=== PATIENT | female | born 1945 | race African-American/Black ===

== ENCOUNTER → 2017-01-30 | Outpatient (CLI) | payer MEDICARE, OTHER ==
[~2017-01-30] MED LIST: ADVA250A INH; ALBU1.253 NEB; ALBU1AER INH; ALBU6.7H INH; BAYE2KIT XX; BUFF325T PO; ERGO50000 PO; GLUC10TA3 PO; HYDRO2.5%T TOP; IPRA17I INH; METF-324 PO; METO10TA PO; MONT10TA2 PO; NEBUKIT4 XX; POTA-243 PO; PREV30CA36 PO; SENN1TAB11 PO; VITA100T15 PO; lancets; test strips
[2017-01-30 13:30] LABS: HEMOGLOBIN A1a 1.4 %; HEMOGLOBIN A1b 2.1 %; HEMOGLOBIN Ao 82.7 %; HEMOGLOBIN LA1C 2.1 %; HEMOGLOBIN P3 3.9 %
[2017-01-30 13:50] LABS: ALKALINE PHOSPHATASE 97 U/L (45-117); ALT (GPT) 18 U/L (10-53); ANION GAP 8 MEQ/L (5-15); AST (GOT) 18 U/L (15-37); BICARBONATE 29.7 MEQ/L (21.0-32.0); BLOOD UREA NITROGEN 8 MG/DL (7-18); CHLORIDE 103 MEQ/L (98-107); GLOMERULAR FILTRATION RATE 79 ML/MIN (>89); GLUCOSE,FASTING 100 MG/DL (74-99); POTASSIUM 3.7 MEQ/L (3.5-5.1); SODIUM (NA) 141 MEQ/L (136-145); TOTAL BILIRUBIN ADULT 0.3 MG/DL (0.2-1.0)
== END ==
LOC: CLAB 13:00
PROVIDERS: ATTEND General Practice
DX: E11.9 Type 2 diabetes mellitus without complications (principal)
CPT/HCPCS: 36415; 80053; 83036

== ENCOUNTER → 2017-06-19 | Outpatient (CLI) | payer MEDICARE, OTHER ==
[2017-06-19 09:23] LABS: ANION GAP 9 MEQ/L (5-15); AST (GOT) 15 U/L (15-37); BICARBONATE 28.2 MEQ/L (21.0-32.0); BLOOD UREA NITROGEN 4 MG/DL (7-18); CHLORIDE 103 MEQ/L (98-107); GLUCOSE,FASTING 105 MG/DL (74-99); POTASSIUM 3.1 MEQ/L (3.5-5.1); SODIUM (NA) 140 MEQ/L (136-145)
[2017-06-19 09:27] LABS: ALKALINE PHOSPHATASE 110 U/L (45-117); ALT (GPT) 10 U/L (10-53); GLOMERULAR FILTRATION RATE 90 ML/MIN (>89); TOTAL BILIRUBIN ADULT 0.2 MG/DL (0.2-1.0)
[2017-06-19 16:14] LABS: HEMOGLOBIN A1a 1.3 %; HEMOGLOBIN A1b 2.2 %; HEMOGLOBIN Ao 81.9 %; HEMOGLOBIN LA1C 2.2 %; HEMOGLOBIN P3 4.1 %
== END ==
LOC: CLAB 08:28
PROVIDERS: ATTEND General Practice
DX: E11.9 Type 2 diabetes mellitus without complications (principal)
CPT/HCPCS: 36415; 80053; 83036

== ENCOUNTER 2017-12-06 18:12 | Inpatient (IN) | payer MEDICARE, OTHER ==
[~2017-12-06] VITALS: Ht 161.3 cm; Wt 63.6 kg
[2017-12-06 18:16] VITALS: BP 118/86; PULSE 91; RESP 16; TEMP 100.5; O2SAT 95
[2017-12-06 19:29] LABS: AUTOMATED NEUTROPHIL # 5.1 TH/MM3 (1.8-7.7); BASOPHIL % 0.3 % (0.0-2.0); HEMATOCRIT 38.8 % (35.0-46.0); HEMOGLOBIN 13.2 GM/DL (11.6-15.3); LYMPH % 14.1 % (9.0-44.0); LYMPHOCYTE # 0.9 TH/MM3 (1.0-4.8); MEAN CELL VOLUME 93.3 FL (80.0-100.0); MEAN CORPUSCULAR HEMOGLOBIN 31.7 PG (27.0-34.0); MEAN CORPUSCULAR HGB CONC 33.9 % (32.0-36.0); MEAN PLATELET VOLUME 9.6 FL (7.0-11.0); MONO % 8.5 % (0.0-8.0); MONOCYTE # 0.6 TH/MM3 (0-0.9); NEUT % 77.1 % (16.0-70.0); PLATELET COUNT 147 TH/MM3 (150-450); RED BLOOD COUNT 4.16 MIL/MM3 (4.00-5.30); WHITE BLOOD COUNT 6.6 TH/MM3 (4.0-11.0)
[2017-12-06 19:42] LABS: LACTIC ACID SEPSIS PROTOCOL 2.8 mmol/L (0.4-2.0)
[2017-12-06 19:45] VITALS: BP 151/63; PULSE 76; RESP 18; O2SAT 95
[2017-12-06 19:49] LABS: INTERNATIONAL NORMALIZED RATIO 1.1 RATIO; PROTHROMBIN TIME - PATIENT 10.7 SEC (9.8-11.6)
[2017-12-06 19:53] LABS: ALBUMIN 3.4 GM/DL (3.4-5.0); AST (GOT) 29 U/L (15-37); BICARBONATE 26.8 MEQ/L (21.0-32.0); BLOOD UREA NITROGEN 8 MG/DL (7-18); CALCIUM 8.8 MG/DL (8.5-10.1); CHLORIDE 96 MEQ/L (98-107); CREATININE 0.96 MG/DL (0.50-1.00); GLOMERULAR FILTRATION RATE 70 ML/MIN (>89); GLUCOSE,RANDOM 187 MG/DL (74-106); SODIUM (NA) 132 MEQ/L (136-145)
[2017-12-06 19:54] LABS: ALT (GPT) 17 U/L (10-53)
--- NOTE | 2017-12-06 19:55 | RADRPT ---
EXAM DATE/TIME: 12/06/2017 19:10 [facility] COMPARISON: No previous studies available for comparison. INDICATIONS : Fever. MEDICAL HISTORY : None. SURGICAL HISTORY : None. ENCOUNTER: Initial ACUITY: 3 days PAIN SCORE: 0/10 LOCATION: Bilateral chest FINDINGS: Mild subsegmental air space disease. No effusion. No pneumothorax. Mildly tortuous aorta. Heart size mildly enlarged. CONCLUSION: 1. Mild basilar airspace disease. No significant effusion. No pneumothorax. Gaudencio Hood MD on December 06, 2017 at 19:51 Board Certified Radiologist. This report was verified electronically.
[2017-12-06 19:58] LABS: ALKALINE PHOSPHATASE 93 U/L (45-117); TOTAL BILIRUBIN ADULT 0.3 MG/DL (0.2-1.0); TROPONIN I LESS THAN 0.02 NG/ML (0.02-0.05)
[2017-12-06] MEDS ORDERED: AZTREONAM INJ 2,000 MG in SODIUM CHLORIDE 0.9% INJ 100 ML IV STA (20:14)
[2017-12-06] MEDS ORDERED: LEVOFLOXACIN 750 MG PREMIX INJ 150 ML IV STA (20:14)
--- NOTE | 2017-12-06 20:24 | PD ---
HPI . Flulike symptoms Chief Complaint: Altered Mental Status Time Seen by Provider: 19:41 Travel History International Travel<30 days: No Contact w/Intl Traveler<30days: No Traveled to known affect area: No History of Present Illness HPI The patient presented with the chief complaint of altered mental status. However, she is able to give me a complete history. She reports the onset of flulike symptoms over a week ago. Symptoms have persisted and worsened. She states that she has been running a fever for the last week. She has a cough productive of sputum. She has associated myalgias and has developed incontinence of both urine and stool. She has also started having falls. No injuries associated with the falls. Pertinent underlying medical history is COPD. Other medical problems include coronary artery disease, previous TIA, diabetes, hypertension and hyperlipidemia. PFSH Past Medical History Diabetes: Yes Patient Takes Glucophage: Yes (METFORMIN) Hypertension: Yes Tetanus Vaccination: Unknown Influenza Vaccination: No ?: Not Past Surgical History Other Surgery: No Social History Alcohol Use: No Tobacco Use: Yes (HALF A PACK ) Substance Use: Yes (WEED) Allergies-Medications (Allergen,Severity, Reaction): Coded Allergies: cephalexin (Unverified Allergy, Severe, 12/06/17) Reported Meds & Prescriptions Reported Meds & Active Scripts Active Reported Prevacid (Lansoprazole) 15 Mg Capdr 15 Mg PO HS Singulair (Montelukast Sodium) 10 Mg Tab 10 Mg PO HS Proair Hfa 8.5 GM Inh (Albuterol Sulfate) 90 Mcg/Act Aer 2 Puff INH Q4-6H PRN 108 mcg/actuation Proventil Hfa 6.7 GM Inh (Albuterol Sulfate) 90 Mcg/Act Aer 2 Puff INH Q4-6H PRN Reglan (Metoclopramide HCl) 5 Mg Tab 5 Mg PO QID Glipizide 5 Mg Tab 5 Mg PO DAILY Take 30 minutes before a meal Metformin (Metformin HCl) 1,000 Mg Tab 1,000 Mg PO DAILY With a meal Lisinopril 10 Mg Tab 10 Mg PO DAILY Review of Systems Except as stated in HPI: all other systems reviewed are Neg General / Constitutional: Positive: Fever, Chills Respiratory: Positive: Cough, Wheezing Musculoskeletal: Positive: Myalgias Neurologic: Positive: Weakness, Incontinence Physical Exam Narrative GENERAL: Patient is lucid. She is oriented to self, place, situation and day of the week. SKIN: warm/dry. Normal color and turgor. Skin is dry. HEAD: Normocephalic. Atraumatic. EYES: Pupils equal and round. No scleral icterus. No injection or drainage. ENT: No nasal bleeding or discharge. Mucous membranes pink and moist. NECK: Trachea midline. Full range of motion without pain.. CARDIOVASCULAR: Regular rate and rhythm. Heart sounds are normal. RESPIRATORY: No accessory muscle use. Diffuse coarse expiratory wheezing. Breath sounds equal bilaterally. GASTROINTESTINAL: Abdomen soft. Nontender. Bowel sounds present. Nondistended. MUSCULOSKELETAL: No obvious deformities. NEUROLOGICAL: Awake and alert. No obvious cranial nerve deficits. Motor grossly within normal limits. Normal speech. PSYCHIATRIC: Appropriate mood and affect; insight and judgment normal. Data Data Last Documented VS Vital Signs Date Time Temp Pulse Resp B/P (MAP) Pulse Ox O2 Delivery O2 Flow Rate FiO2 12/06/17 19:45 76 18 151/63 (92) 95 Room Air 12/06/17 18:16 100.5 Orders Orders Electrocardiogram (12/06/17 18:25) Complete Blood Count With Diff (12/06/17 18:25) Comprehensive Metabolic Panel (12/06/17 18:25) Creatine Kinase (Cpk) (12/06/17 18:25) Prothrombin Time / Inr (Pt) (12/06/17 18:25) Act Partial Throm Time (Ptt) (12/06/17 18:25) Troponin I (12/06/17 18:25) Urinalysis - C+S If Indicated (12/06/17 18:25) Lactic Acid Sepsis Protocol (12/06/17 18:25) Chest, Pa & Lat (12/06/17 18:25) CKMB (12/06/17 18:46) CKMB% (12/06/17 18:46) Blood Culture (12/06/17 20:14) Aztreonam Inj (Azactam Inj) (12/06/17 20:14) Levofloxacin 750 Mg Premix Inj (Levaquin (12/06/17 20:14) Albuterol-Ipratropium Neb (Duoneb Neb) (12/06/17 22:00) Admit Order (Ed Use Only) (12/06/17 ) Vital Signs (Adult) Q4H (12/06/17 22:04) Diet Heart Healthy (12/07/17 Breakfast) Activity Oob With Assistance (12/06/17 22:04) Notify Dr: Other (12/06/17 22:04) Labs Laboratory Tests Test 12/06/17 18:46 12/06/17 19:49 White Blood Count 6.6 TH/MM3 Red Blood Count 4.16 MIL/MM3 Hemoglobin 13.2 GM/DL Hematocrit 38.8 % Mean Corpuscular Volume 93.3 FL Mean Corpuscular Hemoglobin 31.7 PG Mean Corpuscular Hemoglobin Concent 33.9 % Red Cell Distribution Width 16.0 % Platelet Count 147 TH/MM3 Mean Platelet Volume 9.6 FL Neutrophils (%) (Auto) 77.1 % Lymphocytes (%) (Auto) 14.1 % Monocytes (%) (Auto) 8.5 % Eosinophils (%) (Auto) 0.0 % Basophils (%) (Auto) 0.3 % Neutrophils # (Auto) 5.1 TH/MM3 Lymphocytes # (Auto) 0.9 TH/MM3 Monocytes # (Auto) 0.6 TH/MM3 Eosinophils # (Auto) 0.0 TH/MM3 Basophils # (Auto) 0.0 TH/MM3 CBC Comment DIFF FINAL Differential Comment Prothrombin Time 10.7 SEC Prothromb Time International Ratio 1.1 RATIO Activated Partial Thromboplast Time 31.0 SEC Blood Urea Nitrogen 8 MG/DL Creatinine 0.96 MG/DL Random Glucose 187 MG/DL Total Protein 8.0 GM/DL Albumin 3.4 GM/DL Calcium Level 8.8 MG/DL Alkaline Phosphatase 93 U/L Aspartate Amino Transf (AST/SGOT) 29 U/L Alanine Aminotransferase (ALT/SGPT) 17 U/L Total Bilirubin 0.3 MG/DL Sodium Level 132 MEQ/L Potassium Level 3.3 MEQ/L Chloride Level 96 MEQ/L Carbon Dioxide Level 26.8 MEQ/L Anion Gap 9 MEQ/L Estimat Glomerular Filtration Rate 70 ML/MIN Lactic Acid Level 2.8 mmol/L Total Creatine Kinase 390 U/L Creatine Kinase MB 1.2 NG/ML Creatine Kinase MB % 0.3 % Troponin I LESS THAN 0.02 NG/ML Urine Color YELLOW Urine Turbidity CLEAR Urine pH 5.5 Urine Specific [place] 1.005 Urine Protein TRACE mg/dL Urine Glucose (UA) NEG mg/dL Urine Ketones NEG mg/dL Urine Occult Blood NEG Urine Nitrite NEG Urine Bilirubin NEG Urine Urobilinogen LESS THAN 2.0 MG/DL Urine Leukocyte Esterase NEG Urine RBC LESS THAN 1 /hpf Urine WBC 1 /hpf Urine Squamous Epithelial Cells <1 /hpf Microscopic Urinalysis Comment CATH-CULT NOT IND MDM Medical Decision Making Medical Screen Exam Complete: Yes Emergency Medical Condition: Yes Interpretation(s) EKG shows a sinus rhythm. She has T-wave inversion in her anterior leads. Differential Diagnosis Differential diagnosis includes but is not limited to viral respiratory illness , bronchitis, pneumonia, allergies, CHF, asthma/COPD. Narrative Course Patient presents with a week long history of cough with sputum production and fever. Last Impressions Chest X-Ray 12/06/17 1825 Signed Impressions: Service Date/Time: Wednesday, December 06, 2017 19:10 - CONCLUSION: 1. Mild basilar airspace disease. No significant effusion. No pneumothorax. Gaudencio Hood MD The chest x-ray was independently viewed by me. Blood cultures along with aztreonam and Levaquin I have been ordered. CBC & BMP Diagram 12/06/17 18:46 Total Protein 8.0, Albumin 3.4, Calcium Level 8.8, Alkaline Phosphatase 93, Aspartate Amino Transf (AST/SGOT) 29, Alanine Aminotransferase (ALT/SGPT) 17, Total Bilirubin 0.3 LA 2.8. However, she does not meet SIRS criteria. trop < 0.02 Sepsis Criteria SIRS Criteria (2 or more): Heart rate over [address] Phys[address] Physician Communication Dr. Toro Diagnosis Primary Impression: Pneumonia Qualified Codes: J18.9 - Pneumonia, unspecified organism Admitting Information Admitting Physician Requests: Observation Condition: Stable Karlie Hairston MD Dec 06, 2017 20:24
[2017-12-06] MEDS ORDERED: REGL5TAB PO (20:27)
[2017-12-06] MEDS ORDERED: ALBU6.7H INH (20:27)
[2017-12-06] MEDS ORDERED: GLIP5TAB8 PO (20:27)
[2017-12-06] MEDS ORDERED: PREV15CA20 PO (20:27)
[2017-12-06] MEDS ORDERED: METF1000 PO (20:27)
[2017-12-06] MEDS ORDERED: MONT10TA2 PO (20:27)
[2017-12-06] MEDS ORDERED: LISI10TA3 PO (20:27)
[2017-12-06] MEDS ORDERED: ALBUAER3 INH (20:27)
[2017-12-06 20:48] LABS: BILIRUBIN, URINE NEG (NEG); BLOOD, URINE NEG (NEG); GLUCOSE,URINE NEG (NEG); KETONE, URINE NEG (NEG); NITRITE,URINE NEG (NEG); PH, URINE 5.5 (5.0-8.5); SQUAMOUS EPITHELIAL CELL URINE <1 /hpf (0-5); URINE COLOR YELLOW (YELLW/STRAW); URINE LEUKOCYTE ESTERASE NEG (NEG)
[2017-12-06] MEDS ORDERED: POTASSIUM CHLORIDE 20 MEQ CONTROLLED RELEASE TAB PO ONE (22:15)
[2017-12-06] MEDS ORDERED: SODIUM CHLORIDE 0.9% FLUSH 10 ML FLUSH IV FLUSH PRN (22:15)
[2017-12-06] MEDS ORDERED: ACETAMINOPHEN 325 MG TAB PO PRN (22:15)
[2017-12-06] MEDS ORDERED: RESP: ALBUTEROL 2.5 MG/IPRATROPIUM 0.5 MG NEB (PRN) INH (22:15)
[2017-12-06] MEDS ORDERED: guaiFENesin/DEXTROMETHORPHAN 200 MG/20 MG/10 ML CUP PO PRN (22:15)
[2017-12-06] MEDS ORDERED: ONDANSETRON HCL 4 MG/2 ML VIAL IV PUSH PRN (22:15)
[2017-12-06 22:25] VITALS: BP 129/61; PULSE 78; RESP 18; O2SAT 97
[2017-12-06 22:35] VITALS: O2SAT 97
[2017-12-06 22:50] VITALS: BP 141/89; PULSE 94; RESP 18; O2SAT 92
[2017-12-06] MEDS: RESP: ALBUTEROL 2.5 MG/IPRATROPIUM 0.5 MG NEB (SCH) INH ×2 (22:54→22:55)
[2017-12-06] MEDS: MONTELUKAST SODIUM 10 MG TAB PO SCH (23:41)
[2017-12-06] MEDS: PANTOPRAZOLE SOD 20 MG DELAYED RELEASE TAB PO SCH (23:41)
[2017-12-06] MEDS: ENOXAPARIN SODIUM 40 MG/0.4 ML SYRINGE SQ SCH (23:41)
[2017-12-07] VITALS (9 sets, daily range): BP systolic 81–161; BP diastolic 45–67; PULSE 57–94; RESP 16–18; TEMP 97.4–99; O2SAT 93–100
[2017-12-07] MEDS ORDERED: DEXTROSE 50% IN WATER 50 ML VIAL(D50) IV PUSH PRN (00:15)
[2017-12-07] MEDS ORDERED: GLUCAGON 1 MG/ML VIAL OTHER PRN (00:15)
--- NOTE | 2017-12-07 00:21 | HHI.HP ---
[facility] Service [facility] Primary Care Physician David Gee MD Admission Diagnosis pneumonia Diagnoses: Travel History International Travel<30 Days: No Contact w/Intl Traveler <30 Da: No Traveled to Known Affected Are: No History of Present Illness 79-year-old female with a past medical history significant for diabetes mellitus , hypertension, hyperlipidemia and COPD was brought to the emergency department by her granddaughter for evaluation of a 3 month history of increasing forgetfulness and declining physical health. Per her granddaughter the patient has become increasingly forgetful, not remembering why she would go to the kitchen for a soda and repeating various conversations. The patient also has had several episodes of incontinence. She has become increasingly unsteady on her feet and suffered a fall recently (the exact timing is not known). The patient complains of right shoulder and right leg pain. She lives alone. During evaluation in the emergency department patient was found to be febrile with elevated lactic acid and chest x-ray concerning for early pneumonia. The patient reports she has had a productive cough with fevers and chills for approximately one week. Review of Systems Subjective fever/chills Denies blurry vision, otorrhea, rhinorrhea Denies sore throat, positive productive cough No chest pain, palpitations Positive shortness of breath/wheezing No abdominal pain Denies constipation/diarrhea/nausea/vomiting Denies muscle pain Denies focal weakness No rashes Past Family Social History Past Medical History Diabetes mellitus Hypertension Hyperlipidemia COPD (not on home oxygen) Past Surgical History Hysterectomy Reported Medications Reported Meds & Active Scripts Active Reported Prevacid (Lansoprazole) 15 Mg Capdr 15 Mg PO HS Singulair (Montelukast Sodium) 10 Mg Tab 10 Mg PO HS Proair Hfa 8.5 GM Inh (Albuterol Sulfate) 90 Mcg/Act Aer 2 Puff INH Q4-6H PRN 108 mcg/actuation Proventil Hfa 6.7 GM Inh (Albuterol Sulfate) 90 Mcg/Act Aer 2 Puff INH Q4-6H PRN Reglan (Metoclopramide HCl) 5 Mg Tab 5 Mg PO QID Glipizide 5 Mg Tab 5 Mg PO DAILY Take 30 minutes before a meal Metformin (Metformin HCl) 1,000 Mg Tab 1,000 Mg PO DAILY With a meal Lisinopril 10 Mg Tab 10 Mg PO DAILY Allergies: Coded Allergies: cephalexin (Unverified Allergy, Severe, 12/06/17) Family History Negative for CAD/DM Social History Positive tobacco. Denies alcohol or illicit drugs. Physical Exam Vital Signs Vital Signs Date Time Temp Pulse Resp B/P (MAP) Pulse Ox O2 Delivery O2 Flow Rate FiO2 12/06/17 22:25 78 18 129/61 (83) 97 Room Air 12/06/17 19:45 76 18 151/63 (92) 95 Room Air 12/06/17 18:16 100.5 91 16 118/86 (97) 95 Physical Exam GENERAL: Thin, female lying in bed SKIN: No rashes, ecchymoses or lesions. Cool and dry. HEAD: Atraumatic. Normocephalic. No temporal or scalp tenderness. EYES: Pupils equal round and reactive. Extraocular motions intact. No scleral icterus. No injection or drainage. ENT: Nose without bleeding, purulent drainage or septal hematoma. Throat without erythema, tonsillar hypertrophy or exudate. Uvula midline. Airway patent. NECK: Trachea midline. No JVD or lymphadenopathy. Supple, nontender, no meningeal signs. CARDIOVASCULAR: Regular rate and rhythm without murmurs, gallops, or rubs. RESPIRATORY: Upper airway sounds present. Bilateral expiratory wheezes. GASTROINTESTINAL: Abdomen soft, non-tender, nondistended. No hepato-splenomegaly , or palpable masses. No guarding. MUSCULOSKELETAL: Extremities without clubbing, cyanosis, or edema. No joint tenderness, effusion, or edema noted. No calf tenderness. NEUROLOGICAL: Awake and alert. Cranial nerves II through XII intact. Motor and sensory grossly within normal limits. Normal speech. Laboratory Laboratory Tests Test 12/06/17 18:46 12/06/17 19:49 12/06/17 22:15 White Blood Count 6.6 Red Blood Count 4.16 Hemoglobin 13.2 Hematocrit 38.8 Mean Corpuscular Volume 93.3 Mean Corpuscular Hemoglobin 31.7 Mean Corpuscular Hemoglobin Concent 33.9 Red Cell Distribution Width 16.0 Platelet Count 147 Mean Platelet Volume 9.6 Neutrophils (%) (Auto) 77.1 Lymphocytes (%) (Auto) 14.1 Monocytes (%) (Auto) 8.5 Eosinophils (%) (Auto) 0.0 Basophils (%) (Auto) 0.3 Neutrophils # (Auto) 5.1 Lymphocytes # (Auto) 0.9 Monocytes # (Auto) 0.6 Eosinophils # (Auto) 0.0 Basophils # (Auto) 0.0 CBC Comment DIFF FINAL Differential Comment Prothrombin Time 10.7 Prothromb Time International Ratio 1.1 Activated Partial Thromboplast Time 31.0 Blood Urea Nitrogen 8 Creatinine 0.96 Random Glucose 187 Total Protein 8.0 Albumin 3.4 Calcium Level 8.8 Alkaline Phosphatase 93 Aspartate Amino Transf (AST/SGOT) 29 Alanine Aminotransferase (ALT/SGPT) 17 Total Bilirubin 0.3 Sodium Level 132 Potassium Level 3.3 Chloride Level 96 Carbon Dioxide Level 26.8 Anion Gap 9 Estimat Glomerular Filtration Rate 70 Lactic Acid Level 2.8 2.2 Total Creatine Kinase 390 Creatine Kinase MB 1.2 Creatine Kinase MB % 0.3 Troponin I LESS THAN 0.02 Urine Color YELLOW Urine Turbidity CLEAR Urine pH 5.5 Urine Specific [place] 1.005 Urine Protein TRACE Urine Glucose (UA) NEG Urine Ketones NEG Urine Occult Blood NEG Urine Nitrite NEG Urine Bilirubin NEG Urine Urobilinogen LESS THAN 2.0 Urine Leukocyte Esterase NEG Urine RBC LESS THAN 1 Urine WBC 1 Urine Squamous Epithelial Cells <1 Microscopic Urinalysis Comment CATH-CULT NOT IND Date/Time Source Procedure Growth Status 12/06/17 20:40 Blood Peripheral Aerobic Blood Culture Pending Received 12/06/17 20:40 Blood Peripheral Anaerobic Blood Culture Pending Received Result Diagram: 12/06/17 1846 12/06/17 1846 Caprini VTE Risk Assessment Caprini VTE Risk Assessment: Mod/High Risk (score >= 2) Caprini Risk Assessment Model Point Value = 1 Point Value = 2 Point Value = 3 Point Value = 5 Age 41-60 Minor surgery BMI > 25 kg/m2 Swollen legs Varicose veins or History of unexplained or recurrent spontaneous Oral contraceptives or hormone replacement Sepsis (< 1 month) Serious lung disease, including pneumonia (< 1 month) Abnormal pulmonary function Acute myocardial infarction Congestive heart failure (< 1 month) History of inflammatory bowel disease Medical patient at bed rest Age 61-74 Arthroscopic surgery Major open surgery (> 45 min) Laparoscopic surgery (> 45 min) Malignancy Confined to bed (> 72 hours) Immobilizing plaster cast Central venous access Age >= 75 History of VTE Family history of VTE Factor V Leiden Prothrombin [id number] Lupus anticoagulant Anticardiolipin antibodies Elevated serum homocysteine Heparin-induced thrombocytopenia Other congenital or acquired thrombophilia Stroke (< 1 month) Elective arthroplasty Hip, pelvis, or leg fracture Acute spinal cord injury (< 1 month) Prophylaxis Regimen Total Risk Factor Score Risk Level Prophylaxis Regimen 0-1 Low Early ambulation 2 Moderate Order ONE of the following: *Sequential Compression Device (SCD) *Heparin 5000 units SQ BID 3-4 Higher Order ONE of the following medications: *Heparin 5000 units SQ TID *Enoxaparin/Lovenox 40 mg SQ daily (WT < 150 kg, CrCl > 30 mL/min) *Enoxaparin/Lovenox 30 mg SQ daily (WT < 150 kg, CrCl > 10-29 mL/min) *Enoxaparin/Lovenox 30 mg SQ BID (WT < 150 kg, CrCl > 30 mL/min) AND/OR *Sequential Compression Device (SCD) 5 or more Highest Order ONE of the following medications: *Heparin 5000 units SQ TID (Preferred with Epidurals) *Enoxaparin/Lovenox 40 mg SQ daily (WT < 150 kg, CrCl > 30 mL/min) *Enoxaparin/Lovenox 30 mg SQ daily (WT < 150 kg, CrCl > 10-29 mL/min) *Enoxaparin/Lovenox 30 mg SQ BID (WT < 150 kg, CrCl > 30 mL/min) AND *Sequential Compression Device (SCD) Assessment and Plan Assessment and Plan Assessment/plan: 1. Pneumonia Patient with productive cough and fevers Lactic acid 2.8, repeat lactic acid pending Chest x-ray concerning for early pneumonia, images reviewed by me Melissa Feliciano 2. Altered mental status/physical decline/status post fall Right shoulder x-ray pending Likely component of dementia Cognitive evaluation pending Physical therapy evaluation pending Patient lives alone at this time, may require assistance at home 3. COPD PO Steroids DuoNebs Supplemental O2 prn 4. Diabetes mellitus Holding home metformin SSI Monitor BG 5. Hypertension/hyperlipidemia Not on any home medications FEN Heart healthy diet Electrolytes: Status post G-tube replacement of potassium, monitor BMP Lovenox NS at 75 cc/hr Suzanne Toro MD Dec 07, 2017 00:21
--- NOTE | 2017-12-07 00:29 | EKG ---
Date Performed: 12/06/2017 Time Performed: 18:53:04 PTAGE: 72 years EKG: Sinus rhythm WITH SHORT NM INTERVAL MODERATE T-WAVE ABNORMALITY, CONSIDER ANTEROLATERAL ISCHEMIA ABNORMAL ECG PREVIOUS TRACING : 10/15/2010 10.47 Compared to prior tracing, anterolateral changes are more pronounced DOCTOR: Farooq Ace Interpretating Date/Time 12/07/2017 00:28:47
[2017-12-07] MEDS: SODIUM CHLOR 0.9% 1000 ML INJ 1,000 ML IV SCH ×2 (01:38→17:47)
[2017-12-07] MEDS: RESP: ALBUTEROL 2.5 MG/IPRATROPIUM 0.5 MG NEB (SCH) INH ×4 (04:16→21:55)
[2017-12-07 05:37] LABS: AUTOMATED NEUTROPHIL # 5.5 TH/MM3 (1.8-7.7); BASOPHIL % 0.2 % (0.0-2.0); HEMATOCRIT 36.5 % (35.0-46.0); HEMOGLOBIN 12.7 GM/DL (11.6-15.3); LYMPH % 18.1 % (9.0-44.0); LYMPHOCYTE # 1.4 TH/MM3 (1.0-4.8); MEAN CELL VOLUME 93.2 FL (80.0-100.0); MEAN CORPUSCULAR HEMOGLOBIN 32.4 PG (27.0-34.0); MEAN CORPUSCULAR HGB CONC 34.7 % (32.0-36.0); MEAN PLATELET VOLUME 9.8 FL (7.0-11.0); MONO % 9.4 % (0.0-8.0); MONOCYTE # 0.7 TH/MM3 (0-0.9); NEUT % 72.3 % (16.0-70.0); PLATELET COUNT 131 TH/MM3 (150-450); RED BLOOD COUNT 3.91 MIL/MM3 (4.00-5.30); RED CELL DISTRIBUTION WIDTH 15.5 % (11.6-17.2); WHITE BLOOD COUNT 7.6 TH/MM3 (4.0-11.0)
[2017-12-07 05:46] LABS: BICARBONATE 30.4 MEQ/L (21.0-32.0); CALCIUM 8.3 MG/DL (8.5-10.1); CREATININE 0.89 MG/DL (0.50-1.00)
[2017-12-07] MEDS: INSULIN ASPART SUPPLEMENTAL SCALE SQ SCH ×4 (08:00→20:47)
[2017-12-07] MEDS ORDERED: INFLUENZA VIRUS VACCINE (QUADRIVALENT) 0.5 ML SYR IM ONE (09:00)
[2017-12-07] MEDS ORDERED: PNEUMOCOCCAL POLYVALENT INJ 25 MCG/0.5 ML SYR IM ONE (09:00)
[2017-12-07] MEDS ORDERED: BENZONATATE 100 MG CAP PO PRN (09:15)
[2017-12-07] MEDS: LISINOPRIL 10 MG TAB PO SCH (09:25)
[2017-12-07] MEDS: SODIUM CHLORIDE 0.9% FLUSH 10 ML FLUSH IV FLUSH SCH (09:25)
[2017-12-07] MEDS: predniSONE 20 MG TAB PO SCH (09:25)
[2017-12-07] MEDS: METOCLOPRAMIDE HCL 10 MG TAB PO SCH ×3 (09:25→17:46)
--- NOTE | 2017-12-07 09:25 | RADRPT ---
EXAM DATE/TIME: 12/07/2017 08:48 [facility] COMPARISON: No previous studies available for comparison. INDICATIONS : Chronic right shoulder pain. MEDICAL HISTORY : None. SURGICAL HISTORY : None. ENCOUNTER: Initial ACUITY: >1 year PAIN SCORE: 4/10 LOCATION: Right shoulder. FINDINGS: 4 views of the right shoulder. Mild hypertrophic change of the acromioclavicular joint. Moderate-size d subacromial bone spur. High riding humeral head indicating possible rotator cuff insufficiency. Imp ingement type change of the proximal humerus. No evidence of fracture. Glenohumeral joint within norm al limits. CONCLUSION: 1. Mild acromioclavicular joint arthrosis. Subacromial bone spur. 2. Impingement type change of the proximal humerus and high riding humeral head suggesting possible r otator cuff insufficiency. Dennys Arvizu MD on December 07, 2017 at 9:21 Board Certified Radiologist. This report was verified electronically.
[2017-12-07] MEDS: guaiFENesin E.R. 600 MG TAB PO SCH (10:00)
--- NOTE | 2017-12-07 11:11 | HHI.PR ---
Subjective Remarks Follow-up pneumonia. Reports of productive cough no shortness of breath. She is oriented 3 not to time. She has poor recent memory. Discussed with nursing staff Objective Vitals Vital Signs Date Time Temp Pulse Resp B/P (MAP) Pulse Ox O2 Delivery O2 Flow Rate FiO2 12/07/17 07:55 96 12/07/17 07:49 99.0 84 18 142/65 (90) 96 12/07/17 03:44 98.2 88 18 161/67 (98) 93 12/06/17 22:50 94 18 141/89 (106) 92 12/06/17 22:35 97 21 12/06/17 22:25 78 18 129/61 (83) 97 Room Air 12/06/17 19:45 76 18 151/63 (92) 95 Room Air 12/06/17 18:16 100.5 91 16 118/86 (97) 95 I/O 12/06/17 12/06/17 12/06/17 12/07/17 12/07/17 12/07/17 07:00 15:00 23:00 07:00 15:00 23:00 Intake Total 270 ml Balance 270 ml Intake Oral 120 ml IV Total 150 ml Result Diagram: 12/07/17 0455 12/07/17 0455 Imaging Last Impressions Shoulder X-Ray 12/07/17 0000 Signed Impressions: Service Date/Time: November 08:48 - CONCLUSION: 1. Mild acromioclavicular joint arthrosis. Subacromial bone spur. 2. Impingement type change of the proximal humerus and high riding humeral head suggesting possible rotator cuff insufficiency. Dennys Arvizu MD Chest X-Ray 12/06/17 1825 Signed Impressions: Service Date/Time: Wednesday, December 06, 2017 19:10 - CONCLUSION: 1. Mild basilar airspace disease. No significant effusion. No pneumothorax. Gaudencio Hood MD Objective Remarks GENERAL: Thin, female lying in bed Skin is warm and dry no lesions CARDIOVASCULAR: Regular rate and rhythm without murmurs, gallops, or rubs. RESPIRATORY: Upper airway sounds present. Bilateral expiratory wheezes and rhonchi. GASTROINTESTINAL: Abdomen soft, non-tender, nondistended. No guarding. MUSCULOSKELETAL: Extremities without clubbing, cyanosis, or edema. No joint tenderness, effusion, or edema noted. No calf tenderness. NEUROLOGICAL: Awake and alert. Cranial nerves II through XII intact. Motor and sensory grossly within normal limits. Normal speech. Procedures None A/P Problem List: (1) Pneumonia ICD Code: J18.9 - Pneumonia, unspecified organism Status: Acute Assessment and Plan 1. Pneumonia with severe sepsis Patient with productive cough and fevers Lactic acid 2.8, repeat lactic acid pending Chest x-ray concerning for early pneumonia, images reviewed by me Add aztreonam to Levaquin follow-up cultures IVFs 2. Altered mental status/physical decline/status post fall Right shoulder x-ray without acute findings Likely component of dementia ST for cognition Physical therapy Patient lives alone at this time, may require assistance at home Check head CT, B-12, RPR and TSH 3. COPD PO Steroids DuoNebs Supplemental O2 prn 4. Diabetes mellitus Holding home metformin SSI Monitor BG 5. Hypertension/hyperlipidemia Not on any home medications FEN Heart healthy diet Lovenox NS at 75 cc/hr Problem Qualifiers (1) Pneumonia: Qualified Codes: J18.9 - Pneumonia, unspecified organism Jerry Polo MD Dec 07, 2017 11:11
[2017-12-07 11:33] LABS: FOLATE 9.2 NG/ML (3.1-17.5)
--- NOTE | 2017-12-07 12:06 | RADRPT ---
EXAM DATE/TIME: 12/07/2017 11:33 [facility] COMPARISON: No previous studies available for comparison. INDICATIONS : Altered mental status RADIATION DOSE: 56.35 CTDIvol (mGy) MEDICAL HISTORY : Hypertension. Diabetes SURGICAL HISTORY : None. ENCOUNTER: Initial ACUITY: 1 day PAIN SCALE: 0/10 LOCATION: cranial TECHNIQUE: Multiple contiguous axial images were obtained of the head. Using automated exposure control and adj ustment of the mA and/or kV according to patient size, radiation dose was kept as low as reasonably a chievable to obtain optimal diagnostic quality images. DICOM format image data is available electro nically for review and comparison. FINDINGS: There is no evidence for intracranial hemorrhage, mass effect, mass lesions, or edema. The visualize d bony structures appear intact. Slight degree of brain atrophy is seen. Slight periventricular whit e matter changes are seen nonspecific mostly consistent with chronic small vessel ischemic changes. There are no signs of acute infarction for technique. Findings since the patient's skull an approxima te 7-8 mm erosive changes involving the inner cortex of the left temporal bone. IMPRESSION: 1. Slight chronic small vessel ischemic and atrophic changes. 2. Punctate lucencies of the skull with slight erosive changes of left temporal bone of uncertain brian ology possibly chronic and due to osteoporotic changes, however multiple myeloma is not excluded. Davon Anderson MD on December 07, 2017 at 12:01 Board Certified Radiologist. This report was verified electronically.
[2017-12-07] MEDS: AZTREONAM INJ 2,000 MG in SODIUM CHLORIDE 0.9% INJ 100 ML IV SCH ×2 (12:14→21:27)
[2017-12-07] MEDS ORDERED: LEVOFLOXACIN 750 MG PREMIX INJ 150 ML IV SCH (21:00)
[2017-12-07] MEDS ORDERED: LEVOFLOXACIN 500 MG PREMIX INJ 100 ML IV SCH (21:00)
[2017-12-07 22:50] LABS: ALB/GLOB RATIO (SPE) 1.11 (1.39-2.23)
[2017-12-08] VITALS: BP_SYST 127; BP_SYST 136; BP_DIAS 69; BP_DIAS 96; PULSE 76; PULSE 84; RESP 18; RESP 20; TEMP 98.4; TEMP 98.5; O2SAT 96; O2SAT 97
[2017-12-08] MEDS: SODIUM CHLORIDE 0.9% FLUSH 10 ML FLUSH IV FLUSH SCH ×2 (00:41→09:57)
[2017-12-08] MEDS: guaiFENesin E.R. 600 MG TAB PO SCH ×2 (00:42→09:56)
[2017-12-08] MEDS: PANTOPRAZOLE SOD 20 MG DELAYED RELEASE TAB PO SCH (00:42)
[2017-12-08] MEDS: ENOXAPARIN SODIUM 40 MG/0.4 ML SYRINGE SQ SCH (00:42)
[2017-12-08] MEDS: predniSONE 20 MG TAB PO SCH ×2 (00:42→09:56)
[2017-12-08] MEDS: METOCLOPRAMIDE HCL 10 MG TAB PO SCH ×3 (00:42→14:13)
[2017-12-08] MEDS: MONTELUKAST SODIUM 10 MG TAB PO SCH (00:43)
[2017-12-08] MEDS: SODIUM CHLOR 0.9% 1000 ML INJ 1,000 ML IV SCH ×2 (02:50→14:15)
[2017-12-08] MEDS: RESP: ALBUTEROL 2.5 MG/IPRATROPIUM 0.5 MG NEB (SCH) INH ×3 (03:27→16:30)
[2017-12-08] MEDS: AZTREONAM INJ 2,000 MG in SODIUM CHLORIDE 0.9% INJ 100 ML IV SCH ×3 (04:42→12:11)
[2017-12-08 08:00] VITALS: BP 168/87; PULSE 80; RESP 18; TEMP 98.5; O2SAT 95
[2017-12-08] MEDS: INSULIN ASPART SUPPLEMENTAL SCALE SQ SCH ×2 (08:00→12:14)
[2017-12-08 08:51] VITALS: O2SAT 96
[2017-12-08] MEDS: LISINOPRIL 10 MG TAB PO SCH (09:57)
--- NOTE | 2017-12-08 11:17 | HHI.PR ---
Subjective Remarks Follow up pneumonia. Denies shortness of breath. Refusing rehabilitation. Discussed with nursing staff. Objective Vitals Vital Signs Date Time Temp Pulse Resp B/P (MAP) Pulse Ox O2 Delivery O2 Flow Rate FiO2 12/08/17 08:51 96 21 12/08/17 08:00 98.5 80 18 168/87 (114) 95 12/08/17 00:00 98.4 76 20 127/69 (88) 97 12/08/17 00:00 98.5 84 18 136/96 (109) 96 12/07/17 21:34 98.1 78 16 115/53 (73) 100 12/07/17 20:00 97 12/07/17 17:42 98.4 57 16 115/58 (77) 99 12/07/17 16:29 97.4 68 16 81/45 (57) 94 12/07/17 16:04 97.4 91 16 148/64 (92) 97 12/07/17 11:27 99.0 94 16 148/67 (94) 99 I/O 12/07/17 12/07/17 12/07/17 12/08/17 12/08/17 12/08/17 07:00 15:00 23:00 07:00 15:00 23:00 Intake Total 100 ml 200 ml Output Total 200 ml Balance 100 ml 0 ml Intake Oral 200 ml IV Total 100 ml Output Urine Total 200 ml # Bowel Movements 0 Result Diagram: 12/07/17 0455 12/07/17 0455 Imaging Last Impressions Shoulder X-Ray 12/07/17 0000 Signed Impressions: Service Date/Time: November 08:48 - CONCLUSION: 1. Mild acromioclavicular joint arthrosis. Subacromial bone spur. 2. Impingement type change of the proximal humerus and high riding humeral head suggesting possible rotator cuff insufficiency. Dennys Arvizu MD Chest X-Ray 12/06/17 1908 Signed Impressions: Service Date/Time: Wednesday, December 06, 2017 19:10 - CONCLUSION: 1. Mild basilar airspace disease. No significant effusion. No pneumothorax. Gaudencio Hood MD Objective Remarks GENERAL: Thin, female lying in bed Skin is warm and dry no lesions CARDIOVASCULAR: Regular rate and rhythm without murmurs, gallops, or rubs. RESPIRATORY: Upper airway sounds present. Improved expiratory wheezes and rhonchi. GASTROINTESTINAL: Abdomen soft, non-tender, nondistended. No guarding. MUSCULOSKELETAL: Extremities without clubbing, cyanosis, or edema. No joint tenderness, effusion, or edema noted. No calf tenderness. NEUROLOGICAL: Awake and alert. Cranial nerves II through XII intact. Motor and sensory grossly within normal limits. Normal speech. Procedures None A/P Problem List: (1) Pneumonia ICD Code: J18.9 - Pneumonia, unspecified organism Status: Acute Assessment and Plan 1. Pneumonia with severe sepsis Patient with productive cough and fevers Lactic acid 2.8, repeat lactic acid within normal limits Chest x-ray concerning for early pneumonia, images reviewed by me Cultures negative to date Continue aztreonam and Levaquin 2. Encephalopathy/physical decline/status post fall Right shoulder x-ray without acute findings Likely component of dementia ST for cognition Physical therapy Patient lives alone at this time, may require assistance at home Positive RPR obtain FTA 3. COPD exacerbation. Stable PO Steroids DuoNebs Supplemental O2 prn, oxygen walk test 4. Diabetes mellitus Holding home metformin SSI Monitor BG 5. Hypertension/hyperlipidemia Not on any home medications FEN Heart healthy diet Lovenox NS at 75 cc/hr Discharge Planning Discharge patient to home with visiting nurse and PT. Refusing rehabilitation Condition on discharge: Improved Regular Diet as tolerated Ad Shruthi activity no driving Rx written: Levaquin, prednisone, guaifenesin and oxygen Follow-up with primary care physician repeat chest x-ray in 6 weeks Problem Qualifiers (1) Pneumonia: Qualified Codes: J18.9 - Pneumonia, unspecified organism Jerry Polo MD Dec 08, 2017 11:17
[2017-12-08 11:35] VITALS: BP 186/65; PULSE 89; RESP 18; TEMP 98.9; O2SAT 96
[2017-12-08] MEDS ORDERED: cloNIDine HCL 0.1 MG TAB PO PRN (12:15)
[2017-12-08] MEDS ORDERED: LEVO750T3 PO (15:01)
[2017-12-08] MEDS ORDERED: PRED20 PO (15:01)
[2017-12-08] MEDS ORDERED: guaiFENesin ER PO (15:01)
--- NOTE | 2017-12-08 15:03 | HHI.FF ---
Face to Face Verification Diagnosis: (1) COPD (chronic obstructive pulmonary disease) (2) Dementia (3) HTN (hypertension) (4) Diabetes mellitus (5) GERD (gastroesophageal reflux disease) (6) Pneumonia Physical Therapy Order: Evaluate and Treat, Improve ambulation, Strength and gait training Occupational Therapy Order: Evaluate and Treat, Improve ADL Home Health Nursing Order: Medical education Signs/symptoms of disease process Diabetic education Nursing assessment with vital signs I have seen patient Christa Goyal on 12/08/17. My clinical findings support the need for the requested home health care services because: Patient has SOB Deconditioned w/ increased weakness Med compliance is questionable Limited ability to care for self Impaired cognition/judgement Infection w/ risk of complications I certify that my clinical findings support that this patient is homebound because: Impaired cognitive ability/safety Hx COPD- exertion dyspnea/weakness Unsteady gait/balance Unsafe to leave home unassisted Unable to use public transportation Gisselle Mtz PA-C Dec 08, 2017 3:03 pm
[2017-12-08] MEDS ORDERED: OXYGENDME NAS.CANULA (15:54)
[2017-12-08 16:11] VITALS: BP 191/76; PULSE 88; RESP 18; TEMP 98.5; O2SAT 95
== END 2017-12-08 18:07 | disposition home health service (06) | DRG 871 ==
LOC: NEPC 18:12 → NEDA 22:05 → NEPFCDU 22:47 → OBSVTOIN 12-08 08:10
PROVIDERS: ADMIT Internal Medicine; ATTEND Internal Medicine
DX: A41.9 Sepsis, unspecified organism (principal); J18.9 Pneumonia, unspecified organism; G93.40 Encephalopathy, unspecified; J44.0 Chronic obstructive pulmonary disease with (acute) lower respiratory infection; J44.1 Chronic obstructive pulmonary disease with (acute) exacerbation; F03.90 Unspecified dementia, unspecified severity, without behavioral disturbance, psychotic disturbance, mood disturbance, and anxiety; E11.9 Type 2 diabetes mellitus without complications; R65.20 Severe sepsis without septic shock; R15.9 Full incontinence of feces; I10 Essential (primary) hypertension; E78.5 Hyperlipidemia, unspecified; M79.604 Pain in right leg; F17.210 Nicotine dependence, cigarettes, uncomplicated; M25.511 Pain in right shoulder; R32 Unspecified urinary incontinence; Z23 Encounter for immunization; Z79.84 Long term (current) use of oral hypoglycemic drugs; Z91.81 History of falling; Z90.710 Acquired absence of both cervix and uterus
CPT/HCPCS: 70450; 71046; 73030; 80048; 80053; 81001; 82550; 82552; 82607; 82746; 82948; 83605; 84165; 84425; 84443; 84484; 85025; 85610; 85730; 86592; 87040; 87070; 87205; 87449; 90686; 90732; 93005; 94618; 94640; 94664; 96361; 96365; 96367; 96372; 96376; G0378; G8987-GP; G8988-GP; G9168-GN; G9169-GN; J1650; J1815; J1956; J7030; J7512; Q2038

== ENCOUNTER → 2018-01-02 | Outpatient (CLI) | payer MEDICARE, OTHER ==
[~2018-01-02] MED LIST changes: -ADVA250A INH; -ALBU1.253 NEB; -ALBU1AER INH; -ALBU6.7H INH; +ALBUAER3 INH; -BAYE2KIT XX; -BUFF325T PO; -ERGO50000 PO; +GLIP5TAB8 PO; -GLUC10TA3 PO; -HYDRO2.5%T TOP; -IPRA17I INH; +LEVO750T3 PO; +LISI10TA3 PO; -METF-324 PO; +METF1000 PO; -METO10TA PO; -NEBUKIT4 XX; +OXYGENDME NAS.CANULA; -POTA-243 PO; +PRED20 PO; +PREV15CA20 PO; -PREV30CA36 PO; +REGL5TAB PO; -SENN1TAB11 PO; -VITA100T15 PO; +guaiFENesin ER PO; -lancets; -test strips
[2018-01-02 10:42] LABS: ALBUMIN 3.4 GM/DL (3.4-5.0); AST (GOT) 15 U/L (15-37); BLOOD UREA NITROGEN 6 MG/DL (7-18); CALCIUM 8.9 MG/DL (8.5-10.1); CHLORIDE 105 MEQ/L (98-107); CREATININE 0.78 MG/DL (0.50-1.00); GLOMERULAR FILTRATION RATE 88 ML/MIN (>89); GLUCOSE,FASTING 106 MG/DL (74-99); SODIUM (NA) 141 MEQ/L (136-145)
[2018-01-02 10:43] LABS: ALT (GPT) 10 U/L (10-53)
[2018-01-02 10:45] LABS: ALKALINE PHOSPHATASE 94 U/L (45-117); TOTAL BILIRUBIN ADULT 0.2 MG/DL (0.2-1.0); TOTAL PROTEIN 7.5 GM/DL (6.4-8.2)
[2018-01-02 17:18] LABS: HEMOGLOBIN A1C 7.2 % (4.3-6.0)
== END ==
LOC: CLAB 09:54
PROVIDERS: ATTEND General Practice
DX: E11.9 Type 2 diabetes mellitus without complications (principal)
CPT/HCPCS: 36415; 80053; 83036

== ENCOUNTER → 2018-04-23 | Outpatient (CLI) | payer MEDICARE, OTHER ==
[2018-04-23 14:46] LABS: ALKALINE PHOSPHATASE 101 U/L (45-117); TOTAL BILIRUBIN ADULT 0.3 MG/DL (0.2-1.0); TOTAL PROTEIN 7.8 GM/DL (6.4-8.2)
[2018-04-23 14:47] LABS: ALBUMIN 3.5 GM/DL (3.4-5.0); ALT (GPT) 13 U/L (10-53); AST (GOT) 12 U/L (15-37); BICARBONATE 30.3 MEQ/L (21.0-32.0); BLOOD UREA NITROGEN 8 MG/DL (7-18); CALCIUM 8.8 MG/DL (8.5-10.1); CHLORIDE 106 MEQ/L (98-107); GLOMERULAR FILTRATION RATE 86 ML/MIN (>89); GLUCOSE,FASTING 87 MG/DL (74-99); SODIUM (NA) 143 MEQ/L (136-145)
[2018-04-23 17:17] LABS: HEMOGLOBIN A1C 7.1 % (4.3-6.0)
== END ==
LOC: CLAB 14:03
PROVIDERS: ATTEND General Practice
DX: E11.9 Type 2 diabetes mellitus without complications (principal)
CPT/HCPCS: 36415; 80053; 83036

== ENCOUNTER 2018-07-24 15:24 | Inpatient (IN) ==
[2018-07-24] MEDS ORDERED: Sodium Chlor 0.9% Inj 500 ML IV.SIG ONE (16:23)
--- NOTE | 2018-07-24 16:48 | ED ---
HPI General Chief Complaint: Altered Mental Status Stated Complaint: pt confused/evac Time Seen by Provider: 07/24/18 16:06 Source: patient, family and RN notes reviewed Mode of arrival: wheelchair Limitations: altered mental status History of Present Illness HPI narrative: 73-year-old female presents to the emergency department for evaluation of altered mental status. Her granddaughter is at bedside who provides most of the history and physical. The patient knows her first name, but cannot answer any other questions. Her granddaughter states that she is usually alert oriented 3. However, starting yesterday, she has had altered mental status and not recognizing her own children. She states she has also been doing where gestures and talking to people who are no longer alive. She states that she was diagnosed with pneumonia on July 18, 2018. She states it was at the hospital, but I have no record of this. She states she was placed on azithromycin which she just finished. She does state that she has had a cough, but no fevers. Moderate severity. MD complaint: altered mental status, confusion and weakness Onset (ago): day(s) (2) Timing confirmed by: family member Severity: moderate Consistency of symptoms: getting worse Associated symptoms: cough Related Data Home Medications Medication Instructions Recorded Confirmed Unable to Obtain Home Meds 07/24/18 07/24/18 Allergies Allergy/AdvReac Type Severity Reaction Status Date / Time cephalexin Allergy Severe Unverified 12/06/17 19:32 Review of Systems ROS: all other systems reviewed are negative [facility] Medical History Medical History Medical history unknown (Acute) Surgical history unknown (Acute) Social History Social History Substance History: No History of Abuse Smoking Status: Unknown if ever smoked How Often Do You Have a Drink Containing Alcohol: Never Recent Travel in [facility] within the Last 8 Weeks: No Recent Out of Country Travel within the Last 8 Weeks: No Immunization History Tetanus Immunization: Unable to Assess Hx Influenza Vaccine This Season: Unable to Assess Exam Narrative Exam Narrative: GENERAL: Well-nourished, well-developed elderly female patient, afebrile. Patient is alert and oriented to self only SKIN: Focused skin assessment warm/dry. HEAD: Normocephalic. Atraumatic EYES: No scleral icterus. No injection or drainage. NECK: Supple, trachea midline. No JVD or lymphadenopathy. CARDIOVASCULAR: Regular rate and rhythm without murmurs, gallops, or rubs. RESPIRATORY: Breath sounds equal bilaterally. No accessory muscle use. Lung sounds are diminished GASTROINTESTINAL: Abdomen soft, non-tender, nondistended. MUSCULOSKELETAL: No cyanosis, or edema. Patient moves all extremities, but does not follow any commands. BACK: Nontender without obvious deformity. No CVA tenderness. Course Initial Documented Vital Signs Temperature 97.6 F 07/24/18 16:12 Pulse Rate 79 07/24/18 16:12 Respiratory Rate 18 07/24/18 16:12 Blood Pressure 205/79 H 07/24/18 16:12 Pulse Oximetry 97 07/24/18 16:12 Last Documented Vital Signs Temperature 97.6 F 07/24/18 16:12 Pulse Rate 75 07/24/18 18:15 Respiratory Rate 20 07/24/18 18:15 Blood Pressure 189/93 H 07/24/18 18:15 Pulse Oximetry 93 L 07/24/18 18:15 Medical Decision Making MDM Narrative Medical decision making narrative: 33-year-old female presents to the emergency department her granddaughter at bedside for evaluation altered mental status. According to her daughter, she was recently diagnosed with pneumonia. IV access obtained. EKG, CBC, CMP, lactic acid, ammonia level, CK, troponin, PTT, PT/INR, blood cultures 2, UA are ordered and pending. Chest x-ray and CT the brain are ordered and pending. Patient is given normal saline 500 mL bolus EKG shows sinus rhythm, heart rate 75, inverted T waves in V3, V4, V5, V6. These were on previous EKG, slightly more pronounced. CBC shows no acute abnormality. CMP shows no acute abnormality. Lactic acid is 0.8. Ammonia level is 18. CK is 150. Troponin is less than 0.02. PTT is 27.8. PT/INR is 10.7/1.1. UA is negative for acute infection. Chest x-ray is negative. CT of the brain shows no acute intracranial abnormality. Dr. Toro accepted admission. Family states patient does not usually act like she is now. They are concerned she is not ambulating, not recognizing family, altered. Patient will be admitted for further evaluation for AMS. Medical Screen Exam Complete: Yes Emergency Medical Condition: Yes Differential Diagnosis Differential Diagnosis: pneumonia versus UTI versus sepsis versus electrolyte abnormality versus dehydration versus intracranial abnormality Medical Records Medical records reviewed: Yes I reviewed the patient's medical records. Lab Data Result diagrams: 07/24/18 17:30 07/24/18 17:30 Lab Results 07/24/18 07/24/18 07/24/18 Range/Units 17:30 17:30 17:30 WBC 4.0 (4.0-11.0) th/mm3 RBC 4.30 (4.00-5.30) mil/mm3 Hgb 13.5 (11.6-15.3) gm/dL Hct 40.0 (35.0-46.0) % MCV 93.0 (80.0-100.0) fL MCH 31.4 (27.0-34.0) pg MCHC 33.8 (32.0-36.0) % RDW 16.2 (11.6-17.2) % Plt Count 152 (150-450) th/mm3 MPV 9.0 (7.0-11.0) fL Neut % (Auto) 43.2 (16.0-70.0) % Lymph % (Auto) 44.2 H (9.0-44.0) % [place] % (Auto) 10.3 H (0.0-8.0) % Eos % (Auto) 1.5 (0.0-4.0) % Baso % (Auto) 0.8 (0.0-2.0) % Neut # (Auto) 1.7 L (1.8-7.7) th/mm3 Lymph # (Auto) 1.8 (1.0-4.8) th/mm3 [place] # (Auto) 0.4 (0.0-0.9) th/mm3 Eos # (Auto) 0.1 (0.0-0.4) th/mm3 Baso # (Auto) 0.0 (0.0-0.2) th/mm3 WBC Differential . Differential Comment Auto diff final PT 10.7 (9.8-11.6) sec INR 1.1 Ratio APTT 27.8 (24.3-30.1) sec Sodium 143 (136-145) meq/L Potassium 3.4 L (3.5-5.1) meq/L Chloride 105 (98-107) meq/L Carbon Dioxide 27.4 (21.0-32.0) meq/L Anion Gap 11 (5-15) meq/L BUN 8 (7-18) mg/dL Creatinine 0.55 (0.50-1.00) mg/dL Estimated GFR Greater than 89 (>89) mL/min Random Glucose 81 (74-106) mg/dL Lactic Acid (0.4-2.0) mmol/L Calcium 8.5 (8.5-10.1) mg/dL Total Bilirubin 0.3 (0.2-1.0) mg/dL AST 14 L (15-37) U/L ALT 15 (10-53) U/L Alkaline Phosphatase 76 (45-117) U/L Ammonia (11-32) mcmol/L Total Creatine Kinase (26-192) U/L Troponin I Less than 0.02 L (0.02-0.05) ng/mL Total Protein 7.2 D (6.4-8.2) g/dL Albumin 3.2 L (3.4-5.0) g/dL Urine Color (Yellw/Straw) Urine Clarity (Clear) Urine pH (5.0-8.5) Ur Specific [place] (1.002-1.035) Urine Protein (Neg-Trace) mg/dL Urine Glucose (UA) (Negative) mg/dL Urine Ketones (Negative) mg/dL Urine Occult Blood (Negative) Urine Nitrate (Negative) Urine Bilirubin (Negative) Urine Urobilinogen (Less than 2) mg/dL Ur Leukocyte Esterase (Negative) Urine RBC (0-3) /hpf Urine WBC (0-5) /hpf Ur Squamous Epith Cells (0-5) /hpf Amorphous Sediment (None) /hpf Urine Bacteria (None) /hpf Urine Mucus (Occasional) /lpf Micro UA Comment Ur Microscopic Review Urine Culture Comments 07/24/18 07/24/18 07/24/18 Range/Units 17:30 17:30 17:30 WBC (4.0-11.0) th/mm3 RBC (4.00-5.30) mil/mm3 Hgb (11.6-15.3) gm/dL Hct (35.0-46.0) % MCV (80.0-100.0) fL MCH (27.0-34.0) pg MCHC (32.0-36.0) % RDW (11.6-17.2) % Plt Count (150-450) th/mm3 MPV (7.0-11.0) fL Neut % (Auto) (16.0-70.0) % Lymph % (Auto) (9.0-44.0) % [place] % (Auto) (0.0-8.0) % Eos % (Auto) (0.0-4.0) % Baso % (Auto) (0.0-2.0) % Neut # (Auto) (1.8-7.7) th/mm3 Lymph # (Auto) (1.0-4.8) th/mm3 [place] # (Auto) (0.0-0.9) th/mm3 Eos # (Auto) (0.0-0.4) th/mm3 Baso # (Auto) (0.0-0.2) th/mm3 WBC Differential Differential Comment PT (9.8-11.6) sec INR Ratio APTT (24.3-30.1) sec Sodium (136-145) meq/L Potassium (3.5-5.1) meq/L Chloride (98-107) meq/L Carbon Dioxide (21.0-32.0) meq/L Anion Gap (5-15) meq/L BUN (7-18) mg/dL Creatinine (0.50-1.00) mg/dL Estimated GFR (>89) mL/min Random Glucose (74-106) mg/dL Lactic Acid 0.8 (0.4-2.0) mmol/L Calcium (8.5-10.1) mg/dL Total Bilirubin (0.2-1.0) mg/dL AST (15-37) U/L ALT (10-53) U/L Alkaline Phosphatase (45-117) U/L Ammonia 18 (11-32) mcmol/L Total Creatine Kinase 115 (26-192) U/L Troponin I (0.02-0.05) ng/mL Total Protein (6.4-8.2) g/dL Albumin (3.4-5.0) g/dL Urine Color (Yellw/Straw) Urine Clarity (Clear) Urine pH (5.0-8.5) Ur Specific Alpine (1.002-1.035) Urine Protein (Neg-Trace) mg/dL Urine Glucose (UA) (Negative) mg/dL Urine Ketones (Negative) mg/dL Urine Occult Blood (Negative) Urine Nitrate (Negative) Urine Bilirubin (Negative) Urine Urobilinogen (Less than 2) mg/dL Ur Leukocyte Esterase (Negative) Urine RBC (0-3) /hpf Urine WBC (0-5) /hpf Ur Squamous Epith Cells (0-5) /hpf Amorphous Sediment (None) /hpf Urine Bacteria (None) /hpf Urine Mucus (Occasional) /lpf Micro UA Comment Ur Microscopic Review Urine Culture Comments 07/24/18 Range/Units 17:45 WBC (4.0-11.0) th/mm3 RBC (4.00-5.30) mil/mm3 Hgb (11.6-15.3) gm/dL Hct (35.0-46.0) % MCV (80.0-100.0) fL MCH (27.0-34.0) pg MCHC (32.0-36.0) % RDW (11.6-17.2) % Plt Count (150-450) th/mm3 MPV (7.0-11.0) fL Neut % (Auto) (16.0-70.0) % Lymph % (Auto) (9.0-44.0) % [place] % (Auto) (0.0-8.0) % Eos % (Auto) (0.0-4.0) % Baso % (Auto) (0.0-2.0) % Neut # (Auto) (1.8-7.7) th/mm3 Lymph # (Auto) (1.0-4.8) th/mm3 [place] # (Auto) (0.0-0.9) th/mm3 Eos # (Auto) (0.0-0.4) th/mm3 Baso # (Auto) (0.0-0.2) th/mm3 WBC Differential Differential Comment PT (9.8-11.6) sec INR Ratio APTT (24.3-30.1) sec Sodium (136-145) meq/L Potassium (3.5-5.1) meq/L Chloride (98-107) meq/L Carbon Dioxide (21.0-32.0) meq/L Anion Gap (5-15) meq/L BUN (7-18) mg/dL Creatinine (0.50-1.00) mg/dL Estimated GFR (>89) mL/min Random Glucose (74-106) mg/dL Lactic Acid (0.4-2.0) mmol/L Calcium (8.5-10.1) mg/dL Total Bilirubin (0.2-1.0) mg/dL AST (15-37) U/L ALT (10-53) U/L Alkaline Phosphatase (45-117) U/L Ammonia (11-32) mcmol/L Total Creatine Kinase (26-192) U/L Troponin I (0.02-0.05) ng/mL Total Protein (6.4-8.2) g/dL Albumin (3.4-5.0) g/dL Urine Color Yellow (Yellw/Straw) Urine Clarity Cloudy H (Clear) Urine pH 7.0 (5.0-8.5) Ur Specific [place] 1.016 (1.002-1.035) Urine Protein 30 H (Neg-Trace) mg/dL Urine Glucose (UA) Negative (Negative) mg/dL Urine Ketones 20 (Negative) mg/dL Urine Occult Blood Negative (Negative) Urine Nitrate Negative (Negative) Urine Bilirubin Negative (Negative) Urine Urobilinogen Less than 2 (Less than 2) mg/dL Ur Leukocyte Esterase Negative (Negative) Urine RBC 1 (0-3) /hpf Urine WBC 1 (0-5) /hpf Ur Squamous Epith Cells 2 (0-5) /hpf Amorphous Sediment Occasional H (None) /hpf Urine Bacteria Rare H (None) /hpf Urine Mucus Few H (Occasional) /lpf Micro UA Comment Culture not ind Ur Microscopic Review Not Reportable Urine Culture Comments Culture not ind Imaging Data Radiologist's impression: Chest X-Ray 07/24/18 16:23 CONCLUSION: Negative examination. Head CT 07/24/18 16:23 CONCLUSION: 1. No acute intracranial abnormality. 2. Chronic white matter changes . Discharge Plan Discharge Disposition Patient Disposition: 30 Still Patient Discharge Details Diagnosis: Altered mental status Physicians Team ED Provider: Pelon Schulte ED Midlevel Provider: Darya Amin Primary Care Provider: David Gee Rxs /Orders / Referrals /Forms Prescriptions: No Action Unable to Obtain Home Meds RF: 0 Status ED Status: Admitted Observation Patient
--- NOTE | 2018-07-24 17:06 | XR ---
EXAM DATE: 07/24/2018 5:04 PM EDT AGE/SEX: 73 years / Female INDICATIONS: Short of breath, recent pneumonia. CLINICAL DATA: This is the patient's initial encounter. Patient reports that signs and symptoms have been present for 1 day and indicates a pain score of Nonresponsive. MEDICAL/SURGICAL HISTORY: Non-responsive. Non-responsive. COMPARISON: No prior exams available for comparison. FINDINGS: A single AP view of the chest demonstrates the lungs to be symmetrically aerated without evidence of mass, infiltrate or effusion. The cardiomediastinal contours are unremarkable. Osseous structures a re intact. CONCLUSION: Negative examination. Electronically signed by: Roman Monroe MD 07/24/2018 5:05 PM EDT
[2018-07-24 18:10] LABS: Baso % (Auto) 0.8 % (0.0-2.0); Eos # (Auto) 0.1 th/mm3 (0.0-0.4); Eos % (Auto) 1.5 % (0.0-4.0); Hemoglobin 13.5 gm/dL (11.6-15.3); Lymph # (Auto) 1.8 th/mm3 (1.0-4.8); Lymph % (Auto) 44.2 % (9.0-44.0); Mean Corpuscular HGB Conc 33.8 % (32.0-36.0); Mean Corpuscular Hemoglobin 31.4 pg (27.0-34.0); Mono # (Auto) 0.4 th/mm3 (0.0-0.9); Mono % (Auto) 10.3 % (0.0-8.0); Neut # (Auto) 1.7 th/mm3 (1.8-7.7); Neut % (Auto) 43.2 % (16.0-70.0); Platelet Count 152 th/mm3 (150-450); Red Cell Distribution Width 16.2 % (11.6-17.2)
[2018-07-24 18:18] LABS: Activated Partial Thrombo Time 27.8 sec (24.3-30.1); INR 1.1 Ratio; Prothrombin Time 10.7 sec (9.8-11.6)
[2018-07-24 18:36] LABS: Amorphous Sediment,Urine Occasional /hpf; Bacteria,Urine Rare /hpf; Bilirubin,Urine Negative (Negative); Clarity,Urine Cloudy (Clear); Color,Urine Yellow (Yellw/Straw); Glucose,Urine (UA) Negative (Negative); Leukocyte Esterase,Urine Negative (Negative); Mucus,Urine Few /lpf (Occasional); Nitrite,Urine Negative (Negative); Specific Gravity,Urine 1.016 (1.002-1.035); Squamous Epithelial Cell,Urine 2 /hpf (0-5)
[2018-07-24 18:37] LABS: Alanine Aminotransferase 15 U/L (10-53); Albumin 3.2 g/dL (3.4-5.0); Anion Gap 11 meq/L (5-15); Aspartate Aminotransferase 14 U/L (15-37); Blood Urea Nitrogen 8 mg/dL (7-18); Calcium 8.5 mg/dL (8.5-10.1); Carbon Dioxide 27.4 meq/L (21.0-32.0); Chloride 105 meq/L (98-107); Glomerular Filtration Rate Greater Than 89 mL/min (>89); Glucose,Random 81 mg/dL (74-106); Potassium 3.4 meq/L (3.5-5.1); Sodium 143 meq/L (136-145)
[2018-07-24 18:41] LABS: Alkaline Phosphatase 76 U/L (45-117); Total Protein 7.2 g/dL (6.4-8.2)
--- NOTE | 2018-07-24 19:01 | CT ---
EXAM DATE: 07/24/2018 6:52 PM EDT AGE/SEX: 73 years / Female INDICATIONS: AMS 2 days with recent diagnosis of pneumonia . CLINICAL DATA: This is the patient's initial encounter. Patient reports that signs and symptoms have been present for 2 days and indicates a pain score of 0/10. MEDICAL/SURGICAL HISTORY: Dementia. None. RADIATION DOSE: 66.43 CTDI (mGy) [place] [facility] [place]07/[place]. . No external comparison. TECHNIQUE: CT of the head without contrast. Using automated exposure control and adjustment of the mA and/or kV according to patient size, radiation dose was kept as low as reasonably achievable to ob tain optimal diagnostic quality images. DICOM format image data is available electronically for revi ew and comparison. FINDINGS: Cerebrum: The ventricles are normal for age. No evidence of midline shift, mass lesion, hemorrhage or acute infarction. No extraaxial fluid collections are seen. Mild chronic low-attenuation again se en in the periventricular white matter Posterior Fossa: The cerebellum and brainstem are intact. The 4th ventricle is midline. The cerebe llopontine angle is unremarkable. Extracranial: The visualized portion of the orbits is intact. There is a stable and probably partly calcified subcutaneous mass above the right ear that appears benign. Skull: The calvaria is intact. No evidence of skull fracture. Tiny scattered punctate calvarial bill encies are again noted and felt to be benign. CONCLUSION: 1. No acute intracranial abnormality. 2. Chronic white matter changes . Electronically signed by: Toro Kearney MD 07/24/2018 6:59 PM EDT
[2018-07-24] MEDS ORDERED: Dextrose 50% in Water 50 ML Vial IV.PUSH PRN (21:14)
[2018-07-24] MEDS ORDERED: Bisacodyl 10 MG Supp RECTAL PRN (21:14)
[2018-07-24] MEDS ORDERED: Acetaminophen 325 MG Tablet PO PRN (21:14)
--- NOTE | 2018-07-24 21:30 | P.HP ---
History of Present Illness Service: [facility] Primary Care Physician: David Gee History of Present Illness: 73-year-old female with a past medical history significant for hypertension, diabetes mellitus and asthma was brought to the emergency department by her daughter for the evaluation of altered mental status. Per the patient's daughter the patient was in her usual state of health until this morning when she was confused and agitated. The patient's baseline is ANO x3 however at this time the patient is only able to tell me her first name. She states she is in pain but cannot specify a location. The patient's daughter reports that she has been gesturing wildly and talking to people who are no longer alive. She states that the patient was diagnosed with pneumonia on July 18 at [facility] and was placed on azithromycin which she just completed. Chest x-ray within normal limits. No fevers/chills. The patient had not complained of anything to her family prior to the onset of her altered mental status. Review of Systems unobtainable due to mental status PMFSH - History History Provided By: Patient - Medical History Medical History: Medical History (Last Updated 07/24/18 @ 21:23 by Suzanne Toro MD) Asthma Diabetes mellitus Hypertension - Surgical History Surgical History: Surgical History (Last Updated 07/24/18 @ 21:23 by Suzanne Toro MD) No history of previous surgery - Family History Family History: Family History (Last Updated 07/24/18 @ 21:23 by Suzanne Toro MD) Other Diabetes mellitus - Tobacco History Smoking Status: Unknown if ever smoked - Alcohol History How Often Do You Have a Drink Containing Alcohol: Never - Substance Use History Substance History: No History of Abuse - Travel History [facility] Within the Last 8 Weeks: No Recent Travel Out of the Country Within the Last 8 Weeks: No - Immunization History Tetanus Immunization: Unable to Assess Hx Influenza Vaccine This Season: Unable to Assess Medications and Allergies Active Medications: Active Medications Sodium Chloride (Ns Flush) 2 ml IV.FLUSH PRN PRN PRN Reason: FLUSH AFTER USING IV ACCESS Allergies Allergy/AdvReac Type Severity Reaction Status Date / Time cephalexin Allergy Severe Unverified 12/06/17 19:32 Home Medications Medication Instructions Recorded Confirmed Type Unable to Obtain Home Meds 07/24/18 07/24/18 History Exam Vital signs: Vital Signs 07/24/18 16:12 07/24/18 16:13 07/24/18 17:53 Temperature 97.6 F Pulse Rate 79 78 Respiratory Rate 18 18 19 Blood Pressure 205/79 H 124/62 Pulse Oximetry 97 98 07/24/18 18:15 Temperature Pulse Rate 75 Respiratory Rate 20 Blood Pressure 189/93 H Pulse Oximetry 93 L Intake & Output 07/24/18 07/24/18 07/25/18 06:59 18:59 06:59 Intake Total 500 / 500 Balance 500 / 500 Weight 58.967 kg Intake: IV 500 / 500 NS Inj 500 ML @ Wide Open IV. 500 / 500 SIG BOLUS ONE Rx#:[id number] Narrative: Gen.: No acute distress Head: Normocephalic. Atraumatic. EENT: Pupils equal round and reactive to light. Nose without drainage. Airway intact. Throat without injection. Cardiovascular: Regular rate and rhythm. No murmurs, rubs or gallops. Respiratory: Lungs clear to auscultation bilaterally. No wheezes or rhonchi. Abdomen: Soft, nontender, nondistended. No peritoneal signs. Musculoskeletal: No gross deformities. No edema. Skin: No obvious rashes or erythema. Neuro: Moves all 4 extremities spontaneously. Oriented only to self. Cranial nerves intact. Results - Labs CBC & Chem 7: 07/24/18 17:30 07/24/18 17:30 Labs: Laboratory Results - last 24 hr 07/24/18 07/24/18 07/24/18 17:30 17:30 17:30 WBC 4.0 RBC 4.30 Hgb 13.5 Hct 40.0 MCV 93.0 MCH 31.4 MCHC 33.8 RDW 16.2 Plt Count 152 MPV 9.0 Neut % (Auto) 43.2 Lymph % (Auto) 44.2 H [place] % (Auto) 10.3 H Eos % (Auto) 1.5 Baso % (Auto) 0.8 Neut # (Auto) 1.7 L Lymph # (Auto) 1.8 [place] # (Auto) 0.4 Eos # (Auto) 0.1 Baso # (Auto) 0.0 WBC Differential . Differential Comment Auto diff final PT 10.7 INR 1.1 APTT 27.8 Sodium 143 Potassium 3.4 L Chloride 105 Carbon Dioxide 27.4 Anion Gap 11 BUN 8 Creatinine 0.55 Estimated GFR Greater than 89 Random Glucose 81 Lactic Acid Calcium 8.5 Total Bilirubin 0.3 AST 14 L ALT 15 Alkaline Phosphatase 76 Ammonia Total Creatine Kinase Troponin I Less than 0.02 L Total Protein 7.2 D Albumin 3.2 L Urine Color Urine Clarity Urine pH Ur Specific [place] Urine Protein Urine Glucose (UA) Urine Ketones Urine Occult Blood Urine Nitrate Urine Bilirubin Urine Urobilinogen Ur Leukocyte Esterase Urine RBC Urine WBC Ur Squamous Epith Cells Amorphous Sediment Urine Bacteria Urine Mucus Micro UA Comment Ur Microscopic Review Urine Culture Comments 07/24/18 07/24/18 07/24/18 17:30 17:30 17:30 WBC RBC Hgb Hct MCV MCH MCHC RDW Plt Count MPV Neut % (Auto) Lymph % (Auto) [place] % (Auto) Eos % (Auto) Baso % (Auto) Neut # (Auto) Lymph # (Auto) [place] # (Auto) Eos # (Auto) Baso # (Auto) WBC Differential Differential Comment PT INR APTT Sodium Potassium Chloride Carbon Dioxide Anion Gap BUN Creatinine Estimated GFR Random Glucose Lactic Acid 0.8 Calcium Total Bilirubin AST ALT Alkaline Phosphatase Ammonia 18 Total Creatine Kinase 115 Troponin I Total Protein Albumin Urine Color Urine Clarity Urine pH Ur Specific [place] Urine Protein Urine Glucose (UA) Urine Ketones Urine Occult Blood Urine Nitrate Urine Bilirubin Urine Urobilinogen Ur Leukocyte Esterase Urine RBC Urine WBC Ur Squamous Epith Cells Amorphous Sediment Urine Bacteria Urine Mucus Micro UA Comment Ur Microscopic Review Urine Culture Comments 07/24/18 17:45 WBC RBC Hgb Hct MCV MCH MCHC RDW Plt Count MPV Neut % (Auto) Lymph % (Auto) [place] % (Auto) Eos % (Auto) Baso % (Auto) Neut # (Auto) Lymph # (Auto) [place] # (Auto) Eos # (Auto) Baso # (Auto) WBC Differential Differential Comment PT INR APTT Sodium Potassium Chloride Carbon Dioxide Anion Gap BUN Creatinine Estimated GFR Random Glucose Lactic Acid Calcium Total Bilirubin AST ALT Alkaline Phosphatase Ammonia Total Creatine Kinase Troponin I Total Protein Albumin Urine Color Yellow Urine Clarity Cloudy H Urine pH 7.0 Ur Specific [place] 1.016 Urine Protein 30 H Urine Glucose (UA) Negative Urine Ketones 20 Urine Occult Blood Negative Urine Nitrate Negative Urine Bilirubin Negative Urine Urobilinogen Less than 2 Ur Leukocyte Esterase Negative Urine RBC 1 Urine WBC 1 Ur Squamous Epith Cells 2 Amorphous Sediment Occasional H Urine Bacteria Rare H Urine Mucus Few H Micro UA Comment Culture not ind Ur Microscopic Review Not Reportable Urine Culture Comments Culture not ind - Imaging Impressions Chest X-Ray 07/24/18 16:23 CONCLUSION: Negative examination. Head CT 07/24/18 16:23 CONCLUSION: 1. No acute intracranial abnormality. 2. Chronic white matter changes . Caprini VTE Risk Assessment Caprini VTE Risk Assessment: Moderate/High Risk (score >= 2) Caprini Risk Assessment Model: Point Value = 1 Point Value = 2 Point Value = 3 Point Value = 5 Age 41-60 Minor surgery BMI > 25 kg/m2 Swollen legs Varicose veins or History of unexplained or recurrent spontaneous Oral contraceptives or hormone replacement Sepsis (< 1 month) Serious lung disease, including pneumonia (< 1 month) Abnormal pulmonary function Acute myocardial infarction Congestive heart failure (< 1 month) History of inflammatory bowel disease Medical patient at bed rest Age 61-74 Arthroscopic surgery Major open surgery (> 45 min) Laparoscopic surgery (> 45 min) Malignancy Confined to bed (> 72 hours) Immobilizing plaster cast Central venous access Age >= 75 History of VTE Family history of VTE Factor V Leiden Prothrombin [id number] Lupus anticoagulant Anticardiolipin antibodies Elevated serum homocysteine Heparin-induced thrombocytopenia Other congenital or acquired thrombophilia Stroke (< 1 month) Elective arthroplasty Hip, pelvis, or leg fracture Acute spinal cord injury (< 1 month) Prophylaxis Regimen: Total Risk Factor Score Risk Level Prophylaxis Regimen 0-1 Low Early ambulation 2 Moderate Order ONE of the following: *Sequential Compression Device (SCD) *Heparin 5000 units SQ BID 3-4 Higher Order ONE of the following medications: *Heparin 5000 units SQ TID *Enoxaparin/Lovenox 40 mg SQ daily (WT < 150 kg, CrCl > 30 mL/min) *Enoxaparin/Lovenox 30 mg SQ daily (WT < 150 kg, CrCl > 10-29 mL/min) *Enoxaparin/Lovenox 30 mg SQ BID (WT < 150 kg, CrCl > 30 mL/min) AND/OR *Sequential Compression Device (SCD) 5 or more Highest Order ONE of the following medications: *Heparin 5000 units SQ TID (Preferred with Epidurals) *Enoxaparin/Lovenox 40 mg SQ daily (WT < 150 kg, CrCl > 30 mL/min) *Enoxaparin/Lovenox 30 mg SQ daily (WT < 150 kg, CrCl > 10-29 mL/min) *Enoxaparin/Lovenox 30 mg SQ BID (WT < 150 kg, CrCl > 30 mL/min) AND *Sequential Compression Device (SCD) Assessment and Plan - Plan Assessment/plan: 1. Altered mental status Etiology unknown CMP, CBC, UA within normal limits Chest x-ray disease, personally reviewed Head CT negative for acute process MRI brain pending Blood cultures pending 2. Diabetes mellitus Patient's home medications unknown Sliding-scale insulin Monitor blood glucose 3. Hypertension Clonidine as needed until medication list can be obtained Case management consulted as patient may require placement FEN Heart healthy diet Electrolytes: Patient mildly hypokalemic, status post p.o. repletion, monitor BMP NS at 70 cc/hour Heparin
[2018-07-24] MEDS: Sod Chloride 0.9% Inj 1,000 ML IV.CONT SCH (22:30)
[2018-07-24] MEDS: Heparin - SQ 10,000 UNITS/ML Vial SQ SCH (22:31)
[2018-07-24] MEDS: Insulin NovoLOG Aspart Correctional Sugar Inj SQ SCH (22:31)
[2018-07-25] MEDS: Insulin NovoLOG Aspart Correctional Sugar Inj SQ SCH ×5 (04:14→21:48)
[2018-07-25] MEDS ORDERED: Labetalol HCl Inj 100 MG/20 ML Vial IV.PUSH ONE (04:24)
[2018-07-25 07:27] LABS: Baso % (Auto) 0.5 % (0.0-2.0); Eos % (Auto) 0.7 % (0.0-4.0); Hemoglobin 14.5 gm/dL (11.6-15.3); Lymph # (Auto) 1.2 th/mm3 (1.0-4.8); Lymph % (Auto) 21.1 % (9.0-44.0); Mean Corpuscular Hemoglobin 31.5 pg (27.0-34.0); Mean Corpuscular Volume 95.6 fL (80.0-100.0); Mono # (Auto) 0.3 th/mm3 (0.0-0.9); Mono % (Auto) 5.9 % (0.0-8.0); Neut # (Auto) 4.2 th/mm3 (1.8-7.7); Neut % (Auto) 71.8 % (16.0-70.0); Platelet Count 156 th/mm3 (150-450); Red Blood Count 4.61 mil/mm3 (4.00-5.30); Red Cell Distribution Width 16.5 % (11.6-17.2); White Blood Count 5.8 th/mm3 (4.0-11.0)
[2018-07-25 07:49] LABS: Anion Gap 10 meq/L (5-15); Blood Urea Nitrogen 7 mg/dL (7-18); Calcium 9.1 mg/dL (8.5-10.1); Carbon Dioxide 29.2 meq/L (21.0-32.0); Chloride 105 meq/L (98-107); Glomerular Filtration Rate Greater Than 89 mL/min (>89); Glucose,Random 91 mg/dL (74-106); Potassium 3.4 meq/L (3.5-5.1); Sodium 144 meq/L (136-145)
[2018-07-25] MEDS: Senna/Docusate Sodium 8.6/50 MG Tablet PO SCH ×2 (10:06→21:48)
[2018-07-25] MEDS: Heparin - SQ 10,000 UNITS/ML Vial SQ SCH ×2 (10:07→21:47)
--- NOTE | 2018-07-25 11:46 | ECG ---
Date Performed: 07/24/2018 Time Performed: 18:00:28 PTAGE: 73 years EKG: Sinus rhythm WITH OCCASIONAL ECTOPIC PREMATURE COMPLEXES MODERATE T-WAVE ABNORMALITY, CONSIDER ANTEROLATERAL ISCH EMIA ABNORMAL ECG PREVIOUS TRACING : 12/06/2017 18.53 DOCTOR: Khadar Leach Interpretating Date/Time 07/25/2018 11:44:40
[2018-07-25 13:07] LABS: Thyroid Stimulating Hormone 0.677 uIU/mL (0.358-3.740)
[2018-07-25] MEDS: Sod Chloride 0.9% Inj 1,000 ML IV.CONT SCH (14:36)
--- NOTE | 2018-07-25 16:20 | P.PN ---
Subjective Interval history: Patient is seen lying in bed. Numerous family members are at bedside. Patient is only minimally responsive. She does open her eyes and move all limbs when irritated. Otherwise only minimally follows commands and does not answer any questions. Family reports that she was at her baseline on Monday; by Monday she was only minimally responsive and very sleepy all day. Questionable history of a fall. Family members do say that she has become withdrawn and depressed since her this summer. She is eating and drinking very little. Mostly existing on just Pepsi. She has been refusing medications. Physical Exam Vital signs: Vital Signs 07/24/18 16:13 07/24/18 17:53 07/24/18 18:15 Temperature Pulse Rate 78 75 Respiratory Rate 18 19 20 Blood Pressure 124/62 189/93 H Pulse Oximetry 98 93 L 07/24/18 19:00 07/24/18 23:43 07/25/18 04:00 Temperature 97.4 F L 97.6 F Pulse Rate 80 81 64 Respiratory Rate 18 17 17 Blood Pressure 167/72 H 183/81 H 205/83 H Pulse Oximetry 95 92 L 96 07/25/18 05:00 07/25/18 05:07 07/25/18 05:15 Temperature Pulse Rate 77 85 85 Respiratory Rate Blood Pressure 176/74 H 176/74 H 173/76 H Pulse Oximetry 07/25/18 05:30 07/25/18 06:28 07/25/18 08:04 Temperature 97.6 F Pulse Rate 76 74 70 Respiratory Rate 22 Blood Pressure 129/87 167/74 H 180/77 H Pulse Oximetry 97 07/25/18 11:07 07/25/18 15:23 Temperature 97.9 F 97.5 F L Pulse Rate 80 81 Respiratory Rate 20 20 Blood Pressure 174/119 H 190/77 H Pulse Oximetry 97 96 Intake & Output 07/24/18 07/25/18 07/25/18 18:59 06:59 18:59 Intake Total 500 / 500 1000 / 1000 Balance 500 / 500 1000 / 1000 Weight 58.967 kg Intake: IV 500 / 500 1000 / 1000 NS Inj 1,000 ML @ 70 mls/hr IV. 1000 / 1000 CONT .[id number] Rx#:[id number] NS Inj 500 ML @ Wide Open IV. 500 / 500 SIG BOLUS ONE Rx#:[id number] Other: # Urine Diapers 1 Narrative: Gen.: Thin, well-developed adult female in no acute distress Head: Normocephalic. Atraumatic. Cardiovascular: Regular rate and rhythm. No murmurs, rubs or gallops. Respiratory: Lungs clear to auscultation bilaterally. No wheezes or rhonchi. Abdomen: Soft, nontender, nondistended. No peritoneal signs. Musculoskeletal: No gross deformities. No edema. Skin: No obvious rashes or erythema. Neuro: Moves all 4 extremities spontaneously. Oriented only to self. Cranial nerves intact (limited exam due to patient mental status). - Urinary Catheter Management Straight Cath placed during this visit: yes Reason for continuing: Not indwelling catheter Insertion date: 07/24/18 Insertion time: 15:30 Results - Labs CBC & Chem 7: 07/25/18 05:57 07/25/18 05:57 Laboratory Results - last 24 hr 07/24/18 07/24/18 07/24/18 17:30 17:30 17:30 WBC 4.0 RBC 4.30 Hgb 13.5 Hct 40.0 MCV 93.0 MCH 31.4 MCHC 33.8 RDW 16.2 Plt Count 152 MPV 9.0 Neut % (Auto) 43.2 Lymph % (Auto) 44.2 H [place] % (Auto) 10.3 H Eos % (Auto) 1.5 Baso % (Auto) 0.8 Neut # (Auto) 1.7 L Lymph # (Auto) 1.8 [place] # (Auto) 0.4 Eos # (Auto) 0.1 Baso # (Auto) 0.0 WBC Differential . Differential Comment Auto diff final PT 10.7 INR 1.1 APTT 27.8 Sodium 143 Potassium 3.4 L Chloride 105 Carbon Dioxide 27.4 Anion Gap 11 BUN 8 Creatinine 0.55 Estimated GFR Greater than 89 POC Glucose Random Glucose 81 Lactic Acid Calcium 8.5 Total Bilirubin 0.3 AST 14 L ALT 15 Alkaline Phosphatase 76 Ammonia Total Creatine Kinase Troponin I Less than 0.02 L Total Protein 7.2 D Albumin 3.2 L Vitamin B12 TSH Urine Color Urine Clarity Urine pH Ur Specific [place] Urine Protein Urine Glucose (UA) Urine Ketones Urine Occult Blood Urine Nitrate Urine Bilirubin Urine Urobilinogen Ur Leukocyte Esterase Urine RBC Urine WBC Ur Squamous Epith Cells Amorphous Sediment Urine Bacteria Urine Mucus Micro UA Comment Ur Microscopic Review Urine Culture Comments 07/24/18 07/24/18 07/24/18 17:30 17:30 17:30 WBC RBC Hgb Hct MCV MCH MCHC RDW Plt Count MPV Neut % (Auto) Lymph % (Auto) [place] % (Auto) Eos % (Auto) Baso % (Auto) Neut # (Auto) Lymph # (Auto) [place] # (Auto) Eos # (Auto) Baso # (Auto) WBC Differential Differential Comment PT INR APTT Sodium Potassium Chloride Carbon Dioxide Anion Gap BUN Creatinine Estimated GFR POC Glucose Random Glucose Lactic Acid 0.8 Calcium Total Bilirubin AST ALT Alkaline Phosphatase Ammonia 18 Total Creatine Kinase 115 Troponin I Total Protein Albumin Vitamin B12 TSH Urine Color Urine Clarity Urine pH Ur Specific [place] Urine Protein Urine Glucose (UA) Urine Ketones Urine Occult Blood Urine Nitrate Urine Bilirubin Urine Urobilinogen Ur Leukocyte Esterase Urine RBC Urine WBC Ur Squamous Epith Cells Amorphous Sediment Urine Bacteria Urine Mucus Micro UA Comment Ur Microscopic Review Urine Culture Comments 07/24/18 07/24/18 07/25/18 17:45 22:29 03:15 WBC RBC Hgb Hct MCV MCH MCHC RDW Plt Count MPV Neut % (Auto) Lymph % (Auto) [place] % (Auto) Eos % (Auto) Baso % (Auto) Neut # (Auto) Lymph # (Auto) [place] # (Auto) Eos # (Auto) Baso # (Auto) WBC Differential Differential Comment PT INR APTT Sodium Potassium Chloride Carbon Dioxide Anion Gap BUN Creatinine Estimated GFR POC Glucose 101 99 Random Glucose Lactic Acid Calcium Total Bilirubin AST ALT Alkaline Phosphatase Ammonia Total Creatine Kinase Troponin I Total Protein Albumin Vitamin B12 TSH Urine Color Yellow Urine Clarity Cloudy H Urine pH 7.0 Ur Specific [place] 1.016 Urine Protein 30 H Urine Glucose (UA) Negative Urine Ketones 20 Urine Occult Blood Negative Urine Nitrate Negative Urine Bilirubin Negative Urine Urobilinogen Less than 2 Ur Leukocyte Esterase Negative Urine RBC 1 Urine WBC 1 Ur Squamous Epith Cells 2 Amorphous Sediment Occasional H Urine Bacteria Rare H Urine Mucus Few H Micro UA Comment Culture not ind Ur Microscopic Review Not Reportable Urine Culture Comments Culture not ind 07/25/18 07/25/18 07/25/18 05:57 05:57 05:57 WBC 5.8 RBC 4.61 Hgb 14.5 Hct 44.0 MCV 95.6 MCH 31.5 MCHC 33.0 RDW 16.5 Plt Count 156 MPV 10.0 Neut % (Auto) 71.8 H Lymph % (Auto) 21.1 [place] % (Auto) 5.9 Eos % (Auto) 0.7 Baso % (Auto) 0.5 Neut # (Auto) 4.2 Lymph # (Auto) 1.2 [place] # (Auto) 0.3 Eos # (Auto) 0.0 Baso # (Auto) 0.0 WBC Differential . Differential Comment Auto diff final PT INR APTT Sodium 144 Potassium 3.4 L Chloride 105 Carbon Dioxide 29.2 Anion Gap 10 BUN 7 Creatinine 0.58 Estimated GFR Greater than 89 POC Glucose Random Glucose 91 Lactic Acid Calcium 9.1 Total Bilirubin AST ALT Alkaline Phosphatase Ammonia Total Creatine Kinase Troponin I Total Protein Albumin Vitamin B12 251 TSH 0.677 Urine Color Urine Clarity Urine pH Ur Specific [place] Urine Protein Urine Glucose (UA) Urine Ketones Urine Occult Blood Urine Nitrate Urine Bilirubin Urine Urobilinogen Ur Leukocyte Esterase Urine RBC Urine WBC Ur Squamous Epith Cells Amorphous Sediment Urine Bacteria Urine Mucus Micro UA Comment Ur Microscopic Review Urine Culture Comments 07/25/18 07/25/18 09:00 12:42 WBC RBC Hgb Hct MCV MCH MCHC RDW Plt Count MPV Neut % (Auto) Lymph % (Auto) [place] % (Auto) Eos % (Auto) Baso % (Auto) Neut # (Auto) Lymph # (Auto) [place] # (Auto) Eos # (Auto) Baso # (Auto) WBC Differential Differential Comment PT INR APTT Sodium Potassium Chloride Carbon Dioxide Anion Gap BUN Creatinine Estimated GFR POC Glucose 95 111 H Random Glucose Lactic Acid Calcium Total Bilirubin AST ALT Alkaline Phosphatase Ammonia Total Creatine Kinase Troponin I Total Protein Albumin Vitamin B12 TSH Urine Color Urine Clarity Urine pH Ur Specific [place] Urine Protein Urine Glucose (UA) Urine Ketones Urine Occult Blood Urine Nitrate Urine Bilirubin Urine Urobilinogen Ur Leukocyte Esterase Urine RBC Urine WBC Ur Squamous Epith Cells Amorphous Sediment Urine Bacteria Urine Mucus Micro UA Comment Ur Microscopic Review Urine Culture Comments Microbiology 07/24/18 17:30 Blood - Peripheral Aerobic Blood Culture - Preliminary No growth in 1 day 07/24/18 17:30 Blood - Peripheral Anaerobic Blood Culture - Preliminary No growth in 1 day 07/24/18 17:35 Blood - Peripheral Aerobic Blood Culture - Preliminary No growth in 1 day 07/24/18 17:35 Blood - Peripheral Anaerobic Blood Culture - Preliminary No growth in 1 day - Imaging Impressions Chest X-Ray 07/24/18 16:23 CONCLUSION: Negative examination. Head CT 07/24/18 16:23 CONCLUSION: 1. No acute intracranial abnormality. 2. Chronic white matter changes . Assessment and Plan - Plan 73-year-old -[place] female with a past medical history of hypertension , diabetes and asthma who was brought to the emergency room for evaluation of altered mental status. Recent history of depression after the of her ; refusing food and medication. 1. Altered mental status Etiology currently unknown CMP, CBC, UA within normal limits Chest x-ray normal Head CT negative for acute process MRI brain pending Blood cultures pending 2. Diabetes mellitus Patient's home medications unknown Sliding-scale insulin Monitor blood glucose 3. Hypertension Clonidine as needed until medication list can be obtained Case management consulted as patient may require placement FEN Heart healthy diet Electrolytes: Patient mildly hypokalemic, status post p.o. repletion, monitor BMP NS at 70 cc/hour Heparin
[2018-07-25] MEDS ORDERED: Gadobutrol PF 7.5 MMOL/7.5 ML Vial (for RAD) IV.SIG ONE (18:48)
--- NOTE | 2018-07-25 19:01 | MR ---
EXAM DATE: 07/25/2018 6:53 PM EDT AGE/SEX: 73 years / Female INDICATIONS: Altered mental status. History of dementia. CLINICAL DATA: This is the patient's subsequent encounter. Patient reports that signs and symptoms h ave been present for 2 days and indicates a pain score of 0/10. MEDICAL/SURGICAL HISTORY: Hypertension. DM . Lungs COMPARISON: No prior exams available for comparison. TECHNIQUE: Multiplanar, multisequence examination of the brain was performed without and with 5.5 ml Gadavist (gadobutrol) contrast as a single exam dose. FINDINGS: Study is degraded by diffuse motion artifact. Cerebrum: The ventricles are normal for age. No evidence of midline shift, mass lesion, hemorrhage or acute infarction. No extraaxial fluid collections are seen. The pituitary gland and suprasellar cistern are normal in configuration. White Matter: On the FLAIR weighted images there is increased signal white matter characteristic of chronic small vessel ischemic change. Posterior Fossa: The cerebellum and brainstem are intact. The 4th ventricle is midline. The cerebel lopontine angle is unremarkable. The cerebellar tonsils are normal in position. Diffusion Imaging: No focal areas of restricted diffusion are seen. No evidence of acute infarction . Extracranial: The visualized portions of the orbits and paranasal sinuses are unremarkable. Post Contrast: No abnormal areas of parenchymal or dural enhancement. No evidence of blood-brain ba rrier breakdown. CONCLUSION: 1. Suboptimal examination secondary to motion artifact. 2. No evidence of acute infarction, hemorrhage or mass. 3. Atrophy and chronic small vessel ischemic change. Electronically signed by: Jos Gann MD 07/25/2018 7:00 PM EDT
[2018-07-26] MEDS: Insulin NovoLOG Aspart Correctional Sugar Inj SQ SCH ×5 (04:21→21:03)
[2018-07-26] MEDS: Sod Chloride 0.9% Inj 1,000 ML IV.CONT SCH ×2 (05:05→16:09)
--- NOTE | 2018-07-26 09:37 | XR ---
EXAM DATE: 07/26/2018 9:34 AM EDT AGE/SEX: 73 years / Female INDICATIONS: Cough. CLINICAL DATA: This is the patient's initial encounter. Patient reports that signs and symptoms have been present for 2 days and indicates a pain score of 0/10. MEDICAL/SURGICAL HISTORY: Hypertension. Diabetes. Asthma . [place] [facility] [place]. . FINDINGS: A single AP view of the chest demonstrates the lungs to be symmetrically aerated without evidence of mass, infiltrate or effusion. The cardiomediastinal contours are unremarkable. Osseous structures a re intact. CONCLUSION: Negative examination. Electronically signed by: Toro Gonzalez MD 07/26/2018 9:36 AM EDT
[2018-07-26] MEDS: Senna/Docusate Sodium 8.6/50 MG Tablet PO SCH ×2 (10:05→21:04)
[2018-07-26] MEDS: Heparin - SQ 10,000 UNITS/ML Vial SQ SCH ×2 (11:21→21:04)
[2018-07-26] MEDS ORDERED: fentaNYL Citrate Inj 100 MCG/2 ML Ampul ONE (15:00)
--- NOTE | 2018-07-26 15:27 | P.PN ---
Subjective Interval history: Patient is seen lying in bed. She is more alert today. She does interact with me and answer questions however there is still some confusion. Spoke to her 3 daughters at bedside and discussed that prior labs indicated RPR positive - discussed options and they are agreeable to lumbar puncture. Physical Exam Vital signs: Vital Signs 07/25/18 20:00 07/26/18 00:00 07/26/18 04:00 Temperature 98.1 F 98.3 F Pulse Rate 83 75 79 Respiratory Rate 16 17 16 Blood Pressure 121/62 167/76 H 154/71 H Pulse Oximetry 97 92 L 94 L 07/26/18 08:06 07/26/18 11:14 Temperature 96.2 F L 96.3 F L Pulse Rate 78 85 Respiratory Rate 20 16 Blood Pressure 135/89 121/78 Pulse Oximetry 95 96 Intake & Output 07/25/18 07/26/18 07/26/18 18:59 06:59 18:59 Intake Total 1000 / 1000 1000 / 1000 Balance 1000 / 1000 1000 / 1000 Weight 58.967 kg Intake: IV 1000 / 1000 1000 / 1000 NS Inj 1,000 ML @ 70 mls/hr IV. 1000 / 1000 1000 / 1000 CONT .[id number] [facility] Rx#:[id number] Narrative: Gen.: Thin, well-developed adult female in no acute distress Head: Normocephalic. Atraumatic. Cardiovascular: Regular rate and rhythm. No murmurs, rubs or gallops. Respiratory: Lungs clear to auscultation bilaterally. No wheezes or rhonchi. Abdomen: Soft, nontender, nondistended. No peritoneal signs. Musculoskeletal: No gross deformities. No edema. Skin: No obvious rashes or erythema. Neuro: Moves all 4 extremities spontaneously. Oriented only to self. Cranial nerves intact (limited exam due to patient mental status). - Urinary Catheter Management Straight Cath placed during this visit: yes Reason for continuing: Not indwelling catheter Insertion date: 07/24/18 Insertion time: 15:30 Results - Labs CBC & Chem 7: 07/25/18 05:57 07/25/18 05:57 Laboratory Results - last 24 hr 07/25/18 07/25/18 07/26/18 16:51 21:24 09:34 POC Glucose 121 H 194 H 88 HIV 1&2 Ab/P24 Ag 4thGn 07/26/18 07/26/18 10:45 13:20 POC Glucose 116 H HIV 1&2 Ab/P24 Ag 4thGn Nonreactive Microbiology 07/24/18 17:30 Blood - Peripheral Aerobic Blood Culture - Preliminary No growth in 2 days 07/24/18 17:30 Blood - Peripheral Anaerobic Blood Culture - Preliminary No growth in 2 days 07/24/18 17:35 Blood - Peripheral Aerobic Blood Culture - Preliminary No growth in 2 days 07/24/18 17:35 Blood - Peripheral Anaerobic Blood Culture - Preliminary No growth in 2 days - Imaging Impressions Head MRI 07/25/18 00:00 CONCLUSION: 1. Suboptimal examination secondary to motion artifact. 2. No evidence of acute infarction, hemorrhage or mass. 3. Atrophy and chronic small vessel ischemic change. Chest X-Ray 07/26/18 00:00 CONCLUSION: Negative examination. Assessment and Plan - Plan 73-year-old -[place] female with a past medical history of hypertension , diabetes and asthma who was brought to the emergency room for evaluation of altered mental status. Recent history of depression after the of her ; refusing food and medication. 1. Altered mental status -Etiology currently unknown -CMP, CBC, UA within normal limits -Chest x-ray normal -Head CT negative for acute process -MRI brain 07/25 normal -Blood cultures pending -no growth in 2 days as of 07/26 -Historical labs show RPR 11/2017 with no known follow-up. Patient and family deny any known history of syphilis. Will do lumbar puncture and add FTA. -Patient and daughters give verbal consent for HIV; nonreactive. 2. Diabetes mellitus Patient's home medications unknown Sliding-scale insulin Monitor blood glucose 3. Hypertension Clonidine as needed until medication list can be obtained Case management consulted as patient may require placement FEN Heart healthy diet Electrolytes: Patient mildly hypokalemic, status post p.o. repletion, monitor BMP NS at 70 cc/hour Heparin
--- NOTE | 2018-07-26 15:42 | P.RAD ---
Post Procedure Progress Note - Pre Procedure Diagnosis (1) Altered mental status - Post Procedure Diagnosis (1) Altered mental status - Procedure Information Procedure Date: 07/26/18 Supervising Radiologist: Gerard Rooney Jr, MD Proceduralist/Assist: Noel Pitts Anesthesia: Other - Plan of Activity Patient to Unit: Nursing Unit Patient Condition: Good See PACS Report for procedural detail/treatment. Spinal Procedure Lumbar Puncture L3-L4 Fluid Removal (CCs): 10 Fluid Description: Clear Puncture Time: 15:32 Findings: Opening pressure: 10 cm H2o Clear CSF>
--- NOTE | 2018-07-26 16:24 | IR ---
EXAM DATE: 07/26/2018 4:10 PM EDT AGE/SEX: 73 years / Female INDICATIONS: Patient presents with Alter Mental Status in need of a Lumbar Puncture with opening pre ssures. CLINICAL DATA: This is the patient's initial encounter. Patient reports that signs and symptoms have been present for 1 day and indicates a pain score of Nonresponsive. MEDICAL/SURGICAL HISTORY: Asthma. Hypertension. Diabetes. None. COMPARISON: No prior exams available for comparison. FLUORO TIME (min): 2.09 IMAGE SERIES: 3 ACCESS SITE: L3-4 SEDATION TIME (min): LUMBAR PUNCTURE TIME: 1532 hours OPENING PRESSURE: 10 cm of water CLOSING PRESSURE: not requested FLUID: Total volume of 9.5 cc of clear fluid was removed. Fluid was sent to lab for ordered studies. MEDICATION(S): 75mcg fentanyl (Sublimaze) IV ; 2mg lorazepam (Ativan) IV . . PROCEDURE: 1. Fluoroscopic guided lumbar puncture. The risks, benefits and alternatives to the procedure were explained and verbal and written consent w as obtained. The site was prepped in sterile fashion. Full sterile technique was used, including ca p, mask, sterile gloves and gown and a large sterile sheet. Hand hygiene and 2% chlorhexidine and/or betadine/alcohol prep was utilized per protocol for cutaneous antisepsis. The skin and subcutaneous tissues were infiltrated with local anesthetic solution. With fluoroscopic guidance the lumbar thecal sac was punctured at the level above. The fluid describ ed above was removed without difficulty. The patient required sedation to remain still. CONCLUSION: 1. Uncomplicated fluoroscopically guided lumbar puncture. Electronically signed by: Gerard Rooney MD 07/26/2018 4:22 PM EDT
[2018-07-26 16:37] LABS: Total Protein,CSF 81.7 mg/dL (15.0-45.0)
[2018-07-26 17:08] LABS: Neutrophils,CSF 0 %; RBC on Tube 4 0 /mm3
[2018-07-27] MEDS: Insulin NovoLOG Aspart Correctional Sugar Inj SQ SCH ×5 (03:02→20:22)
[2018-07-27] MEDS: Sod Chloride 0.9% Inj 1,000 ML IV.CONT SCH ×3 (07:40→22:39)
[2018-07-27] MEDS: Heparin - SQ 10,000 UNITS/ML Vial SQ SCH (09:26)
[2018-07-27] MEDS: Senna/Docusate Sodium 8.6/50 MG Tablet PO SCH ×2 (09:27→20:23)
--- NOTE | 2018-07-27 14:55 | P.PN ---
Subjective Interval history: Patient is seen lying in bed. She wakes easily and tells me that she feels okay. No back pain or headache. No dizziness or faintness. No family members at bedside today. Physical Exam Vital signs: Vital Signs 07/26/18 15:45 07/26/18 16:01 07/26/18 19:40 Temperature 97.6 F 97.4 F L Pulse Rate 84 78 84 Respiratory Rate 16 16 16 Blood Pressure 177/74 H 171/68 H 170/63 H Pulse Oximetry 92 L 95 97 07/27/18 03:43 07/27/18 08:00 07/27/18 08:45 Temperature 98 F 97.3 F L Pulse Rate 80 81 Respiratory Rate 17 16 16 Blood Pressure 137/78 143/102 H Pulse Oximetry 93 L 89 L 07/27/18 13:05 Temperature 97.7 F Pulse Rate 81 Respiratory Rate 16 Blood Pressure 131/91 H Pulse Oximetry 98 Intake & Output 07/26/18 07/27/18 07/27/18 18:59 06:59 18:59 Intake Total 1000 / 1000 Balance 1000 / 1000 Weight 58.967 kg Intake: IV 1000 / 1000 NS Inj 1,000 ML @ 70 mls/hr IV. 1000 / 1000 CONT .[id number] REPLACED BY [facility] Rx#:[id number] Other: # Voids 2 Narrative: Gen.: Thin, well-developed adult female in no acute distress Head: Normocephalic. Atraumatic. Cardiovascular: Regular rate and rhythm. No murmurs, rubs or gallops. Respiratory: Lungs clear to auscultation bilaterally. No wheezes or rhonchi. Abdomen: Soft, nontender, nondistended. No peritoneal signs. Musculoskeletal: No gross deformities. No edema. Skin: No obvious rashes or erythema. Neuro: Moves all 4 extremities spontaneously. Oriented only to self. Cranial nerves intact (limited exam due to patient mental status). - Urinary Catheter Management Straight Cath placed during this visit: yes Reason for continuing: Not indwelling catheter Insertion date: 07/24/18 Insertion time: 15:30 Results - Labs CBC & Chem 7: 07/25/18 05:57 07/25/18 05:57 Laboratory Results - last 24 hr 07/26/18 07/26/18 07/26/18 15:32 15:32 15:32 POC Glucose CSF Volume (1) 2.1 CSF Supernat Color (1) Clear CSF Gross Blood (1) 0 CSF Volume (2) 2.0 CSF Supernat Color (2) Clear CSF Gross Blood (2) 0 CSF Volume (3) 2.1 CSF Supernat Color (3) Clear CSF Gross Blood (3) 0 CSF Volume (4) 2.8 CSF Supernat Color (4) Clear CSF Gross Blood (4) 0 CSF WBC (4) 0 CSF RBC (4) 0 CSF Neutrophils % 0 CSF Glucose 66 CSF LDH 26 CSF Lactic Acid 2.2 CSF Total Protein 81.7 H CSF N.mening B/E.coli K1 Cancelled CSF N.meningitidis A/Y Cancelled Bacterial Ag Source Cancelled H.influenzae Type B Ag Cancelled N. meningitidis C/W 135 Cancelled Group B Strep Antigen Cancelled S. pneumoniae Antigen Cancelled 07/26/18 07/26/18 07/27/18 18:25 21:03 07:40 POC Glucose 73 87 77 CSF Volume (1) CSF Supernat Color (1) CSF Gross Blood (1) CSF Volume (2) CSF Supernat Color (2) CSF Gross Blood (2) CSF Volume (3) CSF Supernat Color (3) CSF Gross Blood (3) CSF Volume (4) CSF Supernat Color (4) CSF Gross Blood (4) CSF WBC (4) CSF RBC (4) CSF Neutrophils % CSF Glucose CSF LDH CSF Lactic Acid CSF Total Protein CSF N.mening B/E.coli K1 CSF N.meningitidis A/Y Bacterial Ag Source H.influenzae Type B Ag N. meningitidis C/W 135 Group B Strep Antigen S. pneumoniae Antigen 07/27/18 12:39 POC Glucose 119 H CSF Volume (1) CSF Supernat Color (1) CSF Gross Blood (1) CSF Volume (2) CSF Supernat Color (2) CSF Gross Blood (2) CSF Volume (3) CSF Supernat Color (3) CSF Gross Blood (3) CSF Volume (4) CSF Supernat Color (4) CSF Gross Blood (4) CSF WBC (4) CSF RBC (4) CSF Neutrophils % CSF Glucose CSF LDH CSF Lactic Acid CSF Total Protein CSF N.mening B/E.coli K1 CSF N.meningitidis A/Y Bacterial Ag Source H.influenzae Type B Ag N. meningitidis C/W 135 Group B Strep Antigen S. pneumoniae Antigen Microbiology 07/24/18 17:30 Blood - Peripheral Aerobic Blood Culture - Preliminary No growth in 3 days 07/24/18 17:30 Blood - Peripheral Anaerobic Blood Culture - Preliminary No growth in 3 days 07/24/18 17:35 Blood - Peripheral Aerobic Blood Culture - Preliminary No growth in 3 days 07/24/18 17:35 Blood - Peripheral Anaerobic Blood Culture - Preliminary No growth in 3 days 07/26/18 15:32 Lumbar Puncture Gram Stain - Final 07/26/18 15:32 Lumbar Puncture CSF Culture - Preliminary No growth in 24 hours - Imaging Impressions Lumbar Puncture Fluoroscopy 07/26/18 00:00 CONCLUSION: 1. Uncomplicated fluoroscopically guided lumbar puncture. Assessment and Plan - Plan 73-year-old -[place] female with a past medical history of hypertension , diabetes and asthma who was brought to the emergency room for evaluation of altered mental status. Recent history of depression after the of her ; refusing food and medication. 1. Altered mental status -Etiology currently unknown -CMP, CBC, UA within normal limits -Chest x-ray normal -Head CT negative for acute process -MRI brain 07/25 normal -Blood cultures pending -no growth in 3 days as of 07/27 -Historical labs show RPR 11/2017 with no known follow-up. Patient and family deny any known history of syphilis. Lumbar puncture done 07/26/18 -CSF protein elevated; pending complete results. Consult to ID placed. -Patient and daughters give verbal consent for HIV; nonreactive. 2. Diabetes mellitus Patient's home medications unknown Sliding-scale insulin Monitor blood glucose 3. Hypertension Clonidine as needed until medication list can be obtained Case management consulted as patient may require placement FEN Heart healthy diet Electrolytes: Patient mildly hypokalemic, status post p.o. repletion, monitor BMP NS at 70 cc/hour Heparin
[2018-07-27] MEDS: ALPRAZolam 0.25 MG Tablet PO PRN (19:14)
[2018-07-27] MEDS: Montelukast 10 MG Tablet PO SCH (19:14)
[2018-07-28] MEDS: Heparin - SQ 10,000 UNITS/ML Vial SQ SCH ×3 (03:01→21:33)
[2018-07-28] MEDS: Insulin NovoLOG Aspart Correctional Sugar Inj SQ SCH ×5 (03:12→21:43)
[2018-07-28 06:38] LABS: Baso % (Auto) 0.2 % (0.0-2.0); Hematocrit 41.2 % (35.0-46.0); Hemoglobin 13.9 gm/dL (11.6-15.3); Lymph # (Auto) 0.8 th/mm3 (1.0-4.8); Lymph % (Auto) 7.7 % (9.0-44.0); Mean Corpuscular HGB Conc 33.6 % (32.0-36.0); Mean Corpuscular Hemoglobin 31.8 pg (27.0-34.0); Mean Corpuscular Volume 94.5 fL (80.0-100.0); Mean Platelet Volume 10.2 fL (7.0-11.0); Mono # (Auto) 0.5 th/mm3 (0.0-0.9); Mono % (Auto) 4.5 % (0.0-8.0); Neut # (Auto) 9.3 th/mm3 (1.8-7.7); Neut % (Auto) 87.6 % (16.0-70.0); Platelet Count 152 th/mm3 (150-450); Red Blood Count 4.36 mil/mm3 (4.00-5.30); White Blood Count 10.7 th/mm3 (4.0-11.0)
[2018-07-28 06:59] LABS: Anion Gap 12 meq/L (5-15); Blood Urea Nitrogen 10 mg/dL (7-18); Calcium 8.8 mg/dL (8.5-10.1); Carbon Dioxide 24.6 meq/L (21.0-32.0); Chloride 102 meq/L (98-107); Glomerular Filtration Rate Greater Than 89 mL/min (>89); Glucose,Random 121 mg/dL (74-106); Potassium 3.6 meq/L (3.5-5.1); Sodium 139 meq/L (136-145)
[2018-07-28] MEDS: Pantoprazole Sodium 20 MG DR Tablet PO SCH (08:34)
[2018-07-28] MEDS: Senna/Docusate Sodium 8.6/50 MG Tablet PO SCH ×2 (08:34→21:33)
--- NOTE | 2018-07-28 12:22 | P.PN ---
Subjective Interval history: Follow-up on patient with altered mental status/encephalopathy. Patient is oriented to self only. Unable to obtain any meaningful history from patient. She does tell me that she "feels awful". She does not give any specifics. She denies any complaints of headache. She does not answer any further review of system questions. Discussed with nursing staff, concern the patient is pocketing food and pills. Physical Exam Vital signs: Vital Signs 07/27/18 13:05 07/27/18 16:29 07/27/18 19:58 Temperature 97.7 F 97.4 F L 96.1 F L Pulse Rate 81 89 94 H Respiratory Rate 16 16 20 Blood Pressure 131/91 H 158/94 H 205/85 H Pulse Oximetry 98 92 L 92 L 07/27/18 20:35 07/27/18 21:24 07/28/18 00:00 Temperature 99.4 F 98.4 F Pulse Rate 89 76 Respiratory Rate 18 18 Blood Pressure 185/81 H 168/74 H 151/90 H Pulse Oximetry 96 96 07/28/18 04:00 07/28/18 07:58 07/28/18 08:00 Temperature 98.6 F 97.5 F L Pulse Rate 82 82 Respiratory Rate 18 14 14 Blood Pressure 127/60 153/62 H Pulse Oximetry 97 98 Intake & Output 07/27/18 07/28/18 07/28/18 18:59 06:59 18:59 Intake Total 1000 / 1000 1000 / 1000 Balance 1000 / 1000 1000 / 1000 Intake: IV 1000 / 1000 1000 / 1000 NS Inj 1,000 ML @ 70 mls/hr IV. 1000 / 1000 1000 / 1000 CONT .[id number] [facility] Rx#:[id number] Other: # Voids 1 Date of Last Bowel Movement 07/26/18 07/27/18 Narrative: GENERAL: Thin elderly WDWN AAF, in no acute distress. Awake. Lying in bed. SKIN: Warm and dry. No generalized rash. HEAD: Atraumatic. Normocephalic. EYES: Pupils equal and round. No scleral icterus. No injection or drainage. ENT: No nasal bleeding or discharge. Mucous membranes pink and moist. NECK: Trachea midline. CARDIOVASCULAR: Regular rate and rhythm. RESPIRATORY: No accessory muscle use. Poor effort. Clear to auscultation. Breath sounds equal bilaterally. GASTROINTESTINAL: Abdomen soft, non-tender, nondistended. MUSCULOSKELETAL: Extremities without clubbing, cyanosis, or edema. No obvious deformities. NEUROLOGICAL: Awake. Oriented to self only. No obvious cranial nerve deficits. Able to move all extremities spontaneously. Minimal speech. PSYCHIATRIC: Unable to assess. - Urinary Catheter Management Straight Cath placed during this visit: yes Reason for continuing: Not indwelling catheter Insertion date: 07/24/18 Insertion time: 15:30 Results - Labs CBC & Chem 7: 07/28/18 05:36 07/28/18 05:36 Laboratory Results - last 24 hr 07/26/18 07/26/18 07/27/18 10:48 15:32 12:39 WBC RBC Hgb Hct MCV MCH MCHC RDW Plt Count MPV Neut % (Auto) Lymph % (Auto) [place] % (Auto) Eos % (Auto) Baso % (Auto) Neut # (Auto) Lymph # (Auto) [place] # (Auto) Eos # (Auto) Baso # (Auto) WBC Differential Differential Comment Sodium Potassium Chloride Carbon Dioxide Anion Gap BUN Creatinine Estimated GFR POC Glucose 119 H Random Glucose Calcium CSF Herpes I DNA (PCR) Negative CSF Herpes II DNA (PCR) Negative T.pallidum Ab (FTA-ABS) Reactive A 07/27/18 07/28/18 07/28/18 16:20 03:10 05:36 WBC 10.7 RBC 4.36 Hgb 13.9 Hct 41.2 MCV 94.5 MCH 31.8 MCHC 33.6 RDW 16.0 Plt Count 152 MPV 10.2 Neut % (Auto) 87.6 H Lymph % (Auto) 7.7 L [place] % (Auto) 4.5 Eos % (Auto) 0.0 Baso % (Auto) 0.2 Neut # (Auto) 9.3 H Lymph # (Auto) 0.8 L [place] # (Auto) 0.5 Eos # (Auto) 0.0 Baso # (Auto) 0.0 WBC Differential . Differential Comment Auto diff final Sodium Potassium Chloride Carbon Dioxide Anion Gap BUN Creatinine Estimated GFR POC Glucose 92 115 H Random Glucose Calcium CSF Herpes I DNA (PCR) CSF Herpes II DNA (PCR) T.pallidum Ab (FTA-ABS) 07/28/18 07/28/18 05:36 07:41 WBC RBC Hgb Hct MCV MCH MCHC RDW Plt Count MPV Neut % (Auto) Lymph % (Auto) [place] % (Auto) Eos % (Auto) Baso % (Auto) Neut # (Auto) Lymph # (Auto) [place] # (Auto) Eos # (Auto) Baso # (Auto) WBC Differential Differential Comment Sodium 139 Potassium 3.6 Chloride 102 Carbon Dioxide 24.6 Anion Gap 12 BUN 10 Creatinine 0.61 Estimated GFR Greater than 89 POC Glucose 161 H Random Glucose 121 H Calcium 8.8 CSF Herpes I DNA (PCR) CSF Herpes II DNA (PCR) T.pallidum Ab (FTA-ABS) Microbiology 07/24/18 17:30 Blood - Peripheral Aerobic Blood Culture - Preliminary No growth in 4 days 07/24/18 17:30 Blood - Peripheral Anaerobic Blood Culture - Preliminary No growth in 4 days 07/24/18 17:35 Blood - Peripheral Aerobic Blood Culture - Preliminary No growth in 4 days 07/24/18 17:35 Blood - Peripheral Anaerobic Blood Culture - Preliminary No growth in 4 days 07/26/18 15:32 Lumbar Puncture Gram Stain - Final 07/26/18 15:32 Lumbar Puncture CSF Culture - Preliminary No growth in 48 hours Assessment and Plan - Plan 73-year-old -[place] female with a past medical history of hypertension , diabetes and asthma who was brought to the emergency room for evaluation of altered mental status. Recent history of depression after the of her ; refusing food and medication. Altered mental status suspect secondary to probable neurosyphilis ?dementia Head CT negative for acute process MRI brain with no acute process Blood cultures pending -no growth in 4 days HIV nonreactive Historical labs show RPR 11/2017 with no known follow-up. Patient and family deny any known history of syphilis. Lumbar puncture done 07/26/18 -CSF protein elevated; pending complete results. Await CSF VDRL results. FTA-ABS reactive ID following, appreciate assistance. Cephalexin allergy. ?desensitaization. Plan for family meeting on Monday. Consult Palliative care to assist with goals of care. Continue with PT Dysphagia evaluated by thao HENDRICKS diet with thin liquids Consult dietitian for calorie count, poor po intake Diabetes mellitus Hold home metformin Sliding-scale insulin Monitor blood glucose Hypertension Continue on home dose of Vasotec 10mg daily Clonidine as needed Continue to monitor BP and adjust treatment accordingly DVT prophylaxis Heparin Discussed Condition With: patient, nursing staff, Dr. Greene, Dr. Pulido Discharge Planning: Not ready for discharge
--- NOTE | 2018-07-28 13:24 | P.CONID ---
History of Present Illness Service: Infectious Disease Consult date: 07/28/18 Requesting Physician: Camelia Jhaveri Reason for Consult: Evaluation and Mment of Neurosyphylis Primary Care Provider: David Gee Family Provider: David Gee History of Present Illness: Ms. Goyal is a 73-year-old -Iranian female with past medical history significant for hypertension, diabetes mellitus and asthma who was brought into the emergency department by her daughter for evaluation of altered mental status. Most of the history was obtained by review of medical records. I briefly spoke to 1 of the daughters over the phone the connection was very poor so all I could gather was patient has history of diabetes and hypertension.Per my discussion with Camelia Jhaveri the COMPRESSOR TECHNICIAN for [employer] patient was more alert in ED and when surrounded by daughters she told all of them about the Syphylis test being positive and concern for Neurosyphilis. Reportedly patient lost her 1 year back and since then there has been some general decline noted. Due to worsening mentation patient was brought into the ED for further evaluation. She reportedly became more confused and agitated and hallucinating. She was seeing people that are not alive. She was reportedly diagnosed with pneumonia in jul 2018 at [facility] and placed on Azithromycin. RPR was positive with FTA so an LP was done with elevated total protein. MRI brain with no hydrocephalus or space occupying lesions. Chest x-ray within normal limits. No reported fevers/chills prior to admission. CSF VDRL is pending at present time. ID consulted for evaluation and Mment of Neurosyphylis. 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) Asthma Diabetes mellitus Hypertension - Surgical History Surgical History: Surgical History (Last Reviewed 07/27/18 @ 09:23 by Azalia Martinez) No history of previous surgery - Family History Family History: Family History (Last Reviewed 07/27/18 @ 09:23 by Azalia Martinez) Other Diabetes mellitus - Tobacco History Smoking Status: Unknown if ever smoked - Alcohol History How Often Do You Have a Drink Containing Alcohol: Unable to Obtain - Substance Use History Substance History: Unable to Obtain - Travel History Recent Travel in the [place] Within the Last 8 Weeks: No Recent Travel Out of the Country Within the Last 8 Weeks: No - Immunization History Tetanus Immunization: Unable to Assess Hx Influenza Vaccine This Season: Unable to Assess Medications and Allergies Active Medications: Active Medications Acetaminophen (Tylenol) 650 mg PO Q4H PRN PRN Reason: Temp > 100.4 Last Admin: 07/25/18 16:47 Dose: 650 mg Hydrocodone Bitart/Acetaminophen ([place] 5/325) 1 tab PO BID PRN PRN Reason: Acute Pain Last Admin: 07/28/18 00:43 Dose: 1 tab Al Hydroxide/Mg Hydroxide (Milk Of Magnesia Liq) 30 ml PO Q12H PRN PRN Reason: Mild Constipation Alprazolam (Xanax) 0.25 mg PO BID PRN PRN Reason: AGITATION Last Admin: 07/27/18 19:14 Dose: 0.25 mg Bisacodyl (Dulcolax Supp) 10 mg RECTAL DAILY PRN PRN Reason: SEVERE CONSITIPATION Clonidine HCl (Catapres) 0.1 mg PO Q6H PRN PRN Reason: SBP>160 DBP>90 Last Admin: 07/27/18 20:47 Dose: 0.1 mg Dextrose (D50w Vial) 50 ml IV.PUSH UNSCH PRN PRN Reason: PER HYPOGLYCEMIA PROTOCOL Enalapril Maleate (Vasotec) 10 mg PO DAILY [facility] Last Admin: 07/28/18 08:34 Dose: 10 mg Glucagon (Glucagon Inj) 1 mg OTHER PRN PRN PRN Reason: for Hypoglycemia Protocol Heparin Sodium (Porcine) (Heparin Inj) 5,000 units SQ Q12H [facility] Last Admin: 07/28/18 10:47 Dose: 5,000 units Sodium Chloride (Ns Inj) 1,000 mls @ 70 mls/hr IV.CONT .[id number] [facility] Last Admin: 07/27/18 22:39 Dose: 70 mls/hr Insulin Aspart (Novolog Insulin Correctional Sugar Inj) 0 unit SQ ACHS AND 3AM J[facility]NNY; Protocol Last Admin: 07/28/18 12:56 Dose: Not Given Lactulose (Lactulose Liq) 30 ml PO DAILY PRN PRN Reason: SEVERE CONSITIPATION Montelukast Sodium (Singulair) 10 mg PO QPM [facility] Last Admin: 07/27/18 19:14 Dose: 10 mg Ondansetron HCl (Zofran Inj) 4 mg IV.PUSH Q6H PRN PRN Reason: NAUSEA OR VOMITING Pantoprazole Sodium (Protonix) 20 mg PO DAILY [facility] Last Admin: 07/28/18 08:34 Dose: 20 mg Senna/Docusate Sodium (Pinky-Colace) 1 tab PO BID [facility] Last Admin: 07/28/18 08:34 Dose: 1 tab Sennosides (Senokot) 17.2 mg PO Q12H PRN PRN Reason: Moderate Constipation Sodium Chloride (Ns Flush) 2 ml IV.FLUSH PRN PRN PRN Reason: FLUSH AFTER USING IV ACCESS Allergies Allergy/AdvReac Type Severity Reaction Status Date / Time cephalexin Allergy Severe Unverified 12/06/17 19:32 Home Medications Medication Instructions Recorded Confirmed Type alprazolam [Xanax] 0.25 mg PO BID PRN 07/27/18 07/27/18 History enalapril maleate 10 mg PO DAILY 07/27/18 07/27/18 History hydrocodone-acetaminophen 1 tab PO BID PRN 07/27/18 07/27/18 History metformin 500 mg PO BID 07/27/18 07/27/18 History montelukast [Singulair] 10 mg PO QPM 07/27/18 07/27/18 History omeprazole magnesium [Prilosec] 20 mg PO DAILY 07/27/18 07/27/18 History Exam Vital signs: Vital Signs 07/27/18 16:29 07/27/18 19:58 07/27/18 20:35 Temperature 97.4 F L 96.1 F L Pulse Rate 89 94 H Respiratory Rate 16 20 Blood Pressure 158/94 H 205/85 H 185/81 H Pulse Oximetry 92 L 92 L 07/27/18 21:24 07/28/18 00:00 07/28/18 04:00 Temperature 99.4 F 98.4 F 98.6 F Pulse Rate 89 76 82 Respiratory Rate 18 18 18 Blood Pressure 168/74 H 151/90 H 127/60 Pulse Oximetry 96 96 97 07/28/18 07:58 07/28/18 08:00 07/28/18 12:00 Temperature 97.5 F L 98.3 F Pulse Rate 82 80 Respiratory Rate 14 14 14 Blood Pressure 153/62 H 157/70 H Pulse Oximetry 98 96 Intake & Output 07/27/18 07/28/18 07/28/18 18:59 06:59 18:59 Intake Total 1000 / 1000 1000 / 1000 Balance 1000 / 1000 1000 / 1000 Intake: IV 1000 / 1000 1000 / 1000 NS Inj 1,000 ML @ 70 mls/hr IV. 1000 / 1000 1000 / 1000 CONT .[id number] [facility] Rx#:[id number] Other: # Voids 1 Date of Last Bowel Movement 07/26/18 07/27/18 Narrative: GENERAL: Poorly nourished patient, not in acute distress, curled up in bed. SKIN: Cool and dry, no generalized rash HEAD: Atraumatic. Normocephalic. No temporal or scalp tenderness. EYES: Pupils equal round and reactive. Scleral icterus. No injection or drainage. No petechia ENT: Nothing abnormal detected NECK: Trachea midline. Supple, nontender, no meningeal signs. CARDIOVASCULAR: HS audible. RESPIRATORY: Clear to auscultation bilaterally. GASTROINTESTINAL: Abdomen soft nontender. MUSCULOSKELETAL: Extremities without clubbing, cyanosis. NEUROLOGICAL: Alert oriented 2. Nonfocal. Psych cooperative IV line sites ok. Results - Labs CBC & Chem 7: 07/28/18 05:36 07/28/18 05:36 Labs: Laboratory Results - last 24 hr 07/26/18 07/26/18 07/27/18 10:48 15:32 16:20 WBC RBC Hgb Hct MCV MCH MCHC RDW Plt Count MPV Neut % (Auto) Lymph % (Auto) Elk % (Auto) Eos % (Auto) Baso % (Auto) Neut # (Auto) Lymph # (Auto) Elk # (Auto) Eos # (Auto) Baso # (Auto) WBC Differential Differential Comment Sodium Potassium Chloride Carbon Dioxide Anion Gap BUN Creatinine Estimated GFR POC Glucose 92 Random Glucose Calcium CSF Herpes I DNA (PCR) Negative CSF Herpes II DNA (PCR) Negative T.pallidum Ab (FTA-ABS) Reactive A 07/28/18 07/28/18 07/28/18 03:10 05:36 05:36 WBC 10.7 RBC 4.36 Hgb 13.9 Hct 41.2 MCV 94.5 MCH 31.8 MCHC 33.6 RDW 16.0 Plt Count 152 MPV 10.2 Neut % (Auto) 87.6 H Lymph % (Auto) 7.7 L Elk % (Auto) 4.5 Eos % (Auto) 0.0 Baso % (Auto) 0.2 Neut # (Auto) 9.3 H Lymph # (Auto) 0.8 L Elk # (Auto) 0.5 Eos # (Auto) 0.0 Baso # (Auto) 0.0 WBC Differential . Differential Comment Auto diff final Sodium 139 Potassium 3.6 Chloride 102 Carbon Dioxide 24.6 Anion Gap 12 BUN 10 Creatinine 0.61 Estimated GFR Greater than 89 POC Glucose 115 H Random Glucose 121 H Calcium 8.8 CSF Herpes I DNA (PCR) CSF Herpes II DNA (PCR) T.pallidum Ab (FTA-ABS) 07/28/18 07/28/18 07:41 12:28 WBC RBC Hgb Hct MCV MCH MCHC RDW Plt Count MPV Neut % (Auto) Lymph % (Auto) Elk % (Auto) Eos % (Auto) Baso % (Auto) Neut # (Auto) Lymph # (Auto) Elk # (Auto) Eos # (Auto) Baso # (Auto) WBC Differential Differential Comment Sodium Potassium Chloride Carbon Dioxide Anion Gap BUN Creatinine Estimated GFR POC Glucose 161 H 106 Random Glucose Calcium CSF Herpes I DNA (PCR) CSF Herpes II DNA (PCR) T.pallidum Ab (FTA-ABS) - Imaging Chest X-Ray 07/24/18 16:23 CONCLUSION: Negative examination. Head CT 07/24/18 16:23 CONCLUSION: 1. No acute intracranial abnormality. 2. Chronic white matter changes . Head MRI 07/25/18 00:00 CONCLUSION: 1. Suboptimal examination secondary to motion artifact. 2. No evidence of acute infarction, hemorrhage or mass. 3. Atrophy and chronic small vessel ischemic change. Chest X-Ray 07/26/18 00:00 CONCLUSION: Negative examination. Lumbar Puncture Fluoroscopy 07/26/18 00:00 CONCLUSION: 1. Uncomplicated fluoroscopically guided lumbar puncture. Assessment and Plan - Plan Probable Neurosyphilis. Acute metabolic encephalopathy: ? Syphilis related ? other infection related like UTI etc. ? Dementia Underlying depression Cephalexin allergy reported as severe but no description. Recs: No obvious signs of acute bacterial infections. Follow cultures. Follow CSF VDRL for confirmed diagnosis of neurosyphilis. Check RPR with titer to follow titers. HIV negative screen. Consult palliative care to address goals of therapy. Doubt if treating neurosyphilis will change prognosis but we can try. Need to follow cultures to make sure no other acute infection as cause for encephalopathy. On Monday would like palliative care to help us address goals of therapy. Allergy type needs to be sorted to decide if patient needs desensitization. If desensitization needed family would need to be notified of risk benefits. alfredo fuentes patients daughter some aspects of history. Attempted to talk to her twice but due to poor office receptionist will have to attempt again. Will follow prn over the weekend.
[2018-07-28] MEDS: Sod Chloride 0.9% Inj 1,000 ML IV.CONT SCH ×2 (15:06→21:35)
[2018-07-28] MEDS: Montelukast 10 MG Tablet PO SCH (17:55)
[2018-07-29] MEDS: Insulin NovoLOG Aspart Correctional Sugar Inj SQ SCH ×5 (03:25→20:40)
[2018-07-29] MEDS: Sod Chloride 0.9% Inj 1,000 ML IV.CONT SCH ×2 (06:34→17:43)
--- NOTE | 2018-07-29 07:37 | P.PN ---
Subjective Interval history: Patient is stable. No significant change. She denies any specific medical complaints and just states "I feel awful". She does not give any specifics. Discussed with nursing staff, patient has been refusing oral medications. She is not eating much. Her blood pressure is elevated. She is afebrile. Physical Exam Vital signs: Vital Signs 07/28/18 07:58 07/28/18 08:00 07/28/18 12:00 Temperature 97.5 F L 98.3 F Pulse Rate 82 80 Respiratory Rate 14 14 14 Blood Pressure 153/62 H 157/70 H Pulse Oximetry 98 96 07/28/18 16:00 07/28/18 20:00 07/29/18 00:00 Temperature 98.5 F 97.6 F 97.8 F Pulse Rate 89 85 77 Respiratory Rate 16 18 18 Blood Pressure 188/84 H 133/75 160/70 H Pulse Oximetry 96 95 96 07/29/18 04:00 Temperature 97.6 F Pulse Rate 78 Respiratory Rate 18 Blood Pressure 199/81 H Pulse Oximetry 97 Intake & Output 07/28/18 07/29/18 07/29/18 18:59 06:59 18:59 Intake Total 1000 / 1000 1000 / 1000 Balance 1000 / 1000 1000 / 1000 Weight 54 kg Intake: IV 1000 / 1000 1000 / 1000 NS Inj 1,000 ML @ 70 mls/hr IV. 1000 / 1000 1000 / 1000 CONT .[id number] [facility] Rx#:[id number] Other: # Incontinent Voids 1 Date of Last Bowel Movement 07/27/18 07/27/18 Narrative: GENERAL: Thin elderly WDWN AAF, in no acute distress. Awake, moaning. Confused. Lying in bed. SKIN: Warm and dry. No generalized rash. HEAD: Atraumatic. Normocephalic. EYES: Pupils equal and round. No scleral icterus. No injection or drainage. ENT: No nasal bleeding or discharge. Mucous membranes pink and moist. NECK: Trachea midline. CARDIOVASCULAR: Regular rate and rhythm. RESPIRATORY: No accessory muscle use. Poor effort. Clear to auscultation. Breath sounds equal bilaterally. GASTROINTESTINAL: Abdomen soft, non-tender, nondistended. MUSCULOSKELETAL: Extremities without clubbing, cyanosis, or edema. No obvious deformities. NEUROLOGICAL: Awake. Oriented to self only. No obvious cranial nerve deficits. Able to move all extremities spontaneously. Minimal speech. PSYCHIATRIC: Unable to assess. - Urinary Catheter Management Straight Cath placed during this visit: yes Reason for continuing: Not indwelling catheter Insertion date: 07/24/18 Insertion time: 15:30 Results - Labs CBC & Chem 7: 07/28/18 05:36 07/28/18 05:36 Laboratory Results - last 24 hr 07/26/18 07/28/18 07/28/18 15:32 05:36 07:41 POC Glucose 161 H C-Reactive Protein 1.76 H CSF Treponema Ab (FTA) Non-reactive CSF Herpes I DNA (PCR) Negative CSF Herpes II DNA (PCR) Negative 07/28/18 07/28/18 07/29/18 12:28 21:41 03:21 POC Glucose 106 111 H 114 H C-Reactive Protein CSF Treponema Ab (FTA) CSF Herpes I DNA (PCR) CSF Herpes II DNA (PCR) 07/29/18 07:36 POC Glucose 83 C-Reactive Protein CSF Treponema Ab (FTA) CSF Herpes I DNA (PCR) CSF Herpes II DNA (PCR) Microbiology 07/24/18 17:30 Blood - Peripheral Aerobic Blood Culture - Preliminary No growth in 4 days 07/24/18 17:30 Blood - Peripheral Anaerobic Blood Culture - Preliminary No growth in 4 days 07/24/18 17:35 Blood - Peripheral Aerobic Blood Culture - Preliminary No growth in 4 days 07/24/18 17:35 Blood - Peripheral Anaerobic Blood Culture - Preliminary No growth in 4 days 07/26/18 15:32 Lumbar Puncture Gram Stain - Final 07/26/18 15:32 Lumbar Puncture CSF Culture - Preliminary No growth in 48 hours Assessment and Plan - Plan 73-year-old -Burkinan female with a past medical history of hypertension , diabetes and asthma who was brought to the emergency room for evaluation of altered mental status. Recent history of depression after the of her ; refusing food and medication. Altered mental status suspect secondary to probable neurosyphilis ?dementia Head CT negative for acute process MRI brain with no acute process Blood cultures pending -no growth in 4 days HIV nonreactive Historical labs show RPR 11/2017 with no known follow-up. Patient and family deny any known history of syphilis. Lumbar puncture done 07/26/18 -CSF protein elevated; pending complete results. Await CSF VDRL results. FTA-ABS reactive ID following, appreciate assistance. Cephalexin allergy. ?desensitaization. Plan for family meeting on Monday. Consult Palliative care to assist with goals of care. Continue with PT Dysphagia evaluated by thao HENDRICKS diet with thin liquids Consult dietitian for calorie count, poor po intake Diabetes mellitus Hold home metformin Sliding-scale insulin Monitor blood glucose Hypertension, poorly controlled secondary to patient medication noncompliance. Also patient with questionable dysphagia. Discontinue Vasotec po. Start Clonidine 0.1mg patch q 7days. Clonidine as needed Continue to monitor BP and adjust treatment accordingly DVT prophylaxis Heparin Discussed Condition With: patient, nursing staff, Dr. Greene Discharge Planning: Not ready for discharge
--- NOTE | 2018-07-29 08:01 | P.DIET ---
Nutritional Evaluation Type of nutrition evaluation: initial Nutrition screening: [facility] Screening comments: Poor PO Intake, Calorie count Objective - Diagnosis AMS - Objective [place] body weight: 53 kg % IBW: 102 Body Weight Used for Calculations: Actual (54kg ) Energy Needs - Lower Range (kCal/kg): 30 Energy Needs - Upper Range (kCal/kg): 35 Lower Limit kCal/kg (kCals): 1,620 Upper Limit kCal/kg (kCals): 1,840 Lower Limit Protein Factor (Grams per Kg): 1.1 Upper Limit Protein Factor (Grams per Kg): 1.4 Lower Protein Needs (Protein): 59 Upper Protein Needs (Protein): 76 Fluid Factor (ml/kg): 33 Estimated Fluid Needs (ml): 1,840 Dietitian Reviewed in Medical Record: Current diet, Curent medications, Intake & Output, Labs, Medical history Diet Order: 1800 ADA pureed Speech Therapy Recommendations: Yes Objective Comments: PMH: HTN, Diabetes, Asthma Last BM 07/27 Feeding - Current PO Supplement Current Supplement: Glucerna Shake Current Supplement Flavor: Vanilla Current Frequency of Supplement: Three times a day Current kCals Provided by Supplement: 220 Current Protein Provided by Supplement: 10 Assessment Assessment: Pt at nutritional risk r/t current clinical status. Pt with AMS, dsyphagia, poor po intake. Nutritional needs as assessed above. Calorie count per MD, started 07/29 breakfast and run through 07/31 dinner to be calculated on 08/01am. Pt is currently on an 1800 ADA pureed diet. Nursing reports poor po intake, if inadequate, recommend TF Glucerna with goal rate of 50 ml/hr if consistent with goals of clinical course, noted family meeting on Monday. TF will provide 1800kcals, 99gms protein and 911mls free water. Recommendations: 1800 ADA pureed diet Calorie count 07/29-07/31 TF recs as above if consistent with clinical course. Dietitian to Monitor: Lab values, Supplement acceptance, Intake & Output, Weight change, PO Intake, Medical course
[2018-07-29] MEDS: Pantoprazole Sodium 20 MG DR Tablet PO SCH (08:26)
[2018-07-29] MEDS: Senna/Docusate Sodium 8.6/50 MG Tablet PO SCH ×2 (08:26→20:41)
[2018-07-29] MEDS: Heparin - SQ 10,000 UNITS/ML Vial SQ SCH ×2 (11:05→22:10)
[2018-07-29] MEDS: Montelukast 10 MG Tablet PO SCH (18:24)
[2018-07-29] MEDS: ALPRAZolam 0.25 MG Tablet PO PRN (20:41)
[2018-07-30] MEDS: Insulin NovoLOG Aspart Correctional Sugar Inj SQ SCH ×5 (03:06→21:06)
[2018-07-30] MEDS: Sod Chloride 0.9% Inj 1,000 ML IV.CONT SCH (06:37)
[2018-07-30] MEDS: Senna/Docusate Sodium 8.6/50 MG Tablet PO SCH ×2 (09:17→21:10)
[2018-07-30] MEDS: Pantoprazole Sodium 20 MG DR Tablet PO SCH (09:17)
[2018-07-30] MEDS: Heparin - SQ 10,000 UNITS/ML Vial SQ SCH ×2 (09:17→21:10)
--- NOTE | 2018-07-30 11:08 | P.PN ---
Subjective Interval history: Follow up on patient with AMS/encephalopathy. Patient seen and examined. Patient appears more alert today. She knows she is in [place] and is in [facility]. She does not know why she is in the hospital. She cannot correctly tell the month or year. No family is at the bedside. She denies any specific medical complaints. DW nursing staff, no acute events overnight. Her BP is poorly controlled. Physical Exam Vital signs: Vital Signs 07/29/18 12:00 07/29/18 14:40 07/29/18 16:00 Temperature 97.3 F L 97.7 F Pulse Rate 80 83 Respiratory Rate 18 18 Blood Pressure 187/117 H 152/66 H 191/84 H Pulse Oximetry 97 95 07/29/18 20:00 07/30/18 00:09 07/30/18 01:33 Temperature 98.4 F 98.8 F Pulse Rate 72 70 61 Respiratory Rate 18 18 Blood Pressure 195/83 H 189/79 H 155/81 H Pulse Oximetry 96 95 07/30/18 04:00 07/30/18 08:00 Temperature 98.5 F 97.1 F L Pulse Rate 63 65 Respiratory Rate 18 17 Blood Pressure 174/74 H 173/77 H Pulse Oximetry 99 93 L Intake & Output 07/29/18 07/30/18 07/30/18 18:59 06:59 18:59 Intake Total 1000 / 1000 1000 / 1000 Balance 1000 / 1000 1000 / 1000 Weight 55.1 kg Intake: IV 1000 / 1000 1000 / 1000 NS Inj 1,000 ML @ 70 mls/hr IV. 1000 / 1000 1000 / 1000 CONT .[id number] [facility]#:[id number] Other: # Incontinent Voids 1 Date of Last Bowel Movement 07/28/18 07/29/18 # Incontinent Bowel Movements 1 Narrative: GENERAL: Thin elderly WDWN AAF, in no acute distress. Awake, more alert. Lying in bed. Partially oriented. SKIN: Warm and dry. No generalized rash. HEAD: Atraumatic. Normocephalic. EYES: Pupils equal and round. No scleral icterus. No injection or drainage. ENT: No nasal bleeding or discharge. Dry mucus membranes. NECK: Trachea midline. CARDIOVASCULAR: Regular rate and rhythm. RESPIRATORY: No accessory muscle use. Poor effort. Clear to auscultation. Breath sounds equal bilaterally. GASTROINTESTINAL: Abdomen soft, non-tender, nondistended. MUSCULOSKELETAL: Extremities without clubbing, cyanosis, or edema. No obvious deformities. NEUROLOGICAL: Awake. Oriented to self only. No obvious cranial nerve deficits. Weak transmitter chief strength bilaterally. Able to move all extremities spontaneously. Minimal speech. PSYCHIATRIC: Confused. Calm and cooperative. - Urinary Catheter Management Straight Cath placed during this visit: yes Reason for continuing: Not indwelling catheter Insertion date: 07/24/18 Insertion time: 15:30 Results - Labs CBC & Chem 7: 07/28/18 05:36 07/28/18 05:36 Laboratory Results - last 24 hr 07/29/18 07/29/18 07/29/18 05:55 11:44 18:10 POC Glucose 102 169 H RPR Titer 1:2 H RPR Reactive H 07/29/18 07/30/18 07/30/18 20:40 03:03 07:38 POC Glucose 93 92 83 RPR Titer RPR Microbiology 07/24/18 17:30 Blood - Peripheral Aerobic Blood Culture - Final No growth in 5 days 07/24/18 17:30 Blood - Peripheral Anaerobic Blood Culture - Final No growth in 5 days 07/24/18 17:35 Blood - Peripheral Aerobic Blood Culture - Final No growth in 5 days 07/24/18 17:35 Blood - Peripheral Anaerobic Blood Culture - Final No growth in 5 days 07/26/18 15:32 Lumbar Puncture Gram Stain - Final 07/26/18 15:32 Lumbar Puncture CSF Culture - Final No growth in 72 hours Assessment and Plan - Plan 73-year-old -Senegalese female with a past medical history of hypertension , diabetes and asthma who was brought to the emergency room for evaluation of altered mental status. Recent history of depression after the of her ; refusing food and medication. Altered mental status suspect secondary to probable neurosyphilis ?dementia Head CT negative for acute process MRI brain with no acute process Blood cultures pending -no growth in 4 days HIV nonreactive Historical labs show RPR 11/2017 with no known follow-up. Patient and family deny any known history of syphilis. Lumbar puncture done 07/26/18 -CSF protein elevated. Awaiting CSF VDRL results. FTA-ABS reactive ID following, appreciate assistance. Cephalexin allergy. ?desensitization. Plan for family meeting. Consult Palliative care to assist with goals of care. Consult Neuropsychologist, appreciate assistance Continue with PT fall precautions Dysphagia evaluated by thao HENDRICKS diet with thin liquids Paver Installer following for calorie count. Continue with Glucerna supplements TID with meals. Diabetes mellitus Hold home metformin Sliding-scale insulin Monitor blood glucose Hypertension Patient cleared to take po meds crushed with jaspreete. Continue on home dose of Vasotec 10mg daily. Add Norvasc 5mg daily. Hold Clonidine patch. Clonidine as needed Continue to monitor BP and adjust treatment accordingly DVT prophylaxis Heparin Discussed Condition With: patient, nursing staff, Dr. Caro Discharge Planning: Not ready for discharge
--- NOTE | 2018-07-30 12:16 | P.CONPAL ---
Consult Service: Palliative Care Requesting Physician: Jessica Lay Reason for Consult: a. To assist with evaluation and management of symptoms including:altered mental status, pain, dysphagia, weakness b. To assist medical decision maker(s) with: better understanding of current medical conditions; weighing benefits/burdens of medical treatment options; making medical treatment decisions. Primary Care Provider: David Gee History of Present Illness History of Present Illness: Mrs. Goyal is a 73-year-old female with past medical history significant for diabetes mellitus, hypertension, hyperlipidemia and COPD. Patient presented to the ER in the company of her daughter on 07/24/18 for evaluation of worsening altered mental status and hallucinating-she is staring at people who are . Per family`s report in the emergency room, patient is usually alert and oriented 3 but upon arrival in the emergency room patient was only oriented to her first name only. Per family patient was diagnosed with pneumonia on July 18, 2018 and was treated with azithromycin. ER course: * Vital signs: Temperature 97.6, pulse 79, respiration rate 18, BP 205/79, O2 saturation 97% * Laboratory workup today revealing WBC 4.0, hemoglobin 1 3.5, hematocrit 40.0, platelet count 152, PT 10.7, INR 1.7, sodium 143, potassium 3.4, BUN/creatinine 8/0.55, random rwhomva99, AST 14, ALT 15, ammonia 18, troponin less than 0.02, total protein 7.2, albumin 3.2. * Urinalysis negative for leukocyte esterase. * Head CT negative * Chest x-ray negative * Blood cultures showing no growth in 4 days. * EKG sinus rhythm with occasional ectopic premature complexes moderate T-wave abnormality, consider anterior lateral lateral ischemia abnormal ECG * [facility] therapy consulted 07/25 for evaluation of weakness, recommended PT at rehabilitation. Speech therapy consulted 07/25 for evaluation of cognition, recommending supervision after discharge secondary to cognitive deficits and puree diet with thin liquids. Patient underwent lumbar puncture by interventional radiology on 07/26, and CSF had elevated total protein and culture is showing no growth in 48hrs. HIV test 07/26/18 was nonreactive. T. pallidum Ab (FTA-ABS) test collected on 07/26/18 reactive. CSF Treponema Ab (FTA ) collected on 07/26/18 non-reactive, CSF VDRL pending. MRI brain with no hydrocephalus or space-occupying lesions. Infectious disease Dr. Swapna Pulido consulted on 07/28/18 for evaluation and management of syphilis. Dietitian consulted on 07/29/18 to assist with nutrition evaluation, recommended tube feeding Glucerna with goal rate of 50 mL's per hour if patient continues to have decreased oral intake. Clinical course complicated with altered mentation, dysphagia, decreased oral intake, weakness and hypertension. Palliative care consulted to assist with management of symptoms and establishment of goals of medical treatment. Patient seen and examined in her room in the presence of a 2 daughters Stuart Boone and Hali Espinoza as well as patient`s sister Kip Goyal. Patient is restless in bed, using profanity but easily redirected.Patient`s daughter attempting to feed patient who has only consumed about 10% of her meal. Explained high risk of aspiration when patient`s HOB is lower than 30 degrees and force feeding. Patient is oriented to name only and confused to place and situation. Patient appears to lack insight regarding her medical condition. Also present is Dr. Andrea Pulido and CRISTAL Harrison. Obtained psychosocial, past medical history and events leading to this hospitalization. According to patient's daughters and sister, patient does not have advanced directives. Patient his 3 adult daughters. Patient's sister and daughters stated that they had been notified in the emergency room of the positive syphilis test result. Family also notified of patient's current status inclusive of dysphagia and decreased oral intake. Expressed concern regarding dysphagia and patient not meeting her nutritional needs. Discussed possible need for PEG tube in the near future if there is no improvement in oral intake. Dr. Pulido explained lab and diagnostic test results that are available thus far. She also explained pending results. Treatment options were presented to the family and potential side effects. Family were clearly told that treatment provided may not change patient`s current mental status. Family stated that they were not aware of patient been allergic to cephalexin. At end of discussion with other medical staff, patient`s 3 daughters agreeable to challenging patient with treatment and they verbalized understanding allergies to penicillin. Addressed CODE STATUS, discussed CPR limitations, complications and benefits. All 3 of patient's daughters elected full code. Family states that at this time they want everything done for patient and he can always reevaluate her code status depending on how she responds to treatment. After a long discussion with family, daughters Olga Lal and Hali Ramirez (over telephone) opted out of decision making. Palliative care contact information provided. Function/Cognitive Trajectory: Patient was recently treated for pneumonia in July, with azithromycin at [facility]. According to EMR patient was also hospitalized in November 2017 for pneumonia. At that time patient's granddaughter reported 3 month history of increasing forgetfulness in declining physical health. Patient was very forgetful, repeating various conversations and also had several episodes of incontinence and she was unsteady on her feet with falls at home. Patient became more withdrawn and depressed since the of her a year ago. One of her sisters 2 months ago as well. Family also reports decreased oral intake. Family also reported that patient fell at home. According to patient`s daughters, since 6 months ago family had been taking turns to live with patient in her home and 2 weeks ago her oldest daughter Mely moved her into her home to assist taking care of her. Review of Systems Constitutional: Reports lack of energy, Reports weakness, Reports weight loss, Denies fever(s), Denies increased appetite Eyes: Denies blurry vision Ears, Nose, Mouth, and Throat: Denies abnormal hearing, Denies difficulty swallowing, Denies nosebleed, Denies nasal congestion Cardiovascular: Denies chest pain, Denies foot swelling, Denies generalized swelling, Denies leg swelling, Denies shortness of breath, Denies shortness of breath with activity Respiratory: Reports cough, Reports shortness of breath, Denies pain on inspiration Gastrointestinal: Denies abdominal pain, Denies constipation, Denies nausea, Denies pain with swallowing, Denies vomiting Genitourinary: Reports urinary incontinence, Denies blood in urine, Denies difficulty urinating, Denies painful urination Musculoskeletal: Denies muscle weakness, Denies numbness, Denies tingling Skin/Breast: Denies non-healing lesions, Denies sores, Denies unusual bruising Neurologic: Reports confusion, Denies abnormal hearing, Denies abnormal speech, Denies abnormal walking, Denies headache(s), Denies tingling/numbness/burning sensations Psychiatric: Reports anxiety, Reports confusion, Reports depression, Reports seeing things others do not see Endocrine: Denies increased hunger, Denies increased thirst, Denies increased urination Hematologic/Lymphatic: Denies easy bleeding, Denies easy bruising PMFSH - History History Provided By: Family Member, Medical Record - Medical History Medical History: Medical History (Last Updated 07/30/18 @ 12:40 by Mary Welch) Anxiety Asthma Asthma Chronic pain Degenerative disc disease Diabetes mellitus GERD (gastroesophageal reflux disease) Hypertension Hypothyroidism - Surgical History Surgical History: Surgical History (Last Updated 07/30/18 @ 12:40 by Mary Welch) H/O removal of cyst H/O: hysterectomy History of bronchoscopy - Family History Family History: Family History (Last Reviewed 07/27/18 @ 09:23 by Azalia Martinez) Other Diabetes mellitus - Social History I have reviewed the patient's Social History: Yes - Tobacco History Second Hand Smoke Exposure: Yes Smoking Status: Unknown if ever smoked - Alcohol History How Often Do You Have a Drink Containing Alcohol: Unable to Obtain - Substance Use History Substance History: Unable to Obtain - Travel History Recent Travel in the [place] Within the Last 8 Weeks: No Recent Travel Out of the Country Within the Last 8 Weeks: No - Immunization History Tetanus Immunization: Unable to Assess Hx Influenza Vaccine This Season: Unable to Assess Medications and Allergies Active Medications: Active Medications Acetaminophen (Tylenol) 650 mg PO Q4H PRN PRN Reason: Temp > 100.4 Last Admin: 07/25/18 16:47 Dose: 650 mg Hydrocodone Bitart/Acetaminophen (Ruston 5/325) 1 tab PO BID PRN PRN Reason: Acute Pain Last Admin: 07/28/18 00:43 Dose: 1 tab Al Hydroxide/Mg Hydroxide (Milk Of Kim Huerta) 30 ml PO Q12H PRN PRN Reason: Mild Constipation Alprazolam (Xanax) 0.25 mg PO BID PRN PRN Reason: AGITATION Last Admin: 07/29/18 20:41 Dose: 0.25 mg Amlodipine Besylate (Norvasc) 5 mg PO DAILY JOHNNY Bisacodyl (Dulcolax Supp) 10 mg RECTAL DAILY PRN PRN Reason: SEVERE CONSITIPATION Clonidine HCl (Catapres) 0.1 mg PO Q6H PRN PRN Reason: SBP>160 DBP>90 Last Admin: 07/30/18 00:11 Dose: 0.1 mg Clonidine HCl (Catapress-Tts 0.2 Mg Patch.7d) 1 patch T-DERMAL Q7D [facility] Last Admin: 07/30/18 09:17 Dose: 1 patch Dextrose (D50w Vial) 50 ml IV.PUSH UNSCH PRN PRN Reason: PER HYPOGLYCEMIA PROTOCOL Enalapril Maleate (Vasotec) 10 mg PO DAILY [facility] Last Admin: 07/30/18 09:17 Dose: 10 mg Enalaprilat (Vasotec Inj) 1.25 mg IV.PUSH Q6H PRN PRN Reason: SBP>180, DBP>95 Last Admin: 07/29/18 22:39 Dose: 1.25 mg Glucagon (Glucagon Inj) 1 mg OTHER PRN PRN PRN Reason: for Hypoglycemia Protocol Heparin Sodium (Porcine) (Heparin Inj) 5,000 units SQ Q12H [facility] Last Admin: 07/30/18 09:17 Dose: 5,000 units Sodium Chloride (Ns Inj) 1,000 mls @ 42 mls/hr IV.CONT .[id number] [facility] Last Admin: 07/30/18 06:37 Dose: 70 mls/hr Insulin Aspart (Novolog Insulin Correctional Sugar Inj) 0 unit SQ ACHS AND 3AM [facility]; Protocol Last Admin: 07/30/18 07:55 Dose: Not Given Lactulose (Lactulose Liq) 30 ml PO DAILY PRN PRN Reason: SEVERE CONSITIPATION Montelukast Sodium (Singulair) 10 mg PO QPM [facility] Last Admin: 07/29/18 18:24 Dose: 10 mg Ondansetron HCl (Zofran Inj) 4 mg IV.PUSH Q6H PRN PRN Reason: NAUSEA OR VOMITING Pantoprazole Sodium (Protonix) 20 mg PO DAILY [facility] Last Admin: 07/30/18 09:17 Dose: 20 mg Patch Removal (Remove Old Patch) 1 each T-DERMAL Q7D [facility] Senna/Docusate Sodium (Pinky-Colace) 1 tab PO BID [facility] Last Admin: 07/30/18 09:17 Dose: 1 tab Sennosides (Senokot) 17.2 mg PO Q12H PRN PRN Reason: Moderate Constipation Sodium Chloride (Ns Flush) 2 ml IV.FLUSH PRN PRN PRN Reason: FLUSH AFTER USING IV ACCESS Allergies Allergy/AdvReac Type Severity Reaction Status Date / Time cephalexin Allergy Severe Unverified 12/06/17 19:32 Home Medications Medication Instructions Recorded Confirmed Type alprazolam [Xanax] 0.25 mg PO BID PRN 07/27/18 07/27/18 History enalapril maleate 10 mg PO DAILY 07/27/18 07/27/18 History hydrocodone-acetaminophen 1 tab PO BID PRN 07/27/18 07/27/18 History metformin 500 mg PO BID 07/27/18 07/27/18 History montelukast [Singulair] 10 mg PO QPM 07/27/18 07/27/18 History omeprazole magnesium [Prilosec] 20 mg PO DAILY 07/27/18 07/27/18 History Advance Directives Living Will: No Healthcare Surrogate: No (HCP: [facility] [phone]) Power of Tin Stacker: No Today's verbally stated goals: Family would like aggressive treatment. They would like patient to be challenged with penicillin treatment. Ethical and Legal Issues: None identified at this time. Physical Exam Vital Signs: Vital Signs - 24 hr 07/29/18 12:00 07/29/18 14:40 07/29/18 16:00 Temperature 97.3 F L 97.7 F Pulse Rate 80 83 Respiratory Rate 18 18 Blood Pressure 187/117 H 152/66 H 191/84 H Pulse Oximetry 97 95 07/29/18 20:00 07/30/18 00:09 07/30/18 01:33 Temperature 98.4 F 98.8 F Pulse Rate 72 70 61 Respiratory Rate 18 18 Blood Pressure 195/83 H 189/79 H 155/81 H Pulse Oximetry 96 95 07/30/18 04:00 07/30/18 08:00 Temperature 98.5 F 97.1 F L Pulse Rate 63 65 Respiratory Rate 18 17 Blood Pressure 174/74 H 173/77 H Pulse Oximetry 99 93 L I&O: Intake & Output 07/28/18 07/29/18 07/30/18 07/31/18 06:59 06:59 06:59 06:59 Intake Total 1999 Balance 1999 Weight 54 kg 55.1 kg Physical Exam: CONSTITUTIONAL/GENERAL: This is an elderly thin patient, in no apparent distress. TUBES/LINES/DRAINS:PIV SKIN: No jaundice, rashes, or lesions. Ecchymoses on upper extremities. No wounds seen anteriorly. Skin temperature appropriate. Not diaphoretic. HEAD: Atraumatic. Normocephalic. EYES: Pupils equal and round and reactive. Extraocular motions intact. No scleral icterus. No injection or drainage. Fundi not examined. ENT: Hearing grossly normal. Nose without bleeding or purulent drainage. Missing teeth. Moist oral mucosa NECK: Trachea midline. Supple, nontender. CARDIOVASCULAR: Regular rate and rhythm without murmurs, gallops, or rubs. No JVD. Peripheral pulses symmetric. RESPIRATORY/CHEST: Symmetric, unlabored respirations. Clear to auscultation. Breath sounds equal bilaterally. No wheezes, rales, or rhonchi. GASTROINTESTINAL: Abdomen soft, non-tender, nondistended. No guarding. Bowel sounds present. GENITOURINARY: Without palpable bladder distension. MUSCULOSKELETAL: Extremities without clubbing, cyanosis, or edema. No joint tenderness or effusion noted. No calf tenderness. No mottling or clubbing. NEUROLOGICAL: Awake and alert. Motor and sensory grossly within normal limits. Follows simple commands. Moves all extremities. PSYCHIATRIC: No obvious anxiety/depression. no apparent hallucinations or other psychotic thought process. Diagnostic Tests Laboratory: Laboratory Results - last 72 hr 07/26/18 07/26/18 07/27/18 10:48 15:32 12:39 WBC RBC Hgb Hct MCV MCH MCHC RDW Plt Count MPV Neut % (Auto) Lymph % (Auto) [place] % (Auto) Eos % (Auto) Baso % (Auto) Neut # (Auto) Lymph # (Auto) [place] # (Auto) Eos # (Auto) Baso # (Auto) WBC Differential Differential Comment Sodium Potassium Chloride Carbon Dioxide Anion Gap BUN Creatinine Estimated GFR POC Glucose 119 H Random Glucose Calcium C-Reactive Protein CSF Treponema Ab (FTA) Non-reactive CSF Herpes I DNA (PCR) Negative CSF Herpes II DNA (PCR) Negative RPR Titer RPR T.pallidum Ab (FTA-ABS) Reactive A 07/27/18 07/28/18 07/28/18 16:20 03:10 05:36 WBC 10.7 RBC 4.36 Hgb 13.9 Hct 41.2 MCV 94.5 MCH 31.8 MCHC 33.6 RDW 16.0 Plt Count 152 MPV 10.2 Neut % (Auto) 87.6 H Lymph % (Auto) 7.7 L [place] % (Auto) 4.5 Eos % (Auto) 0.0 Baso % (Auto) 0.2 Neut # (Auto) 9.3 H Lymph # (Auto) 0.8 L [place] # (Auto) 0.5 Eos # (Auto) 0.0 Baso # (Auto) 0.0 WBC Differential . Differential Comment Auto diff final Sodium Potassium Chloride Carbon Dioxide Anion Gap BUN Creatinine Estimated GFR POC Glucose 92 115 H Random Glucose Calcium C-Reactive Protein CSF Treponema Ab (FTA) CSF Herpes I DNA (PCR) CSF Herpes II DNA (PCR) RPR Titer RPR T.pallidum Ab (FTA-ABS) 07/28/18 07/28/18 07/28/18 05:36 05:36 07:41 WBC RBC Hgb Hct MCV MCH MCHC RDW Plt Count MPV Neut % (Auto) Lymph % (Auto) [place] % (Auto) Eos % (Auto) Baso % (Auto) Neut # (Auto) Lymph # (Auto) [place] # (Auto) Eos # (Auto) Baso # (Auto) WBC Differential Differential Comment Sodium 139 Potassium 3.6 Chloride 102 Carbon Dioxide 24.6 Anion Gap 12 BUN 10 Creatinine 0.61 Estimated GFR Greater than 89 POC Glucose 161 H Random Glucose 121 H Calcium 8.8 C-Reactive Protein 1.76 H CSF Treponema Ab (FTA) CSF Herpes I DNA (PCR) CSF Herpes II DNA (PCR) RPR Titer RPR T.pallidum Ab (FTA-ABS) 07/28/18 07/28/18 07/29/18 12:28 21:41 03:21 WBC RBC Hgb Hct MCV MCH MCHC RDW Plt Count MPV Neut % (Auto) Lymph % (Auto) [place] % (Auto) Eos % (Auto) Baso % (Auto) Neut # (Auto) Lymph # (Auto) [place] # (Auto) Eos # (Auto) Baso # (Auto) WBC Differential Differential Comment Sodium Potassium Chloride Carbon Dioxide Anion Gap BUN Creatinine Estimated GFR POC Glucose 106 111 H 114 H Random Glucose Calcium C-Reactive Protein CSF Treponema Ab (FTA) CSF Herpes I DNA (PCR) CSF Herpes II DNA (PCR) RPR Titer RPR T.pallidum Ab (FTA-ABS) 07/29/18 07/29/18 07/29/18 05:55 07:36 11:44 WBC RBC Hgb Hct MCV MCH MCHC RDW Plt Count MPV Neut % (Auto) Lymph % (Auto) [place] % (Auto) Eos % (Auto) Baso % (Auto) Neut # (Auto) Lymph # (Auto) [place] # (Auto) Eos # (Auto) Baso # (Auto) WBC Differential Differential Comment Sodium Potassium Chloride Carbon Dioxide Anion Gap BUN Creatinine Estimated GFR POC Glucose 83 102 Random Glucose Calcium C-Reactive Protein CSF Treponema Ab (FTA) CSF Herpes I DNA (PCR) CSF Herpes II DNA (PCR) RPR Titer 1:2 H RPR Reactive H T.pallidum Ab (FTA-ABS) 07/29/18 07/29/18 07/30/18 18:10 20:40 03:03 WBC RBC Hgb Hct MCV MCH MCHC RDW Plt Count MPV Neut % (Auto) Lymph % (Auto) [place] % (Auto) Eos % (Auto) Baso % (Auto) Neut # (Auto) Lymph # (Auto) [place] # (Auto) Eos # (Auto) Baso # (Auto) WBC Differential Differential Comment Sodium Potassium Chloride Carbon Dioxide Anion Gap BUN Creatinine Estimated GFR POC Glucose 169 H 93 92 Random Glucose Calcium C-Reactive Protein CSF Treponema Ab (FTA) CSF Herpes I DNA (PCR) CSF Herpes II DNA (PCR) RPR Titer RPR T.pallidum Ab (FTA-ABS) 07/30/18 07:38 WBC RBC Hgb Hct MCV MCH MCHC RDW Plt Count MPV Neut % (Auto) Lymph % (Auto) [place] % (Auto) Eos % (Auto) Baso % (Auto) Neut # (Auto) Lymph # (Auto) [place] # (Auto) Eos # (Auto) Baso # (Auto) WBC Differential Differential Comment Sodium Potassium Chloride Carbon Dioxide Anion Gap BUN Creatinine Estimated GFR POC Glucose 83 Random Glucose Calcium C-Reactive Protein CSF Treponema Ab (FTA) CSF Herpes I DNA (PCR) CSF Herpes II DNA (PCR) RPR Titer RPR T.pallidum Ab (FTA-ABS) Result Diagrams: 07/28/18 05:36 07/28/18 05:36 Microbiology: Microbiology 07/24/18 17:30 Aerobic Blood Culture - Final Blood - Peripheral No growth in 5 days Anaerobic Blood Culture - Final No growth in 5 days 07/24/18 17:35 Aerobic Blood Culture - Final Blood - Peripheral No growth in 5 days Anaerobic Blood Culture - Final No growth in 5 days 07/26/18 15:32 Gram Stain - Final Lumbar Puncture CSF Culture - Final No growth in 72 hours Imaging: Head CT 07/24/18 16:23 CONCLUSION: 1. No acute intracranial abnormality. 2. Chronic white matter changes . Head MRI 07/25/18 00:00 CONCLUSION: 1. Suboptimal examination secondary to motion artifact. 2. No evidence of acute infarction, hemorrhage or mass. 3. Atrophy and chronic small vessel ischemic change. Chest X-Ray 07/26/18 00:00 CONCLUSION: Negative examination. Lumbar Puncture Fluoroscopy 07/26/18 00:00 CONCLUSION: 1. Uncomplicated fluoroscopically guided lumbar puncture. Procedures: 07/26/2018-fluoroscopic guided lumbar puncture Patient/Family Conference Family Conference Location: Bedside, Telephone Issues Discussed: * Palliative care role, purpose, approach * Additional medical, psychosocial, and spiritual history * Patients general health, functional status, and cognitive changes in the months leading up to the current hospitalization * Patient/family understanding of the current medical problems * Patient/family understanding of prognosis * Patients goals of care as best understood from advance directives and/or conversations and/or values * Current medical treatment options and benefits/burdens of those options * Likely scenarios comparing ongoing aggressive care with a transition to comfort measures only * Questions answered to the best of my ability * Palliative care contact information provided Assessment and Plan - Disease Oriented Problem List (1) Syphilis (2) Hypertension (3) Asthma (4) Diabetes mellitus - Symptom Scale (1) Altered mental status 0-10 Scale: Unable to quantify (2) Pain 0-10 Scale: Unable to quantify (3) Dysphagia 0-10 Scale: Unable to quantify (4) Weakness 0-10 Scale: Unable to quantify Pertinent Non-Medical Issues: Psychosocial: Patient was born and raised in [facility]. She is . He a year ago. Patient has 3 adult daughters. Spiritual: Patient is Islam Legal: Never completed advanced directives Ethical issues impacting care: None identified at this time Important Contacts: Daughter- Mely Davidson [phone]-willing to serve as healthcare proxy Daughter-Ashley Lal [phone] opted out of decision making Daughter- Olga Lal [phone] opted out of decision making Granddaughter- Italia Dong [phone] Prognosis: Mrs. Goyal is a 73-year-old female with past medical history significant for diabetes mellitus, hypertension, hyperlipidemia and COPD. Patient presented to the ER in the company of her daughter on 07/24/18 for evaluation of worsening altered mental status and hallucinating. 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 Clinical course complicated with dysphagia, decreased oral intake, altered mentation, and weakness. Given ongoing multiple comorbidities, patient remains at high risk for further complications, deterioration and decline. Code Status: Full Code Plan: PLAN: Legal decision maker: Patient currently is only oriented to self with confusion to time place and situation. At this time it is not known whether the patient will regain ability to participate in medical decision making. According to [place] statute, in the event of patient being incapacitated her 3 adult daughters would serve is a healthcare proxys. 2 of patient's daughters have opted out of decision making and Stuart Boone will serve as patient`s Health Care Proxy. Goals: Goals are aggressive. Family have agreed to challenge patient with penicillin treatment and they have verbalized understanding of allergies associated with penicillin inclusive of possibility of airway compromise which may lead to intubation and placement on mechanical ventilation. Family stated that they would like to give patient a chance and if at any time patient shows worsening of symptoms in deterioration they may reconsider code status. Family also made aware of possibility of need for a PEG tube in the near future if patient's oral intake and dysphagia status does not improve. CODE STATUS: Full Code SYMPTOMS: * Altered mental status: Patient came in with altered mental status. Brain MRI showed atrophy and chronic small vessel ischemic changes. Patient also tested positive for syphilis with possible neurosyphilis. CSF results pending. Speech therapy consulted for cognition assessment. Neuropsychology and neurologist consulted. Continue with neuro assessments. * Dysphagia: This may be secondary to altered mentation. Speech therapy consulted failed and patient swallow evaluation. Currently on pured diet and thin liquids. Patient has decreased oral intake. Dietitian consulted and calorie count in progress. * Pain: Patient has history of degenerative disc disease and chronic pain. Currently denies pain. Continue assessing for pain symptoms * Weakness: Patient came in with weakness. Physical therapy consulted, recommended therapy and rehab. Palliative care will continue to follow the patient during hospital course as condition evolves, to assist patient/decision-maker with understanding of their medical conditions, weighing benefits/burdens of treatment options, for clarification of goals of treatment. Additionally will assist with any symptoms of palliative concern Appreciation Thank you for the opportunity to participate in the care of Christa Goyal. Attestation Attestation: To help prompt me to consider important information that might be impacting today's encounter and assessment, information from prior notes written by myself or my colleagues may have been "brought forward" into today's note. My signature on this note, however, is an attestation that I personally performed the exam, history, and/or decision-making noted today, and, unless otherwise indicated, the interactions with patient, family, and staff as well as the review of records all occurred today. I also attest that the listed assessment and stated plan reflect my best clinical judgment today based on the combination of historical information, prior notes, and today's exam/ interactions. When time spent is documented, it refers only to time spent today by the signer, or if indicated, combined time spent today by collaborating physician/nurse practitioner.
[2018-07-30] MEDS: amLODIPine 5 MG Tablet PO SCH (12:39)
--- NOTE | 2018-07-30 14:06 | P.PNID ---
Subjective Remarks: Ms. Goyal is a 73-year-old -Fijian female with past medical history significant for hypertension, diabetes mellitus and asthma who was brought into the emergency department by her daughter for evaluation of altered mental status. Most of the history was obtained by review of medical records. 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 Reportedly patient lost her 1 year back and since then there has been some general decline noted. Due to worsening mentation patient was brought into the ED for further evaluation. She reportedly became more confused and agitated and hallucinating. She was seeing people that are not alive. She was reportedly diagnosed with pneumonia in jul 2018 at [facility] and placed on Azithromycin. RPR was positive with FTA so an LP was done with elevated total protein. MRI brain with no hydrocephalus or space occupying lesions. Chest x-ray within normal limits. No reported fevers/chills prior to admission. CSF VDRL is pending at present time. ID consulted for evaluation and Mment of Neurosyphylis. Overnight events reviewed with RN. No fevers No rash No diarrhea Gets agitated occasionally and starts cursing away. Antibiotics: None Lines: Lines ok Past Medical History: reviewed Allergies/Adverse Reactions: Allergies cephalexin Allergy (Severe, Unverified 12/06/17 19:32) Objective Vital Signs 07/29/18 14:40 07/29/18 16:00 07/29/18 20:00 Temperature 97.7 F 98.4 F Pulse Rate 83 72 Respiratory Rate 18 18 Blood Pressure 152/66 H 191/84 H 195/83 H Pulse Oximetry 95 96 07/30/18 00:09 07/30/18 01:33 07/30/18 04:00 Temperature 98.8 F 98.5 F Pulse Rate 70 61 63 Respiratory Rate 18 18 Blood Pressure 189/79 H 155/81 H 174/74 H Pulse Oximetry 95 99 07/30/18 08:00 07/30/18 12:00 Temperature 97.1 F L 97.2 F L Pulse Rate 65 72 Respiratory Rate 17 18 Blood Pressure 173/77 H 193/83 H Pulse Oximetry 93 L 94 L Intake & Output 07/29/18 07/30/18 07/30/18 18:59 06:59 18:59 Intake Total 1000 / 1000 1000 / 1000 Balance 1000 / 1000 1000 / 1000 Weight 55.1 kg Intake: IV 1000 / 1000 1000 / 1000 NS Inj 1,000 ML @ 70 mls/hr IV. 1000 / 1000 1000 / 1000 CONT .[id number] [facility] Rx#:[id number] Other: # Incontinent Voids 1 Date of Last Bowel Movement 07/28/18 07/29/18 07/29/18 # Incontinent Bowel Movements 1 07/24/18 17:30 Blood - Peripheral Aerobic Blood Culture - Final No growth in 5 days 07/24/18 17:30 Blood - Peripheral Anaerobic Blood Culture - Final No growth in 5 days 07/24/18 17:35 Blood - Peripheral Aerobic Blood Culture - Final No growth in 5 days 07/24/18 17:35 Blood - Peripheral Anaerobic Blood Culture - Final No growth in 5 days 07/26/18 15:32 Lumbar Puncture Gram Stain - Final 07/26/18 15:32 Lumbar Puncture CSF Culture - Final No growth in 72 hours Lab - Chemistry Results 07/28/18 07/28/18 07/29/18 05:36 21:41 03:21 POC Glucose 111 H 114 H C-Reactive Protein 1.76 H 07/29/18 07/29/18 07/29/18 07:36 11:44 18:10 POC Glucose 83 102 169 H C-Reactive Protein 07/29/18 07/30/18 07/30/18 20:40 03:03 07:38 POC Glucose 93 92 83 C-Reactive Protein 07/30/18 11:58 POC Glucose 107 C-Reactive Protein Imaging: ITS Impressions Head CT 07/24/18 16:23 CONCLUSION: 1. No acute intracranial abnormality. 2. Chronic white matter changes . Head MRI 07/25/18 00:00 CONCLUSION: 1. Suboptimal examination secondary to motion artifact. 2. No evidence of acute infarction, hemorrhage or mass. 3. Atrophy and chronic small vessel ischemic change. Chest X-Ray 07/26/18 00:00 CONCLUSION: Negative examination. Lumbar Puncture Fluoroscopy 07/26/18 00:00 CONCLUSION: 1. Uncomplicated fluoroscopically guided lumbar puncture. Physical Exam: GENERAL: Poorly nourished patient, not in acute distress, curled up in bed. SKIN: Cool and dry, no generalized rash HEAD: Atraumatic. Normocephalic. No temporal or scalp tenderness. EYES: Pupils equal round and reactive. Scleral icterus. No injection or drainage. No petechia ENT: Nothing abnormal detected NECK: Trachea midline. Supple, nontender, no meningeal signs. CARDIOVASCULAR: HS audible. RESPIRATORY: Clear to auscultation bilaterally. GASTROINTESTINAL: Abdomen soft nontender. MUSCULOSKELETAL: Extremities without clubbing, cyanosis. NEUROLOGICAL: Alert oriented 2. Nonfocal. Psych cooperative IV line sites ok. Assessment and Plan - Plan Probable Neurosyphilis. Acute metabolic encephalopathy: ? Syphilis related ? multi infarct dementia ? Dementia Underlying depression Cephalexin allergy reported as severe but no description. Recs: No obvious signs of acute bacterial infections. Follow cultures. Follow CSF VDRL for confirmed diagnosis of neurosyphilis. Will use the results of CSF VDRL and CSF FTA-Abs to formulate a plan as total protein elevated as well in addition to RPR. Will also follow RPR with titer. HIV negative screen. Appreciate palliative care input. alfredo fuentes patients daughters and pts sister cephalexin is not known to be an allergy to them,they are not sure how it got into chart. They would like to consider challenge to antibiotic Rx for Neurosyphylis. They understand the risks and benefits of this challenge to antibiotics.
[2018-07-30] MEDS: ALPRAZolam 0.25 MG Tablet PO PRN (16:28)
[2018-07-30] MEDS: Montelukast 10 MG Tablet PO SCH (18:31)
[2018-07-30 19:47] LABS: ABG PCO2 40 mmHg (38-42); ABG PO2 53 mmHg (61-120)
[2018-07-30] MEDS ORDERED: MethylPREDNISolone Sod Suc Inj 1,000 MG in Dextrose 5% in Water Inj 100 ML IV.SIG ONE ×2 (20:00)
[2018-07-30 21:29] LABS: Folate 6.2 ng/mL (3.1-17.5)
--- NOTE | 2018-07-30 21:38 | MB ---
cc: Renaldo Starr MD DATE: 07/30/2018 HISTORY OF PRESENT ILLNESS: The patient is a 73-year-old woman with a history of hypertension, diabetes, asthma, brought into the ER for change in mental status. She has actually had some slow likely dementia onset over the last year when her and the family was keeping an eye on her, but she was independent in walking and then about 3 weeks ago, over about a 5-day period, she seemed to go downhill and diagnosed with pneumonia on 07/18/2018 at [facility] and put on azithromycin. Chest x-ray was negative. No fever or chills. Her RPR was noted to be positive, as was a FTA-ABS, and then an LP was done, which showed a negative CSF FTA-ABS. I am asked to see her for possible neurosyphilis. MEDICATIONS AT HOME: She was on: 1. Hydrocodone. 2. Prilosec. 3. Xanax 0.25 b.i.d. p.r.n. 4. Singulair. 5. Metformin. 6. Enalapril. CURRENT MEDICATIONS: She is on: 1. Xanax p.r.n. 2. Clonidine. 3. Enalapril. 4. Glucagon. 5. Subcutaneous heparin. 6. Protonix. PHYSICAL EXAMINATION: VITAL SIGNS: She has generally been afebrile since admission, 78, 192/87. On first admission, she was 205/79 and has been intermittently high ever since. NECK: There are no carotid bruits. HEART: Regular rhythm with 1 systolic ejection murmur. NEUROLOGIC: Her pupils are equal. She will not follow commands for me. She reacts to threat a little bit, maybe better on the left than the right. It was hard to say. Face is symmetric. She moves all 4 extremities well. She had some fisting in the left hand, but I was able to open up the hand and it seemed to work okay. The toes were downgoing bilaterally. No ankle clonus. Withdraws bilateral lower extremities. She called her son by his nickname, but I could not get her to really do any other commands for me. Her neck was supple. LABORATORY DATA: CSF was normal except protein was 81. VDRL is pending. FTA was negative. Herpes was negative in the PCR. There were no white cells or red cells. UA was essentially unremarkable. Basic metabolic profile was normal. B12 was low at 251. TSH was normal. Troponin was negative. LFTs were normal. Ammonia level normal. Coags were normal. CBC normal. FTA was reactive. RPR was 1:2. MRI of the brain showed some white matter changes bilaterally and some little changes around the ventricles bilaterally, not really transependymal flow, but some signal change on the FLAIRs only. IMPRESSION: Some history of dementia and I suspect probably some possible Alzheimer's. A negative FTA-ABS in the cerebrospinal fluid would make neurosyphilis highly unlikely. Also, there are no cells. The protein is increased; however, she is diabetic, which is a common cause of elevated cerebrospinal fluid protein, although her sugars here have not been extremely high. Another possibility could be a slight viral encephalitis. PLAN: We will treat her with a gram of Solu-Medrol and check an electroencephalogram. I will be following her with you in the hospital. I am also going to give her B12 shot. Check an ABG on her. We will give her a gram of Solu-Medrol. We will have to watch her sugars on that, however. MD TONE Lindsay/ranjit , 06:55 PM , 07:05 PM
[2018-07-31] MEDS: Insulin NovoLOG Aspart Correctional Sugar Inj SQ SCH ×5 (02:59→22:05)
[2018-07-31] MEDS: Sod Chloride 0.9% Inj 1,000 ML IV.CONT SCH ×2 (06:55→20:00)
--- NOTE | 2018-07-31 07:31 | P.PNNEU ---
Subjective Active Medications: Active Medications Acetaminophen (Tylenol) 650 mg PO Q4H PRN PRN Reason: Temp > 100.4 Last Admin: 07/25/18 16:47 Dose: 650 mg Hydrocodone Bitart/Acetaminophen (Moseley 5/325) 1 tab PO BID PRN PRN Reason: Acute Pain Last Admin: 07/30/18 18:34 Dose: 1 tab Al Hydroxide/Mg Hydroxide (Milk Of Magncallie Liq) 30 ml PO Q12H PRN PRN Reason: Mild Constipation Alprazolam (Xanax) 0.25 mg PO BID PRN PRN Reason: AGITATION Last Admin: 07/30/18 16:28 Dose: 0.25 mg Amlodipine Besylate (Norvasc) 5 mg PO DAILY JOHNNY Last Admin: 07/30/18 12:39 Dose: 5 mg Bisacodyl (Dulcolax Supp) 10 mg RECTAL DAILY PRN PRN Reason: SEVERE CONSITIPATION Clonidine HCl (Catapres) 0.1 mg PO Q6H PRN PRN Reason: SBP>160 DBP>90 Last Admin: 07/30/18 00:11 Dose: 0.1 mg Clonidine HCl (Catapress-Tts 0.2 Mg Patch.7d) 1 patch T-DERMAL Q7D [facility] Last Admin: 07/30/18 09:17 Dose: 1 patch Dextrose (D50w Vial) 50 ml IV.PUSH UNSCH PRN PRN Reason: PER HYPOGLYCEMIA PROTOCOL Enalapril Maleate (Vasotec) 10 mg PO DAILY [facility] Last Admin: 07/30/18 09:17 Dose: 10 mg Enalaprilat (Vasotec Inj) 1.25 mg IV.PUSH Q6H PRN PRN Reason: SBP>180, DBP>95 Last Admin: 07/31/18 02:59 Dose: 1.25 mg Glucagon (Glucagon Inj) 1 mg OTHER PRN PRN PRN Reason: for Hypoglycemia Protocol Heparin Sodium (Porcine) (Heparin Inj) 5,000 units SQ Q12H [facility] Last Admin: 07/30/18 21:10 Dose: 5,000 units Sodium Chloride (Ns Inj) 1,000 mls @ 42 mls/hr IV.CONT .[id number] [facility] Last Infusion: 07/31/18 06:55 Dose: Infused Insulin Aspart (Novolog Insulin Correctional Sugar Inj) 0 unit SQ ACHS AND 3AM JOHNNY; Protocol Last Admin: 07/31/18 02:59 Dose: 1 unit Lactulose (Lactulose Liq) 30 ml PO DAILY PRN PRN Reason: SEVERE CONSITIPATION Montelukast Sodium (Singulair) 10 mg PO QPM [facility] Last Admin: 07/30/18 18:31 Dose: 10 mg Ondansetron HCl (Zofran Inj) 4 mg IV.PUSH Q6H PRN PRN Reason: NAUSEA OR VOMITING Pantoprazole Sodium (Protonix) 20 mg PO DAILY [facility] Last Admin: 07/30/18 09:17 Dose: 20 mg Patch Removal (Remove Old Patch) 1 each T-DERMAL Q7D [facility] Senna/Docusate Sodium (Pinky-Colace) 1 tab PO BID [facility] Last Admin: 07/30/18 21:10 Dose: 1 tab Sennosides (Senokot) 17.2 mg PO Q12H PRN PRN Reason: Moderate Constipation Sodium Chloride (Ns Flush) 2 ml IV.FLUSH PRN PRN PRN Reason: FLUSH AFTER USING IV ACCESS Allergies/Adverse Reactions: Allergies Allergy/AdvReac Type Severity Reaction Status Date / Time cephalexin Allergy Severe Unverified 12/06/17 19:32 Physical Exam Vital signs: Vital Signs 07/30/18 08:00 07/30/18 12:00 07/30/18 16:00 Temperature 97.1 F L 97.2 F L 97.4 F L Pulse Rate 65 72 78 Respiratory Rate 17 18 14 Blood Pressure 173/77 H 193/83 H 192/87 H Pulse Oximetry 93 L 94 L 95 07/30/18 20:00 07/30/18 20:10 07/31/18 00:00 Temperature 98.3 F 97.5 F L Pulse Rate 89 72 Respiratory Rate 17 16 Blood Pressure 197/85 H 187/78 H Pulse Oximetry 95 97 95 07/31/18 04:24 Temperature 97.3 F L Pulse Rate 58 L Respiratory Rate 16 Blood Pressure 156/74 H Pulse Oximetry 100 Intake & Output 07/30/18 07/31/18 07/31/18 18:59 06:59 18:59 Intake Total 1116 / 1116 Balance 1116 / 1116 Intake: IV 1116 / 1116 NS Inj 1,000 ML @ 42 mls/hr IV. 1000 / 1000 CONT .[id number] [facility] Rx#:[id number] SoluMEDROL Inj 1,000 MG In D5W 116 / 116 Inj 100 ML @ 216 mls/hr IV.SIG ONCE ONE Rx#:[id number] Other: Date of Last Bowel Movement 07/29/18 07/29/18 Narrative: awake alert talking better not town - Urinary Catheter Management Straight Cath placed during this visit: yes Reason for continuing: Not indwelling catheter Insertion date: 07/24/18 Insertion time: 15:30 Objective Laboratory Results - last 24 hr 07/29/18 07/30/18 07/30/18 05:55 07:38 11:58 ESR Puncture Site Patient Temperature O2 Saturation ABG pH ABG pCO2 ABG pO2 ABG HCO3 ABG O2 Content ABG Base Excess ABG Methemoglobin Dylna Test Hemoglobin Carboxyhemoglobin O2 Delivery Device Inspired O2 Critical Value POC Glucose 83 107 Total Protein (PEP) Folate RPR Titer 1:2 H RPR Reactive H 07/30/18 07/30/18 07/30/18 17:37 19:25 20:14 ESR Puncture Site Left radial Patient Temperature 98.6 O2 Saturation 85 L* ABG pH 7.45 H ABG pCO2 40 ABG pO2 53 L* ABG HCO3 28 H ABG O2 Content 15.7 ABG Base Excess 4.0 H ABG Methemoglobin 1.2 Dylan Test Present Hemoglobin 13.2 Carboxyhemoglobin 1.2 O2 Delivery Device Room air Inspired O2 21 Critical Value Yes POC Glucose 113 H 300 H Total Protein (PEP) Folate RPR Titer RPR 07/30/18 07/30/18 07/31/18 20:30 20:30 02:49 ESR 37 H Puncture Site Patient Temperature O2 Saturation ABG pH ABG pCO2 ABG pO2 ABG HCO3 ABG O2 Content ABG Base Excess ABG Methemoglobin Dylan Test Hemoglobin Carboxyhemoglobin O2 Delivery Device Inspired O2 Critical Value POC Glucose 181 H Total Protein (PEP) 7.2 Folate 6.2 RPR Titer RPR Review/Management - Review/Management Plan: imp hypoxia on abg med team address plz fu eeg better after steroids will observe fu labs too
[2018-07-31] MEDS ORDERED: Haloperidol Inj 5 MG/ML Ampul IV.PUSH PRN (08:29)
[2018-07-31] MEDS: Senna/Docusate Sodium 8.6/50 MG Tablet PO SCH ×2 (08:48→20:53)
[2018-07-31] MEDS: amLODIPine 5 MG Tablet PO SCH (08:48)
[2018-07-31] MEDS: Pantoprazole Sodium 20 MG DR Tablet PO SCH (08:48)
[2018-07-31 08:52] LABS: ABG Base Excess 3.3 mmol/L (-2-2); ABG PCO2 42 mmHg (38-42); ABG PO2 52 mmHg (61-120)
[2018-07-31] MEDS: Heparin - SQ 10,000 UNITS/ML Vial SQ SCH ×2 (09:48→22:06)
[2018-07-31] MEDS: QUEtiapine 25 MG Tablet PO SCH ×3 (10:02→20:53)
--- NOTE | 2018-07-31 10:45 | P.DIET ---
Nutritional Evaluation Type of nutrition evaluation: follow-up Nutrition screening: [facility] [place] Screening comments: Calorie counts completed Subjective Subjective Comments: Confused and upset. Objective - Diagnosis AMS - Objective Body Mass Index: 23.0 [place] body weight: 53 kg % IBW: 102 Body Weight Used for Calculations: Actual (54kg ) Energy Needs - Lower Range (kCal/kg): 30 Energy Needs - Upper Range (kCal/kg): 35 Lower Limit kCal/kg (kCals): 1,620 Upper Limit kCal/kg (kCals): 1,840 Lower Limit Protein Factor (Grams per Kg): 1.1 Upper Limit Protein Factor (Grams per Kg): 1.4 Lower Protein Needs (Protein): 59 Upper Protein Needs (Protein): 76 Fluid Factor (ml/kg): 33 Estimated Fluid Needs (ml): 1,840 Dietitian Reviewed in Medical Record: Current diet, Curent medications, Intake & Output, Labs, Medical history Diet Order: 1800 ADA pureed Speech Therapy Recommendations: Yes (pureed, this liquids (07/31)) Objective Comments: PMH: HTN, Diabetes, Asthma Feeding - Current PO Supplement Current Supplement: Glucerna Shake Current Supplement Flavor: Vanilla Current Frequency of Supplement: Three times a day Current kCals Provided by Supplement: 220 Current Protein Provided by Supplement: 10 Assessment Assessment: Pt at nutritional risk r/t current clinical status. Pt with AMS, dysphagia, and poor po intake. Pt is currently on an 1800 ADA pureed diet with very poor intake. Calorie counts indicate that the pt's average po intake is only ~360 kcals and 12 gms protein per day. Recommend PEG for nutrition support. Recommend TF of Glucerna with goal rate of 50 ml/hr to provide 1800kcals, 99gms protein and 911mls free water. Recommendations: 1800 ADA, texture per ST Continue Glucerna Shakes PO Intake is inadequate: recommend Glucerna 1.5 @ 50 mls/hr goal Dietitian to Monitor: Lab values, Supplement acceptance, Intake & Output, Weight change, PO Intake, Diet advancement, Swallow recommendations, Medical course (Initiation of TFing)
--- NOTE | 2018-07-31 11:01 | P.PN ---
Subjective Interval history: Follow up on patient with AMS/encephalopathy. Patient seen and examined. Given dose of steroid by Neuro. Patient had ABG revealing acute hypoxia. Started on supplemental oxygen. Patient encountered today lying in her bed without oxygen on. Renaldo RN at the bedside attempting to place nasal cannula back on but patient refusing. Patient responds to all questions with "I want to go home". Mentation appears unchanged. No family at the bedside. Physical Exam Vital signs: Vital Signs 07/30/18 12:00 07/30/18 16:00 07/30/18 20:00 Temperature 97.2 F L 97.4 F L 98.3 F Pulse Rate 72 78 89 Respiratory Rate 18 14 17 Blood Pressure 193/83 H 192/87 H 197/85 H Pulse Oximetry 94 L 95 95 07/30/18 20:10 07/31/18 00:00 07/31/18 04:24 Temperature 97.5 F L 97.3 F L Pulse Rate 72 58 L Respiratory Rate 16 16 Blood Pressure 187/78 H 156/74 H Pulse Oximetry 97 95 100 07/31/18 08:00 Temperature 98.2 F Pulse Rate 78 Respiratory Rate 18 Blood Pressure 149/73 H Pulse Oximetry 95 Intake & Output 07/30/18 07/31/18 07/31/18 18:59 06:59 18:59 Intake Total 1116 / 1116 Balance 1116 / 1116 Intake: IV 1116 / 1116 NS Inj 1,000 ML @ 42 mls/hr IV. 1000 / 1000 CONT .[id number] [facility] Rx#:[id number] SoluMEDROL Inj 1,000 MG In D5W 116 / 116 Inj 100 ML @ 216 mls/hr IV.SIG ONCE ONE Rx#:[id number] Other: Date of Last Bowel Movement 07/29/18 07/29/18 Narrative: GENERAL: Thin elderly WDWN AAF, in no acute distress. Awake, more alert. Partially oriented, stating repetitively "I want to go home" SKIN: Warm and dry. No generalized rash. HEENT: Atraumatic. Normocephalic. Pupils equal and round. No scleral icterus. No injection or drainage. No nasal bleeding or discharge. Dry mucus membranes. NECK: Trachea midline. CARDIOVASCULAR: Regular rate and rhythm. RESPIRATORY: No accessory muscle use. Poor effort. Clear to auscultation. Breath sounds equal bilaterally. GASTROINTESTINAL: Abdomen soft, non-tender, nondistended. MUSCULOSKELETAL: Extremities without clubbing, cyanosis, or edema. No obvious deformities. NEUROLOGICAL: Awake. Oriented to self only. No obvious cranial nerve deficits. Weak help aid strength bilaterally. Able to move all extremities spontaneously. PSYCHIATRIC: Agitated, restless. Judgement and insight poor. - Urinary Catheter Management Straight Cath placed during this visit: yes Reason for continuing: Not indwelling catheter Insertion date: 07/24/18 Insertion time: 15:30 Results - Labs CBC & Chem 7: 07/28/18 05:36 07/28/18 05:36 Laboratory Results - last 24 hr 07/30/18 07/30/18 07/30/18 11:58 17:37 19:25 ESR Puncture Site Left radial Patient Temperature 98.6 O2 Saturation 85 L* ABG pH 7.45 H ABG pCO2 40 ABG pO2 53 L* ABG HCO3 28 H ABG O2 Content 15.7 ABG Base Excess 4.0 H ABG Methemoglobin 1.2 Dylan Test Present Hemoglobin 13.2 Carboxyhemoglobin 1.2 O2 Delivery Device Room air Liter Flow Inspired O2 21 Critical Value Yes POC Glucose 107 113 H Total Protein (PEP) Folate 07/30/18 07/30/18 07/30/18 20:14 20:30 20:30 ESR 37 H Puncture Site Patient Temperature O2 Saturation ABG pH ABG pCO2 ABG pO2 ABG HCO3 ABG O2 Content ABG Base Excess ABG Methemoglobin Dylan Test Hemoglobin Carboxyhemoglobin O2 Delivery Device Liter Flow Inspired O2 Critical Value POC Glucose 300 H Total Protein (PEP) 7.2 Folate 6.2 07/31/18 07/31/18 02:49 08:36 ESR Puncture Site Left radial Patient Temperature 98.6 O2 Saturation 85 L* ABG pH 7.43 H ABG pCO2 42 ABG pO2 52 L* ABG HCO3 27 H ABG O2 Content 16.8 ABG Base Excess 3.3 H ABG Methemoglobin 1.0 Dylan Test Present Hemoglobin 14.2 Carboxyhemoglobin 1.0 O2 Delivery Device Nasal cannula Liter Flow 3.00 Inspired O2 Critical Value Yes POC Glucose 181 H Total Protein (PEP) Folate Assessment and Plan - Plan 73-year-old -Welsh female with a past medical history of hypertension , diabetes and asthma who was brought to the emergency room for evaluation of altered mental status. Recent history of depression after the of her ; refusing food and medication. Altered mental status/metabolic encephalopathy possibly secondary to neurosyphilis ?underlying dementia Head CT negative for acute process MRI brain with no acute process Blood cultures pending -no growth in 4 days HIV nonreactive Historical labs show RPR 11/2017 with no known follow-up. Patient and family deny any known history of syphilis. Lumbar puncture done 07/26/18 -CSF protein elevated. FTA-ABS reactive ID following, appreciate assistance. Cephalexin allergy documented in EMR however family states no hx of allergy. ?desensitization while inpatient. Awaiting CSF VDRL results. Palliative care following. Consult Neuropsychologist, appreciate assistance Neurology following, appreciate assistance. Feels neurosyphilis unlikely. ? Viral encephalitis. Gave one time dose of IV steroid. EEG ordered, will follow up on results. Psychiatry consulted, appreciate assistance Continue with PT fall precautions Hypoxic respiratory failure likely contributing to encephalopathy ABG pO2 53 continue on supplemental oxygen repeat ABG in 1-2 hours monitor respiratory status Dysphagia evaluated by thao HENDRICKS diet with thin liquids Engraving Supervisor following for calorie count. Continue with Glucerna supplements TID with meals. Caloric intake inadequate, recommending PEG for nutritional support. Diabetes mellitus Hold home metformin BS elevated secondary to IV steroid dose. Cover with ISS only. Sliding-scale insulin Monitor blood glucose Hypertension, improved Patient cleared to take po meds crushed with puree. Continue on home dose of Vasotec 10mg daily and Norvasc 5mg daily. Will continue with Clonidine patch as well at this time due to patient refusing meds intermittently. Clonidine as needed Continue to monitor BP and adjust treatment accordingly DVT prophylaxis Heparin Code Status: FULL Discussed Condition With: patient, nursing staff, Dr. Caro Discharge Planning: Not ready for discharge
--- NOTE | 2018-07-31 11:41 | P.NPEVAL ---
Patient History - Record/History Review Reason for Referral: The patient is a 73 year old unknown handed woman who was admitted to [facility] on 07/24/2018 for altered mental status. She has a past medical history of HTN, and DM, and baseline it is reported that this patient is A&Ox3 but became confused and agitated. Historical labs shows RPR on 11/30 with no follow- up. Head CT showed chronic white matter changes and MRI showed atrophy. Blood gas shows hypoxia with O2sat at 85. She is referred for baseline neurobehavioral status examination to assess cognitive, behavioral and emotional aspects of the injury and to provide treatment recommendations. [facility] - History History Provided By: Family Member, Medical Record - Medical History Medical History: Medical History (Last Reviewed 07/31/18 @ 08:26 by Olga Lidia Munguia) Anxiety Asthma Asthma Chronic pain Degenerative disc disease Diabetes mellitus GERD (gastroesophageal reflux disease) Hypertension Hypothyroidism - Surgical History Surgical History: Surgical History (Last Reviewed 07/31/18 @ 08:26 by Olga Lidia Munguia) H/O removal of cyst H/O: hysterectomy History of bronchoscopy - Family History Family History: Family History (Last Reviewed 07/27/18 @ 09:23 by Azalia Martinez) Other Diabetes mellitus - Tobacco History Second Hand Smoke Exposure: Yes Smoking Status: Unknown if ever smoked - Alcohol History How Often Do You Have a Drink Containing Alcohol: Unable to Obtain - Substance Use History Substance History: Unable to Obtain - Travel History Recent Travel in the [place] Within the Last 8 Weeks: No Recent Travel Out of the Country Within the Last 8 Weeks: No - Immunization History Tetanus Immunization: Unable to Assess Hx Influenza Vaccine This Season: Unable to Assess Medications Active Medications Acetaminophen (Tylenol) 650 mg PO Q4H PRN PRN Reason: Temp > 100.4 Last Admin: 07/25/18 16:47 Dose: 650 mg Hydrocodone Bitart/Acetaminophen ([place] 5/325) 1 tab PO BID PRN PRN Reason: Acute Pain Last Admin: 07/30/18 18:34 Dose: 1 tab Al Hydroxide/Mg Hydroxide (Milk Of Magnesia Liq) 30 ml PO Q12H PRN PRN Reason: Mild Constipation Alprazolam (Xanax) 0.25 mg PO BID PRN PRN Reason: AGITATION Last Admin: 07/30/18 16:28 Dose: 0.25 mg Amlodipine Besylate (Norvasc) 5 mg PO DAILY [facility] Last Admin: 07/31/18 08:48 Dose: 5 mg Bisacodyl (Dulcolax Supp) 10 mg RECTAL DAILY PRN PRN Reason: SEVERE CONSITIPATION Clonidine HCl (Catapres) 0.1 mg PO Q6H PRN PRN Reason: SBP>160 DBP>90 Last Admin: 07/30/18 00:11 Dose: 0.1 mg Clonidine HCl (Catapress-Tts 0.2 Mg Patch.7d) 1 patch T-DERMAL Q7D [facility] Last Admin: 07/30/18 09:17 Dose: 1 patch Dextrose (D50w Vial) 50 ml IV.PUSH UNSCH PRN PRN Reason: PER HYPOGLYCEMIA PROTOCOL Enalapril Maleate (Vasotec) 10 mg PO DAILY [facility] Last Admin: 07/31/18 08:48 Dose: 10 mg Enalaprilat (Vasotec Inj) 1.25 mg IV.PUSH Q6H PRN PRN Reason: SBP>180, DBP>95 Last Admin: 07/31/18 02:59 Dose: 1.25 mg Glucagon (Glucagon Inj) 1 mg OTHER PRN PRN PRN Reason: for Hypoglycemia Protocol Haloperidol Lactate (Haldol Inj) 0.5 mg IV.PUSH Q6H PRN PRN Reason: ANXIETY AND/OR AGITATION Last Admin: 07/31/18 09:44 Dose: 0.5 mg Heparin Sodium (Porcine) (Heparin Inj) 5,000 units SQ Q12H [facility] Last Admin: 07/31/18 09:48 Dose: 5,000 units Sodium Chloride (Ns Inj) 1,000 mls @ 42 mls/hr IV.CONT .[id number] [facility] Last Infusion: 07/31/18 06:55 Dose: Infused Insulin Aspart (Novolog Insulin Correctional Sugar Inj) 0 unit SQ ACHS AND 3AM JOHNNY; Protocol Last Admin: 07/31/18 11:29 Dose: 7 unit Lactulose (Lactulose Liq) 30 ml PO DAILY PRN PRN Reason: SEVERE CONSITIPATION Montelukast Sodium (Singulair) 10 mg PO QPM [facility] Last Admin: 07/30/18 18:31 Dose: 10 mg Nicotine (Habitrol 14 Mg Patch.24 Hr) 1 patch T-DERMAL DAILY [facility] Last Admin: 07/31/18 11:29 Dose: 1 patch Ondansetron HCl (Zofran Inj) 4 mg IV.PUSH Q6H PRN PRN Reason: NAUSEA OR VOMITING Pantoprazole Sodium (Protonix) 20 mg PO DAILY [facility] Last Admin: 07/31/18 08:48 Dose: 20 mg Patch Removal (Remove Old Patch) 1 each T-DERMAL Q7D JOHNNY Patch Removal (Remove Old Patch) 1 each T-DERMAL HS JOHNNY Quetiapine Fumarate (Seroquel) 12.5 mg PO BID@0900,1200 [facility] Last Admin: 07/31/18 10:02 Dose: 12.5 mg Senna/Docusate Sodium (Pinky-Colace) 1 tab PO BID [facility] Last Admin: 07/31/18 08:48 Dose: 1 tab Sennosides (Senokot) 17.2 mg PO Q12H PRN PRN Reason: Moderate Constipation Sodium Chloride (Ns Flush) 2 ml IV.FLUSH PRN PRN PRN Reason: FLUSH AFTER USING IV ACCESS Mental Status Assessment - Mental Status Orientation: oriented to: Self, disoriented to: Place, Time, Situation Adjustment/Coping Assessment - Observation In terms of emotional functioning, the patient demonstrated challenges. This patient demonstrated fluctuating signs of agitation, impulsivity or disinhibition, nor was there remarkable evidence of a formal thought disorder or psychosis. There was no clear evidence of depression or anxiety. Thought content was free from suicidal, homicidal or paranoid ideation, and thought processes were disorganized. The patients mood was apathetic, and her affect was blunted. The patient appears to possess minimal insight and awareness into their situation and within the limits of this brief evaluation, minimal judgment. Behavior - Behavior Treatment Engagement: No effort - Observation Behaviorally, the patient demonstrated no signs of agitation, impulsivity or disinhibition during this brief exam, but her history is noted for agitation/ restlessness. There was no remarkable evidence of a formal thought disorder or psychosis. - Goals LTG Status: Deferred STG Status: Deferred - Team Members Team Members: Neuropsychologist Diagnosis/Discharge Plan - Diagnosis (1) Major neurocognitive disorder due to multiple etiologies Status: Acute Impression: 73 year old woman with new onset mental status changes, but possible underlying major neurocognitive disorder. Maximizing Acute Care Outcome: It is recommended that the patient be monitored for emergent behavioral impulsivity as the medical condition evolves. This patients neuropathological challenges may limit rehabilitation potential going forward, and these challenges will require specialized therapeutic skills to maximize outcome. Additionally, the patients family is experiencing ongoing issues of adjustment given the traumatic nature of the injury, and they may benefit from ongoing psychological assistance. At this point in the recovery process, the patient does not have cognitive capacity as the patient is unable to understand a situation and its likely consequences, nor is the patient able to manipulate information rationally. Cognitive capacity will be assessed throughout the recovery process. - Discharge Planning Anticipated Problems: Ongoing areas of concern will include behavioral impulsivity, lack of insight and judgment, which is expected to improve with time and treatment. Treatment Plan: This clinician will continue to follow with you throughout the course of this patients acute care treatment, and I will be available to meet with the patient s family/support system to facilitate their understanding and the ongoing care of their family member. The goals of neuropsychological intervention shall be both educational and supportive to the family/support system as is deemed clinically appropriate. I will follow along within a comprehensive agitation management format. I will order to ABS to monitor treatment efficacy going forward. Thank you for the opportunity to assist in this patients care. Gonsalo Rosa, Ph.D., ABPP Board Certified in Clinical Neuropsychology [place] [employer] Professional Psychology [place] Licensed Psychologist #[id number]
[2018-07-31 14:41] LABS: ABG Base Excess 4.1 mmol/L (-2-2); ABG PCO2 42 mmHg (38-42); ABG PO2 93 mmHg (61-120)
--- NOTE | 2018-07-31 15:01 | P.PNPAL ---
Reason for Visit Reason for visit: a. To assist with evaluation and management of symptoms including:altered mental status, pain, dysphagia, weakness b. To assist medical decision maker(s) with: better understanding of current medical conditions; weighing benefits/burdens of medical treatment options; making medical treatment decisions. Subjective Subjective/Interval History: Follow-up medically necessary for symptom management. Patient seen and examined in the room. No family at bedside patient is currently in bed sleeping , difficult to arouse. Patient received Haldol 0.5 mg IV push 8 0944 hrs. today. No signs of discomfort or distress noted. Patient was started on Seroquel. Patient is currently receiving methylprednisolone sodium succinate parenterally. Neurologist Dr. Starr consulted on 07/30/18 for evaluation of patient with altered mental status and possible neurosyphilis, suspecting possible Alzheimer' s or slight viral encephalitis-recommended treatment with a gram of Solu-Medrol , electroencephalogram, check ABGs and a B12 shot. Neuropsychology consulted on 07/31/18 for evaluation of patient with altered mental status, recommended monitoring patient for emergent behavioral impulsivity as medical condition evolves. Patient remains afebrile with vital signs stable. ABG results today revealing pH 7.43, PCO2 42, PO2 52, HCO3 27, O2 saturation 85L, base excess 3.3 on 3 L nasal cannula. CSF VDRL collected 01/28 still pending. Patient remains on pured diet, today she was only fed breakfast and was very sleepy for lunch. Seroquel dose has been decreased from 25mg to 12.5mg following lethargy from initial dose. Case discussed with bedside RN. 1825hrs-Call from patient`s daughter Mely (HCP), stating that she does not want patient to receive Penicillin treatment for possible neurosyphilis prior receiving confirmatory lab results that patient has neurosyphilis. Patient`s daughter is concerned that in case her mother truly has an allergy reaction to cephalexin that they may not be aware of, she would not want to put her through the treatment with Penicillin as agreed on 07/30/18 without knowing for sure that she has neurosyphilis. Case discussed with bedside RN and updated him on daughter`s (HCP) decision. . Family/Friend Interactions: No family at bedside. Received call from patient`s daughter Carina. See interval note . Advance Directives Living Will: Never completed Health Care Surrogate: Never completed Durable Power of Supervisor Cd Area: Never completed Health Care Surrogate Name and Number: HCP: Stuart Boone [phone] Objective Vital Signs: Vital Signs 07/30/18 16:00 07/30/18 20:00 07/30/18 20:10 Temperature 97.4 F L 98.3 F Pulse Rate 78 89 Respiratory Rate 14 17 Blood Pressure 192/87 H 197/85 H Pulse Oximetry 95 95 97 07/31/18 00:00 07/31/18 04:24 07/31/18 08:00 Temperature 97.5 F L 97.3 F L 98.2 F Pulse Rate 72 58 L 78 Respiratory Rate 16 16 18 Blood Pressure 187/78 H 156/74 H 149/73 H Pulse Oximetry 95 100 95 07/31/18 12:00 Temperature 98.9 F Pulse Rate Respiratory Rate 20 Blood Pressure 137/82 Pulse Oximetry 100 Intake & Output 07/30/18 07/31/18 07/31/18 18:59 06:59 18:59 Intake Total 1116 / 1116 Balance 1116 / 1116 Intake: IV 1116 / 1116 NS Inj 1,000 ML @ 42 mls/hr IV. 1000 / 1000 CONT .[id number] JOHNNY Rx#:[id number] SoluMEDROL Inj 1,000 MG In D5W 116 / 116 Inj 100 ML @ 216 mls/hr IV.SIG ONCE ONE Rx#:[id number] Other: Date of Last Bowel Movement 07/29/18 07/29/18 07/30/18 Physical Exam: CONSTITUTIONAL/GENERAL: This is an elderly thin patient,sleeping in no apparent distress. TUBES/LINES/DRAINS:PIV; NC SKIN: No jaundice, rashes, or lesions. Ecchymoses on upper extremities. No wounds seen anteriorly. Skin temperature appropriate. Not diaphoretic. HEAD: Atraumatic. Normocephalic. EYES: Eyes closed. Fundi not examined. ENT: Hearing grossly normal. Nose without bleeding or purulent drainage. Missing teeth. Moist oral mucosa NECK: Trachea midline. Supple, nontender. CARDIOVASCULAR: Regular rate and rhythm without murmurs, gallops, or rubs. No JVD. Peripheral pulses symmetric. RESPIRATORY/CHEST: Symmetric, unlabored respirations. Clear to auscultation. Breath sounds equal bilaterally. No wheezes, rales, or rhonchi. GASTROINTESTINAL: Abdomen soft, non-tender, nondistended. No guarding. Bowel sounds present. GENITOURINARY: Without palpable bladder distension. MUSCULOSKELETAL: Extremities without clubbing, cyanosis, or edema. No joint tenderness or effusion noted. No calf tenderness. No mottling or clubbing. NEUROLOGICAL: Sleeping, difficult to arouse. PSYCHIATRIC: No obvious anxiety/depression. no apparent hallucinations or other psychotic thought process. Diagnostic Tests Laboratory: Laboratory Results - last 72 hr 07/26/18 07/28/18 07/28/18 15:32 05:36 21:41 ESR Puncture Site Patient Temperature O2 Saturation ABG pH ABG pCO2 ABG pO2 ABG HCO3 ABG O2 Content ABG Base Excess ABG Methemoglobin Dylan Test Hemoglobin Carboxyhemoglobin O2 Delivery Device Liter Flow Inspired O2 Critical Value POC Glucose 111 H C-Reactive Protein 1.76 H Total Protein (PEP) Folate CSF Treponema Ab (FTA) Non-reactive RPR Titer RPR 07/29/18 07/29/18 07/29/18 03:21 05:55 07:36 ESR Puncture Site Patient Temperature O2 Saturation ABG pH ABG pCO2 ABG pO2 ABG HCO3 ABG O2 Content ABG Base Excess ABG Methemoglobin Dylan Test Hemoglobin Carboxyhemoglobin O2 Delivery Device Liter Flow Inspired O2 Critical Value POC Glucose 114 H 83 C-Reactive Protein Total Protein (PEP) Folate CSF Treponema Ab (FTA) RPR Titer 1:2 H RPR Reactive H 07/29/18 07/29/18 07/29/18 11:44 18:10 20:40 ESR Puncture Site Patient Temperature O2 Saturation ABG pH ABG pCO2 ABG pO2 ABG HCO3 ABG O2 Content ABG Base Excess ABG Methemoglobin Dylan Test Hemoglobin Carboxyhemoglobin O2 Delivery Device Liter Flow Inspired O2 Critical Value POC Glucose 102 169 H 93 C-Reactive Protein Total Protein (PEP) Folate CSF Treponema Ab (FTA) RPR Titer RPR 07/30/18 07/30/18 07/30/18 03:03 07:38 11:58 ESR Puncture Site Patient Temperature O2 Saturation ABG pH ABG pCO2 ABG pO2 ABG HCO3 ABG O2 Content ABG Base Excess ABG Methemoglobin Dylan Test Hemoglobin Carboxyhemoglobin O2 Delivery Device Liter Flow Inspired O2 Critical Value POC Glucose 92 83 107 C-Reactive Protein Total Protein (PEP) Folate CSF Treponema Ab (FTA) RPR Titer RPR 07/30/18 07/30/18 07/30/18 17:37 19:25 20:14 ESR Puncture Site Left radial Patient Temperature 98.6 O2 Saturation 85 L* ABG pH 7.45 H ABG pCO2 40 ABG pO2 53 L* ABG HCO3 28 H ABG O2 Content 15.7 ABG Base Excess 4.0 H ABG Methemoglobin 1.2 Dylan Test Present Hemoglobin 13.2 Carboxyhemoglobin 1.2 O2 Delivery Device Room air Liter Flow Inspired O2 21 Critical Value Yes POC Glucose 113 H 300 H C-Reactive Protein Total Protein (PEP) Folate CSF Treponema Ab (FTA) RPR Titer RPR 07/30/18 07/30/18 07/31/18 20:30 20:30 02:49 ESR 37 H Puncture Site Patient Temperature O2 Saturation ABG pH ABG pCO2 ABG pO2 ABG HCO3 ABG O2 Content ABG Base Excess ABG Methemoglobin Dylan Test Hemoglobin Carboxyhemoglobin O2 Delivery Device Liter Flow Inspired O2 Critical Value POC Glucose 181 H C-Reactive Protein Total Protein (PEP) 7.2 Folate 6.2 CSF Treponema Ab (FTA) RPR Titer RPR 07/31/18 07/31/18 07/31/18 08:36 11:14 12:41 ESR Puncture Site Left radial Patient Temperature 98.6 O2 Saturation 85 L* ABG pH 7.43 H ABG pCO2 42 ABG pO2 52 L* ABG HCO3 27 H ABG O2 Content 16.8 ABG Base Excess 3.3 H ABG Methemoglobin 1.0 Dylan Test Present Hemoglobin 14.2 Carboxyhemoglobin 1.0 O2 Delivery Device Nasal cannula Liter Flow 3.00 Inspired O2 Critical Value Yes POC Glucose 311 H 276 H C-Reactive Protein Total Protein (PEP) Folate CSF Treponema Ab (FTA) RPR Titer RPR Result Diagrams: 07/28/18 05:36 07/28/18 05:36 Microbiology: Microbiology 07/24/18 17:30 Aerobic Blood Culture - Final Blood - Peripheral No growth in 5 days Anaerobic Blood Culture - Final No growth in 5 days 07/24/18 17:35 Aerobic Blood Culture - Final Blood - Peripheral No growth in 5 days Anaerobic Blood Culture - Final No growth in 5 days 07/26/18 15:32 Gram Stain - Final Lumbar Puncture CSF Culture - Final No growth in 72 hours Imaging: Head CT 07/24/18 16:23 CONCLUSION: 1. No acute intracranial abnormality. 2. Chronic white matter changes . Head MRI 07/25/18 00:00 CONCLUSION: 1. Suboptimal examination secondary to motion artifact. 2. No evidence of acute infarction, hemorrhage or mass. 3. Atrophy and chronic small vessel ischemic change. Chest X-Ray 07/26/18 00:00 CONCLUSION: Negative examination. Lumbar Puncture Fluoroscopy 07/26/18 00:00 CONCLUSION: 1. Uncomplicated fluoroscopically guided lumbar puncture. Procedures: 07/26/2018-fluoroscopic guided lumbar puncture Assessment and Plan - Disease Oriented Problem List (1) Syphilis (2) Hypertension (3) Asthma (4) Diabetes mellitus - Symptom Scale (1) Altered mental status 0-10 Scale: Unable to quantify (2) Pain 0-10 Scale: Unable to quantify (3) Dysphagia 0-10 Scale: Unable to quantify (4) Weakness 0-10 Scale: Unable to quantify Pertinent Non-Medical Issues: Psychosocial: Patient was born and raised in [facility]. She is . He a year ago. Patient has 3 adult daughters. Spiritual: Patient is Worship Legal: Never completed advanced directives Ethical issues impacting care: None identified at this time Important Contacts: Daughter- Mely Davidson [phone]-willing to serve as healthcare proxy Daughter-Ashley Lal [phone] opted out of decision making Daughter- Olga Lal [phone] opted out of decision making Granddaughter- Italia Dong [phone] Prognosis: Mrs. Goyal is a 73-year-old female with past medical history significant for diabetes mellitus, hypertension, hyperlipidemia and COPD. Patient presented to the ER in the company of her daughter on 07/24/18 for evaluation of worsening altered mental status and hallucinating. 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 Clinical course complicated with dysphagia, decreased oral intake, altered mentation, and weakness. Given ongoing multiple comorbidities, patient remains at high risk for further complications, deterioration and decline. Code Status: Full Code Plan: PLAN: Legal decision maker: Patient is currently oriented to self with confusion to time place and situation. At this time it is not known whether patient will regain ability to participate in medical decision making. According to [place] statute, in the event of patient being incapacitated her 3 adult daughters would serve as her healthcare proxys. 2 of patient's daughters have opted out of decision making and Stuart oBone will serve as patient`s Health Care Proxy. Goals: Goals are aggressive. Per last discussion with family they would like to give patient a chance and in the event that he is worsening of symptoms and deterioration any medical condition he may reconsider CODE STATUS. 1825hrs-Call from patient`s daughter Mely (HCP), stating that she does not want patient to receive Penicillin treatment for possible neurosyphilis prior receiving confirmatory lab results that patient has neurosyphilis. Patient`s daughter is concerned that in case her mother truly has an allergy reaction to cephalexin that they may not be aware of, she would not want to put her through the treatment with Penicillin as agreed on 07/30/18 without knowing for sure that she has neurosyphilis. CODE STATUS: Full Code SYMPTOMS: * Altered mental status: Patient came in with altered mental status. Brain MRI showed atrophy and chronic small vessel ischemic changes. Patient also tested positive for syphilis with possible neurosyphilis. CSF results pending. Speech therapy consulted for cognition assessment. Neuropsychology and neurologist consulted. Continue with neuro assessments. * Dysphagia: This may be secondary to altered mentation. Speech therapy consulted failed and patient swallow evaluation. Currently on pured diet and thin liquids. Patient has decreased oral intake. Dietitian consulted and calorie count in progress. * Pain: Patient has history of degenerative disc disease and chronic pain. Not showing signs of pain. Continue assessing for pain symptoms * Weakness: Patient came in with weakness. Physical therapy consulted, recommended therapy and rehab. Palliative care will continue to follow the patient during hospital course as condition evolves, to assist patient/decision-maker with understanding of their medical conditions, weighing benefits/burdens of treatment options, for clarification of goals of treatment. Additionally will assist with any symptoms of palliative concern Attestation Attestation: To help prompt me to consider important information that might be impacting today's encounter and assessment, information from prior notes written by myself or my colleagues may have been "brought forward" into today's note. My signature on this note, however, is an attestation that I personally performed the exam, history, and/or decision-making noted today, and, unless otherwise indicated, the interactions with patient, family, and staff as well as the review of records all occurred today. I also attest that the listed assessment and stated plan reflect my best clinical judgment today based on the combination of historical information, prior notes, and today's exam/ interactions. When time spent is documented, it refers only to time spent today by the signer, or if indicated, combined time spent today by collaborating physician/nurse practitioner.
[2018-07-31] MEDS: Montelukast 10 MG Tablet PO SCH (18:18)
--- NOTE | 2018-07-31 19:13 | P.CONPSY ---
Provisional Diagnosis Admission Date: July 24, 2018 20:11 Shickley I.: Delirium, History of Present Illness Service: Psychiatry Consult date: 07/31/18 Reason for Consult: Possible dementia, agitated Primary Care Provider: David Gee Family Provider: David Gee History of Present Illness: Patient is a 73 y/o woman, uncllear of marital status, with possible neurocognitive disorder, past psychiatric history of depression who was brought into the ED for altered mental status, refusing food and therefore admitted to the medical service for metabolic encephalopathy and neurosyphilis which has been noted to be agitated and psychiatry was consulted for evaluation. Discussion [facility] nursing staff reported that patient this morning was refusing medications, combative and required soft restraits which she received ETO of Haldol 0.5mg x 1 and quetiapine 12.5mg PO BID. Patient was found lying on hospital bed, noted to be asleep and continued to be sedated due to recent medicaitons received as stated above. Patient at this time is unable to participate in interview due to sedation despite multiple attempts to have patient engage in interivew. Review of Systems unobtainable due to mental condition PMFSH - History History Provided By: Patient, Medical Record - Medical History Medical History: Medical History (Last Reviewed 07/31/18 @ 08:26 by Olga Lidia Munguia) Anxiety Asthma Asthma Chronic pain Degenerative disc disease Diabetes mellitus GERD (gastroesophageal reflux disease) Hypertension Hypothyroidism - Surgical History Surgical History: Surgical History (Last Reviewed 07/31/18 @ 08:26 by Olag Lidia Munguia) H/O removal of cyst H/O: hysterectomy History of bronchoscopy - Family History Family History: Family History (Last Reviewed 07/27/18 @ 09:23 by Azalia Martinez) Other Diabetes mellitus - Tobacco History Second Hand Smoke Exposure: Yes Smoking Status: Unknown if ever smoked - Alcohol History How Often Do You Have a Drink Containing Alcohol: Unable to Obtain - Substance Use History Substance History: Unable to Obtain - Travel History Recent Travel in the [place] Within the Last 8 Weeks: No Recent Travel Out of the Country Within the Last 8 Weeks: No - Immunization History Tetanus Immunization: Unable to Assess Hx Influenza Vaccine This Season: Unable to Assess Medications and Allergies Active Medications: Active Medications Acetaminophen (Tylenol) 650 mg PO Q4H PRN PRN Reason: Temp > 100.4 Last Admin: 07/25/18 16:47 Dose: 650 mg Hydrocodone Bitart/Acetaminophen ([place] 5/325) 1 tab PO BID PRN PRN Reason: Acute Pain Last Admin: 07/30/18 18:34 Dose: 1 tab Al Hydroxide/Mg Hydroxide (Milk Of Magnesia Liq) 30 ml PO Q12H PRN PRN Reason: Mild Constipation Albuterol (Duoneb Neb (Buddy)) 1 ampul NEB Q6HR WHILE AWAKE NEB [facility] Amlodipine Besylate (Norvasc) 5 mg PO DAILY [facility] Last Admin: 07/31/18 08:48 Dose: 5 mg Bisacodyl (Dulcolax Supp) 10 mg RECTAL DAILY PRN PRN Reason: SEVERE CONSITIPATION Clonidine HCl (Catapres) 0.1 mg PO Q6H PRN PRN Reason: SBP>160 DBP>90 Last Admin: 07/30/18 00:11 Dose: 0.1 mg Clonidine HCl (Catapress-Tts 0.2 Mg Patch.7d) 1 patch T-DERMAL Q7D [facility] Last Admin: 07/30/18 09:17 Dose: 1 patch Dextrose (D50w Vial) 50 ml IV.PUSH UNSCH PRN PRN Reason: PER HYPOGLYCEMIA PROTOCOL Enalapril Maleate (Vasotec) 10 mg PO DAILY [facility] Last Admin: 07/31/18 08:48 Dose: 10 mg Enalaprilat (Vasotec Inj) 1.25 mg IV.PUSH Q6H PRN PRN Reason: SBP>180, DBP>95 Last Admin: 07/31/18 02:59 Dose: 1.25 mg Glucagon (Glucagon Inj) 1 mg OTHER PRN PRN PRN Reason: for Hypoglycemia Protocol Heparin Sodium (Porcine) (Heparin Inj) 5,000 units SQ Q12H [facility] Last Admin: 07/31/18 09:48 Dose: 5,000 units Sodium Chloride (Ns Inj) 1,000 mls @ 42 mls/hr IV.CONT .[id number] [facility] Last Infusion: 07/31/18 06:55 Dose: Infused Insulin Aspart (Novolog Insulin Correctional Sugar Inj) 0 unit SQ ACHS AND 3AM BUDDY; Protocol Last Admin: 07/31/18 18:18 Dose: 1 unit Lactulose (Lactulose Liq) 30 ml PO DAILY PRN PRN Reason: SEVERE CONSITIPATION Miscellaneous (Pill Splitter) 1 each OTHER UNSCH PRN PRN Reason: SEE LABEL COMMENTS Montelukast Sodium (Singulair) 10 mg PO QPM [facility] Last Admin: 07/31/18 18:18 Dose: 10 mg Nicotine (Habitrol 14 Mg Patch.24 Hr) 1 patch T-DERMAL DAILY [facility] Last Admin: 07/31/18 11:29 Dose: 1 patch Ondansetron HCl (Zofran Inj) 4 mg IV.PUSH Q6H PRN PRN Reason: NAUSEA OR VOMITING Pantoprazole Sodium (Protonix) 20 mg PO DAILY [facility] Last Admin: 07/31/18 08:48 Dose: 20 mg Patch Removal (Remove Old Patch) 1 each T-DERMAL Q7D [facility] Patch Removal (Remove Old Patch) 1 each T-DERMAL HS BUDDY Quetiapine Fumarate (Seroquel) 12.5 mg PO HS [facility] Senna/Docusate Sodium (Pinky-Colace) 1 tab PO BID [facility] Last Admin: 07/31/18 08:48 Dose: 1 tab Sennosides (Senokot) 17.2 mg PO Q12H PRN PRN Reason: Moderate Constipation Sodium Chloride (Ns Flush) 2 ml IV.FLUSH PRN PRN PRN Reason: FLUSH AFTER USING IV ACCESS Allergies Allergy/AdvReac Type Severity Reaction Status Date / Time cephalexin Allergy Severe Unverified 12/06/17 19:32 Home Medications Medication Instructions Recorded Confirmed Type alprazolam [Xanax] 0.25 mg PO BID PRN 07/27/18 07/27/18 History enalapril maleate 10 mg PO DAILY 07/27/18 07/27/18 History hydrocodone-acetaminophen 1 tab PO BID PRN 07/27/18 07/27/18 History metformin 500 mg PO BID 07/27/18 07/27/18 History montelukast [Singulair] 10 mg PO QPM 07/27/18 07/27/18 History omeprazole magnesium [Prilosec] 20 mg PO DAILY 07/27/18 07/27/18 History Exam Vital signs: Vital Signs 07/30/18 20:00 07/30/18 20:10 07/31/18 00:00 Temperature 98.3 F 97.5 F L Pulse Rate 89 72 Respiratory Rate 17 16 Blood Pressure 197/85 H 187/78 H Pulse Oximetry 95 97 95 07/31/18 04:24 07/31/18 08:00 07/31/18 12:00 Temperature 97.3 F L 98.2 F 98.9 F Pulse Rate 58 L 78 Respiratory Rate 16 18 20 Blood Pressure 156/74 H 149/73 H 137/82 Pulse Oximetry 100 95 100 07/31/18 16:00 07/31/18 17:23 Temperature 98.1 F Pulse Rate 71 Respiratory Rate 20 Blood Pressure 116/80 Pulse Oximetry 99 99 Intake & Output 07/31/18 07/31/18 08/01/18 06:59 18:59 06:59 Intake Total 1116 / 1116 0 / 0 Balance 1116 / 1116 0 / 0 Intake: IV 1116 / 1116 NS Inj 1,000 ML @ 42 mls/hr IV. 1000 / 1000 CONT .[id number] BUDDY Rx#:[id number] SoluMEDROL Inj 1,000 MG In D5W 116 / 116 Inj 100 ML @ 216 mls/hr IV.SIG ONCE ONE Rx#:[id number] Oral 0 / 0 Other: # Urine Diapers 6 Date of Last Bowel Movement 07/29/18 07/31/18 # Bowel Movements 1 - Constitutional somnolent Mental Status Examination Appearance: Other (in hospital gown, asleep) Consciousness: Somnolent Motor Activity: Other (unable to assess as patient asleep) Speech: Other (unable to assess as patient asleep) Language: Other (unable to assess as patient asleep) Fund of Knowledge: Poor Attention and Concentration: Other (unable to assess as patient asleep) Mood: Other (unable to assess as patient asleep) Affect: Other (unable to assess as patient asleep) Thought Process & Associations: Other (unable to assess as patient asleep) Thought Content: Other (unable to assess as patient asleep) Hallucination Type: Other (unable to assess as patient asleep) Insight: Poor Judgment: Poor Assessment and Plan - Assessment (1) Delirium due to another medical condition Code(s): F05 - Delirium due to known physiological condition Status: Acute (2) Encephalopathy Code(s): G93.40 - Encephalopathy, unspecified Status: Acute - Plan Plan: Estimated LOS: [] days Patient is a 73 y/o woman with no formal past psychiatric history, currently admitted for possible metabolic encephalopathy secondary to suspected neurosyphilis, currently combative requiring two point restraints at times which psychiatry was consulted for evaluation. Patient at this time is currently sedated due to recent medicaitons given. Patient likley with neurocogntive deficits with superimposed delirium secondary to ongoing encephalopathy and hypoxia. Recommend to continue queitapine 12.5mg PO q12hrs for management of mood and agitation with Haldol 1-2mg IM every 12hrs as needed for breakthrough agitation. Continue to monitor Qtc interval as Haldol may contribute to Qtc prolongation along with orthostatic hypotension. Monitor for falls precautions. Consult appreciated, psychiatry will continue to follow. Justification for Continued Inpatient Stay: At risk for further decompensation at lower level of care.
[2018-08-01] MEDS: Insulin NovoLOG Aspart Correctional Sugar Inj SQ SCH ×5 (03:18→20:09)
--- NOTE | 2018-08-01 07:24 | P.PNNEU ---
Subjective Subjective Comments: o2 sats 100% overnoc on 3 Liters Active Medications: Active Medications Acetaminophen (Tylenol) 650 mg PO Q4H PRN PRN Reason: Temp > 100.4 Last Admin: 07/25/18 16:47 Dose: 650 mg Hydrocodone Bitart/Acetaminophen ([place] 5/325) 1 tab PO BID PRN PRN Reason: Acute Pain Last Admin: 07/30/18 18:34 Dose: 1 tab Al Hydroxide/Mg Hydroxide (Milk Of [place]) 30 ml PO Q12H PRN PRN Reason: Mild Constipation Albuterol (Duoneb Neb ([facility])) 1 ampul NEB Q6HR WHILE AWAKE NEB [facility] Amlodipine Besylate (Norvasc) 5 mg PO DAILY [facility] Last Admin: 07/31/18 08:48 Dose: 5 mg Bisacodyl (Dulcolax Supp) 10 mg RECTAL DAILY PRN PRN Reason: SEVERE CONSITIPATION Clonidine HCl (Catapres) 0.1 mg PO Q6H PRN PRN Reason: SBP>160 DBP>90 Last Admin: 07/31/18 20:53 Dose: 0.1 mg Clonidine HCl (Catapress-Tts 0.2 Mg Patch.7d) 1 patch T-DERMAL Q7D [facility] Last Admin: 07/30/18 09:17 Dose: 1 patch Dextrose (D50w Vial) 50 ml IV.PUSH UNSCH PRN PRN Reason: PER HYPOGLYCEMIA PROTOCOL Enalapril Maleate (Vasotec) 10 mg PO DAILY [facility] Last Admin: 07/31/18 08:48 Dose: 10 mg Enalaprilat (Vasotec Inj) 1.25 mg IV.PUSH Q6H PRN PRN Reason: SBP>180, DBP>95 Last Admin: 07/31/18 02:59 Dose: 1.25 mg Glucagon (Glucagon Inj) 1 mg OTHER PRN PRN PRN Reason: for Hypoglycemia Protocol Heparin Sodium (Porcine) (Heparin Inj) 5,000 units SQ Q12H [facility] Last Admin: 07/31/18 22:06 Dose: 5,000 units Sodium Chloride (Ns Inj) 1,000 mls @ 42 mls/hr IV.CONT .[id number] [facility] Last Admin: 07/31/18 20:00 Dose: 72 mls/hr Insulin Aspart (Novolog Insulin Correctional Sugar Inj) 0 unit SQ ACHS AND 3AM JOHNNY; Protocol Last Admin: 08/01/18 03:18 Dose: 1 unit Lactulose (Lactulose Liq) 30 ml PO DAILY PRN PRN Reason: SEVERE CONSITIPATION Miscellaneous (Pill Splitter) 1 each OTHER UNSCH PRN PRN Reason: SEE LABEL COMMENTS Montelukast Sodium (Singulair) 10 mg PO QPM [facility] Last Admin: 07/31/18 18:18 Dose: 10 mg Nicotine (Habitrol 14 Mg Patch.24 Hr) 1 patch T-DERMAL DAILY [facility] Last Admin: 07/31/18 11:29 Dose: 1 patch Ondansetron HCl (Zofran Inj) 4 mg IV.PUSH Q6H PRN PRN Reason: NAUSEA OR VOMITING Pantoprazole Sodium (Protonix) 20 mg PO DAILY [facility] Last Admin: 07/31/18 08:48 Dose: 20 mg Patch Removal (Remove Old Patch) 1 each T-DERMAL Q7D JHONNY Patch Removal (Remove Old Patch) 1 each T-DERMAL HS [facility] Last Admin: 07/31/18 20:54 Dose: 1 each Quetiapine Fumarate (Seroquel) 12.5 mg PO HS [facility] Last Admin: 07/31/18 20:53 Dose: 12.5 mg Senna/Docusate Sodium (Pinky-Colace) 1 tab PO BID [facility] Last Admin: 07/31/18 20:53 Dose: 1 tab Sennosides (Senokot) 17.2 mg PO Q12H PRN PRN Reason: Moderate Constipation Sodium Chloride (Ns Flush) 2 ml IV.FLUSH PRN PRN PRN Reason: FLUSH AFTER USING IV ACCESS Allergies/Adverse Reactions: Allergies Allergy/AdvReac Type Severity Reaction Status Date / Time cephalexin Allergy Severe Unverified 12/06/17 19:32 Physical Exam Vital signs: Vital Signs 07/31/18 08:00 07/31/18 12:00 07/31/18 16:00 Temperature 98.2 F 98.9 F 98.1 F Pulse Rate 78 71 Respiratory Rate 18 20 20 Blood Pressure 149/73 H 137/82 116/80 Pulse Oximetry 95 100 99 07/31/18 17:23 07/31/18 20:34 07/31/18 22:00 Temperature 98.4 F Pulse Rate 88 Respiratory Rate 17 Blood Pressure 144/91 H Pulse Oximetry 99 97 99 09/18/18 23:43 08/01/18 03:13 Temperature 97.6 F 97.2 F L Pulse Rate 77 55 L Respiratory Rate 18 16 Blood Pressure 150/65 H 127/58 L Pulse Oximetry 100 100 Intake & Output 07/31/18 08/01/18 08/01/18 18:59 06:59 18:59 Intake Total 0 / 0 Balance 0 / 0 Weight 55.6 kg Intake: Oral 0 / 0 Other: # Voids 0 # Incontinent Voids 3 # Urine Diapers 6 Date of Last Bowel Movement 07/31/18 07/30/18 # Bowel Movements 1 Narrative: awke interacts confused dementia moves all well talking - Urinary Catheter Management Straight Cath placed during this visit: yes Reason for continuing: Not indwelling catheter Insertion date: 07/24/18 Insertion time: 15:30 Objective Laboratory Results - last 24 hr 07/26/18 07/30/18 07/31/18 15:32 20:30 08:36 Puncture Site Left radial Patient Temperature 98.6 O2 Saturation 85 L* ABG pH 7.43 H ABG pCO2 42 ABG pO2 52 L* ABG HCO3 27 H ABG O2 Content 16.8 ABG Base Excess 3.3 H ABG Methemoglobin 1.0 Dylan Test Present Hemoglobin 14.2 Carboxyhemoglobin 1.0 O2 Delivery Device Nasal cannula Liter Flow 3.00 Critical Value Yes POC Glucose Albumin (PEP) 3.61 Albumin/Globulin Ratio 1.01 L Upsiw-9-Dekmmwfll 0.36 H Oteoe-9-Uetblutfz 1.03 H Beta Globulins 1.03 Gamma Globulins 1.17 CSF VDRL Non-reactive 07/31/18 07/31/18 07/31/18 11:14 12:41 14:36 Puncture Site Left radial Patient Temperature 98.6 O2 Saturation 95 ABG pH 7.44 H ABG pCO2 42 ABG pO2 93 ABG HCO3 28 H ABG O2 Content 20.2 H ABG Base Excess 4.1 H ABG Methemoglobin 1.2 Dylan Test Present Hemoglobin 15.1 Carboxyhemoglobin 0.9 O2 Delivery Device Nasal cannula Liter Flow 3.00 Critical Value No POC Glucose 311 H 276 H Albumin (PEP) Albumin/Globulin Ratio Ccbhi-7-Uqfgghvnz Tkruz-6-Qbdenamcd Beta Globulins Gamma Globulins CSF VDRL 07/31/18 07/31/18 08/01/18 16:43 21:58 03:09 Puncture Site Patient Temperature O2 Saturation ABG pH ABG pCO2 ABG pO2 ABG HCO3 ABG O2 Content ABG Base Excess ABG Methemoglobin Dylan Test Hemoglobin Carboxyhemoglobin O2 Delivery Device Liter Flow Critical Value POC Glucose 192 H 203 H 187 H Albumin (PEP) Albumin/Globulin Ratio Ngbxt-8-Louijdaul Spzkp-4-Envuccrlk Beta Globulins Gamma Globulins CSF VDRL Review/Management - Review/Management Plan: imp hypoxia on abg med team address pl fu eeg better after steroids will observe fu labs too 08/01/18 oob to chair watch o2 sats some underlying likley ad please dont sedate her bp better probably got a littel agitated after steroid dose no haldol please
[2018-08-01] MEDS ORDERED: Haloperidol Inj 5 MG/ML Ampul IM PRN (07:42)
[2018-08-01] MEDS: amLODIPine 5 MG Tablet PO SCH (09:20)
[2018-08-01] MEDS: Senna/Docusate Sodium 8.6/50 MG Tablet PO SCH ×2 (09:20→19:59)
[2018-08-01] MEDS: Pantoprazole Sodium 20 MG DR Tablet PO SCH (09:21)
[2018-08-01] MEDS: Heparin - SQ 10,000 UNITS/ML Vial SQ SCH ×2 (09:21→22:04)
[2018-08-01 10:49] LABS: Hematocrit 38.5 % (35.0-46.0); Hemoglobin 12.7 gm/dL (11.6-15.3); Lymph # (Auto) 0.8 th/mm3 (1.0-4.8); Lymph % (Auto) 4.4 % (9.0-44.0); Mean Corpuscular HGB Conc 32.9 % (32.0-36.0); Mean Corpuscular Hemoglobin 31.3 pg (27.0-34.0); Mean Platelet Volume 10.8 fL (7.0-11.0); Mono # (Auto) 0.7 th/mm3 (0.0-0.9); Mono % (Auto) 3.9 % (0.0-8.0); Neut # (Auto) 16.7 th/mm3 (1.8-7.7); Neut % (Auto) 91.7 % (16.0-70.0); Platelet Count 165 th/mm3 (150-450); Red Blood Count 4.05 mil/mm3 (4.00-5.30); Red Cell Distribution Width 15.9 % (11.6-17.2); White Blood Count 18.2 th/mm3 (4.0-11.0)
[2018-08-01 11:09] LABS: Magnesium 2.2 mg/dL (1.5-2.5); Phosphorus 3.3 mg/dL (2.5-4.9)
[2018-08-01 11:10] LABS: Anion Gap 7 meq/L (5-15); Blood Urea Nitrogen 13 mg/dL (7-18); Calcium 8.6 mg/dL (8.5-10.1); Carbon Dioxide 31.3 meq/L (21.0-32.0); Chloride 103 meq/L (98-107); Glomerular Filtration Rate Greater Than 89 mL/min (>89); Glucose,Random 210 mg/dL (74-106); Potassium 3.9 meq/L (3.5-5.1); Sodium 141 meq/L (136-145)
--- NOTE | 2018-08-01 11:11 | P.PN ---
Subjective Interval history: Follow up on patient with AMS/encephalopathy. Patient seen and examined. Patient much improved this morning. Much more alert. Moving well in the bed. Less agitated, tolerating NC. She is complaining of intermittent chest pain. Unable to get more specifics. Patient begins to cry saying "I want my momma". Niece is at the bedside helping her eat breakfast. Says she is not at her baseline mentally. Physical Exam Vital signs: Vital Signs 07/31/18 12:00 07/31/18 16:00 07/31/18 17:23 Temperature 98.9 F 98.1 F Pulse Rate 71 Respiratory Rate 20 20 Blood Pressure 137/82 116/80 Pulse Oximetry 100 99 99 07/31/18 20:34 07/31/18 22:00 07/31/18 23:43 Temperature 98.4 F 97.6 F Pulse Rate 88 77 Respiratory Rate 17 18 Blood Pressure 144/91 H 150/65 H Pulse Oximetry 97 99 100 08/01/18 03:13 08/01/18 08:00 08/01/18 09:38 Temperature 97.2 F L 96.8 F L Pulse Rate 55 L 78 75 Respiratory Rate 16 16 16 Blood Pressure 127/58 L 149/88 H Pulse Oximetry 100 93 L 97 Intake & Output 07/31/18 08/01/18 08/01/18 18:59 06:59 18:59 Intake Total 0 / 0 Balance 0 / 0 Weight 55.6 kg Intake: Oral 0 / 0 Other: # Voids 0 # Incontinent Voids 3 # Urine Diapers 6 Date of Last Bowel Movement 07/31/18 07/30/18 # Bowel Movements 1 Narrative: GENERAL: Thin elderly WDWN AAF, in no acute distress. Awake and alert. Confused. Eating breakfast with assistance of niece at the bedside. SKIN: Warm and dry. No generalized rash. HEENT: Atraumatic. Normocephalic. Pupils equal and round. No scleral icterus. No injection or drainage. No nasal bleeding or discharge. NECK: Trachea midline. CARDIOVASCULAR: Regular rate and rhythm. RESPIRATORY: No accessory muscle use. Poor effort. Clear to auscultation. Breath sounds equal bilaterally. GASTROINTESTINAL: Abdomen soft, non-tender, nondistended. MUSCULOSKELETAL: Extremities without clubbing, cyanosis, or edema. No obvious deformities. NEUROLOGICAL: Awake and alert. Oriented to self. No obvious cranial nerve deficits. Weak head mixer strength bilaterally. Able to move all extremities spontaneously. PSYCHIATRIC: Judgement and insight poor. - Urinary Catheter Management Straight Cath placed during this visit: yes Reason for continuing: Not indwelling catheter Insertion date: 07/24/18 Insertion time: 15:30 Results - Labs CBC & Chem 7: 08/01/18 10:10 08/01/18 10:10 Laboratory Results - last 24 hr 07/26/18 07/30/18 07/31/18 15:32 20:30 11:14 WBC RBC Hgb Hct MCV MCH MCHC RDW Plt Count MPV Neut % (Auto) Lymph % (Auto) [place] % (Auto) Eos % (Auto) Baso % (Auto) Neut # (Auto) Lymph # (Auto) [place] # (Auto) Eos # (Auto) Baso # (Auto) WBC Differential Differential Comment Puncture Site Patient Temperature O2 Saturation ABG pH ABG pCO2 ABG pO2 ABG HCO3 ABG O2 Content ABG Base Excess ABG Methemoglobin Dylan Test Hemoglobin Carboxyhemoglobin O2 Delivery Device Liter Flow Critical Value POC Glucose 311 H Albumin (PEP) 3.61 Albumin/Globulin Ratio 1.01 L Usgjj-7-Fdywgmjuq 0.36 H Mjmtf-4-Ecunztzcu 1.03 H Beta Globulins 1.03 Gamma Globulins 1.17 CSF VDRL Non-reactive 07/31/18 07/31/18 07/31/18 12:41 14:36 16:43 WBC RBC Hgb Hct MCV MCH MCHC RDW Plt Count MPV Neut % (Auto) Lymph % (Auto) [place] % (Auto) Eos % (Auto) Baso % (Auto) Neut # (Auto) Lymph # (Auto) [place] # (Auto) Eos # (Auto) Baso # (Auto) WBC Differential Differential Comment Puncture Site Left radial Patient Temperature 98.6 O2 Saturation 95 ABG pH 7.44 H ABG pCO2 42 ABG pO2 93 ABG HCO3 28 H ABG O2 Content 20.2 H ABG Base Excess 4.1 H ABG Methemoglobin 1.2 Dylan Test Present Hemoglobin 15.1 Carboxyhemoglobin 0.9 O2 Delivery Device Nasal cannula Liter Flow 3.00 Critical Value No POC Glucose 276 H 192 H Albumin (PEP) Albumin/Globulin Ratio Rwuys-1-Mwkoliiwz Wuctt-2-Xdiaguqjm Beta Globulins Gamma Globulins CSF VDRL 09/18/18 09/19/18 09/19/18 21:58 03:09 08:26 WBC RBC Hgb Hct MCV MCH MCHC RDW Plt Count MPV Neut % (Auto) Lymph % (Auto) [place] % (Auto) Eos % (Auto) Baso % (Auto) Neut # (Auto) Lymph # (Auto) [place] # (Auto) Eos # (Auto) Baso # (Auto) WBC Differential Differential Comment Puncture Site Patient Temperature O2 Saturation ABG pH ABG pCO2 ABG pO2 ABG HCO3 ABG O2 Content ABG Base Excess ABG Methemoglobin Dylan Test Hemoglobin Carboxyhemoglobin O2 Delivery Device Liter Flow Critical Value POC Glucose 203 H 187 H 145 H Albumin (PEP) Albumin/Globulin Ratio Dkdgi-7-Rgyzkreor Blfbo-3-Mqabpxjzn Beta Globulins Gamma Globulins CSF VDRL 08/01/18 10:10 WBC 18.2 H RBC 4.05 Hgb 12.7 Hct 38.5 MCV 95.0 MCH 31.3 MCHC 32.9 RDW 15.9 Plt Count 165 MPV 10.8 Neut % (Auto) 91.7 H Lymph % (Auto) 4.4 L [place] % (Auto) 3.9 Eos % (Auto) 0.0 Baso % (Auto) 0.0 Neut # (Auto) 16.7 H Lymph # (Auto) 0.8 L [place] # (Auto) 0.7 Eos # (Auto) 0.0 Baso # (Auto) 0.0 WBC Differential . Differential Comment Auto diff final Puncture Site Patient Temperature O2 Saturation ABG pH ABG pCO2 ABG pO2 ABG HCO3 ABG O2 Content ABG Base Excess ABG Methemoglobin Dylan Test Hemoglobin Carboxyhemoglobin O2 Delivery Device Liter Flow Critical Value POC Glucose Albumin (PEP) Albumin/Globulin Ratio Sdtot-4-Lhhpxogch Sxery-6-Eepgseckm Beta Globulins Gamma Globulins CSF VDRL Assessment and Plan - Plan 73-year-old -Finnish female with a past medical history of hypertension , diabetes and asthma who was brought to the emergency room for evaluation of altered mental status. Recent history of depression after the of her ; refusing food and medication. Chest pain, intermittent specifics unknown, patient is poor historian Continuous cardiac monitoring Trop level ordered Obtain EKG Altered mental status/metabolic encephalopathy, improving Suspect underlying dementia with superimposed delirium secondary to hypoxia Head CT negative for acute process MRI brain with no acute process Blood cx neg HIV nonreactive Historical labs show RPR 11/2017 with no known follow-up. Patient and family deny any known history of syphilis. Lumbar puncture done 07/26/18 -CSF protein elevated. FTA-ABS reactive. ID following, appreciate assistance. CSF VDRL neg. Neurology following, appreciate assistance. Gave one time dose of IV steroid. EEG ordered, will follow up on results. No Haldol. Palliative care, Psychiatry and Neuropsychologist following, appreciate assistance Continue with PT/OT fall precautions on low dose Seroquel at night Hypoxic respiratory failure ?COPD exacerbation Ongoing tobaccoism likely contributing to encephalopathy ABG pO2 53, repeat pO2 93 on 3LNC continue on supplemental oxygen monitor respiratory status Nicotine patch Leukocytosis Steroid rxn monitor white count as indicated Dysphagia evaluated by thao HENDRICKS diet with thin liquids Microstrategy Architect following for calorie count. Continue with Glucerna supplements TID with meals. Caloric intake inadequate, recommending PEG for nutritional support. 08/01 eating better today with meal assistance Diabetes mellitus Hold home metformin BS elevated secondary to IV steroid dose. Cover with ISS only. Sliding-scale insulin Monitor blood glucose Hypertension, improved Patient cleared to take po meds crushed with puree. Continue on home dose of Vasotec 10mg daily and Norvasc 5mg daily. Will continue with Clonidine patch as well at this time due to patient refusing meds/pocketing pills intermittently. Clonidine as needed Continue to monitor BP and adjust treatment accordingly DVT prophylaxis Heparin Code Status: FULL Discussed Condition With: patient, niece at the bedside, daughter on the phone, nursing staff, Dr. Caro Discharge Planning: Not ready for discharge. Discharge pending clinical improvement.
--- NOTE | 2018-08-01 13:05 | P.DCO ---
- Diagnosis (2) Altered mental status - Physical Therapy Order: Evaluate and treat, Improve ambulation, Strength and gait training - Occupational Therapy Order: Evaluate and treat, Improve ADL, Gross motor coordination, Fine motor coordination - Speech Therapy Order: To improve: Speech and communication skills, Cognitive skills, Swallowing - Home Health Nursing Order: Medical education, Signs/symptoms of disease process, Oxygen administration education, Medication education-adverse effect, Nursing assessment with vital signs - Case Management Consult Yes - Certification I have seen patient Christa Goyal on 08/01/18. My clinical findings support the need for the requested home health care services because: Limited mobility due to disease progression, Deconditioned with increased weakness, Medication compliance is questionable, Limited ability to care for self, Impaired cognition/judgement, High risk of falls I certify that my clinical findings support that this patient is homebound because: Impaired cognitive ability/safety, Hx COPD - exertion dyspnea/weakness, Unsteady gait/balance, Unsafe to leave home unassisted, Unable to use public transportation (2) Altered mental status Qualifiers: Altered mental status type: unspecified Qualified Code(s): R41.82 - Altered mental status, unspecified
--- NOTE | 2018-08-01 13:30 | MG ---
cc: Chase Avalos MD EEG RECORD NUMBER: [id number]. This is a re-dictation. 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 FINDINGS: FIRDA pattern noted at times. Background showing beta 4-6 Hz activity, 20-50 microvolts with occasional delta. Occasional small frontal sharp transients. Limited driving with photic stimulation. Single-lead EKG showing sinus rhythm. INTERPRETATION: Mild to moderate encephalopathy, mild nonspecific changes. Clinical correlation. Chase Avalos MD MG/sv/ll , 10:13 AM , 10:18 AM
--- NOTE | 2018-08-01 14:24 | P.PNID ---
Infectious Disease Brief Note alfredo BEE results of CSF studies not neurosyphilis. Patients family does not want to challenge to PCN or Cephalosporins unless needed. Will sign off please call back if any change in clinical condition or questions. Vital Signs - 24 hr 07/31/18 16:00 07/31/18 17:23 07/31/18 20:34 Temperature 98.1 F 98.4 F Pulse Rate 71 88 Respiratory Rate 20 17 Blood Pressure 116/80 144/91 H Pulse Oximetry 99 99 97 07/31/18 22:00 07/31/18 23:43 08/01/18 03:13 Temperature 97.6 F 97.2 F L Pulse Rate 77 55 L Respiratory Rate 18 16 Blood Pressure 150/65 H 127/58 L Pulse Oximetry 99 100 100 08/01/18 08:00 08/01/18 09:38 08/01/18 12:00 Temperature 96.8 F L 96.8 F L Pulse Rate 78 75 66 Respiratory Rate 16 16 18 Blood Pressure 149/88 H 129/58 L Pulse Oximetry 93 L 97 100 Laboratory Results - last 24 hr 07/26/18 07/30/18 07/31/18 15:32 20:30 14:36 WBC RBC Hgb Hct MCV MCH MCHC RDW Plt Count MPV Neut % (Auto) Lymph % (Auto) Towns % (Auto) Eos % (Auto) Baso % (Auto) Neut # (Auto) Lymph # (Auto) Towns # (Auto) Eos # (Auto) Baso # (Auto) WBC Differential Differential Comment Puncture Site Left radial Patient Temperature 98.6 O2 Saturation 95 ABG pH 7.44 H ABG pCO2 42 ABG pO2 93 ABG HCO3 28 H ABG O2 Content 20.2 H ABG Base Excess 4.1 H ABG Methemoglobin 1.2 Dylan Test Present Hemoglobin 15.1 Carboxyhemoglobin 0.9 O2 Delivery Device Nasal cannula Liter Flow 3.00 Critical Value No Sodium Potassium Chloride Carbon Dioxide Anion Gap BUN Creatinine Estimated GFR POC Glucose Random Glucose Calcium Phosphorus Magnesium Troponin I Albumin (PEP) 3.61 Albumin/Globulin Ratio 1.01 L Zoonb-8-Gljdgedpe 0.36 H Smaat-0-Zgpixezup 1.03 H Beta Globulins 1.03 Gamma Globulins 1.17 CSF VDRL Non-reactive 07/31/18 07/31/18 08/01/18 16:43 21:58 03:09 WBC RBC Hgb Hct MCV MCH MCHC RDW Plt Count MPV Neut % (Auto) Lymph % (Auto) Towns % (Auto) Eos % (Auto) Baso % (Auto) Neut # (Auto) Lymph # (Auto) Towns # (Auto) Eos # (Auto) Baso # (Auto) WBC Differential Differential Comment Puncture Site Patient Temperature O2 Saturation ABG pH ABG pCO2 ABG pO2 ABG HCO3 ABG O2 Content ABG Base Excess ABG Methemoglobin Dylan Test Hemoglobin Carboxyhemoglobin O2 Delivery Device Liter Flow Critical Value Sodium Potassium Chloride Carbon Dioxide Anion Gap BUN Creatinine Estimated GFR POC Glucose 192 H 203 H 187 H Random Glucose Calcium Phosphorus Magnesium Troponin I Albumin (PEP) Albumin/Globulin Ratio Malla-3-Egbbvuxaw Ulrkd-3-Lijncchyj Beta Globulins Gamma Globulins CSF VDRL 08/01/18 08/01/18 08/01/18 08:26 10:10 10:10 WBC 18.2 H RBC 4.05 Hgb 12.7 Hct 38.5 MCV 95.0 MCH 31.3 MCHC 32.9 RDW 15.9 Plt Count 165 MPV 10.8 Neut % (Auto) 91.7 H Lymph % (Auto) 4.4 L Towns % (Auto) 3.9 Eos % (Auto) 0.0 Baso % (Auto) 0.0 Neut # (Auto) 16.7 H Lymph # (Auto) 0.8 L Towns # (Auto) 0.7 Eos # (Auto) 0.0 Baso # (Auto) 0.0 WBC Differential . Differential Comment Auto diff final Puncture Site Patient Temperature O2 Saturation ABG pH ABG pCO2 ABG pO2 ABG HCO3 ABG O2 Content ABG Base Excess ABG Methemoglobin Dylan Test Hemoglobin Carboxyhemoglobin O2 Delivery Device Liter Flow Critical Value Sodium 141 Potassium 3.9 Chloride 103 Carbon Dioxide 31.3 Anion Gap 7 BUN 13 Creatinine 0.74 Estimated GFR Greater than 89 POC Glucose 145 H Random Glucose 210 H Calcium 8.6 Phosphorus Magnesium Troponin I Albumin (PEP) Albumin/Globulin Ratio Scnes-4-Geavimoom Muvdr-3-Crnngioje Beta Globulins Gamma Globulins CSF VDRL 08/01/18 08/01/18 08/01/18 10:10 10:10 11:09 WBC RBC Hgb Hct MCV MCH MCHC RDW Plt Count MPV Neut % (Auto) Lymph % (Auto) Towns % (Auto) Eos % (Auto) Baso % (Auto) Neut # (Auto) Lymph # (Auto) Towns # (Auto) Eos # (Auto) Baso # (Auto) WBC Differential Differential Comment Puncture Site Patient Temperature O2 Saturation ABG pH ABG pCO2 ABG pO2 ABG HCO3 ABG O2 Content ABG Base Excess ABG Methemoglobin Dylan Test Hemoglobin Carboxyhemoglobin O2 Delivery Device Liter Flow Critical Value Sodium Potassium Chloride Carbon Dioxide Anion Gap BUN Creatinine Estimated GFR POC Glucose 233 H Random Glucose Calcium Phosphorus 3.3 Magnesium 2.2 Troponin I Less than 0.02 L Albumin (PEP) Albumin/Globulin Ratio Sisxt-2-Jelxrcjwa Zvawh-4-Llfqmaxkp Beta Globulins Gamma Globulins CSF VDRL
--- NOTE | 2018-08-01 16:04 | P.PNPAL ---
Reason for Visit Reason for visit: a. To assist with evaluation and management of symptoms including:altered mental status, pain, dysphagia, weakness b. To assist medical decision maker(s) with: better understanding of current medical conditions; weighing benefits/burdens of medical treatment options; making medical treatment decisions. Subjective Subjective/Interval History: Follow-up medically necessary for clarification of goals of medical treatment. Patient seen and examined in the room in the presence of her daughter Carina, his sister and bedside RN. Patient is sitting up in a recliner, being fed lunch by her bedside RN. Patient remains on pured diet, no coughing during feeding. She is on O2 3 L nasal cannula. Patient is alert, partially oriented with some confusion and slightly restless. Patient denies pain and shows no signs of discomfort or distress at this time. CSF VDRL collected on 07/26/18 resulted-nonreactive. Family made aware and they do not want patient to be challenged to penicillin treatment. Discussion with patient's daughter Carina (HCP) and patient's sister. Patient' s daughter had initially decided to have patient discharged home with home health care. Patient's sister expressed concern that patient will need someone to be home with her all the times. Discussed an option of having patient go to a rehabilitation facility for rehab before being discharged home. After persuasion from her aunt, patient's daughter decided to have patient evaluated for discharge to a rehabilitation facility. Patient's daughter concerned about patient's well-being after discharge from the hospital. Patient's daughter worried that her mother might have dementia or Alzheimer's. Explained to patient's daughter importance of following up with patient's primary care physician after discharge. Explained to her that if at any time her mother is diagnosed with Alzheimer's or dementia and continues to medically deteriorate and family feels that they no longer wanted aggressive treatment but only comfort care , there is always an option for hospice. Introduced hospice philosophy and benefits. At this time family wants to continue with aggressive treatment. Patient`s daughter Carina with the support of other family members, would like patient to be evaluated for discharge to a rehabilitation if possible. Case discussed with egg caser and Vega Lay(PA). . Family/Friend Interactions: See interval note. Advance Directives Living Will: Never completed Health Care Surrogate: Never completed Durable Power of E Learning Specialist: Never completed Health Care Surrogate Name and Number: HCP: Stuart Boone [phone] Objective Vital Signs: Vital Signs 07/31/18 16:00 07/31/18 17:23 07/31/18 20:34 Temperature 98.1 F 98.4 F Pulse Rate 71 88 Respiratory Rate 20 17 Blood Pressure 116/80 144/91 H Pulse Oximetry 99 99 97 Pulse Oximetry [Resting on Room Air] Pulse Oximetry [Resting with Oxygen] 07/31/18 22:00 07/31/18 23:43 08/01/18 03:13 Temperature 97.6 F 97.2 F L Pulse Rate 77 55 L Respiratory Rate 18 16 Blood Pressure 150/65 H 127/58 L Pulse Oximetry 99 100 100 Pulse Oximetry [Resting on Room Air] Pulse Oximetry [Resting with Oxygen] 08/01/18 08:00 08/01/18 09:38 08/01/18 12:00 Temperature 96.8 F L 96.8 F L Pulse Rate 78 75 66 Respiratory Rate 16 16 18 Blood Pressure 149/88 H 129/58 L Pulse Oximetry 93 L 97 100 Pulse Oximetry [Resting on Room Air] Pulse Oximetry [Resting with Oxygen] 08/01/18 14:24 08/01/18 14:26 Temperature Pulse Rate 95 H Respiratory Rate 16 Blood Pressure Pulse Oximetry Pulse Oximetry [Resting on Room Air] 87 L Pulse Oximetry [Resting with Oxygen] 95 Intake & Output 07/31/18 08/01/18 08/01/18 18:59 06:59 18:59 Intake Total 0 / 0 Balance 0 / 0 Weight 55.6 kg Intake: Oral 0 / 0 Other: # Voids 0 # Incontinent Voids 3 # Urine Diapers 6 Date of Last Bowel Movement 07/31/18 07/30/18 07/30/18 # Bowel Movements 1 Physical Exam: CONSTITUTIONAL/GENERAL: This is an elderly thin patient, sitting up in a recliner with no acute signs of distress. TUBES/LINES/DRAINS:PIV; NC SKIN: No jaundice, rashes, or lesions. Ecchymoses on upper extremities. No wounds seen anteriorly. Skin temperature appropriate. Not diaphoretic. HEAD: Atraumatic. Normocephalic. EYES: Eyes closed. Fundi not examined. ENT: Hearing grossly normal. No nasal drainage. missing teeth. Moist oral mucosa NECK: Trachea midline. Supple, nontender. CARDIOVASCULAR: S1, S2 normal, no murmurs, gallops, or rubs. No JVD. Peripheral pulses symmetric. RESPIRATORY/CHEST: Symmetric, unlabored respirations. Clear to auscultation. Breath sounds equal bilaterally. No wheezes, rales, or rhonchi. GASTROINTESTINAL: Abdomen soft, non-tender, nondistended. No guarding. Bowel sounds present. GENITOURINARY: Without palpable bladder distension. MUSCULOSKELETAL: Extremities without clubbing, cyanosis, or edema. No joint tenderness or effusion noted. No calf tenderness. No mottling or clubbing. NEUROLOGICAL: Alert, oriented to self with some confusion. Slight restlessness. PSYCHIATRIC: No obvious anxiety/depression. no apparent hallucinations or other psychotic thought process. Diagnostic Tests Laboratory: Laboratory Results - last 72 hr 07/26/18 07/29/18 07/29/18 15:32 05:55 18:10 WBC RBC Hgb Hct MCV MCH MCHC RDW Plt Count MPV Neut % (Auto) Lymph % (Auto) [place] % (Auto) Eos % (Auto) Baso % (Auto) Neut # (Auto) Lymph # (Auto) [place] # (Auto) Eos # (Auto) Baso # (Auto) WBC Differential Differential Comment ESR Puncture Site Patient Temperature O2 Saturation ABG pH ABG pCO2 ABG pO2 ABG HCO3 ABG O2 Content ABG Base Excess ABG Methemoglobin Dylan Test Hemoglobin Carboxyhemoglobin O2 Delivery Device Liter Flow Inspired O2 Critical Value Sodium Potassium Chloride Carbon Dioxide Anion Gap BUN Creatinine Estimated GFR POC Glucose 169 H Random Glucose Calcium Phosphorus Magnesium Troponin I Total Protein (PEP) Albumin (PEP) Albumin/Globulin Ratio Hanpd-4-Oeswwogvm Gsdwd-6-Lrektdfko Beta Globulins Gamma Globulins Folate CSF VDRL Non-reactive CECILIA Screen RPR Titer 1:2 H RPR Reactive H 07/29/18 07/30/18 07/30/18 20:40 03:03 07:38 WBC RBC Hgb Hct MCV MCH MCHC RDW Plt Count MPV Neut % (Auto) Lymph % (Auto) [place] % (Auto) Eos % (Auto) Baso % (Auto) Neut # (Auto) Lymph # (Auto) [place] # (Auto) Eos # (Auto) Baso # (Auto) WBC Differential Differential Comment ESR Puncture Site Patient Temperature O2 Saturation ABG pH ABG pCO2 ABG pO2 ABG HCO3 ABG O2 Content ABG Base Excess ABG Methemoglobin Dylan Test Hemoglobin Carboxyhemoglobin O2 Delivery Device Liter Flow Inspired O2 Critical Value Sodium Potassium Chloride Carbon Dioxide Anion Gap BUN Creatinine Estimated GFR POC Glucose 93 92 83 Random Glucose Calcium Phosphorus Magnesium Troponin I Total Protein (PEP) Albumin (PEP) Albumin/Globulin Ratio Drsqo-8-Asmtqpzdx Nrdek-2-Jpzsbfzcc Beta Globulins Gamma Globulins Folate CSF VDRL CECILIA Screen RPR Titer RPR 07/30/18 07/30/18 07/30/18 11:58 17:37 19:25 WBC RBC Hgb Hct MCV MCH MCHC RDW Plt Count MPV Neut % (Auto) Lymph % (Auto) [place] % (Auto) Eos % (Auto) Baso % (Auto) Neut # (Auto) Lymph # (Auto) [place] # (Auto) Eos # (Auto) Baso # (Auto) WBC Differential Differential Comment ESR Puncture Site Left radial Patient Temperature 98.6 O2 Saturation 85 L* ABG pH 7.45 H ABG pCO2 40 ABG pO2 53 L* ABG HCO3 28 H ABG O2 Content 15.7 ABG Base Excess 4.0 H ABG Methemoglobin 1.2 Dylan Test Present Hemoglobin 13.2 Carboxyhemoglobin 1.2 O2 Delivery Device Room air Liter Flow Inspired O2 21 Critical Value Yes Sodium Potassium Chloride Carbon Dioxide Anion Gap BUN Creatinine Estimated GFR POC Glucose 107 113 H Random Glucose Calcium Phosphorus Magnesium Troponin I Total Protein (PEP) Albumin (PEP) Albumin/Globulin Ratio Nldmc-8-Tzivccmkh Qakgb-6-Bbvkniigs Beta Globulins Gamma Globulins Folate CSF VDRL CECILIA Screen RPR Titer RPR 07/30/18 07/30/18 07/30/18 20:14 20:30 20:30 WBC RBC Hgb Hct MCV MCH MCHC RDW Plt Count MPV Neut % (Auto) Lymph % (Auto) [place] % (Auto) Eos % (Auto) Baso % (Auto) Neut # (Auto) Lymph # (Auto) [place] # (Auto) Eos # (Auto) Baso # (Auto) WBC Differential Differential Comment ESR Puncture Site Patient Temperature O2 Saturation ABG pH ABG pCO2 ABG pO2 ABG HCO3 ABG O2 Content ABG Base Excess ABG Methemoglobin Dylan Test Hemoglobin Carboxyhemoglobin O2 Delivery Device Liter Flow Inspired O2 Critical Value Sodium Potassium Chloride Carbon Dioxide Anion Gap BUN Creatinine Estimated GFR POC Glucose 300 H Random Glucose Calcium Phosphorus Magnesium Troponin I Total Protein (PEP) 7.2 Albumin (PEP) 3.61 Albumin/Globulin Ratio 1.01 L Rtowc-5-Tytfnuapl 0.36 H Epflr-1-Zaioigsuo 1.03 H Beta Globulins 1.03 Gamma Globulins 1.17 Folate 6.2 CSF VDRL CECILIA Screen Neg RPR Titer RPR 07/30/18 07/31/18 07/31/18 20:30 02:49 08:36 WBC RBC Hgb Hct MCV MCH MCHC RDW Plt Count MPV Neut % (Auto) Lymph % (Auto) [place] % (Auto) Eos % (Auto) Baso % (Auto) Neut # (Auto) Lymph # (Auto) [place] # (Auto) Eos # (Auto) Baso # (Auto) WBC Differential Differential Comment ESR 37 H Puncture Site Left radial Patient Temperature 98.6 O2 Saturation 85 L* ABG pH 7.43 H ABG pCO2 42 ABG pO2 52 L* ABG HCO3 27 H ABG O2 Content 16.8 ABG Base Excess 3.3 H ABG Methemoglobin 1.0 Dylan Test Present Hemoglobin 14.2 Carboxyhemoglobin 1.0 O2 Delivery Device Nasal cannula Liter Flow 3.00 Inspired O2 Critical Value Yes Sodium Potassium Chloride Carbon Dioxide Anion Gap BUN Creatinine Estimated GFR POC Glucose 181 H Random Glucose Calcium Phosphorus Magnesium Troponin I Total Protein (PEP) Albumin (PEP) Albumin/Globulin Ratio Omzyo-7-Amdhdrdeh Bqhjz-3-Bovjddfqa Beta Globulins Gamma Globulins Folate CSF VDRL CECILIA Screen RPR Titer RPR 07/31/18 07/31/18 07/31/18 11:14 12:41 14:36 WBC RBC Hgb Hct MCV MCH MCHC RDW Plt Count MPV Neut % (Auto) Lymph % (Auto) [place] % (Auto) Eos % (Auto) Baso % (Auto) Neut # (Auto) Lymph # (Auto) [place] # (Auto) Eos # (Auto) Baso # (Auto) WBC Differential Differential Comment ESR Puncture Site Left radial Patient Temperature 98.6 O2 Saturation 95 ABG pH 7.44 H ABG pCO2 42 ABG pO2 93 ABG HCO3 28 H ABG O2 Content 20.2 H ABG Base Excess 4.1 H ABG Methemoglobin 1.2 Dylan Test Present Hemoglobin 15.1 Carboxyhemoglobin 0.9 O2 Delivery Device Nasal cannula Liter Flow 3.00 Inspired O2 Critical Value No Sodium Potassium Chloride Carbon Dioxide Anion Gap BUN Creatinine Estimated GFR POC Glucose 311 H 276 H Random Glucose Calcium Phosphorus Magnesium Troponin I Total Protein (PEP) Albumin (PEP) Albumin/Globulin Ratio Cujgp-4-Pbeyumnqu Deqyx-6-Nlcorbvju Beta Globulins Gamma Globulins Folate CSF VDRL CECILIA Screen RPR Titer RPR 07/31/18 07/31/18 08/01/18 16:43 21:58 03:09 WBC RBC Hgb Hct MCV MCH MCHC RDW Plt Count MPV Neut % (Auto) Lymph % (Auto) [place] % (Auto) Eos % (Auto) Baso % (Auto) Neut # (Auto) Lymph # (Auto) [place] # (Auto) Eos # (Auto) Baso # (Auto) WBC Differential Differential Comment ESR Puncture Site Patient Temperature O2 Saturation ABG pH ABG pCO2 ABG pO2 ABG HCO3 ABG O2 Content ABG Base Excess ABG Methemoglobin Dylan Test Hemoglobin Carboxyhemoglobin O2 Delivery Device Liter Flow Inspired O2 Critical Value Sodium Potassium Chloride Carbon Dioxide Anion Gap BUN Creatinine Estimated GFR POC Glucose 192 H 203 H 187 H Random Glucose Calcium Phosphorus Magnesium Troponin I Total Protein (PEP) Albumin (PEP) Albumin/Globulin Ratio Llbyy-9-Hxdmlswvd Twkjd-1-Ykuatiwtf Beta Globulins Gamma Globulins Folate CSF VDRL CECILIA Screen RPR Titer RPR 08/01/18 08/01/18 08/01/18 08:26 10:10 10:10 WBC 18.2 H RBC 4.05 Hgb 12.7 Hct 38.5 MCV 95.0 MCH 31.3 MCHC 32.9 RDW 15.9 Plt Count 165 MPV 10.8 Neut % (Auto) 91.7 H Lymph % (Auto) 4.4 L [place] % (Auto) 3.9 Eos % (Auto) 0.0 Baso % (Auto) 0.0 Neut # (Auto) 16.7 H Lymph # (Auto) 0.8 L [place] # (Auto) 0.7 Eos # (Auto) 0.0 Baso # (Auto) 0.0 WBC Differential . Differential Comment Auto diff final ESR Puncture Site Patient Temperature O2 Saturation ABG pH ABG pCO2 ABG pO2 ABG HCO3 ABG O2 Content ABG Base Excess ABG Methemoglobin Dylan Test Hemoglobin Carboxyhemoglobin O2 Delivery Device Liter Flow Inspired O2 Critical Value Sodium 141 Potassium 3.9 Chloride 103 Carbon Dioxide 31.3 Anion Gap 7 BUN 13 Creatinine 0.74 Estimated GFR Greater than 89 POC Glucose 145 H Random Glucose 210 H Calcium 8.6 Phosphorus Magnesium Troponin I Total Protein (PEP) Albumin (PEP) Albumin/Globulin Ratio Kjber-3-Oetcuuuyu Uufsn-1-Sieaufcfr Beta Globulins Gamma Globulins Folate CSF VDRL CECILIA Screen RPR Titer RPR 08/01/18 08/01/18 08/01/18 10:10 10:10 11:09 WBC RBC Hgb Hct MCV MCH MCHC RDW Plt Count MPV Neut % (Auto) Lymph % (Auto) [place] % (Auto) Eos % (Auto) Baso % (Auto) Neut # (Auto) Lymph # (Auto) [place] # (Auto) Eos # (Auto) Baso # (Auto) WBC Differential Differential Comment ESR Puncture Site Patient Temperature O2 Saturation ABG pH ABG pCO2 ABG pO2 ABG HCO3 ABG O2 Content ABG Base Excess ABG Methemoglobin Dylan Test Hemoglobin Carboxyhemoglobin O2 Delivery Device Liter Flow Inspired O2 Critical Value Sodium Potassium Chloride Carbon Dioxide Anion Gap BUN Creatinine Estimated GFR POC Glucose 233 H Random Glucose Calcium Phosphorus 3.3 Magnesium 2.2 Troponin I Less than 0.02 L Total Protein (PEP) Albumin (PEP) Albumin/Globulin Ratio Joehk-0-Wxpjhkibx Crlxg-9-Ecyylbyto Beta Globulins Gamma Globulins Folate CSF VDRL CECILIA Screen RPR Titer RPR Result Diagrams: 08/01/18 10:10 08/01/18 10:10 Imaging: Head CT 07/24/18 16:23 CONCLUSION: 1. No acute intracranial abnormality. 2. Chronic white matter changes . Head MRI 07/25/18 00:00 CONCLUSION: 1. Suboptimal examination secondary to motion artifact. 2. No evidence of acute infarction, hemorrhage or mass. 3. Atrophy and chronic small vessel ischemic change. Chest X-Ray 07/26/18 00:00 CONCLUSION: Negative examination. Lumbar Puncture Fluoroscopy 07/26/18 00:00 CONCLUSION: 1. Uncomplicated fluoroscopically guided lumbar puncture. Procedures: 07/26/2018-fluoroscopic guided lumbar puncture Assessment and Plan - Disease Oriented Problem List (1) Syphilis (2) Hypertension (3) Asthma (4) Diabetes mellitus - Symptom Scale (1) Altered mental status 0-10 Scale: Unable to quantify (2) Pain 0-10 Scale: 1 Comment: Currently denies pain (3) Dysphagia 0-10 Scale: Unable to quantify (4) Weakness 0-10 Scale: Unable to quantify Pertinent Non-Medical Issues: Psychosocial: Patient was born and raised in [facility]. She is . He a year ago. Patient has 3 adult daughters. Spiritual: Patient is Religious Legal: Never completed advanced directives Ethical issues impacting care: None identified at this time Important Contacts: Daughter- Mely Davidson [phone]-willing to serve as healthcare proxy Daughter-Ashley Lal [phone] opted out of decision making Daughter- Olga Lal [phone] opted out of decision making Granddaughter- Italia Dong [phone] Prognosis: Mrs. Goyal is a 73-year-old female with past medical history significant for diabetes mellitus, hypertension, hyperlipidemia and COPD. Patient presented to the ER in the company of her daughter on 07/24/18 for evaluation of worsening altered mental status and hallucinating. 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 Clinical course complicated with dysphagia, decreased oral intake, altered mentation, and weakness. Given ongoing multiple comorbidities, patient remains at high risk for further complications, deterioration and decline. Code Status: Full Code Plan: PLAN: Legal decision maker: Patient is currently oriented to self with confusion to time place and situation. At this time it is not known whether patient will regain ability to participate in medical decision making. According to [place] statute, in the event of patient being incapacitated her 3 adult daughters would serve as her healthcare proxys. 2 of patient's daughters have opted out of decision making and Stuart Boone will serve as patient`s Health Care Proxy. Goals: Goals are aggressive. Patient's daughter had initially decided to have patient discharged home with home health care. Patient's sister expressed concern that patient will need someone to be home with her all the times. Discussed an option of having patient go to a rehabilitation facility for rehab before being discharged home. Patient`s daughter Carina with the support of other family members, would like patient to be evaluated for discharge to a rehabilitation if possible. After daughter expressed concern that patient might have Alzheimers disease or dementia. Discussed hospice philosophy and benefits. CODE STATUS: Full Code SYMPTOMS: * Altered mental status: Patient came in with altered mental status. Brain MRI showed atrophy and chronic small vessel ischemic changes. Patient also tested positive for syphilis with possible neurosyphilis. CSF results pending. Speech therapy consulted for cognition assessment. Neuropsychology and neurologist consulted. Continue with neuro assessments. * Dysphagia: This may be secondary to altered mentation. Speech therapy consulted failed and patient swallow evaluation. Currently on pured diet and thin liquids. Patient has decreased oral intake. Dietitian consulted and calorie count in progress. * Pain: Patient has history of degenerative disc disease and chronic pain. Not showing signs of pain. Continue assessing for pain symptoms * Weakness: Patient came in with weakness. Physical therapy consulted, recommended therapy and rehab. Palliative care will continue to follow the patient during hospital course as condition evolves, to assist patient/decision-maker with understanding of their medical conditions, weighing benefits/burdens of treatment options, for clarification of goals of treatment. Additionally will assist with any symptoms of palliative concern Attestation Attestation: To help prompt me to consider important information that might be impacting today's encounter and assessment, information from prior notes written by myself or my colleagues may have been "brought forward" into today's note. My signature on this note, however, is an attestation that I personally performed the exam, history, and/or decision-making noted today, and, unless otherwise indicated, the interactions with patient, family, and staff as well as the review of records all occurred today. I also attest that the listed assessment and stated plan reflect my best clinical judgment today based on the combination of historical information, prior notes, and today's exam/ interactions. When time spent is documented, it refers only to time spent today by the signer, or if indicated, combined time spent today by collaborating physician/nurse practitioner.
--- NOTE | 2018-08-01 17:47 | P.DS ---
Date of admission: 08/01/18 10:41 Primary care physician: David Gee Attending physician on discharge: Paul Caro Brief History from admission: 73-year-old female with a past medical history significant for hypertension, diabetes mellitus and asthma was brought to the emergency department by her daughter for the evaluation of altered mental status. Per the patient's daughter the patient was in her usual state of health until this morning when she was confused and agitated. The patient's baseline is ANO x3 however at this time the patient is only able to tell me her first name. She states she is in pain but cannot specify a location. The patient's daughter reports that she has been gesturing wildly and talking to people who are no longer alive. She states that the patient was diagnosed with pneumonia on July 18 at [place] and was placed on azithromycin which she just completed. Chest x-ray within normal limits. No fevers/chills. The patient had not complained of anything to her family prior to the onset of her altered mental status. Patient update on day of discharge: Follow up on patient with AMS/encephalopathy. Patient seen and examined. Patient much improved this morning. Much more alert. Moving well in the bed. Less agitated, tolerating NC. She is complaining of intermittent chest pain. Unable to get more specifics. Patient begins to cry saying "I want my momma". Niece is at the bedside helping her eat breakfast. Says she is not at her baseline mentally. DS: Diagnosis - Discharge Diagnosis (1) Hypoxic encephalopathy Status: Acute (2) Dementia Status: Acute (3) Altered mental status Status: Acute (4) Dysphagia Status: Acute (5) Major neurocognitive disorder due to multiple etiologies Status: Acute (6) Delirium due to another medical condition Status: Acute (7) Encephalopathy Status: Acute (8) Impaired activities of daily living Status: Acute DS: Summary Hospital Course: Patient admitted with acute encephalopathy. CT head negative. MRI brain unremarkable. Blood cx negative. Historical labs showed + RPR 11/2017 with no known follow-up. FTA-ABS reactive. Patient underwent LP that was significant for elevated total protein only. Patient seen in consultation by ID, Neurology , Psychiatry and Neuropsychology. Patient also followed by palliative care. Evaluated by ST and started on puree diet. Patients CSF studies were negative for syphilis. EEG showed mild to moderate encephalopathy. ABG revealed hypoxemia. Suspected underlying dementia with superimposed delirium secondary to hypoxia. Possible COPD exacerbation. Patient improved with dose of IV steroid and supplemental oxygen. Also started on low dose Seroquel. Patient followed by PT and OT, both services recommending rehab. Family initially refused rehab but then recanted. Patient was evaluated and accepted at [facility]. - Time Spent with Patient Total time spent providing and/or coordinating discharge services: Greater than 30 minutes - Quality: VTE Deep Vein Thrombosis/Pulmonary Embolism Present on Admission: No Exam Vital signs: Vital Signs 07/31/18 20:34 07/31/18 22:00 07/31/18 23:43 Temperature 98.4 F 97.6 F Pulse Rate 88 77 Respiratory Rate 17 18 Blood Pressure 144/91 H 150/65 H Pulse Oximetry 97 99 100 Pulse Oximetry [Resting on Room Air] Pulse Oximetry [Resting with Oxygen] 08/01/18 03:13 08/01/18 08:00 08/01/18 09:38 Temperature 97.2 F L 96.8 F L Pulse Rate 55 L 78 75 Respiratory Rate 16 16 16 Blood Pressure 127/58 L 149/88 H Pulse Oximetry 100 93 L 97 Pulse Oximetry [Resting on Room Air] Pulse Oximetry [Resting with Oxygen] 08/01/18 12:00 08/01/18 14:24 08/01/18 14:26 Temperature 96.8 F L Pulse Rate 66 95 H Respiratory Rate 18 16 Blood Pressure 129/58 L Pulse Oximetry 100 Pulse Oximetry [Resting on Room Air] 87 L Pulse Oximetry [Resting with Oxygen] 95 08/01/18 16:00 Temperature 98.3 F Pulse Rate 91 H Respiratory Rate 18 Blood Pressure 167/75 H Pulse Oximetry 98 Pulse Oximetry [Resting on Room Air] Pulse Oximetry [Resting with Oxygen] Intake & Output 07/31/18 08/01/18 08/01/18 18:59 06:59 18:59 Intake Total 0 / 0 Balance 0 / 0 Weight 55.6 kg Intake: Oral 0 / 0 Other: # Voids 0 # Incontinent Voids 3 # Urine Diapers 6 Date of Last Bowel Movement 07/31/18 07/30/18 07/30/18 # Bowel Movements 1 Narrative: GENERAL: Thin elderly WDWN AAF, in no acute distress. Awake and alert. Confused. Eating breakfast with assistance of niece at the bedside. SKIN: Warm and dry. No generalized rash. HEENT: Atraumatic. Normocephalic. Pupils equal and round. No scleral icterus. No injection or drainage. No nasal bleeding or discharge. NECK: Trachea midline. CARDIOVASCULAR: Regular rate and rhythm. RESPIRATORY: No accessory muscle use. Poor effort. Clear to auscultation. Breath sounds equal bilaterally. GASTROINTESTINAL: Abdomen soft, non-tender, nondistended. MUSCULOSKELETAL: Extremities without clubbing, cyanosis, or edema. No obvious deformities. NEUROLOGICAL: Awake and alert. Oriented to self. No obvious cranial nerve deficits. Weak mis manager strength bilaterally. Able to move all extremities spontaneously. PSYCHIATRIC: Judgement and insight poor. Results Procedures completed during hospitalization: None Labs on day of discharge: Labs from last 24 hours 08/01/18 08/01/18 08/01/18 11:09 10:10 10:10 WBC RBC Hgb Hct MCV MCH MCHC RDW Plt Count MPV Neut % (Auto) Lymph % (Auto) Rock % (Auto) Eos % (Auto) Baso % (Auto) Neut # (Auto) Lymph # (Auto) Rock # (Auto) Eos # (Auto) Baso # (Auto) WBC Differential Differential Comment Sodium Potassium Chloride Carbon Dioxide Anion Gap BUN Creatinine Estimated GFR POC Glucose 233 H Random Glucose Calcium Phosphorus 3.3 Magnesium 2.2 Troponin I Less than 0.02 L Albumin (PEP) Albumin/Globulin Ratio Pjujh-9-Dnesuhsxv Mczsl-5-Atstzvvos Beta Globulins Gamma Globulins CSF VDRL CECILIA Screen 08/01/18 08/01/18 08/01/18 10:10 10:10 08:26 WBC 18.2 H RBC 4.05 Hgb 12.7 Hct 38.5 MCV 95.0 MCH 31.3 MCHC 32.9 RDW 15.9 Plt Count 165 MPV 10.8 Neut % (Auto) 91.7 H Lymph % (Auto) 4.4 L Rock % (Auto) 3.9 Eos % (Auto) 0.0 Baso % (Auto) 0.0 Neut # (Auto) 16.7 H Lymph # (Auto) 0.8 L Rock # (Auto) 0.7 Eos # (Auto) 0.0 Baso # (Auto) 0.0 WBC Differential . Differential Comment Auto diff final Sodium 141 Potassium 3.9 Chloride 103 Carbon Dioxide 31.3 Anion Gap 7 BUN 13 Creatinine 0.74 Estimated GFR Greater than 89 POC Glucose 145 H Random Glucose 210 H Calcium 8.6 Phosphorus Magnesium Troponin I Albumin (PEP) Albumin/Globulin Ratio Guiro-6-Lkpjaekns Jlhto-4-Siqfqnczk Beta Globulins Gamma Globulins CSF VDRL CECILIA Screen 08/01/18 07/31/18 07/30/18 03:09 21:58 20:30 WBC RBC Hgb Hct MCV MCH MCHC RDW Plt Count MPV Neut % (Auto) Lymph % (Auto) Rock % (Auto) Eos % (Auto) Baso % (Auto) Neut # (Auto) Lymph # (Auto) Rock # (Auto) Eos # (Auto) Baso # (Auto) WBC Differential Differential Comment Sodium Potassium Chloride Carbon Dioxide Anion Gap BUN Creatinine Estimated GFR POC Glucose 187 H 203 H Random Glucose Calcium Phosphorus Magnesium Troponin I Albumin (PEP) Albumin/Globulin Ratio Nrica-5-Icfthjkga Whmhq-9-Npeizbaep Beta Globulins Gamma Globulins CSF VDRL CECILIA Screen Neg 07/30/18 07/26/18 20:30 15:32 WBC RBC Hgb Hct MCV MCH MCHC RDW Plt Count MPV Neut % (Auto) Lymph % (Auto) Rock % (Auto) Eos % (Auto) Baso % (Auto) Neut # (Auto) Lymph # (Auto) Rock # (Auto) Eos # (Auto) Baso # (Auto) WBC Differential Differential Comment Sodium Potassium Chloride Carbon Dioxide Anion Gap BUN Creatinine Estimated GFR POC Glucose Random Glucose Calcium Phosphorus Magnesium Troponin I Albumin (PEP) 3.61 Albumin/Globulin Ratio 1.01 L Texmf-0-Mfjnxtbvh 0.36 H Qfqia-5-Xszcyivwb 1.03 H Beta Globulins 1.03 Gamma Globulins 1.17 CSF VDRL Non-reactive CECILIA Screen - Impressions ITS Impressions Head CT 07/24/18 16:23 CONCLUSION: 1. No acute intracranial abnormality. 2. Chronic white matter changes . Head MRI 07/25/18 00:00 CONCLUSION: 1. Suboptimal examination secondary to motion artifact. 2. No evidence of acute infarction, hemorrhage or mass. 3. Atrophy and chronic small vessel ischemic change. Chest X-Ray 07/26/18 00:00 CONCLUSION: Negative examination. Lumbar Puncture Fluoroscopy 07/26/18 00:00 CONCLUSION: 1. Uncomplicated fluoroscopically guided lumbar puncture. Discharge Plan - Discharge Disposition Patient Disposition: 62 Rehab Inpatient - Discharge Condition Condition: Stable - Discharge Order Discharge Orders: Discharge Order (Routine); Ordered 08/01/18 Ordered By: Jessica Lay - Physicians Team Primary Care Provider: David Gee Attending Provider: Paul Caro Other Providers: Salma Pulido MD ; Chucky Cesar MD ; Gonsalo Rosa, PhD ; Renaldo Case MD ; Uziel Medina MD
[2018-08-01] MEDS: Montelukast 10 MG Tablet PO SCH (18:06)
[2018-08-01] MEDS: QUEtiapine 25 MG Tablet PO SCH (19:59)
[2018-08-01] MEDS: Sod Chloride 0.9% Inj 1,000 ML IV.CONT SCH (20:01)
[2018-08-02] MEDS: Insulin NovoLOG Aspart Correctional Sugar Inj SQ SCH ×2 (03:12→08:53)
--- NOTE | 2018-08-02 07:55 | P.PNNEU ---
Subjective Active Medications: Active Medications Acetaminophen (Tylenol) 650 mg PO Q4H PRN PRN Reason: Temp > 100.4 Last Admin: 07/25/18 16:47 Dose: 650 mg Hydrocodone Bitart/Acetaminophen ([place] 5/325) 1 tab PO BID PRN PRN Reason: Acute Pain Last Admin: 08/01/18 12:54 Dose: 1 tab Al Hydroxide/Mg Hydroxide (Milk Of Magncallie Liq) 30 ml PO Q12H PRN PRN Reason: Mild Constipation Albuterol (Duoneb Neb ([facility])) 1 ampul NEB Q6HR WHILE AWAKE NEB [facility] Last Admin: 08/01/18 19:53 Dose: 1 ampul Amlodipine Besylate (Norvasc) 5 mg PO DAILY [facility] Last Admin: 08/01/18 09:20 Dose: 5 mg Aspirin (Ecotrin) 81 mg PO DAILY [facility] Last Admin: 08/01/18 12:54 Dose: 81 mg Bisacodyl (Dulcolax Supp) 10 mg RECTAL DAILY PRN PRN Reason: SEVERE CONSITIPATION Clonidine HCl (Catapres) 0.1 mg PO Q6H PRN PRN Reason: SBP>160 DBP>90 Last Admin: 07/31/18 20:53 Dose: 0.1 mg Clonidine HCl (Catapress-Tts 0.2 Mg Patch.7d) 1 patch T-DERMAL Q7D [facility] Last Admin: 07/30/18 09:17 Dose: 1 patch Cyanocobalamin (Vitamin B12 Inj) 1,000 mcg SQ Q30D [facility] Dextrose (D50w Vial) 50 ml IV.PUSH UNSCH PRN PRN Reason: PER HYPOGLYCEMIA PROTOCOL Enalapril Maleate (Vasotec) 10 mg PO DAILY [facility] Last Admin: 08/01/18 09:21 Dose: 10 mg Enalaprilat (Vasotec Inj) 1.25 mg IV.PUSH Q6H PRN PRN Reason: SBP>180, DBP>95 Last Admin: 07/31/18 02:59 Dose: 1.25 mg Glucagon (Glucagon Inj) 1 mg OTHER PRN PRN PRN Reason: for Hypoglycemia Protocol Heparin Sodium (Porcine) (Heparin Inj) 5,000 units SQ Q12H [facility] Last Admin: 08/01/18 22:04 Dose: 5,000 units Sodium Chloride (Ns Inj) 1,000 mls @ 42 mls/hr IV.CONT .[id number] [facility] Last Admin: 08/01/18 20:01 Dose: 42 mls/hr Insulin Aspart (Novolog Insulin Correctional Sugar Inj) 0 unit SQ ACHS AND 3AM JOHNNY; Protocol Last Admin: 08/02/18 03:12 Dose: Not Given Lactulose (Lactulose Liq) 30 ml PO DAILY PRN PRN Reason: SEVERE CONSITIPATION Memantine (Namenda) 5 mg PO ONCE ONE Stop: 08/02/18 07:48 Miscellaneous (Pill Splitter) 1 each OTHER UNSCH PRN PRN Reason: SEE LABEL COMMENTS Montelukast Sodium (Singulair) 10 mg PO QPM [facility] Last Admin: 08/01/18 18:06 Dose: 10 mg Multivitamins (Theragran) 1 tab PO DAILY [facility] Nicotine (Habitrol 14 Mg Patch.24 Hr) 1 patch T-DERMAL DAILY [facility] Last Admin: 08/01/18 09:20 Dose: 1 patch Ondansetron HCl (Zofran Inj) 4 mg IV.PUSH Q6H PRN PRN Reason: NAUSEA OR VOMITING Pantoprazole Sodium (Protonix) 20 mg PO DAILY [facility] Last Admin: 08/01/18 09:21 Dose: 20 mg Patch Removal (Remove Old Patch) 1 each T-DERMAL Q7D JOHNNY Patch Removal (Remove Old Patch) 1 each T-DERMAL HS [facility] Last Admin: 08/01/18 20:00 Dose: 1 each Quetiapine Fumarate (Seroquel) 12.5 mg PO HS [facility] Last Admin: 08/01/18 19:59 Dose: 12.5 mg Senna/Docusate Sodium (Pinky-Colace) 1 tab PO BID [facility] Last Admin: 08/01/18 19:59 Dose: 1 tab Sennosides (Senokot) 17.2 mg PO Q12H PRN PRN Reason: Moderate Constipation Sodium Chloride (Ns Flush) 2 ml IV.FLUSH PRN PRN PRN Reason: FLUSH AFTER USING IV ACCESS Allergies/Adverse Reactions: Allergies Allergy/AdvReac Type Severity Reaction Status Date / Time cephalexin Allergy Severe Unverified 12/06/17 19:32 Physical Exam Vital signs: Vital Signs 08/01/18 08:00 08/01/18 09:38 08/01/18 12:00 Temperature 96.8 F L 96.8 F L Pulse Rate 78 75 66 Respiratory Rate 16 16 18 Blood Pressure 149/88 H 129/58 L Pulse Oximetry 93 L 97 100 Pulse Oximetry [Resting on Room Air] Pulse Oximetry [Resting with Oxygen] 08/01/18 14:24 08/01/18 14:26 08/01/18 16:00 Temperature 98.3 F Pulse Rate 95 H 91 H Respiratory Rate 16 18 Blood Pressure 167/75 H Pulse Oximetry 98 Pulse Oximetry [Resting on Room Air] 87 L Pulse Oximetry [Resting with Oxygen] 95 08/01/18 19:52 08/01/18 20:00 08/01/18 22:00 Temperature 100.3 F H Pulse Rate 96 H 90 78 Respiratory Rate 18 18 Blood Pressure 156/70 H Pulse Oximetry 95 Pulse Oximetry [Resting on Room Air] Pulse Oximetry [Resting with Oxygen] 08/02/18 00:00 08/02/18 04:00 08/02/18 07:00 Temperature 100.0 F H 100.0 F H Pulse Rate 77 73 Respiratory Rate 18 18 12 Blood Pressure 136/65 145/70 H Pulse Oximetry 95 96 Pulse Oximetry [Resting on Room Air] Pulse Oximetry [Resting with Oxygen] Intake & Output 08/01/18 08/02/18 08/02/18 18:59 06:59 18:59 Intake Total 0 / 0 1000 / 1000 Balance 0 / 0 1000 / 1000 Weight 58.8 kg Intake: IV 0 / 0 1000 / 1000 NS Inj 1,000 ML @ 42 mls/hr IV. 0 / 0 1000 / 1000 CONT .[id number] [facility] Rx#:[id number] Other: # Incontinent Voids 1 Date of Last Bowel Movement 07/30/18 07/30/18 07/30/18 Narrative: awake alert pleasant follows commands - Urinary Catheter Management Straight Cath placed during this visit: yes Reason for continuing: Not indwelling catheter Insertion date: 07/24/18 Insertion time: 15:30 Objective Laboratory Results - last 24 hr 07/30/18 08/01/18 08/01/18 20:30 08:26 10:10 WBC 18.2 H RBC 4.05 Hgb 12.7 Hct 38.5 MCV 95.0 MCH 31.3 MCHC 32.9 RDW 15.9 Plt Count 165 MPV 10.8 Neut % (Auto) 91.7 H Lymph % (Auto) 4.4 L Steele % (Auto) 3.9 Eos % (Auto) 0.0 Baso % (Auto) 0.0 Neut # (Auto) 16.7 H Lymph # (Auto) 0.8 L Steele # (Auto) 0.7 Eos # (Auto) 0.0 Baso # (Auto) 0.0 WBC Differential . Differential Comment Auto diff final Sodium Potassium Chloride Carbon Dioxide Anion Gap BUN Creatinine Estimated GFR POC Glucose 145 H Random Glucose Calcium Phosphorus Magnesium Troponin I CECILIA Screen Neg 08/01/18 08/01/18 08/01/18 10:10 10:10 10:10 WBC RBC Hgb Hct MCV MCH MCHC RDW Plt Count MPV Neut % (Auto) Lymph % (Auto) Steele % (Auto) Eos % (Auto) Baso % (Auto) Neut # (Auto) Lymph # (Auto) Steele # (Auto) Eos # (Auto) Baso # (Auto) WBC Differential Differential Comment Sodium 141 Potassium 3.9 Chloride 103 Carbon Dioxide 31.3 Anion Gap 7 BUN 13 Creatinine 0.74 Estimated GFR Greater than 89 POC Glucose Random Glucose 210 H Calcium 8.6 Phosphorus 3.3 Magnesium 2.2 Troponin I Less than 0.02 L CECILIA Screen 08/01/18 08/01/18 08/01/18 11:09 17:44 20:02 WBC RBC Hgb Hct MCV MCH MCHC RDW Plt Count MPV Neut % (Auto) Lymph % (Auto) Steele % (Auto) Eos % (Auto) Baso % (Auto) Neut # (Auto) Lymph # (Auto) Steele # (Auto) Eos # (Auto) Baso # (Auto) WBC Differential Differential Comment Sodium Potassium Chloride Carbon Dioxide Anion Gap BUN Creatinine Estimated GFR POC Glucose 233 H 184 H 169 H Random Glucose Calcium Phosphorus Magnesium Troponin I CECILIA Screen 08/02/18 08/02/18 03:00 07:22 WBC RBC Hgb Hct MCV MCH MCHC RDW Plt Count MPV Neut % (Auto) Lymph % (Auto) Steele % (Auto) Eos % (Auto) Baso % (Auto) Neut # (Auto) Lymph # (Auto) Steele # (Auto) Eos # (Auto) Baso # (Auto) WBC Differential Differential Comment Sodium Potassium Chloride Carbon Dioxide Anion Gap BUN Creatinine Estimated GFR POC Glucose 111 H 284 H Random Glucose Calcium Phosphorus Magnesium Troponin I CECILIA Screen Review/Management - Review/Management Plan: imp hypoxia on abg med team address pl fu eeg better after steroids will observe fu labs too 08/01/18 oob to chair watch o2 sats some underlying likley ad please dont sedate her bp better probably got a littel agitated after steroid dose no haldol please 08/02/18 much better and sats ok evidently off o2 start memantine for dementia and b12 shots mvi ok to dc fu office 8 weeks
--- NOTE | 2018-08-02 08:06 | P.PNNPSY ---
- Progress Notes/Response to Treatment Time with Patient: 30 minutes Premorbid Psychological Status: Premorbid Cognitive, Emotional and Behavioral Status: Stable. 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 The patient has no prior psychiatric difficulties, as described above. Substance abuse history is unremarkable. Behavioral Reactions of Patient and Family/Support System: Stable. The patients family is experiencing ongoing issues of adjustment given the nature of the injury, and this aspect of recovery will require ongoing monitoring. Emotional/Behavioral Status of Patient and Family/Support System: Stable. Pertinent issues, if appropriate to this patients clinical care, are described in detail above. Maximizing Acute Care Outcome: It is recommended that the patient be monitored for emergent behavioral impulsivity as the medical condition evolves. This patients neuropathological challenges may limit rehabilitation potential going forward, and these challenges will require specialized therapeutic skills to maximize outcome. Additionally, the patients family is experiencing ongoing issues of adjustment given the traumatic nature of the injury, and they may benefit from ongoing psychological assistance. At this point in the recovery process, the patient does not have cognitive capacity as the patient is unable to understand a situation and its likely consequences, nor is the patient able to manipulate information rationally. Cognitive capacity will be assessed throughout the recovery process. Anticipated Problems: Ongoing areas of concern will include behavioral impulsivity, lack of insight and judgment, which is expected to improve with time and treatment. Treatment Plan: This clinician will continue to follow with you throughout the course of this patients acute care treatment, and I will be available to meet with the patient s family/support system to facilitate their understanding and the ongoing care of their family member. The goals of neuropsychological intervention shall be both educational and supportive to the family/support system as is deemed clinically appropriate. Additionally, I would recommend a referral to Dr. Ann for ongoing patient and family adjustment issues if they are coming to [place]. Disinhibition Score: 19.25 Aggression Score: 17.50 Lability Score: 14.00 Agitated Behavior Total Score: 17 Impression: 73 year old woman with new onset mental status changes, but possible underlying major neurocognitive disorder. Progress Note Narrative: Day 9. The patient's agitation is better, with ABS of 17 (19.3,17.5,14). Neurology says no neurosyphilis. Patient started on Namenda. Recent EEG showed moderate encephalopathy which was consistent with clinical findings from neurobehavioral exam. Hypoxia resolved given recent ABG results. She does remain on low dose of Seroquel 12.5 HS. Neurology does not want her on any additional sedating medications such as Haldol. This patient has been accepted at [place], and I will follow her there. - Diagnosis (1) Major neurocognitive disorder due to multiple etiologies Status: Acute
[2018-08-02] MEDS: amLODIPine 5 MG Tablet PO SCH (08:52)
[2018-08-02] MEDS: Pantoprazole Sodium 20 MG DR Tablet PO SCH (08:52)
[2018-08-02] MEDS: Senna/Docusate Sodium 8.6/50 MG Tablet PO SCH (08:53)
[2018-08-02] MEDS: Heparin - SQ 10,000 UNITS/ML Vial SQ SCH (09:02)
[2018-08-02 09:20] VITALS: BP 155/70; RESP 20; TEMP 98; O2SAT 91
[2018-08-02 09:23] VITALS: PULSE 79
[2018-08-02 09:34] LABS: Hematocrit 37.2 % (35.0-46.0); Hemoglobin 12.1 gm/dL (11.6-15.3); Lymph # (Auto) 1.5 th/mm3 (1.0-4.8); Lymph % (Auto) 12.9 % (9.0-44.0); Mean Corpuscular HGB Conc 32.7 % (32.0-36.0); Mean Corpuscular Hemoglobin 31.1 pg (27.0-34.0); Mean Corpuscular Volume 95.1 fL (80.0-100.0); Mean Platelet Volume 10.7 fL (7.0-11.0); Mono # (Auto) 0.6 th/mm3 (0.0-0.9); Mono % (Auto) 5.3 % (0.0-8.0); Neut # (Auto) 9.5 th/mm3 (1.8-7.7); Neut % (Auto) 81.8 % (16.0-70.0); Platelet Count 162 th/mm3 (150-450); Red Blood Count 3.91 mil/mm3 (4.00-5.30); Red Cell Distribution Width 15.7 % (11.6-17.2); White Blood Count 11.6 th/mm3 (4.0-11.0)
[2018-08-02 14:43] LABS: Anion Gap 8 meq/L (5-15); Blood Urea Nitrogen 8 mg/dL (7-18); Carbon Dioxide 29.8 meq/L (21.0-32.0); Chloride 103 meq/L (98-107); Glomerular Filtration Rate Greater Than 89 mL/min (>89); Glucose,Random 116 mg/dL (74-106); Potassium 3.2 meq/L (3.5-5.1); Sodium 141 meq/L (136-145)
--- NOTE | 2018-08-02 20:55 | ECG ---
Date Performed: 08/01/2018 Time Performed: 12:16:45 PTAGE: 73 years EKG: Sinus rhythm NONSPECIFIC ST-T WAVE CHANGES Since the previous tracing, no significant change noted ABNORMAL ECG PREVIOUS TRACING : 07/24/2018 18.00 DOCTOR: Kenneth Hoyt Interpretating Date/Time 08/02/2018 20:54:27
== END 2018-08-02 10:23 ==
LOC: NEPC 15:24 → NEDA 15:24 → NEPFCDU 22:40 → N05 07-27 21:01
PROVIDERS: ADMIT Family Medicine; ATTEND Family Medicine

== ENCOUNTER 2018-09-06 17:50 | Inpatient (IN) ==
[2018-09-06] MEDS ORDERED: Acetaminophen 650 MG Supp RECTAL ONE (18:04)
[2018-09-06] MEDS ORDERED: Sod Chloride 0.9% Inj 1,000 ML IV.SIG SCH (18:15)
[2018-09-06 18:32] LABS: Baso % (Auto) 0.2 % (0.0-2.0); Hematocrit 44.1 % (35.0-46.0); Hemoglobin 14.7 gm/dL (11.6-15.3); Lymph # (Auto) 1.6 th/mm3 (1.0-4.8); Lymph % (Auto) 16.6 % (9.0-44.0); Mean Corpuscular HGB Conc 33.4 % (32.0-36.0); Mean Corpuscular Hemoglobin 31.3 pg (27.0-34.0); Mean Corpuscular Volume 93.8 fL (80.0-100.0); Mean Platelet Volume 10.1 fL (7.0-11.0); Mono # (Auto) 0.8 th/mm3 (0.0-0.9); Mono % (Auto) 8.3 % (0.0-8.0); Neut # (Auto) 7.1 th/mm3 (1.8-7.7); Neut % (Auto) 74.9 % (16.0-70.0); Platelet Count 185 th/mm3 (150-450); Red Cell Distribution Width 16.1 % (11.6-17.2); White Blood Count 9.5 th/mm3 (4.0-11.0)
[2018-09-06 18:41] LABS: Bacteria,Urine Occasional /hpf; Bilirubin,Urine Negative (Negative); Color,Urine Amber (Yellw/Straw); Glucose,Urine (UA) Negative (Negative); Hyaline Casts,Urine 9 /lpf (0-3); Leukocyte Esterase,Urine Negative (Negative); Mucus,Urine Many /lpf (Occasional); Nitrite,Urine Negative (Negative); Specific Gravity,Urine 1.024 (1.002-1.035); Squamous Epithelial Cell,Urine 5 /hpf (0-5); Urobilinogen,Urine 4 or Greater mg/dL (Less than 2)
--- NOTE | 2018-09-06 18:41 | CT ---
EXAM DATE: 09/06/2018 6:22 PM EDT AGE/SEX: 73 years / Female INDICATIONS: Altered mental status. CLINICAL DATA: This is the patient's initial encounter. Patient reports that signs and symptoms have been present for 1 day and indicates a pain score of Nonresponsive. MEDICAL/SURGICAL HISTORY: Diabetes. Gastroesophageal reflux disease. Hypertension. Hysterectomy. RADIATION DOSE: 29.14 CTDI (mGy) COMPARISON: [facility], CT HEAD W/O CONTRAST, 08/03/2018. . TECHNIQUE: CT of the head without contrast. Using automated exposure control and adjustment of the mA and/or kV according to patient size, radiation dose was kept as low as reasonably achievable to ob tain optimal diagnostic quality images. DICOM format image data is available electronically for revi ew and comparison. FINDINGS: Cerebrum: The ventricles are normal for age. No evidence of midline shift, mass lesion, hemorrhage or acute infarction. No extraaxial fluid collections are seen. Stable remote lacunar infarct right b lis ganglia. Posterior Fossa: The cerebellum and brainstem are intact. The 4th ventricle is midline. The cerebe llopontine angle is unremarkable. Extracranial: The visualized portion of the orbits is intact. Skull: The calvaria is intact. No evidence of skull fracture. CONCLUSION: 1. No acute intracranial abnormalities. Stable remote lacunar infarct right basal ganglia. . Electronically signed by: Gaudencio Hood MD 09/06/2018 6:39 PM EDT
[2018-09-06 18:42] LABS: Clarity,Urine Hazy (Clear)
[2018-09-06 18:48] LABS: Activated Partial Thrombo Time 25.8 sec (24.3-30.1); INR 1.1 Ratio; Prothrombin Time 11.1 sec (9.8-11.6)
[2018-09-06 18:50] LABS: Alanine Aminotransferase 33 U/L (10-53); Anion Gap 12 meq/L (5-15); Aspartate Aminotransferase 103 U/L (15-37); Blood Urea Nitrogen 13 mg/dL (7-18); Calcium 9.3 mg/dL (8.5-10.1); Carbon Dioxide 27.5 meq/L (21.0-32.0); Chloride 102 meq/L (98-107); Glomerular Filtration Rate 61 mL/min (>89); Glucose,Random 181 mg/dL (74-106); Magnesium 1.9 mg/dL (1.5-2.5); Potassium 4.6 meq/L (3.5-5.1); Sodium 141 meq/L (136-145)
--- NOTE | 2018-09-06 18:51 | XR ---
EXAM DATE: 09/06/2018 6:37 PM EDT AGE/SEX: 73 years / Female INDICATIONS: Cough CLINICAL DATA: This is the patient's initial encounter. Patient reports that signs and symptoms have been present for 1 day and indicates a pain score of Nonresponsive. MEDICAL/SURGICAL HISTORY: Asthma. Hypertension. None. COMPARISON: [facility], CHEST 1V SINGLE AP, 08/09/2018. . FINDINGS: Aorta is mildly tortuous. Minimal right basilar airspace disease. No effusion. No pneumothorax. Heart size mildly enlarged. CONCLUSION: Minimal right basilar airspace disease. No effusion. Electronically signed by: Gaudencio Hood MD 09/06/2018 6:50 PM EDT
[2018-09-06] MEDS ORDERED: Sodium Chlor 0.9% Inj 500 ML IV.SIG SCH (19:00)
[2018-09-06 19:04] LABS: Alkaline Phosphatase 94 U/L (45-117); Creatine Kinase 3451 U/L (26-192); Total Protein 7.6 g/dL (6.4-8.2)
[2018-09-06 19:17] LABS: CKMB Percent 0.5 % (0.0-4.0); Creatine Kinase MB 18.6 ng/mL (0.5-3.6)
[2018-09-06] MEDS ORDERED: Dextrose 50% in Water 50 ML Vial IV.PUSH PRN (19:21)
[2018-09-06] MEDS ORDERED: Acetaminophen 325 MG Tablet PO PRN (19:22)
[2018-09-06] MEDS ORDERED: Bisacodyl 10 MG Supp RECTAL PRN (19:22)
--- NOTE | 2018-09-06 19:34 | ED ---
HPI General Chief complaint: Altered Mental Status Stated complaint: pt confused/evac Time Seen by Provider: 09/06/18 17:57 Source: EMS Mode of arrival: EMS Limitations: altered mental status History of Present Illness HPI narrative: Patient is a 73 year old female brought in by EMS due to altered mental status. Per EMS, family last saw her normal last night. EMS states patient is usually verbal and interactive. Patient is currently not speaking and provides no history. Related Data Previous Rx's Medication Instructions Recorded acetaminophen 650 mg PO Q4H PRN #100 tab 08/15/18 amlodipine [Norvasc] 10 mg PO DAILY #30 tab 08/15/18 aspirin 81 mg PO DAILY #30 tab 08/15/18 budesonide-formoterol [Symbicort] 2 puff INH BID #1 inh 08/15/18 clonidine [Tmueadgi-VMG-1] 1 patch TRANSDERMAL Q7D #4 ea 08/15/18 enalapril maleate 10 mg PO DAILY #30 tab 08/15/18 guaifenesin [Mucinex] 600 mg PO BID #120 tab 08/15/18 ipratropium-albuterol 1 amp NEB Q6HR WHILE AWAKE NEB 08/15/18 #120 amp memantine [Namenda] 5 mg PO DAILY #30 tab 08/15/18 metformin [Glucophage] 1,000 mg PO BID #60 tab 08/15/18 montelukast [Singulair] 10 mg PO QPM #30 tab 08/15/18 pantoprazole [Protonix] 20 mg PO DAILY #30 tab 08/15/18 quetiapine 25 mg PO HS #30 tab 08/15/18 sennosides-docusate sodium [Senna 1 tab PO BID #60 tab 08/15/18 Plus] valproic acid (as sodium salt) 250 mg PO BID 30 Days #300 ml 08/15/18 alprazolam [Xanax] 0.25 mg PO Q6H PRN #30 tab 08/16/18 nicotine 1 patch TRANSDERMAL DAILY #30 ea 08/16/18 tramadol [Ultram] 50 mg PO Q8H PRN #21 tab 08/16/18 Allergies Allergy/AdvReac Type Severity Reaction Status Date / Time cephalexin Allergy Severe throat Verified 09/06/18 17:56 closes Review of Systems ROS Unobtainable ROS Unobtainable: unobtainable due to mental status PMFSH Medical History Medical History Anxiety (Acute) Asthma (Acute) Asthma (Acute) Chronic pain (Acute) Degenerative disc disease (Acute) Diabetes mellitus (Acute) GERD (gastroesophageal reflux disease) (Acute) Hypertension (Acute) Hypothyroidism (Acute) Surgical History Surgical History H/O removal of cyst (Acute) H/O: hysterectomy (Acute) History of bronchoscopy (Acute) Family History Family History Other Diabetes mellitus Social History Social History Substance History: Unable to Obtain Second Hand Smoke Exposure: No Smoking Status: Cognitive impairment Tobacco Type: Cigarettes How Often Do You Have a Drink Containing Alcohol: Unable to Obtain Hx Recent Travel: No Recent Travel in [facility] within the Last 8 Weeks: No Recent Out of Country Travel within the Last 8 Weeks: No Immunization History Tetanus Immunization: Unable to Assess Exam Narrative Exam Narrative: GENERAL: Awake, but does not answer questions. Not following directions. SKIN: Focused skin assessment warm/dry. No wounds or signs of infection. HEAD: Atraumatic. Normocephalic. EYES: Pupils equal and round and reactive. No scleral icterus. EOMI. ENT: Mucous membranes pink and moist. NECK: Trachea midline. No JVD. CARDIOVASCULAR: Regular rate and rhythm. No murmur appreciated. RESPIRATORY: No accessory muscle use. Clear to auscultation. Breath sounds equal bilaterally. GASTROINTESTINAL: Abdomen soft, non-tender, nondistended. MUSCULOSKELETAL: No obvious deformities. No clubbing. No cyanosis. No edema. NEUROLOGICAL: Awake, but does not follow directions or speak. No obvious cranial nerve deficits. Patient will squeeze your hands on exam, does not follow other directions. PSYCHIATRIC: Appropriate mood and affect; insight and judgment normal. Course Initial Documented Vital Signs Pulse Rate 87 09/06/18 17:56 Respiratory Rate 20 09/06/18 17:56 Blood Pressure 145/71 H 09/06/18 17:56 Pulse Oximetry 98 09/06/18 17:56 Last Documented Vital Signs Pulse Rate 91 H 09/06/18 18:03 Respiratory Rate 20 09/06/18 17:56 Blood Pressure 145/71 H 09/06/18 17:56 Pulse Oximetry 98 09/06/18 18:03 Medical Decision Making MDM Narrative Medical decision making narrative: Patient is a 73-year-old female brought in by EMS due to altered mental status. On exam, she does not speak, does not follow directions. IV established, labs sent. Labs concerning for a creatinine kinase of 3400. Lactic acid is 3. Urinalysis is positive for white blood cells. X-ray shows possible airspace disease. Patient given IV fluids, Levaquin, Tylenol. She will be admitted for further management. Medical Screen Exam Complete: Yes Emergency Medical Condition: Yes Differential Diagnosis Differential Diagnosis: sepsis vs pneumonia vs UTI vs dehydration vs CVA Medical Records Medical records reviewed: Yes I reviewed the patient's medical records. Lab Data Lab results reviewed: Yes I reviewed the patient's lab results. Result diagrams: 09/06/18 18:16 09/06/18 18:16 Lab Results 09/06/18 09/06/18 09/06/18 Range/Units 18:16 18:16 18:16 WBC 9.5 (4.0-11.0) th/mm3 RBC 4.70 (4.00-5.30) mil/mm3 Hgb 14.7 (11.6-15.3) gm/dL Hct 44.1 (35.0-46.0) % MCV 93.8 (80.0-100.0) fL MCH 31.3 (27.0-34.0) pg MCHC 33.4 (32.0-36.0) % RDW 16.1 (11.6-17.2) % Plt Count 185 (150-450) th/mm3 MPV 10.1 (7.0-11.0) fL Neut % (Auto) 74.9 H (16.0-70.0) % Lymph % (Auto) 16.6 (9.0-44.0) % [place] % (Auto) 8.3 H (0.0-8.0) % Eos % (Auto) 0.0 (0.0-4.0) % Baso % (Auto) 0.2 (0.0-2.0) % Neut # (Auto) 7.1 (1.8-7.7) th/mm3 Lymph # (Auto) 1.6 (1.0-4.8) th/mm3 [place] # (Auto) 0.8 (0.0-0.9) th/mm3 Eos # (Auto) 0.0 (0.0-0.4) th/mm3 Baso # (Auto) 0.0 (0.0-0.2) th/mm3 WBC Differential . Differential Comment Auto diff final PT 11.1 (9.8-11.6) sec INR 1.1 Ratio APTT 25.8 (24.3-30.1) sec Sodium 141 (136-145) meq/L Potassium 4.6 (3.5-5.1) meq/L Chloride 102 (98-107) meq/L Carbon Dioxide 27.5 (21.0-32.0) meq/L Anion Gap 12 (5-15) meq/L BUN 13 (7-18) mg/dL Creatinine 1.08 H (0.50-1.00) mg/dL Estimated GFR 61 L (>89) mL/min Random Glucose 181 H (74-106) mg/dL Lactic Acid (0.4-2.0) mmol/L Calcium 9.3 (8.5-10.1) mg/dL Magnesium 1.9 (1.5-2.5) mg/dL Total Bilirubin 0.4 (0.2-1.0) mg/dL AST 103 H (15-37) U/L ALT 33 (10-53) U/L Alkaline Phosphatase 94 (45-117) U/L Total Creatine Kinase 3451 H (26-192) U/L CK-MB (CK-2) 18.6 H (0.5-3.6) ng/mL CK-MB (CK-2) % 0.5 (0.0-4.0) % Troponin I Less than 0.02 L (0.02-0.05) ng/mL Total Protein 7.6 (6.4-8.2) g/dL Albumin 3.0 L (3.4-5.0) g/dL TSH 2.130 (0.358-3.740) uIU/mL Urine Color (Yellw/Straw) Urine Clarity (Clear) Urine pH (5.0-8.5) Ur Specific [place] (1.002-1.035) Urine Protein (Neg-Trace) mg/dL Urine Glucose (UA) (Negative) mg/dL Urine Ketones (Negative) mg/dL Urine Occult Blood (Negative) Urine Nitrate (Negative) Urine Bilirubin (Negative) Urine Urobilinogen (Less than 2) mg/dL Ur Leukocyte Esterase (Negative) Urine RBC (0-3) /hpf Urine WBC (0-5) /hpf Ur Squamous Epith Cells (0-5) /hpf Urine Bacteria (None) /hpf Hyaline Casts (0-3) /lpf Urine Mucus (Occasional) /lpf Urine Yeast (None) /hpf Micro UA Comment Ur Microscopic Review Urine Culture Comments 09/06/18 09/06/18 Range/Units 18:16 18:16 WBC (4.0-11.0) th/mm3 RBC (4.00-5.30) mil/mm3 Hgb (11.6-15.3) gm/dL Hct (35.0-46.0) % MCV (80.0-100.0) fL MCH (27.0-34.0) pg MCHC (32.0-36.0) % RDW (11.6-17.2) % Plt Count (150-450) th/mm3 MPV (7.0-11.0) fL Neut % (Auto) (16.0-70.0) % Lymph % (Auto) (9.0-44.0) % [place] % (Auto) (0.0-8.0) % Eos % (Auto) (0.0-4.0) % Baso % (Auto) (0.0-2.0) % Neut # (Auto) (1.8-7.7) th/mm3 Lymph # (Auto) (1.0-4.8) th/mm3 [place] # (Auto) (0.0-0.9) th/mm3 Eos # (Auto) (0.0-0.4) th/mm3 Baso # (Auto) (0.0-0.2) th/mm3 WBC Differential Differential Comment PT (9.8-11.6) sec INR Ratio APTT (24.3-30.1) sec Sodium (136-145) meq/L Potassium (3.5-5.1) meq/L Chloride (98-107) meq/L Carbon Dioxide (21.0-32.0) meq/L Anion Gap (5-15) meq/L BUN (7-18) mg/dL Creatinine (0.50-1.00) mg/dL Estimated GFR (>89) mL/min Random Glucose (74-106) mg/dL Lactic Acid 3.1 H (0.4-2.0) mmol/L Calcium (8.5-10.1) mg/dL Magnesium (1.5-2.5) mg/dL Total Bilirubin (0.2-1.0) mg/dL AST (15-37) U/L ALT (10-53) U/L Alkaline Phosphatase (45-117) U/L Total Creatine Kinase (26-192) U/L CK-MB (CK-2) (0.5-3.6) ng/mL CK-MB (CK-2) % (0.0-4.0) % Troponin I (0.02-0.05) ng/mL Total Protein (6.4-8.2) g/dL Albumin (3.4-5.0) g/dL TSH (0.358-3.740) uIU/mL Urine Color Sylvie (Yellw/Straw) Urine Clarity Hazy H (Clear) Urine pH 5.0 (5.0-8.5) Ur Specific [place] 1.024 (1.002-1.035) Urine Protein 100 H (Neg-Trace) mg/dL Urine Glucose (UA) Negative (Negative) mg/dL Urine Ketones Trace H (Negative) mg/dL Urine Occult Blood Small H (Negative) Urine Nitrate Negative (Negative) Urine Bilirubin Negative (Negative) Urine Urobilinogen 4 or greater (Less than 2) mg/dL Ur Leukocyte Esterase Negative (Negative) Urine RBC 4 H (0-3) /hpf Urine WBC 6 H (0-5) /hpf Ur Squamous Epith Cells 5 (0-5) /hpf Urine Bacteria Occasional H (None) /hpf Hyaline Casts 9 (0-3) /lpf Urine Mucus Many H (Occasional) /lpf Urine Yeast Few H (None) /hpf Micro UA Comment Cath-culture ind Ur Microscopic Review Not Reportable Urine Culture Comments Cath-cult indicated Imaging Data Radiologist's impression: Chest X-Ray 09/06/18 17:59 CONCLUSION: Minimal right basilar airspace disease. No effusion. Head CT 09/06/18 17:59 CONCLUSION: 1. No acute intracranial abnormalities. Stable remote lacunar infarct right basal ganglia. . ECG Data EKG Prior to Arrival: No Attestation: I personally reviewed and interpreted this ECG as follows: Interpretation: ECG shows normal sinus rhythm at a rate of 86, T wave inversions in leads V3 through V5, no ST elevation or depression Discharge Plan Discharge Disposition Patient Disposition: 30 Still Patient Discharge Condition Condition: Stable Discharge Details Diagnosis: Rhabdomyolysis, Sepsis Physicians Team ED Provider: Jess Olivo Primary Care Provider: David Gee Rxs /Orders / Referrals /Forms Prescriptions: No Action quetiapine 25 mg Tablet 25 mg PO HS Qty: 30 RF: 0 acetaminophen 325 mg Tablet 650 mg PO Q4H PRN (Reason: Pain Scale 1 To 4) Qty: 100 RF: 0 sennosides-docusate sodium [Senna Plus] 8.6-50 mg Tablet 1 tab PO BID Qty: 60 RF: 0 pantoprazole [Protonix] 20 mg Tablet,Delayed Release (Dr/Ec) 20 mg PO DAILY Qty: 30 RF: 0 memantine [Namenda] 5 mg Tablet 5 mg PO DAILY Qty: 30 RF: 0 budesonide-formoterol [Symbicort] 160-4.5 mcg/actuation Hfa Aerosol Inhaler 2 puff INH BID Qty: 1 RF: 0 valproic acid (as sodium salt) 250 mg/5 mL (5 mL) Solution 250 mg PO BID 30 Days Qty: 300 RF: 0 guaifenesin [Mucinex] 600 mg Tablet Extended Release 12hr 600 mg PO BID Qty: 120 RF: 0 amlodipine [Norvasc] 10 mg Tablet 10 mg PO DAILY Qty: 30 RF: 0 metformin [Glucophage] 1,000 mg Tablet 1,000 mg PO BID Qty: 60 RF: 0 ipratropium-albuterol 0.5 mg-3 mg(2.5 mg base)/3 mL Solution For Nebulization 1 amp NEB Q6HR WHILE AWAKE NEB Qty: 120 RF: 0 enalapril maleate 10 mg Tablet 10 mg PO DAILY Qty: 30 RF: 0 clonidine [Ewqmoueq-SWL-3] 0.2 mg/24 hr Patch Weekly 1 patch Transdermal Q7D Qty: 4 RF: 0 aspirin 81 mg Tablet,Delayed Release (Dr/Ec) 81 mg PO DAILY Qty: 30 RF: 0 montelukast [Singulair] 10 mg Tablet 10 mg PO QPM Qty: 30 RF: 0 alprazolam [Xanax] 0.25 mg Tablet 0.25 mg PO Q6H PRN (Reason: Anxiety/agitation) Qty: 30 RF: 0 tramadol [Ultram] 50 mg Tablet 50 mg PO Q8H PRN (Reason: Pain Scale 5-10.) Qty: 21 RF: 0 nicotine 14 mg/24 hr Patch 24 Hour 1 patch Transdermal DAILY Qty: 30 RF: 0 Discharge Interventions Interventions: Vital Signs Last Done: 09/06/18 17:56 Status ED Status: With Doctor
--- NOTE | 2018-09-06 21:01 | P.HPIM ---
History of Present Illness Primary Care Physician: David Gee History of Present Illness: This is a 73 year old female w/ a PMH of Anxiety, Dementia, DM, HTN and Hypothyroidism who was brought to the ER by EMS due to AMS. Per report, last seen normal last night by family members. Today, pt minimally conversive/ interactive, family reports this is not baseline. Pt unable to provide any history due to non-verbal state. On arrival, BP 150/56, HR 94, O2 sat 97% on 2L NC, Temp 101.1. CBC unremarkable. INR normal. Lactic Acid 3.1. CPK 3451. Trop negative. U/a positive for UTI. CXR w/ no acute findings. CT Head w/ no acute findings, remote lacunar infarct right basal ganglia. S/p Blood Cultures and Levaquin IV in ER. - Diagnosis (1) Encephalopathy (2) UTI (urinary tract infection) (3) DM (diabetes mellitus) (4) Rhabdomyolysis (5) Lactic acidosis Inpatient Certification: I certify that the inpatient services were ordered in accordance with Medicare regulations governing the order. This includes certification that hospital inpatient services are reasonable and necessary and in the case of services not specified as inpatient-only under 42 CFR 419.22(n), that they are appropriately provided as inpatient services in accordance to with the 2-midnight benchmark under 43 CFR 412.3(e) Estimated Total Length of Stay (Days): 2 Plans for Post Hospital Care: Not yet determined Review of Systems PAST FAMILY HISTORY: Unknown. unobtainable due to mental status PMFSH - History History Provided By: Hooker Inspector / EMT - Medical History Medical History: Medical History (Last Reviewed 09/06/18 @ 19:29 by Jess Olivo MD) Anxiety Asthma Asthma Chronic pain Degenerative disc disease Diabetes mellitus GERD (gastroesophageal reflux disease) Hypertension Hypothyroidism - Surgical History Surgical History: Surgical History (Last Reviewed 09/06/18 @ 19:29 by Jess Olivo MD) H/O removal of cyst H/O: hysterectomy History of bronchoscopy - Family History Family History: Family History (Last Reviewed 09/06/18 @ 19:29 by Jess Olivo MD) Other Diabetes mellitus - Tobacco History Second Hand Smoke Exposure: No Smoking Status: Cognitive impairment Tobacco Type: Cigarettes - Alcohol History How Often Do You Have a Drink Containing Alcohol: Unable to Obtain - Substance Use History Substance History: Unable to Obtain - Travel History History of Recent Travel: No Recent Travel in the [place] Within the Last 8 Weeks: No Recent Travel Out of the Country Within the Last 8 Weeks: No - Immunization History Tetanus Immunization: Unable to Assess Medications and Allergies Active Medications: Active Medications Acetaminophen (Tylenol) 650 mg PO Q4H PRN PRN Reason: Temp > 100.4 Al Hydroxide/Mg Hydroxide (Milk Of Magnesia Liq) 30 ml PO Q12H PRN PRN Reason: Mild Constipation Bisacodyl (Dulcolax Supp) 10 mg RECTAL DAILY PRN PRN Reason: SEVERE CONSITIPATION Dextrose (D50w Vial) 50 ml IV.PUSH UNSCH PRN PRN Reason: PER HYPOGLYCEMIA PROTOCOL Glucagon (Glucagon Inj) 1 mg OTHER UNSCH PRN PRN Reason: for Hypoglycemia Protocol Levofloxacin/Dextrose (Levaquin 750 Mg Premix Inj) 150 mls @ 100 mls/hr IV.SIG Q24H JOHNNY Sodium Chloride (Ns Inj) 1,000 mls @ 100 mls/hr IV.CONT .Q10H JOHNNY Insulin Aspart (Novolog Insulin Correctional Sugar Inj) 0 unit SQ ACHS JOHNNY; Protocol Lactulose (Lactulose Liq) 30 ml PO DAILY PRN PRN Reason: SEVERE CONSITIPATION Memantine (Namenda) 5 mg PO DAILY JOHNNY Ondansetron HCl (Zofran Inj) 4 mg IV.PUSH Q6H PRN PRN Reason: NAUSEA OR VOMITING Senna/Docusate Sodium (Pinky-Colace) 1 tab PO BID JOHNNY Sennosides (Senokot) 17.2 mg PO Q12H PRN PRN Reason: Moderate Constipation Sodium Chloride (Ns Flush) 2 ml IV.FLUSH PRN PRN PRN Reason: FLUSH AFTER USING IV ACCESS Allergies Allergy/AdvReac Type Severity Reaction Status Date / Time cephalexin Allergy Severe throat Verified 09/06/18 17:56 closes Exam Vital signs: Vital Signs 09/06/18 17:56 09/06/18 18:03 09/06/18 19:00 Temperature 101.1 F H Pulse Rate 87 91 H 83 Respiratory Rate 20 17 Blood Pressure 145/71 H 150/56 H Pulse Oximetry 98 98 97 09/06/18 19:22 Temperature Pulse Rate 83 Respiratory Rate Blood Pressure Pulse Oximetry Intake & Output 09/06/18 09/06/18 09/07/18 06:59 18:59 06:59 Intake Total 1500 / 1500 Output Total Balance 1475 / 1475 Weight 65.771 kg Intake: IV 1500 / 1500 NS Inj 1,000 ML @ Wide Open IV. 1000 / 1000 SIG BOLUS JOHNNY Rx#:[id number] NS Inj 500 ML @ Wide Open IV. 500 / 500 SIG BOLUS JOHNNY Rx#:[id number] Output: Urine Narrative: PE: GENERAL: Elderly black female in no acute distress, opens eyes to name, smiles at me but non-verbal. SKIN: Focused skin assessment warm and dry. HEENT: PERRLA, EOMI. No scleral icterus or conjunctival pallor. No lid lag or facial droop. CARDIOVASCULAR: Regular rate and rhythm. No obvious murmurs to auscultation. No chest tenderness to palpation. RESPIRATORY: No obvious rhonchi or wheezing. Clear to auscultation. Breath sounds equal bilaterally. GASTROINTESTINAL: Abdomen soft, non-tender, nondistended. BS normal. MUSCULOSKELETAL: Extremities without clubbing, cyanosis, or edema. No obvious deformities. NEUROLOGICAL: Awake, alert, non-verbal. Contracted upper extremities. No focal neurologic deficits. Moving both upper and lower extremities spontaneously. PSYCHIATRIC: Unable to assess as pt non-verbal. Results - Labs CBC & Chem 7: 09/06/18 18:16 09/06/18 18:16 Labs: Short CBC 09/06/18 Range/Units 18:16 WBC 9.5 (4.0-11.0) th/mm3 Hgb 14.7 (11.6-15.3) gm/dL Hct 44.1 (35.0-46.0) % Plt Count 185 (150-450) th/mm3 BMP 09/06/18 18:16 Sodium 141 Potassium 4.6 Chloride 102 Carbon Dioxide 27.5 BUN 13 Creatinine 1.08 H Calcium 9.3 Cardiac Enzymes 09/06/18 Range/Units 18:16 Total Creatine Kinase 3451 H (26-192) U/L CK-MB (CK-2) 18.6 H (0.5-3.6) ng/mL Troponin I Less than 0.02 L (0.02-0.05) ng/mL Liver Function 09/06/18 Range/Units 18:16 Total Bilirubin 0.4 (0.2-1.0) mg/dL AST 103 H (15-37) U/L ALT 33 (10-53) U/L Alkaline Phosphatase 94 (45-117) U/L Albumin 3.0 L (3.4-5.0) g/dL Urine 09/06/18 Range/Units 18:16 Urine Color Sylvie (Yellw/Straw) Urine Clarity Hazy H (Clear) Urine pH 5.0 (5.0-8.5) Ur Specific [place] 1.024 (1.002-1.035) Urine Protein 100 H (Neg-Trace) mg/dL Urine Glucose (UA) Negative (Negative) mg/dL - Imaging Impressions Chest X-Ray 09/06/18 17:59 CONCLUSION: Minimal right basilar airspace disease. No effusion. Head CT 09/06/18 17:59 CONCLUSION: 1. No acute intracranial abnormalities. Stable remote lacunar infarct right basal ganglia. . Caprini VTE Risk Assessment Caprini VTE Risk Assessment: No/Low Risk (score <= 1) Caprini Risk Assessment Model: Point Value = 1 Point Value = 2 Point Value = 3 Point Value = 5 Age 41-60 Minor surgery BMI > 25 kg/m2 Swollen legs Varicose veins or History of unexplained or recurrent spontaneous Oral contraceptives or hormone replacement Sepsis (< 1 month) Serious lung disease, including pneumonia (< 1 month) Abnormal pulmonary function Acute myocardial infarction Congestive heart failure (< 1 month) History of inflammatory bowel disease Medical patient at bed rest Age 61-74 Arthroscopic surgery Major open surgery (> 45 min) Laparoscopic surgery (> 45 min) Malignancy Confined to bed (> 72 hours) Immobilizing plaster cast Central venous access Age >= 75 History of VTE Family history of VTE Factor V Leiden Prothrombin [id number] Lupus anticoagulant Anticardiolipin antibodies Elevated serum homocysteine Heparin-induced thrombocytopenia Other congenital or acquired thrombophilia Stroke (< 1 month) Elective arthroplasty Hip, pelvis, or leg fracture Acute spinal cord injury (< 1 month) Prophylaxis Regimen: Total Risk Factor Score Risk Level Prophylaxis Regimen 0-1 Low Early ambulation 2 Moderate Order ONE of the following: *Sequential Compression Device (SCD) *Heparin 5000 units SQ BID 3-4 Higher Order ONE of the following medications: *Heparin 5000 units SQ TID *Enoxaparin/Lovenox 40 mg SQ daily (WT < 150 kg, CrCl > 30 mL/min) *Enoxaparin/Lovenox 30 mg SQ daily (WT < 150 kg, CrCl > 10-29 mL/min) *Enoxaparin/Lovenox 30 mg SQ BID (WT < 150 kg, CrCl > 30 mL/min) AND/OR *Sequential Compression Device (SCD) 5 or more Highest Order ONE of the following medications: *Heparin 5000 units SQ TID (Preferred with Epidurals) *Enoxaparin/Lovenox 40 mg SQ daily (WT < 150 kg, CrCl > 30 mL/min) *Enoxaparin/Lovenox 30 mg SQ daily (WT < 150 kg, CrCl > 10-29 mL/min) *Enoxaparin/Lovenox 30 mg SQ BID (WT < 150 kg, CrCl > 30 mL/min) AND *Sequential Compression Device (SCD) Assessment and Plan - Assessment (1) Encephalopathy Code(s): G93.40 - Encephalopathy, unspecified Status: Acute (2) UTI (urinary tract infection) Code(s): N39.0 - Urinary tract infection, site not specified Status: Acute (3) DM (diabetes mellitus) Code(s): E11.9 - Type 2 diabetes mellitus without complications Status: Acute (4) Rhabdomyolysis Code(s): M62.82 - Rhabdomyolysis Status: Acute (5) Lactic acidosis Code(s): E87.2 - Acidosis Status: Acute - Plan A/P: 1. Encephalopathy: acute onset of AMS w/ non-verbal state per family, CT Head w/ old lacunar infarct, no acute findings, images reviewed. Will Check MRI Brain to eval for possible underlying CVA. Neuro Checks, consult Neurology as needed. U/a w/ UTI, may be contributing to change in mental status. Will monitor closely. 2. UTI: U/a w/ UTI, follow up cultures, continue IV Levaquin, IVF for hydration, monitor I/O 3. Rhabdomyolysis: CPK 3451, aggressive IVF for hydration, repeat CPK for trend. 4. Lactic Acidosis: likely combination of significant dehydration and early sepsis, Temp 101.1, +UTI, will give IVF for hydration, repeat Lactic Acid, monitor I/O, follow up Blood/Urine cultures. 5. DM: Sliding scale w/ Accu-cheks, hold Metformin for now. 6. DVT Prophylaxis: SCD/Teds 7. Social work for d/c planning as needed 8. Case discussed w/ ER physician at length, labs/records/imaging reviewed by me. (4) Rhabdomyolysis Qualifiers: Rhabdomyolysis type: non-traumatic Qualified Code(s): M62.82 - Rhabdomyolysis
[2018-09-06] MEDS: Sod Chloride 0.9% Inj 1,000 ML IV.CONT SCH (21:20)
[2018-09-06] MEDS: Senna/Docusate Sodium 8.6/50 MG Tablet PO SCH (21:58)
[2018-09-06] MEDS: Insulin NovoLOG Aspart Correctional Sugar Inj SQ SCH (21:58)
[2018-09-07] MEDS ORDERED: Sod Chloride 0.9% Inj 1,000 ML IV.SIG SCH (01:30)
[2018-09-07] MEDS ORDERED: Influenza (Quadrivalent) Vaccine 0.5 ML Syringe IM ONE (04:15)
[2018-09-07 05:19] LABS: Baso % (Auto) 0.2 % (0.0-2.0); Eos % (Auto) 0.4 % (0.0-4.0); Hematocrit 36.8 % (35.0-46.0); Lymph # (Auto) 1.6 th/mm3 (1.0-4.8); Lymph % (Auto) 22.3 % (9.0-44.0); Mean Corpuscular HGB Conc 32.7 % (32.0-36.0); Mean Corpuscular Volume 94.7 fL (80.0-100.0); Mean Platelet Volume 10.4 fL (7.0-11.0); Mono # (Auto) 0.8 th/mm3 (0.0-0.9); Mono % (Auto) 10.9 % (0.0-8.0); Neut # (Auto) 4.7 th/mm3 (1.8-7.7); Neut % (Auto) 66.2 % (16.0-70.0); Platelet Count 142 th/mm3 (150-450); Red Blood Count 3.88 mil/mm3 (4.00-5.30); Red Cell Distribution Width 16.4 % (11.6-17.2)
[2018-09-07] MEDS: Sod Chloride 0.9% Inj 1,000 ML IV.CONT SCH ×3 (05:49→16:33)
[2018-09-07 06:02] LABS: Alanine Aminotransferase 25 U/L (10-53); Albumin 2.2 g/dL (3.4-5.0); Alkaline Phosphatase 70 U/L (45-117); Anion Gap 10 meq/L (5-15); Aspartate Aminotransferase 75 U/L (15-37); Blood Urea Nitrogen 9 mg/dL (7-18); Carbon Dioxide 23.7 meq/L (21.0-32.0); Chloride 110 meq/L (98-107); Creatine Kinase 2282 U/L (26-192); Glomerular Filtration Rate Greater Than 89 mL/min (>89); Glucose,Random 128 mg/dL (74-106); Potassium 3.8 meq/L (3.5-5.1); Sodium 144 meq/L (136-145); Total Protein 5.9 g/dL (6.4-8.2)
[2018-09-07 06:25] LABS: CKMB Percent 0.4 % (0.0-4.0); Creatine Kinase MB 8.1 ng/mL (0.5-3.6)
[2018-09-07] MEDS: Insulin NovoLOG Aspart Correctional Sugar Inj SQ SCH ×4 (08:15→20:43)
[2018-09-07] MEDS: Senna/Docusate Sodium 8.6/50 MG Tablet PO SCH ×3 (08:22→20:52)
--- NOTE | 2018-09-07 09:32 | P.PN ---
Subjective Interval history: Follow-up for acute encephalopathy, possible urinary tract infection. Patient is currently resting in bed. No acute concerns. No fever or chills. She does talk very little but coherent. Physical Exam Vital signs: Vital Signs 09/06/18 17:56 09/06/18 18:03 09/06/18 19:00 Temperature 101.1 F H Pulse Rate 87 91 H 83 Respiratory Rate 20 17 Blood Pressure 145/71 H 150/56 H Pulse Oximetry 98 98 97 09/06/18 19:22 09/06/18 21:05 09/06/18 21:20 Temperature 97.7 F Pulse Rate 83 85 Respiratory Rate 18 Blood Pressure 143/67 H Pulse Oximetry 96 96 09/06/18 23:11 09/07/18 00:00 09/07/18 00:43 Temperature 97.2 F L Pulse Rate 64 75 70 Respiratory Rate 18 Blood Pressure 134/62 Pulse Oximetry 93 L 09/07/18 03:57 09/07/18 04:00 09/07/18 04:43 Temperature 97.7 F Pulse Rate 77 78 Respiratory Rate 18 Blood Pressure 152/69 H Pulse Oximetry 98 93 L 09/07/18 07:08 09/07/18 08:00 Temperature 97.9 F Pulse Rate 85 Respiratory Rate 16 18 Blood Pressure 167/73 H Pulse Oximetry 99 Intake & Output 09/06/18 09/07/18 09/07/18 18:59 06:59 18:59 Intake Total 3110 / 3110 769 / 769 Output Total 575 / 575 Balance 2535 / 2535 769 / 769 Weight 65.771 kg 65.7 kg Intake: IV 3110 / 3110 769 / 769 NS Inj 1,000 ML @ 100 mls/hr IV 460 / 460 769 / 769 .CONT .Q10H JOHNNY Rx#:[id number] Levaquin 750 mg Premix Inj 150 150 / 150 ML @ 100 mls/hr IV.SIG ONCE ONE Rx#:[id number] NS Inj 1,000 ML @ Wide Open IV. 1999 / 1999 SIG BOLUS JOHNNY Rx#:[id number] NS Inj 500 ML @ Wide Open IV. 500 / 500 SIG BOLUS JOHNNY Rx#:[id number] Output: Urine 25 / 25 Urine Amount (Catheter) 550 / 550 Indwelling Urethral Catheter 550 / 550 Other: # Incontinent Bowel Movements 1 Weight On Admission 65.771 kg Narrative: GENERAL: Alert, NAD. SKIN: Warm and dry. HEAD: Normocephalic. EYES: No scleral icterus. No injection or drainage. NECK: Supple, trachea midline. No JVD or lymphadenopathy. CARDIOVASCULAR: Regular rate and rhythm without murmurs, gallops, or rubs. RESPIRATORY: Breath sounds equal bilaterally. No accessory muscle use. GASTROINTESTINAL: Abdomen soft, non-tender, nondistended. MUSCULOSKELETAL: No cyanosis, or edema. BACK: Nontender without obvious deformity. No CVA tenderness. - Urinary Catheter Management Indwelling Urethral Catheter Cath placed during this visit: yes Reason for continuing: Hourly intake/output Insertion date: 09/06/18 Insertion time: 18:07 Results - Labs CBC & Chem 7: 09/07/18 04:46 09/07/18 04:46 Laboratory Results - last 24 hr 09/06/18 09/06/18 09/06/18 18:16 18:16 18:16 WBC 9.5 RBC 4.70 Hgb 14.7 Hct 44.1 MCV 93.8 MCH 31.3 MCHC 33.4 RDW 16.1 Plt Count 185 MPV 10.1 Neut % (Auto) 74.9 H Lymph % (Auto) 16.6 [place] % (Auto) 8.3 H Eos % (Auto) 0.0 Baso % (Auto) 0.2 Neut # (Auto) 7.1 Lymph # (Auto) 1.6 [place] # (Auto) 0.8 Eos # (Auto) 0.0 Baso # (Auto) 0.0 WBC Differential . Differential Comment Auto diff final PT 11.1 INR 1.1 APTT 25.8 Sodium 141 Potassium 4.6 Chloride 102 Carbon Dioxide 27.5 Anion Gap 12 BUN 13 Creatinine 1.08 H Estimated GFR 61 L POC Glucose Random Glucose 181 H Lactic Acid Calcium 9.3 Magnesium 1.9 Total Bilirubin 0.4 AST 103 H ALT 33 Alkaline Phosphatase 94 Total Creatine Kinase 3451 H CK-MB (CK-2) 18.6 H CK-MB (CK-2) % 0.5 Troponin I Less than 0.02 L Total Protein 7.6 Albumin 3.0 L TSH 2.130 Urine Color Urine Clarity Urine pH Ur Specific [place] Urine Protein Urine Glucose (UA) Urine Ketones Urine Occult Blood Urine Nitrate Urine Bilirubin Urine Urobilinogen Ur Leukocyte Esterase Urine RBC Urine WBC Ur Squamous Epith Cells Urine Bacteria Hyaline Casts Urine Mucus Urine Yeast Micro UA Comment Ur Microscopic Review Urine Culture Comments 09/06/18 09/06/18 09/06/18 18:16 18:16 21:50 WBC RBC Hgb Hct MCV MCH MCHC RDW Plt Count MPV Neut % (Auto) Lymph % (Auto) [place] % (Auto) Eos % (Auto) Baso % (Auto) Neut # (Auto) Lymph # (Auto) [place] # (Auto) Eos # (Auto) Baso # (Auto) WBC Differential Differential Comment PT INR APTT Sodium Potassium Chloride Carbon Dioxide Anion Gap BUN Creatinine Estimated GFR POC Glucose 172 H Random Glucose Lactic Acid 3.1 H Calcium Magnesium Total Bilirubin AST ALT Alkaline Phosphatase Total Creatine Kinase CK-MB (CK-2) CK-MB (CK-2) % Troponin I Total Protein Albumin TSH Urine Color Sylvie Urine Clarity Hazy H Urine pH 5.0 Ur Specific [place] 1.024 Urine Protein 100 H Urine Glucose (UA) Negative Urine Ketones Trace H Urine Occult Blood Small H Urine Nitrate Negative Urine Bilirubin Negative Urine Urobilinogen 4 or greater Ur Leukocyte Esterase Negative Urine RBC 4 H Urine WBC 6 H Ur Squamous Epith Cells 5 Urine Bacteria Occasional H Hyaline Casts 9 Urine Mucus Many H Urine Yeast Few H Micro UA Comment Cath-culture ind Ur Microscopic Review Not Reportable Urine Culture Comments Cath-cult indicated 09/06/18 09/07/18 09/07/18 22:54 04:46 04:46 WBC 7.0 RBC 3.88 L Hgb 12.0 D Hct 36.8 MCV 94.7 MCH 31.0 MCHC 32.7 RDW 16.4 Plt Count 142 L MPV 10.4 Neut % (Auto) 66.2 Lymph % (Auto) 22.3 [place] % (Auto) 10.9 H Eos % (Auto) 0.4 Baso % (Auto) 0.2 Neut # (Auto) 4.7 Lymph # (Auto) 1.6 [place] # (Auto) 0.8 Eos # (Auto) 0.0 Baso # (Auto) 0.0 WBC Differential . Differential Comment Auto diff final PT INR APTT Sodium 144 Potassium 3.8 D Chloride 110 H D Carbon Dioxide 23.7 Anion Gap 10 BUN 9 Creatinine 0.58 Estimated GFR Greater than 89 POC Glucose Random Glucose 128 H Lactic Acid 3.8 H Calcium 8.0 L D Magnesium Total Bilirubin 0.4 AST 75 H ALT 25 Alkaline Phosphatase 70 Total Creatine Kinase 2282 H CK-MB (CK-2) 8.1 H CK-MB (CK-2) % 0.4 Troponin I Total Protein 5.9 L D Albumin 2.2 L D TSH Urine Color Urine Clarity Urine pH Ur Specific [place] Urine Protein Urine Glucose (UA) Urine Ketones Urine Occult Blood Urine Nitrate Urine Bilirubin Urine Urobilinogen Ur Leukocyte Esterase Urine RBC Urine WBC Ur Squamous Epith Cells Urine Bacteria Hyaline Casts Urine Mucus Urine Yeast Micro UA Comment Ur Microscopic Review Urine Culture Comments 09/07/18 08:14 WBC RBC Hgb Hct MCV MCH MCHC RDW Plt Count MPV Neut % (Auto) Lymph % (Auto) [place] % (Auto) Eos % (Auto) Baso % (Auto) Neut # (Auto) Lymph # (Auto) [place] # (Auto) Eos # (Auto) Baso # (Auto) WBC Differential Differential Comment PT INR APTT Sodium Potassium Chloride Carbon Dioxide Anion Gap BUN Creatinine Estimated GFR POC Glucose 134 H Random Glucose Lactic Acid Calcium Magnesium Total Bilirubin AST ALT Alkaline Phosphatase Total Creatine Kinase CK-MB (CK-2) CK-MB (CK-2) % Troponin I Total Protein Albumin TSH Urine Color Urine Clarity Urine pH Ur Specific [place] Urine Protein Urine Glucose (UA) Urine Ketones Urine Occult Blood Urine Nitrate Urine Bilirubin Urine Urobilinogen Ur Leukocyte Esterase Urine RBC Urine WBC Ur Squamous Epith Cells Urine Bacteria Hyaline Casts Urine Mucus Urine Yeast Micro UA Comment Ur Microscopic Review Urine Culture Comments - Imaging Impressions Chest X-Ray 09/06/18 17:59 CONCLUSION: Minimal right basilar airspace disease. No effusion. Head CT 09/06/18 17:59 CONCLUSION: 1. No acute intracranial abnormalities. Stable remote lacunar infarct right basal ganglia. . Assessment and Plan - Assessment (1) Encephalopathy Code(s): G93.40 - Encephalopathy, unspecified Status: Acute (2) UTI (urinary tract infection) Code(s): N39.0 - Urinary tract infection, site not specified Status: Acute (3) DM (diabetes mellitus) Code(s): E11.9 - Type 2 diabetes mellitus without complications Status: Acute (4) Rhabdomyolysis Code(s): M62.82 - Rhabdomyolysis Status: Acute (5) Lactic acidosis Code(s): E87.2 - Acidosis Status: Acute - Plan This is a 73 year old female w/ a PMH of Anxiety, Dementia, DM, HTN and Hypothyroidism who was brought to the ER by EMS due to AMS. On arrival, BP 150/ 56, HR 94, O2 sat 97% on 2L NC, Temp 101.1. CBC unremarkable. INR normal. Lactic Acid 3.1. CPK 3451. Trop negative. U/a positive for UTI. CXR w/ no acute findings. CT Head w/ no acute findings, remote lacunar infarct right basal ganglia. Acute encephalopathy -CT head, MRI brain unremarkable for any acute findings. -Urine culture negative so far. -Possibly progression of dementia Suspected UTI - Urine cx negative. Will d/c abx. Mild rhabdomyolysis -CPK trending down to 2282 today. No evidence of any EVIN. Diabetes mellitus -Patient is on metformin at home. We will continue sliding scale insulin here. Full code. SCDs. Discharge plan: Likely discharge tomorrow 09/08/2018. (4) Rhabdomyolysis Qualifiers: Rhabdomyolysis type: non-traumatic Qualified Code(s): M62.82 - Rhabdomyolysis
--- NOTE | 2018-09-07 11:46 | MR ---
EXAM DATE: 09/07/2018 11:13 AM EDT AGE/SEX: 73 years / Female INDICATIONS: Altered mental status. CLINICAL DATA: This is the patient's initial encounter. Patient reports that signs and symptoms have been present for 2 days and indicates a pain score of 0/10. MEDICAL/SURGICAL HISTORY: Hypertension. Diabetes mellitus type II. Gastroesophageal reflux di sease. Hysterectomy. Bronchoscopy. COMPARISON: [facility] [place] W & W/O CONTRAST, 07/25/2018. . TECHNIQUE: Multiplanar, multisequence examination of the brain was performed without and with 7 ml Ga davist (gadobutrol) contrast as a single exam dose. FINDINGS: No intracranial mass or midline shift. Mild chronic white matter ischemic changes. Exam degraded by sarah barahona. No recent infarct. Remote lacunar infarct right basal ganglia. CONCLUSION: 1. No acute findings. Remote lacunar infarct right basal ganglia. Chronic white matter ischemic jones ges. Electronically signed by: Gaudencio Hood MD 09/07/2018 11:45 AM EDT
[2018-09-07] MEDS ORDERED: Gadobutrol PF 7.5 MMOL/7.5 ML Vial (for RAD) IV.SIG ONE (11:56)
--- NOTE | 2018-09-07 17:21 | P.PNWCN ---
Wound Care Nurse Consult Description: Received wound management consult of intragluteal cleft from Doctor Bentley. Communicated with: ELEANOR espana, Jeanette espana and Doctor Ananya Avery Recommendation: 1.Please cleanse buttock and gluteal cleft areas gently with Remedy Barrier wipes. Cleanse wound to gluteal cleft with normal saline and pat dry. Apply Calazime skin protectant paste to intragluteal cleft covering small partial thickness wound BID and PRN. Leave buttock and gluteal cleft areas open to air. 2.Turn patient every 2 hours and PRN for comfort and offloading of pressure from claudia prominences. 3. Place patient on low airloss bed. Wound/Pressure Injury - Patient Status Premedicated for Pain Prior to Dressing Change: No - Wound Midline Gluteal Cleft Wound Assessment: Ongoing Wound Type: Traumatic Wound (moisture and mechanical force) Is This a Chronic Wound: No Requested from Provider a Wound Care Consult: Yes (Wound care saw patient today) Length (cm): 0.3 (~0.3cm) Width (cm): 0.5 (~0.5cm) Depth (cm): 0.1 (~<0.1cm) Wound Bed Appearance: Lipan Wound Bed Appearance: 100% pink tissue with macerated periwound Drainage Amount: None Drainage Odor: No Odor Dressing Status: Open to Air Cleansing Solution: Saline Topical: Calazime skin protectant paste Wound Margin Description: jagged uneven - Additional Information Patient seen for wound management of intragluteal cleft wound. Patient turned with the assistance of ELEANOR espana and jingle writer toward the L side. Gluteal cleft wound is revealed as a small partial thickness wound that appears moisture and mechanical force related. Wound is small, full measurements and description noted above. Patient is bed bound, a total assist with bed mobilty, and her nutritional status is poor. She has very prominent coccyx and sacral claudia prominences and is incontinent. She is at every high risk for further skin breakdown.Woudn was cleansed with normal saline and patted dry. Calazime skin protectant paste was applied covering wound.
[2018-09-08] MEDS: Sod Chloride 0.9% Inj 1,000 ML IV.CONT SCH (01:08)
--- NOTE | 2018-09-08 08:07 | P.PN ---
Subjective Interval history: Follow-up for acute encephalopathy, possible urinary tract infection. Patient is more alert and talking more. She does remain somewhat confused. She follows commands appropriately. Remains afebrile. Physical Exam Vital signs: Vital Signs 09/07/18 10:32 09/07/18 11:48 09/07/18 16:00 Temperature 97.8 F Pulse Rate 85 81 Respiratory Rate 17 18 Blood Pressure 176/75 H 160/71 H Pulse Oximetry 99 99 95 09/07/18 20:00 09/07/18 22:31 09/08/18 00:00 Temperature 97.6 F 97.5 F L Pulse Rate 86 85 83 Respiratory Rate 18 18 Blood Pressure 188/76 H 135/82 Pulse Oximetry 96 95 09/08/18 00:26 09/08/18 04:00 09/08/18 07:48 Temperature 97.8 F Pulse Rate 76 86 87 Respiratory Rate 18 Blood Pressure 186/82 H Pulse Oximetry 98 Intake & Output 09/07/18 09/08/18 09/08/18 18:59 06:59 18:59 Intake Total 1332 / 1332 662 / 662 Output Total 1500 / 1500 275 / 275 Balance -168 / -168 387 / 387 Weight 65.5 kg Intake: IV 1257 / 1257 662 / 662 NS Inj 1,000 ML @ 100 mls/hr IV 1257 / 1257 512 / 512 .CONT .Q10H JOHNNY Rx#:[id number] Levaquin 750 mg Premix Inj 150 150 / 150 ML @ 100 mls/hr IV.SIG Q24H JOHNNY Rx#:[id number] Oral 75 / 75 Output: Urine 300 / 300 275 / 275 Urine Amount (Catheter) 1200 / 1200 Indwelling Urethral Catheter 1200 / 1200 Other: # Voids 2 # Incontinent Voids 5 Date of Last Bowel Movement 09/06/18 Narrative: GENERAL: Alert, NAD. SKIN: Warm and dry. HEAD: Normocephalic. EYES: No scleral icterus. No injection or drainage. NECK: Supple, trachea midline. No JVD or lymphadenopathy. CARDIOVASCULAR: Regular rate and rhythm without murmurs, gallops, or rubs. RESPIRATORY: Breath sounds equal bilaterally. No accessory muscle use. GASTROINTESTINAL: Abdomen soft, non-tender, nondistended. MUSCULOSKELETAL: No cyanosis, or edema. BACK: Nontender without obvious deformity. No CVA tenderness. - Urinary Catheter Management Indwelling Urethral Catheter Cath placed during this visit: yes, but has since been removed by the nurse Reason for continuing: Hourly intake/output Insertion date: 09/06/18 Insertion time: 18:07 Removal date: 09/07/18 Removal time: 14:24 Results - Labs CBC & Chem 7: 09/07/18 04:46 09/07/18 04:46 Laboratory Results - last 24 hr 09/07/18 09/07/18 09/07/18 08:14 11:50 16:00 POC Glucose 134 H 131 H 127 H 09/07/18 19:21 POC Glucose 109 Microbiology 09/06/18 18:16 Catheterized Urine Urine Culture - Preliminary No growth. 09/06/18 20:15 Blood - Peripheral Aerobic Blood Culture - Preliminary No growth in 1 day 09/06/18 20:15 Blood - Peripheral Anaerobic Blood Culture - Preliminary No growth in 1 day 09/06/18 20:05 Blood - Peripheral Aerobic Blood Culture - Preliminary No growth in 1 day 09/06/18 20:05 Blood - Peripheral Anaerobic Blood Culture - Preliminary No growth in 1 day - Imaging Impressions Head MRI 09/07/18 07:08 CONCLUSION: 1. No acute findings. Remote lacunar infarct right basal ganglia. Chronic white matter ischemic changes. Assessment and Plan - Assessment (1) Encephalopathy Code(s): G93.40 - Encephalopathy, unspecified Status: Acute (2) UTI (urinary tract infection) Code(s): N39.0 - Urinary tract infection, site not specified Status: Acute (3) DM (diabetes mellitus) Code(s): E11.9 - Type 2 diabetes mellitus without complications Status: Acute (4) Rhabdomyolysis Code(s): M62.82 - Rhabdomyolysis Status: Acute (5) Lactic acidosis Code(s): E87.2 - Acidosis Status: Acute - Plan This is a 73 year old female w/ a PMH of Anxiety, Dementia, DM, HTN and Hypothyroidism who was brought to the ER by EMS due to AMS. On arrival, BP 150/ 56, HR 94, O2 sat 97% on 2L NC, Temp 101.1. CBC unremarkable. INR normal. Lactic Acid 3.1. CPK 3451. Trop negative. U/a positive for UTI. CXR w/ no acute findings. CT Head w/ no acute findings, remote lacunar infarct right basal ganglia. Acute encephalopathy -CT head, MRI brain unremarkable for any acute findings. -Urine culture negative so far. -Possibly progression of dementia Suspected UTI - Urine cx negative. Will d/c abx. CXR also showed mild right basilar airspace disease. However, there is no leukocytosis, no cough, fever. Mild rhabdomyolysis -CPK trending down to 2282 yesterday. No evidence of any EVIN. We can d/c fluid. Diabetes mellitus -Patient is on metformin at home. We will continue sliding scale insulin here. Full code. SCDs. Discharge plan: Pending SNF placement, patient can be discharged. (4) Rhabdomyolysis Qualifiers: Rhabdomyolysis type: non-traumatic Qualified Code(s): M62.82 - Rhabdomyolysis
[2018-09-08] MEDS: Insulin NovoLOG Aspart Correctional Sugar Inj SQ SCH ×2 (08:15→12:04)
[2018-09-08] MEDS: Senna/Docusate Sodium 8.6/50 MG Tablet PO SCH (08:32)
--- NOTE | 2018-09-08 10:16 | P.DCO ---
- Physical Therapy Order: Evaluate and treat, Improve ambulation, Strength and gait training - Home Health Nursing Order: Medical education, Signs/symptoms of disease process, Diabetic education , Medication education-adverse effect, Wound care and dressing changes, Nursing assessment with vital signs - Case Management Consult No - Certification I have seen patient Christa Goyal on 09/08/18. My clinical findings support the need for the requested home health care services because: Limited mobility due to disease progression, Patient has SOB, Deconditioned with increased weakness, Medication compliance is questionable, Limited ability to care for self, Need for psychosocial assistance, High risk of falls, Infection with risk of complications I certify that my clinical findings support that this patient is homebound because: Unsteady gait/balance, Unsafe to leave home unassisted, Need for psychosocial assistance, Non-ambulatory: confined to bed or chair, Unable to use public transportation
[2018-09-08 13:30] VITALS: BP 150/59; PULSE 92; RESP 14; TEMP 98.1; O2SAT 97
--- NOTE | 2018-09-10 20:56 | ECG ---
Date Performed: 09/06/2018 Time Performed: 17:53:25 PTAGE: 73 years EKG: Sinus rhythm ST DEVIATION AND MODERATE T-WAVE ABNORMALITY, CONSIDER ANTEROLATERAL ISCHEMIA When compared to previ ous tracing, T wave inversion in the Anterior precordial leads is more prominent. ABNORMAL ECG PREVIOUS TRACING : 08/01/2018 12.16 DOCTOR: Renaldo Dia Interpretating Date/Time 09/10/2018 20:54:04
== END 2018-09-08 17:09 | disposition home health service (06) ==
LOC: NEPE 17:50 → NEDA 19:42 → N06 21:12
PROVIDERS: ADMIT Hospitalist; ATTEND Hospitalist

== ENCOUNTER 2018-09-10 22:49 | Observation (INO) ==
[2018-09-11 00:34] LABS: ABG Base Excess 3.7 mmol/L (-2-2); ABG PCO2 42 mmHg (38-42); ABG PO2 56 mmHg (61-120)
--- NOTE | 2018-09-11 01:00 | ED ---
HPI General Chief complaint: Altered Mental Status Stated complaint: Poss AMS Time Seen by Provider: 09/11/18 00:02 Source: RN notes reviewed and old records reviewed Mode of arrival: EMS Limitations: altered mental status History of Present Illness HPI narrative: 73yF brought in by EMS for altered mental status. The patient was recently admitted from 09/06-09/08/18 for similar symptoms, found to have rhabdomyolysis and suspected UTI, discharged home with visiting nurse services. As per triage note, the patient was nonverbal and not eating or voiding today. The patient is nonverbal and unable to provide any contribution to HPI; there are no family members present with her. Related Data Previous Rx's Medication Instructions Recorded acetaminophen 650 mg PO Q4H PRN #100 tab 08/15/18 amlodipine [Norvasc] 10 mg PO DAILY #30 tab 08/15/18 aspirin 81 mg PO DAILY #30 tab 08/15/18 budesonide-formoterol [Symbicort] 2 puff INH BID #1 inh 08/15/18 clonidine [[id number]-UDX-4] 1 patch TRANSDERMAL Q7D #4 ea 08/15/18 enalapril maleate 10 mg PO DAILY #30 tab 08/15/18 guaifenesin [Mucinex] 600 mg PO BID #120 tab 08/15/18 ipratropium-albuterol 1 amp NEB Q6HR WHILE AWAKE NEB 08/15/18 #120 amp memantine [Namenda] 5 mg PO DAILY #30 tab 08/15/18 metformin [Glucophage] 1,000 mg PO BID #60 tab 08/15/18 montelukast [Singulair] 10 mg PO QPM #30 tab 08/15/18 pantoprazole [Protonix] 20 mg PO DAILY #30 tab 08/15/18 quetiapine 25 mg PO HS #30 tab 08/15/18 sennosides-docusate sodium [Senna 1 tab PO BID #60 tab 08/15/18 Plus] valproic acid (as sodium salt) 250 mg PO BID 30 Days #300 ml 08/15/18 alprazolam [Xanax] 0.25 mg PO Q6H PRN #30 tab 08/16/18 nicotine 1 patch TRANSDERMAL DAILY #30 ea 08/16/18 tramadol [Ultram] 50 mg PO Q8H PRN #21 tab 08/16/18 Allergies Allergy/AdvReac Type Severity Reaction Status Date / Time cephalexin Allergy Severe throat Verified 09/10/18 23:24 closes Review of Systems ROS Unobtainable ROS Unobtainable: unobtainable due to mental status [facility] Medical History Medical History Anxiety (Acute) Asthma (Acute) Asthma (Acute) Chronic pain (Acute) Degenerative disc disease (Acute) Diabetes mellitus (Acute) GERD (gastroesophageal reflux disease) (Acute) Hypertension (Acute) Hypothyroidism (Acute) Surgical History Surgical History H/O removal of cyst (Acute) H/O: hysterectomy (Acute) History of bronchoscopy (Acute) Family History Family History Other Diabetes mellitus Social History Social History Substance History: Unable to Obtain Second Hand Smoke Exposure: No Smoking Status: Cognitive impairment Tobacco Type: Cigarettes How Often Do You Have a Drink Containing Alcohol: Unable to Obtain Hx Recent Travel: No Recent Travel in [place] within the Last 8 Weeks: No Recent Out of Country Travel within the Last 8 Weeks: No Immunization History Tetanus Immunization: Unable to Assess Exam Const General: frail appearing Limitations: altered mental status [facility] Head: normocephalic and atraumatic Eyes General: appearance normal, both eyes and all related structures Chest Chest: normal inspection of the chest Resp Effort & Inspection: normal respiratory effort Auscultation: clear to auscultation bilaterally Cardio Rate: regular rate Rhythm: regular rhythm GI Inspection: non-distended Palpation: soft and nontender Skin General: no rashes or lesions noted Neuro Other: Makes good eye contact, non-verbal, tearful, does not answer any questions or follow any commands, appears confused Course Initial Documented Vital Signs Temperature 98.2 F 09/10/18 23:24 Pulse Rate 86 09/10/18 23:24 Respiratory Rate 18 09/10/18 23:24 Blood Pressure 162/73 H 09/10/18 23:24 Pulse Oximetry 95 09/10/18 23:24 Last Documented Vital Signs Temperature 98.2 F 09/10/18 23:24 Pulse Rate 72 09/11/18 01:00 Respiratory Rate 16 09/11/18 01:00 Blood Pressure 151/72 H 09/11/18 01:00 Pulse Oximetry 100 09/11/18 01:00 Medical Decision Making [facility] Narrative Medical decision making narrative: Assessment: 73yF presenting with altered mental status Plan: EKG and monitor [facility] CXR Labs UA [facility] Addendum: No significant abnormalities noted on patient's extensive workup. I attempted to contact her daughter (Mely Davidson [phone]) several times with no answer and voicemail is full. The patient remains non-verbal. Case discussed with Dr. Ruiz of [facility]. Medical Screen Exam Complete: Yes Emergency Medical Condition: Yes Differential Diagnosis Differential Diagnosis: Differential diagnosis includes, but is not limited to: UTI, pneumonia, rhabdo, hyperammonemia, ICH, CVA, electrolyte abnormality, uremia Medical Records Medical records reviewed: Yes I reviewed the patient's medical records. Lab Data Lab results reviewed: Yes I reviewed the patient's lab results. Result diagrams: 09/11/18 00:57 09/11/18 01:45 Lab Results 09/11/18 09/11/18 09/11/18 Range/Units 00:19 00:57 00:57 WBC 7.7 (4.0-11.0) th/mm3 RBC 4.51 (4.00-5.30) mil/mm3 Hgb 14.9 (11.6-15.3) gm/dL Hct 41.9 (35.0-46.0) % MCV 92.8 (80.0-100.0) fL MCH 33.1 (27.0-34.0) pg MCHC 35.6 (32.0-36.0) % RDW 16.3 (11.6-17.2) % Plt Count 198 D (150-450) th/mm3 MPV 10.1 (7.0-11.0) fL Neut % (Auto) 65.6 (16.0-70.0) % Lymph % (Auto) 25.4 (9.0-44.0) % Moody % (Auto) 7.6 (0.0-8.0) % Eos % (Auto) 0.8 (0.0-4.0) % Baso % (Auto) 0.6 (0.0-2.0) % Neut # (Auto) 5.0 (1.8-7.7) th/mm3 Lymph # (Auto) 1.9 (1.0-4.8) th/mm3 Moody # (Auto) 0.6 (0.0-0.9) th/mm3 Eos # (Auto) 0.1 (0.0-0.4) th/mm3 Baso # (Auto) 0.0 (0.0-0.2) th/mm3 WBC Differential . Differential Comment Auto diff final Puncture Site Left radial Patient Temperature 98.6 O2 Saturation 86 L* (90-100) % ABG pH 7.43 H (7.380-7.420) ABG pCO2 42 (38-42) mmHg ABG pO2 56 L* (61-120) mmHg ABG HCO3 28 H (22-26) mmol/L ABG O2 Content 16.8 (12.0-20.0) Vol % ABG Base Excess 3.7 H (-2-2) mmol/L ABG Methemoglobin 0.6 (0-2) % Dylan Test Present Hemoglobin 14.0 (12.0-16.0) G/DL Carboxyhemoglobin 1.6 (0-4) % Inspired O2 21 % Critical Value Yes Sodium (136-145) meq/L Potassium (3.5-5.1) meq/L Chloride (98-107) meq/L Carbon Dioxide (21.0-32.0) meq/L Anion Gap (5-15) meq/L BUN (7-18) mg/dL Creatinine (0.50-1.00) mg/dL Estimated GFR (>89) mL/min Random Glucose (74-106) mg/dL Calcium (8.5-10.1) mg/dL Magnesium (1.5-2.5) mg/dL Total Bilirubin (0.2-1.0) mg/dL AST (15-37) U/L ALT (10-53) U/L Alkaline Phosphatase (45-117) U/L Ammonia (11-32) mcmol/L Total Creatine Kinase (26-192) U/L CK-MB (CK-2) (0.5-3.6) ng/mL CK-MB (CK-2) % (0.0-4.0) % Troponin I (0.02-0.05) ng/mL Total Protein (6.4-8.2) g/dL Albumin (3.4-5.0) g/dL TSH (0.358-3.740) uIU/mL Urine Color Sylvie (Yellw/Straw) Urine Clarity Hazy H (Clear) Urine pH 5.0 (5.0-8.5) Ur Specific Franklin 1.024 (1.002-1.035) Urine Protein 30 H (Neg-Trace) mg/dL Urine Glucose (UA) Negative (Negative) mg/dL Urine Ketones 20 (Negative) mg/dL Urine Occult Blood Negative (Negative) Urine Nitrate Negative (Negative) Urine Bilirubin Negative (Negative) Urine Urobilinogen 4 or greater (Less than 2) mg/dL Ur Leukocyte Esterase Negative (Negative) Urine RBC Less than 1 (0-3) /hpf Urine WBC 1 (0-5) /hpf Ur Squamous Epith Cells 10 (0-5) /hpf Hyaline Casts 19 (0-3) /lpf Urine Mucus Few H (Occasional) /lpf Urine Yeast Few H (None) /hpf Micro UA Comment Cath-culture not ind Ur Microscopic Review Not Reportable Urine Culture Comments Cath-cult not ind 09/11/18 09/11/18 Range/Units 01:45 01:45 WBC (4.0-11.0) th/mm3 RBC (4.00-5.30) mil/mm3 Hgb (11.6-15.3) gm/dL Hct (35.0-46.0) % MCV (80.0-100.0) fL MCH (27.0-34.0) pg MCHC (32.0-36.0) % RDW (11.6-17.2) % Plt Count (150-450) th/mm3 MPV (7.0-11.0) fL Neut % (Auto) (16.0-70.0) % Lymph % (Auto) (9.0-44.0) % Moody % (Auto) (0.0-8.0) % Eos % (Auto) (0.0-4.0) % Baso % (Auto) (0.0-2.0) % Neut # (Auto) (1.8-7.7) th/mm3 Lymph # (Auto) (1.0-4.8) th/mm3 Moody # (Auto) (0.0-0.9) th/mm3 Eos # (Auto) (0.0-0.4) th/mm3 Baso # (Auto) (0.0-0.2) th/mm3 WBC Differential Differential Comment Puncture Site Patient Temperature O2 Saturation (90-100) % ABG pH (7.380-7.420) ABG pCO2 (38-42) mmHg ABG pO2 (61-120) mmHg ABG HCO3 (22-26) mmol/L ABG O2 Content (12.0-20.0) Vol % ABG Base Excess (-2-2) mmol/L ABG Methemoglobin (0-2) % Dylan Test Hemoglobin (12.0-16.0) G/DL Carboxyhemoglobin (0-4) % Inspired O2 % Critical Value Sodium 142 (136-145) meq/L Potassium 4.2 (3.5-5.1) meq/L Chloride 104 (98-107) meq/L Carbon Dioxide 28.7 (21.0-32.0) meq/L Anion Gap 9 (5-15) meq/L BUN 28 H (7-18) mg/dL Creatinine 0.74 (0.50-1.00) mg/dL Estimated GFR Greater than 89 (>89) mL/min Random Glucose 161 H (74-106) mg/dL Calcium 8.7 (8.5-10.1) mg/dL Magnesium 2.3 (1.5-2.5) mg/dL Total Bilirubin 0.7 (0.2-1.0) mg/dL AST 42 H (15-37) U/L ALT 33 (10-53) U/L Alkaline Phosphatase 86 (45-117) U/L Ammonia 11 (11-32) mcmol/L Total Creatine Kinase 349 H (26-192) U/L CK-MB (CK-2) 2.0 (0.5-3.6) ng/mL CK-MB (CK-2) % 0.6 (0.0-4.0) % Troponin I Less than 0.02 L (0.02-0.05) ng/mL Total Protein 7.3 D (6.4-8.2) g/dL Albumin 2.8 L (3.4-5.0) g/dL TSH 1.460 (0.358-3.740) uIU/mL Urine Color (Yellw/Straw) Urine Clarity (Clear) Urine pH (5.0-8.5) Ur Specific Franklin (1.002-1.035) Urine Protein (Neg-Trace) mg/dL Urine Glucose (UA) (Negative) mg/dL Urine Ketones (Negative) mg/dL Urine Occult Blood (Negative) Urine Nitrate (Negative) Urine Bilirubin (Negative) Urine Urobilinogen (Less than 2) mg/dL Ur Leukocyte Esterase (Negative) Urine RBC (0-3) /hpf Urine WBC (0-5) /hpf Ur Squamous Epith Cells (0-5) /hpf Hyaline Casts (0-3) /lpf Urine Mucus (Occasional) /lpf Urine Yeast (None) /hpf Micro UA Comment Ur Microscopic Review Urine Culture Comments Imaging Data Radiologist's impression: Chest X-Ray 09/11/18 00:15 CONCLUSION: Mild right base atelectasis. Head CT 09/11/18 00:15 CONCLUSION: 1. No acute intracranial abnormality demonstrated. 2. Atrophy and chronic ischemic changes. . ECG Data Attestation: I personally reviewed and interpreted this ECG as follows: Interpretation: Rate: 84 BPM Rhythm: Sinus [place]: Normal Intervals: Normal intervals, no blocks, QTc 350 ms Q waves: aVL T waves: Upright, no inversions ST segments: No elevations or depressions Impression: Non-specific EKG, no changes as compared to EKG from 09/06/2018. Discharge Plan Discharge Disposition Patient Disposition: 30 Still Patient Discharge Condition Condition: Stable Discharge Details Diagnosis: Altered mental status Physicians Team ED Provider: Marj Arreguin Primary Care Provider: David Gee Rxs /Orders / Referrals /Forms Prescriptions: No Action quetiapine 25 mg Tablet 25 mg PO HS Qty: 30 RF: 0 acetaminophen 325 mg Tablet 650 mg PO Q4H PRN (Reason: Pain Scale 1 To 4) Qty: 100 RF: 0 sennosides-docusate sodium [Senna Plus] 8.6-50 mg Tablet 1 tab PO BID Qty: 60 RF: 0 pantoprazole [Protonix] 20 mg Tablet,Delayed Release (Dr/Ec) 20 mg PO DAILY Qty: 30 RF: 0 memantine [Namenda] 5 mg Tablet 5 mg PO DAILY Qty: 30 RF: 0 budesonide-formoterol [Symbicort] 160-4.5 mcg/actuation Hfa Aerosol Inhaler 2 puff INH BID Qty: 1 RF: 0 valproic acid (as sodium salt) 250 mg/5 mL (5 mL) Solution 250 mg PO BID 30 Days Qty: 300 RF: 0 guaifenesin [Mucinex] 600 mg Tablet Extended Release 12hr 600 mg PO BID Qty: 120 RF: 0 amlodipine [Norvasc] 10 mg Tablet 10 mg PO DAILY Qty: 30 RF: 0 metformin [Glucophage] 1,000 mg Tablet 1,000 mg PO BID Qty: 60 RF: 0 ipratropium-albuterol 0.5 mg-3 mg(2.5 mg base)/3 mL Solution For Nebulization 1 amp NEB Q6HR WHILE AWAKE NEB Qty: 120 RF: 0 enalapril maleate 10 mg Tablet 10 mg PO DAILY Qty: 30 RF: 0 clonidine [[id number]] 0.2 mg/24 hr Patch Weekly 1 patch Transdermal Q7D Qty: 4 RF: 0 aspirin 81 mg Tablet,Delayed Release (Dr/Ec) 81 mg PO DAILY Qty: 30 RF: 0 montelukast [Singulair] 10 mg Tablet 10 mg PO QPM Qty: 30 RF: 0 alprazolam [Xanax] 0.25 mg Tablet 0.25 mg PO Q6H PRN (Reason: Anxiety/agitation) Qty: 30 RF: 0 tramadol [Ultram] 50 mg Tablet 50 mg PO Q8H PRN (Reason: Pain Scale 5-10.) Qty: 21 RF: 0 nicotine 14 mg/24 hr Patch 24 Hour 1 patch Transdermal DAILY Qty: 30 RF: 0 Discharge Interventions Interventions: Vital Signs Last Done: 09/11/18 01:00 Status ED Status: Admitted Observation Patient
[2018-09-11 01:06] LABS: Baso % (Auto) 0.6 % (0.0-2.0); Eos # (Auto) 0.1 th/mm3 (0.0-0.4); Eos % (Auto) 0.8 % (0.0-4.0); Hematocrit 41.9 % (35.0-46.0); Hemoglobin 14.9 gm/dL (11.6-15.3); Lymph # (Auto) 1.9 th/mm3 (1.0-4.8); Lymph % (Auto) 25.4 % (9.0-44.0); Mean Corpuscular HGB Conc 35.6 % (32.0-36.0); Mean Corpuscular Hemoglobin 33.1 pg (27.0-34.0); Mean Corpuscular Volume 92.8 fL (80.0-100.0); Mean Platelet Volume 10.1 fL (7.0-11.0); Mono # (Auto) 0.6 th/mm3 (0.0-0.9); Mono % (Auto) 7.6 % (0.0-8.0); Neut % (Auto) 65.6 % (16.0-70.0); Platelet Count 198 th/mm3 (150-450); Red Blood Count 4.51 mil/mm3 (4.00-5.30); Red Cell Distribution Width 16.3 % (11.6-17.2); White Blood Count 7.7 th/mm3 (4.0-11.0)
--- NOTE | 2018-09-11 01:10 | XR ---
EXAM DATE: 09/11/2018 1:01 AM EDT AGE/SEX: 73 years / Female INDICATIONS: Short of breath. CLINICAL DATA: This is the patient's initial encounter. Patient reports that signs and symptoms have been present for 1 day and indicates a pain score of 0/10. MEDICAL/SURGICAL HISTORY: Asthma. Hypertension. Non-responsive. COMPARISON: [facility], CHEST 1V SINGLE AP, 09/06/2018. . FINDINGS: Mild right base atelectasis. No pneumonia seen. No pleural effusion or pneumothorax. Heart size stable, within normal limits. Tortuous thoracic aorta again noted. CONCLUSION: Mild right base atelectasis. Electronically signed by: Toro Kearney MD 09/11/2018 1:09 AM EDT
[2018-09-11 01:19] LABS: Bilirubin,Urine Negative (Negative); Clarity,Urine Hazy (Clear); Color,Urine Amber (Yellw/Straw); Glucose,Urine (UA) Negative (Negative); Hyaline Casts,Urine 19 /lpf (0-3); Leukocyte Esterase,Urine Negative (Negative); Mucus,Urine Few /lpf (Occasional); Nitrite,Urine Negative (Negative); Specific Gravity,Urine 1.024 (1.002-1.035); Squamous Epithelial Cell,Urine 10 /hpf (0-5); Urobilinogen,Urine 4 or Greater mg/dL (Less than 2)
[2018-09-11 02:23] LABS: Alanine Aminotransferase 33 U/L (10-53); Albumin 2.8 g/dL (3.4-5.0); Alkaline Phosphatase 86 U/L (45-117); Anion Gap 9 meq/L (5-15); Aspartate Aminotransferase 42 U/L (15-37); Blood Urea Nitrogen 28 mg/dL (7-18); Calcium 8.7 mg/dL (8.5-10.1); Carbon Dioxide 28.7 meq/L (21.0-32.0); Chloride 104 meq/L (98-107); Creatine Kinase 349 U/L (26-192); Glomerular Filtration Rate Greater Than 89 mL/min (>89); Glucose,Random 161 mg/dL (74-106); Magnesium 2.3 mg/dL (1.5-2.5); Potassium 4.2 meq/L (3.5-5.1); Sodium 142 meq/L (136-145); Total Protein 7.3 g/dL (6.4-8.2)
--- NOTE | 2018-09-11 02:26 | CT ---
EXAM DATE: 09/11/2018 2:08 AM EDT AGE/SEX: 73 years / Female INDICATIONS: Altered mental status. CLINICAL DATA: This is the patient's initial encounter. Patient reports that signs and symptoms have been present for 1 day and indicates a pain score of 0/10. MEDICAL/SURGICAL HISTORY: Gastroesophageal reflux disease. Diabetes. Hypertension. Asthma. Hyst erectomy. RADIATION DOSE: 30.59 CTDI (mGy) COMPARISON: [facility] [place], [place] HEAD W/O CONTRAST, 09/06/2018. . TECHNIQUE: CT of the head without contrast. Using automated exposure control and adjustment of the mA and/or kV according to patient size, radiation dose was kept as low as reasonably achievable to ob tain optimal diagnostic quality images. DICOM format image data is available electronically for revi ew and comparison. FINDINGS: Cerebrum: The ventricles are normal for age. No evidence of midline shift, mass lesion, hemorrhage or acute infarction. No extraaxial fluid collections are seen. Chronic appearing low-attenuation in the periventricular white matter. 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 Posterior Fossa: The cerebellum and brainstem are intact. The 4th ventricle is midline. The cerebe llopontine angle is unremarkable. Extracranial: The visualized portion of the orbits is intact. Skull: The calvaria is intact. No evidence of skull fracture. CONCLUSION: 1. No acute intracranial abnormality demonstrated. 2. Atrophy and chronic ischemic changes. . Electronically signed by: Toro Kearney MD 09/11/2018 2:25 AM EDT
[2018-09-11 02:37] LABS: CKMB Percent 0.6 % (0.0-4.0)
[2018-09-11] MEDS ORDERED: Bisacodyl 10 MG Supp RECTAL PRN (03:57)
[2018-09-11 05:07] LABS: Amphetamine Screen,Urine Neg (Neg); Barbiturate Screen,Urine Neg (Neg); Cannabinoid Screen,Urine Pos (Neg); Cocaine Screen,Urine Neg (Neg)
[2018-09-11 05:08] LABS: Opiate Screen,Urine Neg (Neg)
--- NOTE | 2018-09-11 07:49 | P.HP ---
History of Present Illness Service: [facility] Primary Care Physician: David Gee Chief Complaint: Altered mental status History of Present Illness: 73-year-old female with past medical history significant for HTN, DM, GERD, hypothyroidism, DDD, chronic pain, asthma, and anxiety who presents to the emergency department via EMS due to altered mental status. Of note patient was recently admitted on 09/06 for which she was treated for acute encephalopathy with possible progression of dementia, suspected UTI, and mild rhabdomyolysis. Patient was subsequently discharged home with home health services on 09/08. Patient is seen and examined resting in ER stretcher and appears to be in no acute distress. She is nonverbal but will track with her eyes. Does not follow any commands but moving all extremities. Nurse reports daughter was in overnight briefly. Call placed out to her daughter Mely at [phone]. Daughter reports that patient had been at home eating and drinking without any difficulties but states that "couple of days ago" patient stopped talking. Daughter denies any recent falls at home or changes to medications. Daughter also denies patient having any known fevers, cough, or recent illnesses at home. - Diagnosis (1) Dementia (2) Acute metabolic encephalopathy (3) Altered mental status (4) Diabetes mellitus (5) Hypertension (6) Asthma [facility] - History History Provided By: Medical Record - Medical History Medical History: Medical History (Last Updated 09/11/18 @ 08:10 by Emelina Agarwal) Dementia Anxiety Asthma Asthma Chronic pain Degenerative disc disease Diabetes mellitus GERD (gastroesophageal reflux disease) Hypertension Hypothyroidism - Surgical History Surgical History: Surgical History (Last Reviewed 09/11/18 @ 07:43 by Emelina Agarwal) H/O removal of cyst H/O: hysterectomy History of bronchoscopy - Family History Family History: Family History (Last Reviewed 09/11/18 @ 07:43 by Emelina Agarwal) Other Diabetes mellitus - Tobacco History Second Hand Smoke Exposure: No Smoking Status: Cognitive impairment Tobacco Type: Cigarettes - Alcohol History How Often Do You Have a Drink Containing Alcohol: Unable to Obtain - Substance Use History Substance History: Unable to Obtain - Travel History History of Recent Travel: No Recent Travel in the [place] Within the Last 8 Weeks: No Recent Travel Out of the Country Within the Last 8 Weeks: No - Immunization History Tetanus Immunization: Unable to Assess Medications and Allergies Active Medications: Active Medications Al Hydroxide/Mg Hydroxide (Milk Of Kim Liq) 30 ml PO Q12H PRN PRN Reason: Mild Constipation Bisacodyl (Dulcolax Supp) 10 mg RECTAL DAILY PRN PRN Reason: SEVERE CONSITIPATION Lactulose (Lactulose Liq) 30 ml PO DAILY PRN PRN Reason: SEVERE CONSITIPATION Sennosides (Senokot) 17.2 mg PO Q12H PRN PRN Reason: Moderate Constipation Sodium Chloride (Ns Flush) 2 ml IV.FLUSH PRN PRN PRN Reason: FLUSH AFTER USING IV ACCESS Allergies Allergy/AdvReac Type Severity Reaction Status Date / Time cephalexin Allergy Severe throat Verified 09/10/18 23:24 closes Exam Vital signs: Vital Signs 09/10/18 23:24 09/10/18 23:29 09/11/18 00:40 Temperature 98.2 F Pulse Rate 86 Respiratory Rate 18 18 Blood Pressure 162/73 H Pulse Oximetry 95 96 09/11/18 01:00 09/11/18 04:31 09/11/18 07:32 Temperature Pulse Rate 72 77 74 Respiratory Rate 16 16 17 Blood Pressure 151/72 H 135/64 158/71 H Pulse Oximetry 100 100 97 Intake & Output 09/10/18 09/11/18 09/11/18 18:59 06:59 18:59 Weight 58.967 kg Narrative: GENERAL: Well-developed thin -Serbian female in no acute distress. SKIN: Warm and dry. HEAD: Atraumatic. Normocephalic. EYES: Pupils equal and round. No scleral icterus. No injection or drainage. ENT: No nasal bleeding or discharge. Mucous pink and dry. NECK: Trachea midline. No JVD. CARDIOVASCULAR: Regular rate and rhythm. RESPIRATORY: No accessory muscle use. Clear to auscultation. Breath sounds equal bilaterally. GASTROINTESTINAL: Abdomen soft, non-tender, nondistended. + Bowel sounds MUSCULOSKELETAL: Extremities without clubbing, cyanosis, or edema. No obvious deformities. NEUROLOGICAL: Awake, alert, nonverbal, not following commands. No obvious cranial nerve deficits. Moving all extremities spontaneously. PSYCHIATRIC: Poor insight and judgment. Results - Labs CBC & Chem 7: 09/11/18 00:57 09/11/18 01:45 Labs: Laboratory Results - last 24 hr 09/11/18 09/11/18 09/11/18 00:19 00:57 00:57 WBC 7.7 RBC 4.51 Hgb 14.9 Hct 41.9 MCV 92.8 MCH 33.1 MCHC 35.6 RDW 16.3 Plt Count 198 D MPV 10.1 Neut % (Auto) 65.6 Lymph % (Auto) 25.4 [place] % (Auto) 7.6 Eos % (Auto) 0.8 Baso % (Auto) 0.6 Neut # (Auto) 5.0 Lymph # (Auto) 1.9 [place] # (Auto) 0.6 Eos # (Auto) 0.1 Baso # (Auto) 0.0 WBC Differential . Differential Comment Auto diff final Puncture Site Left radial Patient Temperature 98.6 O2 Saturation 86 L* ABG pH 7.43 H ABG pCO2 42 ABG pO2 56 L* ABG HCO3 28 H ABG O2 Content 16.8 ABG Base Excess 3.7 H ABG Methemoglobin 0.6 Dylan Test Present Hemoglobin 14.0 Carboxyhemoglobin 1.6 Inspired O2 21 Critical Value Yes Sodium Potassium Chloride Carbon Dioxide Anion Gap BUN Creatinine Estimated GFR Random Glucose Calcium Magnesium Total Bilirubin AST ALT Alkaline Phosphatase Ammonia Total Creatine Kinase CK-MB (CK-2) CK-MB (CK-2) % Troponin I Total Protein Albumin TSH Urine Color Sylvie Urine Clarity Hazy H Urine pH 5.0 Ur Specific [place] 1.024 Urine Protein 30 H Urine Glucose (UA) Negative Urine Ketones 20 Urine Occult Blood Negative Urine Nitrate Negative Urine Bilirubin Negative Urine Urobilinogen 4 or greater Ur Leukocyte Esterase Negative Urine RBC Less than 1 Urine WBC 1 Ur Squamous Epith Cells 10 Hyaline Casts 19 Urine Mucus Few H Urine Yeast Few H Micro UA Comment Cath-culture not ind Ur Microscopic Review Not Reportable Urine Culture Comments Cath-cult not ind Urine Opiates Screen Ur Barbiturates Screen Ur Amphetamines Screen U Benzodiazepines Scrn Urine Cocaine Screen U Cannabinoids Screen 09/11/18 09/11/18 09/11/18 00:57 01:45 01:45 WBC RBC Hgb Hct MCV MCH MCHC RDW Plt Count MPV Neut % (Auto) Lymph % (Auto) [place] % (Auto) Eos % (Auto) Baso % (Auto) Neut # (Auto) Lymph # (Auto) [place] # (Auto) Eos # (Auto) Baso # (Auto) WBC Differential Differential Comment Puncture Site Patient Temperature O2 Saturation ABG pH ABG pCO2 ABG pO2 ABG HCO3 ABG O2 Content ABG Base Excess ABG Methemoglobin Dylan Test Hemoglobin Carboxyhemoglobin Inspired O2 Critical Value Sodium 142 Potassium 4.2 Chloride 104 Carbon Dioxide 28.7 Anion Gap 9 BUN 28 H Creatinine 0.74 Estimated GFR Greater than 89 Random Glucose 161 H Calcium 8.7 Magnesium 2.3 Total Bilirubin 0.7 AST 42 H ALT 33 Alkaline Phosphatase 86 Ammonia 11 Total Creatine Kinase 349 H CK-MB (CK-2) 2.0 CK-MB (CK-2) % 0.6 Troponin I Less than 0.02 L Total Protein 7.3 D Albumin 2.8 L TSH 1.460 Urine Color Urine Clarity Urine pH Ur Specific [place] Urine Protein Urine Glucose (UA) Urine Ketones Urine Occult Blood Urine Nitrate Urine Bilirubin Urine Urobilinogen Ur Leukocyte Esterase Urine RBC Urine WBC Ur Squamous Epith Cells Hyaline Casts Urine Mucus Urine Yeast Micro UA Comment Ur Microscopic Review Urine Culture Comments Urine Opiates Screen Neg Ur Barbiturates Screen Neg Ur Amphetamines Screen Neg U Benzodiazepines Scrn Pos H Urine Cocaine Screen Neg U Cannabinoids Screen Pos H - Imaging Impressions Chest X-Ray 09/11/18 00:15 CONCLUSION: Mild right base atelectasis. Head CT 09/11/18 00:15 CONCLUSION: 1. No acute intracranial abnormality demonstrated. 2. Atrophy and chronic ischemic changes. . Caprini VTE Risk Assessment Caprini VTE Risk Assessment: Moderate/High Risk (score >= 2) Caprini Risk Assessment Model: Point Value = 1 Point Value = 2 Point Value = 3 Point Value = 5 Age 41-60 Minor surgery BMI > 25 kg/m2 Swollen legs Varicose veins or History of unexplained or recurrent spontaneous Oral contraceptives or hormone replacement Sepsis (< 1 month) Serious lung disease, including pneumonia (< 1 month) Abnormal pulmonary function Acute myocardial infarction Congestive heart failure (< 1 month) History of inflammatory bowel disease Medical patient at bed rest Age 61-74 Arthroscopic surgery Major open surgery (> 45 min) Laparoscopic surgery (> 45 min) Malignancy Confined to bed (> 72 hours) Immobilizing plaster cast Central venous access Age >= 75 History of VTE Family history of VTE Factor V Leiden Prothrombin [id number] Lupus anticoagulant Anticardiolipin antibodies Elevated serum homocysteine Heparin-induced thrombocytopenia Other congenital or acquired thrombophilia Stroke (< 1 month) Elective arthroplasty Hip, pelvis, or leg fracture Acute spinal cord injury (< 1 month) Prophylaxis Regimen: Total Risk Factor Score Risk Level Prophylaxis Regimen 0-1 Low Early ambulation 2 Moderate Order ONE of the following: *Sequential Compression Device (SCD) *Heparin 5000 units SQ BID 3-4 Higher Order ONE of the following medications: *Heparin 5000 units SQ TID *Enoxaparin/Lovenox 40 mg SQ daily (WT < 150 kg, CrCl > 30 mL/min) *Enoxaparin/Lovenox 30 mg SQ daily (WT < 150 kg, CrCl > 10-29 mL/min) *Enoxaparin/Lovenox 30 mg SQ BID (WT < 150 kg, CrCl > 30 mL/min) AND/OR *Sequential Compression Device (SCD) 5 or more Highest Order ONE of the following medications: *Heparin 5000 units SQ TID (Preferred with Epidurals) *Enoxaparin/Lovenox 40 mg SQ daily (WT < 150 kg, CrCl > 30 mL/min) *Enoxaparin/Lovenox 30 mg SQ daily (WT < 150 kg, CrCl > 10-29 mL/min) *Enoxaparin/Lovenox 30 mg SQ BID (WT < 150 kg, CrCl > 30 mL/min) AND *Sequential Compression Device (SCD) Assessment and Plan - Assessment (1) Dementia Code(s): F03.90 - Unspecified dementia without behavioral disturbance Status: Acute (2) Acute metabolic encephalopathy Code(s): G93.41 - Metabolic encephalopathy Status: Acute (3) Altered mental status Code(s): R41.82 - Altered mental status, unspecified Status: Acute (4) Diabetes mellitus Code(s): E11.9 - Type 2 diabetes mellitus without complications Status: Chronic (5) Hypertension Code(s): I10 - Essential (primary) hypertension Status: Acute (6) Asthma Code(s): J45.909 - Unspecified asthma, uncomplicated Status: Acute - Plan 73-year-old female with past medical history significant for HTN, DM, GERD, hypothyroidism, DDD, chronic pain, asthma, and anxiety who presents to the emergency department via EMS due to altered mental status. Acute encephalopathy Hx Dementia -Possibly secondary to progression of dementia vs mild dehydration -CBC stable, CMP with mildly elevated BUN at 28, ammonia within normal limits, total CK 349, improved, mildly elevated AST, improving -Head CT with no acute intracranial abnormality, atrophy and chronic ischemic changes -Chest x-ray with mild right base atelectasis, blood gas with low PO2 at 56 and low oxygen saturation at 86%, now on nasal cannula -UA checked with no culture indicated, toxicology positive for benzodiazepines and cannabis -Patient with ongoing altered mental status, consult neurology for further recommendations, greatly appreciate assistance -Neurochecks, swallow eval, PT eval -Continue Namenda, hold off on benzodiazepines until patient is evaluated by neurology -Check valproic acid level prior to resuming Resolving rhabdomyolysis Mild dehydration -Total CK continues to improve -Continue to encourage oral hydration Diabetes mellitus Hypothyroidism Hypertension, chronic -Continue home medications -Pending swallow evaluation prior to oral medications -Heart healthy diet, Accu-Cheks with insulin sliding scale DVT prophylaxisteds/SCDs Discussed Condition With: ED nurse, daughter Marlee via phone (3) Altered mental status Qualifiers: Altered mental status type: coma (4) Diabetes mellitus Qualifiers: Diabetes mellitus type: type 2 Diabetes mellitus terminal make up operator insulin use: without terminal make up operator use Diabetes mellitus complication status: without complication Qualified Code(s): E11.9 - Type 2 diabetes mellitus without complications (5) Hypertension Qualifiers: Hypertension type: essential hypertension Qualified Code(s): I10 - Essential (primary) hypertension (6) Asthma Qualifiers: Asthma severity: unspecified severity Asthma persistence: unspecified Asthma complication type: unspecified Qualified Code(s): J45.909 - Unspecified asthma, uncomplicated
[2018-09-11] MEDS ORDERED: Dextrose 50% in Water 50 ML Vial IV.PUSH PRN (08:12)
[2018-09-11] MEDS ORDERED: Pantoprazole Sodium 20 MG DR Tablet PO SCH (09:00)
[2018-09-11] MEDS: Lansoprazole ODT 15 MG Tablet PO SCH (10:24)
[2018-09-11] MEDS: Budesonide-Formoterol 160/4.5 MCG 6 GM Inhaler INH SCH ×2 (10:24→20:02)
[2018-09-11] MEDS: amLODIPine 10 MG Tablet PO SCH (10:24)
--- NOTE | 2018-09-11 14:53 | ECG ---
Date Performed: 09/11/2018 Time Performed: 00:27:00 PTAGE: 73 years EKG: Sinus rhythm WITH SHORT ID INTERVAL NONSPECIFIC ST & T-WAVE ABNORMALITY Since the previous tracing, no significan t change noted ABNORMAL ECG PREVIOUS TRACING : 09/06/2018 17.53 DOCTOR: Delfino Palmer Interpretating Date/Time 09/11/2018 14:49:21
--- NOTE | 2018-09-11 14:58 | P.CONNEU ---
History of Present Illness Service: Neurology Primary Care Provider: David Gee Chief Complaint: Altered mental status History of Present Illness: 73-year-old female admitted for weakness mental status changes. Apparently has an underlying history of dementia cognitive impairment with aggressive tendencies and has been at [facility] seen by psychology, neuropsychology and had changes in medications. Patient is a poor historian medical chart reviewed. Previous imaging has not shown any acute lesion. Previous EEG showed mild to moderate encephalopathy. Urine drug screen positive for benzos and marijuana. CBC normal no leukocytosis. Review of Systems All other systems reviewed negative except as stated in HPI [facility] - History History Provided By: Family Member - Medical History Medical History: Medical History (Last Reviewed 09/11/18 @ 08:40 by Tawanna Mcgraw) Dementia Anxiety Asthma Asthma Chronic pain Degenerative disc disease Diabetes mellitus GERD (gastroesophageal reflux disease) Hypertension Hypothyroidism - Surgical History Surgical History: Surgical History (Last Reviewed 09/11/18 @ 08:40 by Tawanna Mcgrwa) H/O removal of cyst H/O: hysterectomy History of bronchoscopy - Family History Family History: Family History (Last Reviewed 09/11/18 @ 07:43 by Emelina Agarwal) Other Diabetes mellitus - Tobacco History Second Hand Smoke Exposure: No Smoking Status: Former smoker Tobacco Type: Cigarettes - Alcohol History How Often Do You Have a Drink Containing Alcohol: Never - Substance Use History Substance History: No History of Abuse - Travel History History of Recent Travel: No Recent Travel in the [place] Within the Last 8 Weeks: No Recent Travel Out of the Country Within the Last 8 Weeks: No - Immunization History Tetanus Immunization: Unable to Assess Medications and Allergies Active Medications: Active Medications Al Hydroxide/Mg Hydroxide (Milk Of Kim Huerta) 30 ml PO Q12H PRN PRN Reason: Mild Constipation Amlodipine Besylate (Norvasc) 10 mg PO DAILY [facility] Last Admin: 09/11/18 10:24 Dose: 10 mg Aspirin (Aspirin Chew) 81 mg PO DAILY [facility] Last Admin: 09/11/18 10:25 Dose: 81 mg Bisacodyl (Dulcolax Supp) 10 mg RECTAL DAILY PRN PRN Reason: SEVERE CONSITIPATION Budesonide/Formoterol Fumarate (Symbicort 160/4.5 Mcg Inh) 2 puff INH BID [facility] Last Admin: 09/11/18 10:24 Dose: 2 puff Dextrose (D50w Vial) 50 ml IV.PUSH UNSCH PRN PRN Reason: PER HYPOGLYCEMIA PROTOCOL Enalapril Maleate (Vasotec) 10 mg PO DAILY [facility] Last Admin: 09/11/18 10:25 Dose: 10 mg Glucagon (Glucagon Inj) 1 mg OTHER PRN PRN PRN Reason: for Hypoglycemia Protocol Insulin Aspart (Novolog Insulin Correctional Sugar Inj) 0 unit SQ ACHS JOHNNY; Protocol Lactulose (Lactulose Liq) 30 ml PO DAILY PRN PRN Reason: SEVERE CONSITIPATION Lansoprazole (Prevacid Solutab) 15 mg PO DAILY [facility] Last Admin: 09/11/18 10:24 Dose: 15 mg Memantine (Namenda) 5 mg PO DAILY [facility] Last Admin: 09/11/18 10:24 Dose: 5 mg Montelukast Sodium (Singulair) 10 mg PO HS JOHNNY Quetiapine Fumarate (Seroquel) 25 mg PO HS JOHNNY Sennosides (Senokot) 17.2 mg PO Q12H PRN PRN Reason: Moderate Constipation Sodium Chloride (Ns Flush) 2 ml IV.FLUSH PRN PRN PRN Reason: FLUSH AFTER USING IV ACCESS Valproate Sodium (Depakene Liq) 250 mg PO BID [facility] Allergies Allergy/AdvReac Type Severity Reaction Status Date / Time cephalexin Allergy Severe throat Verified 09/10/18 23:24 closes Exam Vital signs: Vital Signs 09/10/18 23:24 09/10/18 23:29 09/11/18 00:40 Temperature 98.2 F Pulse Rate 86 Respiratory Rate 18 18 Blood Pressure 162/73 H Pulse Oximetry 95 96 09/11/18 01:00 09/11/18 04:31 09/11/18 07:32 Temperature Pulse Rate 72 77 74 Respiratory Rate 16 16 17 Blood Pressure 151/72 H 135/64 158/71 H Pulse Oximetry 100 100 97 09/11/18 11:57 Temperature 96.7 F L Pulse Rate 82 Respiratory Rate 18 Blood Pressure 137/62 Pulse Oximetry 88 L Intake & Output 09/10/18 09/11/18 09/11/18 18:59 06:59 18:59 Weight 58.967 kg Narrative: GENERAL: in NAD, SKIN: Warm and dry. HEAD: Atraumatic. Normocephalic. EYES: Sluggishly reactive ENT: No nasal bleeding or discharge. Mucous membranes pink and moist. NECK: Trachea midline. No JVD. CARDIOVASCULAR: Regular rate and rhythm. RESPIRATORY: No accessory muscle use. GASTROINTESTINAL: Abdomen soft, non-tender, nondistended. MUSCULOSKELETAL: Extremities without clubbing, cyanosis, or edema. No obvious deformities. NEUROLOGICAL: Awake and alert. Oriented to self, and attentive during the exam inconsistently follows one-step request no gaze deviation no gross facial asymmetry neck supple, moving all extremity to gravity PSYCHIATRIC: Calm - Constitutional no acute distress - Routine HEENT Exam Head: Present: normocephalic Results - Labs CBC & Chem 7: 09/11/18 00:57 09/11/18 01:45 Labs: Laboratory Results - last 24 hr 09/11/18 09/11/18 09/11/18 00:19 00:57 00:57 WBC 7.7 RBC 4.51 Hgb 14.9 Hct 41.9 MCV 92.8 MCH 33.1 MCHC 35.6 RDW 16.3 Plt Count 198 D MPV 10.1 Neut % (Auto) 65.6 Lymph % (Auto) 25.4 [place] % (Auto) 7.6 Eos % (Auto) 0.8 Baso % (Auto) 0.6 Neut # (Auto) 5.0 Lymph # (Auto) 1.9 [place] # (Auto) 0.6 Eos # (Auto) 0.1 Baso # (Auto) 0.0 WBC Differential . Differential Comment Auto diff final Puncture Site Left radial Patient Temperature 98.6 O2 Saturation 86 L* ABG pH 7.43 H ABG pCO2 42 ABG pO2 56 L* ABG HCO3 28 H ABG O2 Content 16.8 ABG Base Excess 3.7 H ABG Methemoglobin 0.6 Dylan Test Present Hemoglobin 14.0 Carboxyhemoglobin 1.6 Inspired O2 21 Critical Value Yes Sodium Potassium Chloride Carbon Dioxide Anion Gap BUN Creatinine Estimated GFR Random Glucose Calcium Magnesium Total Bilirubin AST ALT Alkaline Phosphatase Ammonia Total Creatine Kinase CK-MB (CK-2) CK-MB (CK-2) % Troponin I Total Protein Albumin TSH Urine Color Sylvie Urine Clarity Hazy H Urine pH 5.0 Ur Specific [place] 1.024 Urine Protein 30 H Urine Glucose (UA) Negative Urine Ketones 20 Urine Occult Blood Negative Urine Nitrate Negative Urine Bilirubin Negative Urine Urobilinogen 4 or greater Ur Leukocyte Esterase Negative Urine RBC Less than 1 Urine WBC 1 Ur Squamous Epith Cells 10 Hyaline Casts 19 Urine Mucus Few H Urine Yeast Few H Micro UA Comment Cath-culture not ind Ur Microscopic Review Not Reportable Urine Culture Comments Cath-cult not ind Urine Opiates Screen Ur Barbiturates Screen Valproic Acid Ur Amphetamines Screen U Benzodiazepines Scrn Urine Cocaine Screen U Cannabinoids Screen 09/11/18 09/11/18 09/11/18 00:57 01:45 01:45 WBC RBC Hgb Hct MCV MCH MCHC RDW Plt Count MPV Neut % (Auto) Lymph % (Auto) [place] % (Auto) Eos % (Auto) Baso % (Auto) Neut # (Auto) Lymph # (Auto) [place] # (Auto) Eos # (Auto) Baso # (Auto) WBC Differential Differential Comment Puncture Site Patient Temperature O2 Saturation ABG pH ABG pCO2 ABG pO2 ABG HCO3 ABG O2 Content ABG Base Excess ABG Methemoglobin Dylan Test Hemoglobin Carboxyhemoglobin Inspired O2 Critical Value Sodium 142 Potassium 4.2 Chloride 104 Carbon Dioxide 28.7 Anion Gap 9 BUN 28 H Creatinine 0.74 Estimated GFR Greater than 89 Random Glucose 161 H Calcium 8.7 Magnesium 2.3 Total Bilirubin 0.7 AST 42 H ALT 33 Alkaline Phosphatase 86 Ammonia 11 Total Creatine Kinase 349 H CK-MB (CK-2) 2.0 CK-MB (CK-2) % 0.6 Troponin I Less than 0.02 L Total Protein 7.3 D Albumin 2.8 L TSH 1.460 Urine Color Urine Clarity Urine pH Ur Specific [place] Urine Protein Urine Glucose (UA) Urine Ketones Urine Occult Blood Urine Nitrate Urine Bilirubin Urine Urobilinogen Ur Leukocyte Esterase Urine RBC Urine WBC Ur Squamous Epith Cells Hyaline Casts Urine Mucus Urine Yeast Micro UA Comment Ur Microscopic Review Urine Culture Comments Urine Opiates Screen Neg Ur Barbiturates Screen Neg Valproic Acid Ur Amphetamines Screen Neg U Benzodiazepines Scrn Pos H Urine Cocaine Screen Neg U Cannabinoids Screen Pos H 09/11/18 01:45 WBC RBC Hgb Hct MCV MCH MCHC RDW Plt Count MPV Neut % (Auto) Lymph % (Auto) [place] % (Auto) Eos % (Auto) Baso % (Auto) Neut # (Auto) Lymph # (Auto) [place] # (Auto) Eos # (Auto) Baso # (Auto) WBC Differential Differential Comment Puncture Site Patient Temperature O2 Saturation ABG pH ABG pCO2 ABG pO2 ABG HCO3 ABG O2 Content ABG Base Excess ABG Methemoglobin Dylan Test Hemoglobin Carboxyhemoglobin Inspired O2 Critical Value Sodium Potassium Chloride Carbon Dioxide Anion Gap BUN Creatinine Estimated GFR Random Glucose Calcium Magnesium Total Bilirubin AST ALT Alkaline Phosphatase Ammonia Total Creatine Kinase CK-MB (CK-2) CK-MB (CK-2) % Troponin I Total Protein Albumin TSH Urine Color Urine Clarity Urine pH Ur Specific [place] Urine Protein Urine Glucose (UA) Urine Ketones Urine Occult Blood Urine Nitrate Urine Bilirubin Urine Urobilinogen Ur Leukocyte Esterase Urine RBC Urine WBC Ur Squamous Epith Cells Hyaline Casts Urine Mucus Urine Yeast Micro UA Comment Ur Microscopic Review Urine Culture Comments Urine Opiates Screen Ur Barbiturates Screen Valproic Acid 8 L Ur Amphetamines Screen U Benzodiazepines Scrn Urine Cocaine Screen U Cannabinoids Screen - Imaging Impressions Chest X-Ray 09/11/18 00:15 CONCLUSION: Mild right base atelectasis. Head CT 09/11/18 00:15 CONCLUSION: 1. No acute intracranial abnormality demonstrated. 2. Atrophy and chronic ischemic changes. . Review/Management - Diagnosis (1) Cognitive impairment Code(s): R41.89 - Other symptoms and signs involving cognitive functions and awareness Status: Acute Current Visit: Yes (2) Major neurocognitive disorder due to multiple etiologies Code(s): F02.80 - Dementia in other diseases classified elsewhere without behavioral disturbance Status: Acute Current Visit: No (3) Hypoxic encephalopathy Code(s): G93.1 - Anoxic brain damage, not elsewhere classified Status: Acute Current Visit: No (4) Encephalopathy Code(s): G93.40 - Encephalopathy, unspecified Status: Acute Current Visit: No - Review/Management Plan: Possible underlying dementia with agitation. Which may be worsened by metabolic changes such as hypoxia, urinary tract infection illicit drug use Urine drug screen positive for benzodiazepines and marijuana History seen by psychology neuropsychology at [facility] cognitive impairment with behavioral disorder Low normal B12 in the past. Normal thyroid studies in July 2018. 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
[2018-09-11 16:51] LABS: C-Reactive Protein 1.8 mg/dL (0.00-0.30)
[2018-09-11 17:11] LABS: Thyroid Stimulating Hormone 0.611 uIU/mL (0.358-3.740)
--- NOTE | 2018-09-11 17:13 | MG ---
cc: Opal Saunders MD REFERRING PHYSICIAN: Uvaldo Ruiz MD EEG NUMBER: [id number] ROOM: E54 CLINICAL HISTORY: Eyes open throughout the study with only photic stimulation. Last EEG 07/31/2018, showed mild to moderate encephalopathy. CT did not show anything acute. Admitted for nonverbal, not eating or voiding ,history of anxiety, chronic pain, diabetes, hypertension, hypothyroidism. MEDICATIONS: 1. Namenda. 2. Aspirin. 3. Norvasc. 4. Vasotec. 5. Singulair. FINDINGS: The patient exhibits background slowing predominantly of what looks like 2-3 Hz. There is a lot of eye opening artifact seen, as described by the tech performing the study. Overall, there is moderate slowing of background. No epileptiform features. EKG difficult to tell if it is sinus rhythm at this point. Photic stimulation causing more artifact than a driving response. IMPRESSION: Moderate slowing of background consistent with what looks like an encephalopathic process. Clinical correlation. Opal Saunders MD DF/brenna , 04:12 PM , 04:19 PM
[2018-09-11] MEDS ORDERED: Montelukast 10 MG Tablet PO SCH (18:00)
[2018-09-11] MEDS: Insulin NovoLOG Aspart Correctional Sugar Inj SQ SCH ×3 (18:40→22:32)
[2018-09-11] MEDS: QUEtiapine 25 MG Tablet PO SCH (20:02)
[2018-09-11] MEDS: Montelukast 10 MG Tablet PO SCH (20:02)
--- NOTE | 2018-09-12 06:31 | P.PNNEU ---
Subjective Subjective Comments: no acute events Active Medications: Active Medications Acetaminophen (Tylenol) 650 mg PO Q4H PRN PRN Reason: PAIN SCALE 1 TO 10 Al Hydroxide/Mg Hydroxide (Milk Of Magnesia Liq) 30 ml PO Q12H PRN PRN Reason: Mild Constipation Amlodipine Besylate (Norvasc) 10 mg PO DAILY [facility] Last Admin: 09/11/18 10:24 Dose: 10 mg Aspirin (Aspirin Chew) 81 mg PO DAILY [facility] Last Admin: 09/11/18 10:25 Dose: 81 mg Bisacodyl (Dulcolax Supp) 10 mg RECTAL DAILY PRN PRN Reason: SEVERE CONSITIPATION Budesonide/Formoterol Fumarate (Symbicort 160/4.5 Mcg Inh) 2 puff INH BID [facility] Last Admin: 09/11/18 20:02 Dose: Not Given Cyanocobalamin (Vitamin B12 Inj) 1,000 mcg IM DAILY [facility] Stop: 09/17/18 09:01 Last Admin: 09/11/18 19:34 Dose: 1,000 mcg Cyanocobalamin (Vitamin B12 Inj) 1,000 mcg IM WEEKLY [facility] Stop: 10/15/18 09:01 Cyanocobalamin (Vitamin B12 Inj) 1,000 mcg IM Q30D [facility] Dextrose (D50w Vial) 50 ml IV.PUSH UNSCH PRN PRN Reason: PER HYPOGLYCEMIA PROTOCOL Enalapril Maleate (Vasotec) 10 mg PO DAILY [facility] Last Admin: 09/11/18 10:25 Dose: 10 mg Glucagon (Glucagon Inj) 1 mg OTHER PRN PRN PRN Reason: for Hypoglycemia Protocol Insulin Aspart (Novolog Insulin Correctional Sugar Inj) 0 unit SQ [facility]; Protocol Last Admin: 09/11/18 22:32 Dose: Not Given Lactulose (Lactulose Liq) 30 ml PO DAILY PRN PRN Reason: SEVERE CONSITIPATION Lansoprazole (Prevacid Solutab) 15 mg PO DAILY [facility] Last Admin: 09/11/18 10:24 Dose: 15 mg Memantine (Namenda) 5 mg PO DAILY [facility] Last Admin: 09/11/18 10:24 Dose: 5 mg Montelukast Sodium (Singulair) 10 mg PO HS [facility] Last Admin: 09/11/18 20:02 Dose: Not Given Quetiapine Fumarate (Seroquel) 25 mg PO HS [facility] Last Admin: 09/11/18 20:02 Dose: Not Given Sennosides (Senokot) 17.2 mg PO Q12H PRN PRN Reason: Moderate Constipation Sodium Chloride (Ns Flush) 2 ml IV.FLUSH PRN PRN PRN Reason: FLUSH AFTER USING IV ACCESS Thiamine HCl (Thiamine Inj) 100 mg IM DAILY [facility] Last Admin: 09/11/18 19:29 Dose: 100 mg Valproate Sodium (Depakene Liq) 250 mg PO BID [facility] Last Admin: 09/11/18 20:02 Dose: Not Given Allergies/Adverse Reactions: Allergies Allergy/AdvReac Type Severity Reaction Status Date / Time cephalexin Allergy Severe throat Verified 09/10/18 23:24 closes Review of Systems All other systems reviewed negative except as stated in HPI Physical Exam Vital signs: Vital Signs 09/11/18 07:32 09/11/18 11:57 09/11/18 15:45 Temperature 96.7 F L 98.3 F Pulse Rate 74 82 80 Respiratory Rate 17 18 20 Blood Pressure 158/71 H 137/62 134/80 Pulse Oximetry 97 88 L 94 L 09/11/18 20:00 09/11/18 22:31 09/12/18 04:00 Temperature 98.4 F Pulse Rate 74 76 Respiratory Rate 18 17 Blood Pressure 144/65 H 119/56 L Pulse Oximetry 96 94 L 96 Intake & Output 09/11/18 09/11/18 09/12/18 06:59 18:59 06:59 Intake Total 0 / 0 Balance 0 / 0 Weight 58.967 kg Intake: Oral 0 / 0 Narrative: GENERAL: in NAD, SKIN: Warm and dry. HEAD: Atraumatic. Normocephalic. EYES: Sluggishly reactive ENT: No nasal bleeding or discharge. Mucous membranes pink and moist. NECK: Trachea midline. No JVD. CARDIOVASCULAR: Regular rate and rhythm. RESPIRATORY: No accessory muscle use. GASTROINTESTINAL: Abdomen soft, non-tender, nondistended. MUSCULOSKELETAL: Extremities without clubbing, cyanosis, or edema. No obvious deformities. NEUROLOGICAL: Awake, begins to yell and not co-operative, crying at times, moving all extremity to gravity PSYCHIATRIC: Calm - Constitutional no acute distress - Routine HEENT Exam Head: Present: normocephalic Objective Laboratory Results - last 24 hr 09/11/18 09/11/1809/11/18 01:45 16:05 17:46 ESR POC Glucose 172 H C-Reactive Protein 1.80 H Vitamin B12 806 TSH 0.611 Valproic Acid 8 L 09/11/18 09/11/18 18:46 22:32 ESR 45 H POC Glucose 107 C-Reactive Protein Vitamin B12 TSH Valproic Acid Review/Management - Diagnosis (1) Cognitive impairment Code(s): R41.89 - Other symptoms and signs involving cognitive functions and awareness Status: Acute Current Visit: Yes (2) Major neurocognitive disorder due to multiple etiologies Code(s): F02.80 - Dementia in other diseases classified elsewhere without behavioral disturbance Status: Acute Current Visit: No (3) Hypoxic encephalopathy Code(s): G93.1 - Anoxic brain damage, not elsewhere classified Status: Acute Current Visit: No (4) Encephalopathy Code(s): G93.40 - Encephalopathy, unspecified Status: Acute Current Visit: No - Review/Management Plan: Possible underlying dementia with agitation. Which may be worsened by metabolic changes such as hypoxia, urinary tract infection illicit drug use Urine drug screen positive for benzodiazepines and marijuana History seen by psychology neuropsychology at [facility] cognitive impairment with behavioral disorder Low normal B12 in the past. Normal thyroid studies in July 2018. 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
[2018-09-12] MEDS: amLODIPine 10 MG Tablet PO SCH (08:31)
[2018-09-12] MEDS: Insulin NovoLOG Aspart Correctional Sugar Inj SQ SCH ×4 (08:32→21:13)
[2018-09-12] MEDS: Lansoprazole ODT 15 MG Tablet PO SCH (08:34)
[2018-09-12] MEDS: Budesonide-Formoterol 160/4.5 MCG 6 GM Inhaler INH SCH ×2 (08:35→21:28)
[2018-09-12 08:42] LABS: Anion Gap 9 meq/L (5-15); Blood Urea Nitrogen 31 mg/dL (7-18); Calcium 9.4 mg/dL (8.5-10.1); Carbon Dioxide 32.6 meq/L (21.0-32.0); Chloride 103 meq/L (98-107); Glomerular Filtration Rate Greater Than 89 mL/min (>89); Glucose,Random 137 mg/dL (74-106); Sodium 145 meq/L (136-145)
[2018-09-12 08:43] LABS: Potassium 3.8 meq/L (3.5-5.1)
--- NOTE | 2018-09-12 09:40 | P.PN ---
Subjective Interval history: Follow-up for AMS, dementia. The patient is seen moaning in bed. When asked her name, she states "White", and then when asked for her first name she eventually is able to tell me "Maccie"; otherwise she is not oriented to place, month/year, president. She answers a few yes or no questions. She does report pain throughout her abdomen and appears uncomfortable when palpating her abdomen. Otherwise, patient does not verbalize any other complaints. Vital signs reviewed and stable. Discussed with RN. Patient has not been eating or drinking anything. Physical Exam Vital signs: Vital Signs 09/11/18 11:57 09/11/18 15:45 09/11/18 20:00 Temperature 96.7 F L 98.3 F 98.4 F Pulse Rate 82 80 74 Respiratory Rate 18 20 18 Blood Pressure 137/62 134/80 144/65 H Pulse Oximetry 88 L 94 L 96 09/11/18 22:31 09/12/18 04:00 09/12/18 07:00 Temperature Pulse Rate 76 Respiratory Rate 17 Blood Pressure 119/56 L Pulse Oximetry 94 L 96 96 09/12/18 08:00 Temperature 98.1 F Pulse Rate 86 Respiratory Rate 16 Blood Pressure 138/88 Pulse Oximetry 96 Intake & Output 09/11/18 09/12/18 09/12/18 18:59 06:59 18:59 Intake Total 0 / 0 Balance 0 / 0 Intake: Oral 0 / 0 Other: # Voids 2 Narrative: GENERAL: Thin elderly female patient in [facility]. Occasionally moaning. SKIN: Warm and dry. No rash. HEENT: Normocephalic. Atraumatic. Pupils equal and round. Mucous membranes pink and moist. CARDIOVASCULAR: Regular rate and rhythm. No murmur appreciated. Palpable PMI at left lower anterior thoracic region. RESPIRATORY: No accessory muscle use. Clear to auscultation. Breath sounds equal bilaterally. GASTROINTESTINAL: Abdomen soft, nondistended, diffuse TTP, worse across bilateral upper quadrants. Normoactive bowel sounds x4. MUSCULOSKELETAL: No obvious deformities. Extremities without clubbing, cyanosis , or edema. NEUROLOGICAL: Awake and alert, oriented to self only. Motor grossly within normal limits. Moving all extremities spontaneously with equal strength. Normal speech. PSYCHIATRIC: insight and judgment limited. Results - Labs CBC & Chem 7: 09/11/18 00:57 09/12/18 07:30 Laboratory Results - last 24 hr 09/11/18 09/11/18 09/11/18 16:05 17:46 18:46 ESR 45 H Sodium Potassium Chloride Carbon Dioxide Anion Gap BUN Creatinine Estimated GFR POC Glucose 172 H Random Glucose Calcium C-Reactive Protein 1.80 H Vitamin B12 806 TSH 0.611 09/11/18 09/12/18 09/12/18 22:32 07:30 07:44 ESR Sodium 145 Potassium 3.8 Chloride 103 Carbon Dioxide 32.6 H Anion Gap 9 BUN 31 H Creatinine 0.65 Estimated GFR Greater than 89 POC Glucose 107 120 H Random Glucose 137 H Calcium 9.4 C-Reactive Protein Vitamin B12 TSH - Imaging Chest X-Ray 09/11/18 00:15 CONCLUSION: Mild right base atelectasis. Head CT 09/11/18 00:15 CONCLUSION: 1. No acute intracranial abnormality demonstrated. 2. Atrophy and chronic ischemic changes. . Assessment and Plan - Assessment (1) Dementia Code(s): F03.90 - Unspecified dementia without behavioral disturbance Status: Acute (2) Acute metabolic encephalopathy Code(s): G93.41 - Metabolic encephalopathy Status: Acute (3) Altered mental status Code(s): R41.82 - Altered mental status, unspecified Status: Acute (4) Diabetes mellitus Code(s): E11.9 - Type 2 diabetes mellitus without complications Status: Chronic (5) Hypertension Code(s): I10 - Essential (primary) hypertension Status: Acute (6) Asthma Code(s): J45.909 - Unspecified asthma, uncomplicated Status: Acute - Plan 73-year-old female with past medical history significant for HTN, DM, GERD, hypothyroidism, DDD, chronic pain, asthma, and anxiety who presents to the emergency department via EMS due to altered mental status. Acute encephalopathy Hx Dementia -Possibly secondary to progression of dementia vs mild dehydration vs infection vs polypharmacy vs stroke -CBC stable, CMP with mildly elevated BUN at 28, ammonia within normal limits, total CK 349, improved, mildly elevated AST, improving -Head CT reviewed with no acute intracranial abnormality, atrophy and chronic ischemic changes -Chest x-ray with mild right base atelectasis, blood gas with low PO2 at 56 and low oxygen saturation at 86%, now on nasal cannula -UA unremarkable -toxicology positive for benzodiazepines and cannabis -Patient with ongoing AMS, consulted neurology for further recommendations, greatly appreciate assistance -Neurochecks, swallow eval, PT eval pending -Continue Namenda, hold off on benzodiazepines as not recommended in the elderly with dementia -valproic acid level low, will restart -Check EEG -Check brain MRI Abdominal Pain with Poor Oral Intake: unclear etiology. Abdomen tender on exam. No oral intake since arrival to hospital. -speech therapy consulted -dietitian consulted -check abdomen/pelvis CT -supportive treatment with IVF hydration Resolving rhabdomyolysis Mild dehydration -Total CK continues to improve -Continue IVF and encourage oral hydration Diabetes mellitus Hypothyroidism Hypertension, chronic -Continue home medications -Pending swallow evaluation prior to oral medications -Heart healthy diet, Accu-Cheks with insulin sliding scale Failure to Thrive/Self Care Deficit: acute -suspect secondary to progression of dementia, however rule out other etiologies such as stroke or infection -if above work up unremarkable, consider palliative care consultation DVT prophylaxisteds/SCDs Discharge Planning: Discharge pending further clinical improvement, not yet ready for discharge. 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
[2018-09-12] MEDS ORDERED: Diatrizoate Meglum/Diatrizoate Sod Liq 9 ML UDC PO ONE (10:00)
[2018-09-12] MEDS: KCL 20 mEq/D5W/NaCl 0.45% Inj 1,000 ML IV.CONT SCH ×2 (11:25→22:42)
--- NOTE | 2018-09-12 14:18 | CT ---
EXAM DATE: 09/12/2018 1:58 PM EDT AGE/SEX: 73 years / Female INDICATIONS: Abdominal pain CLINICAL DATA: This is the patient's initial encounter. Patient reports that signs and symptoms have been present for 1 day and indicates a pain score of Nonresponsive. MEDICAL/SURGICAL HISTORY: Non-responsive. Non-responsive. ORAL CONTRAST: Patient refused oral contrast. RADIATION DOSE: 5.64 CTDI (mGy) COMPARISON: [facility], CT CHEST W/O CONTRAST, 03/01/2012. . TECHNIQUE: Multiple contiguous axial images were obtained through the abdomen and pelvis following b olus infusion of 64 ml Omnipaque 350 (iohexol) nonionic water-soluble contrast as a single exam dos e. Patient refused oral contrast. Using automated exposure control and adjustment of the mA and/or k V according to patient size, radiation dose was kept as low as reasonably achievable to obtain optima l diagnostic quality images. DICOM format image data is available electronically for review and comp arison. FINDINGS: Visualization is suboptimal due to motion artifact. Lower Lungs: There is apparent scarring in the right lung base which by report is unchanged. Liver: The liver has a homogeneous density without space-occupying lesion. There is no dilation of th e biliary tree. The gallbladder appears unremarkable. Spleen: Homogeneous density without enlargement. Pancreas: Unremarkable without mass or calcification. Kidneys: Normal in size and shape. No evidence of mass or hydronephrosis. Adrenal Glands: Unremarkable. Aorta: Extensive atherosclerotic changes are noted with dense calcification. There is no aneurysm. Bowel/Mesentery: No oral contrast was given limiting the sensitivity exam. There are multiple loops of nondilated air-containing small bowel with gas and stool noted segmentally in the colon. There is no free air or fluid. The cecum and sigmoid colon have a normal configuration. There are numerous jenn cified phleboliths in the pelvis. Abdominal Wall: Intact. Retroperitoneum: No evidence of adenopathy in the retrocrural, para-aortic, or deep pelvic regions. Bladder: Contours are smooth. Reproductive Organs: No abnormal masses or calcifications seen. Inguinal: The inguinal region is unremarkable without evidence of adenopathy. Bony Structures: Unremarkable. CONCLUSION: 1. Nonobstructive bowel gas pattern. 2. The gallbladder is unremarkable in appearance. 3. Apparent scarring in the right lung base. 4. Suboptimal study secondary to motion artifact. Electronically signed by: Jos Gann MD 09/12/2018 2:17 PM EDT
[2018-09-12] MEDS: QUEtiapine 25 MG Tablet PO SCH (20:57)
[2018-09-12] MEDS: Montelukast 10 MG Tablet PO SCH (21:27)
[2018-09-13] MEDS ORDERED: Gadobutrol PF 10 MMOL/10 ML Vial (for RAD) IV.SIG ONE (03:48)
[2018-09-13] MEDS: Acetaminophen 325 MG Tablet PO PRN ×2 (04:49→09:51)
--- NOTE | 2018-09-13 08:44 | P.PNNEU ---
Subjective Subjective Comments: No acute events, denies any headache chest pain dyspnea Active Medications: Active Medications Acetaminophen (Tylenol) 650 mg PO Q4H PRN PRN Reason: PAIN SCALE 1 TO 10 Last Admin: 09/13/18 04:49 Dose: 650 mg Al Hydroxide/Mg Hydroxide (Milk Of Magnesia Liq) 30 ml PO Q12H PRN PRN Reason: Mild Constipation Amlodipine Besylate (Norvasc) 10 mg PO DAILY [facility] Last Admin: 09/12/18 08:31 Dose: 10 mg Aspirin (Aspirin Chew) 81 mg PO DAILY [facility] Last Admin: 09/12/18 08:36 Dose: 81 mg Bisacodyl (Dulcolax Supp) 10 mg RECTAL DAILY PRN PRN Reason: SEVERE CONSITIPATION Budesonide/Formoterol Fumarate (Symbicort 160/4.5 Mcg Inh) 2 puff INH BID [facility] Last Admin: 09/12/18 21:28 Dose: Not Given Cyanocobalamin (Vitamin B12 Inj) 1,000 mcg IM DAILY [facility] Stop: 09/17/18 09:01 Last Admin: 09/12/18 08:36 Dose: 1,000 mcg Cyanocobalamin (Vitamin B12 Inj) 1,000 mcg IM WEEKLY [facility] Stop: 10/15/18 09:01 Cyanocobalamin (Vitamin B12 Inj) 1,000 mcg IM Q30D [facility] Dextrose (D50w Vial) 50 ml IV.PUSH UNSCH PRN PRN Reason: PER HYPOGLYCEMIA PROTOCOL Enalapril Maleate (Vasotec) 10 mg PO DAILY [facility] Last Admin: 09/12/18 08:33 Dose: 10 mg Glucagon (Glucagon Inj) 1 mg OTHER PRN PRN PRN Reason: for Hypoglycemia Protocol Potassium Chloride/Dextrose/Sod Cl (D5w/1/2ns + Kcl 20 Meq Inj) 1,000 mls @ 84 mls/hr IV.CONT .[id number] [facility] Last Admin: 09/12/18 22:42 Dose: Not Given Insulin Aspart (Novolog Insulin Correctional Sugar Inj) 0 unit SQ [facility]; Protocol Last Admin: 09/12/18 21:13 Dose: 1 unit Lactulose (Lactulose Liq) 30 ml PO DAILY PRN PRN Reason: SEVERE CONSITIPATION Lansoprazole (Prevacid Solutab) 15 mg PO DAILY [facility] Last Admin: 09/12/18 08:34 Dose: 15 mg Memantine (Namenda) 5 mg PO DAILY [facility] Last Admin: 09/12/18 08:33 Dose: 5 mg Montelukast Sodium (Singulair) 10 mg PO HS [facility] Last Admin: 09/12/18 21:27 Dose: Not Given Quetiapine Fumarate (Seroquel) 25 mg PO HS [facility] Last Admin: 09/12/18 20:57 Dose: Not Given Sennosides (Senokot) 17.2 mg PO Q12H PRN PRN Reason: Moderate Constipation Sodium Chloride (Ns Flush) 2 ml IV.FLUSH PRN PRN PRN Reason: FLUSH AFTER USING IV ACCESS Thiamine HCl (Thiamine Inj) 100 mg IM DAILY [facility] Last Admin: 09/12/18 08:35 Dose: 100 mg Valproate Sodium (Depakene Liq) 250 mg PO BID [facility] Last Admin: 09/12/18 21:27 Dose: Not Given Allergies/Adverse Reactions: Allergies Allergy/AdvReac Type Severity Reaction Status Date / Time cephalexin Allergy Severe throat Verified 09/10/18 23:24 closes Review of Systems All other systems reviewed negative except as stated in HPI Physical Exam Vital signs: Vital Signs 09/12/18 12:00 09/12/18 19:00 09/12/18 20:00 Temperature 97.2 F L Pulse Rate 87 84 Respiratory Rate 16 18 Blood Pressure 154/72 H 123/70 Pulse Oximetry 99 95 94 L 09/12/18 23:22 09/13/18 03:30 09/13/18 07:35 Temperature 99.1 F 98.5 F 97.5 F L Pulse Rate 72 76 79 Respiratory Rate 18 18 16 Blood Pressure 150/64 H 133/64 169/70 H Pulse Oximetry 95 94 L 92 L Intake & Output 09/12/18 09/13/18 09/13/18 18:59 06:59 18:59 Weight 58.967 kg Other: # Voids 2 Narrative: GENERAL: in NAD, SKIN: Warm and dry. HEAD: Atraumatic. Normocephalic. EYES: Sluggishly reactive ENT: No nasal bleeding or discharge. NECK: Trachea midline. No JVD. CARDIOVASCULAR: Regular rate and rhythm. RESPIRATORY: No accessory muscle use. GASTROINTESTINAL: Abdomen soft, non-tender, nondistended. MUSCULOSKELETAL: Extremities without clubbing, cyanosis, or edema. No obvious deformities. NEUROLOGICAL: Awake, oriented to self, follow simple motor request, more calm, will repeat herself at times verbal perseveration paraphasic errors, some blink to threat face symmetric, moving all 4 extremity gravity gait not assessed secondary fall risk PSYCHIATRIC: Calm - Constitutional no acute distress - Routine HEENT Exam Head: Present: normocephalic Eye: Present: EOMI Objective Laboratory Results - last 24 hr 09/12/18 09/12/18 09/12/18 07:30 11:39 11:47 Sodium 145 Potassium 3.8 Chloride 103 Carbon Dioxide 32.6 H Anion Gap 9 BUN 31 H Creatinine 0.65 Estimated GFR Greater than 89 POC Glucose 214 H 140 H Random Glucose 137 H Calcium 9.4 09/12/18 09/12/18 17:21 21:02 Sodium Potassium Chloride Carbon Dioxide Anion Gap BUN Creatinine Estimated GFR POC Glucose 213 H 159 H Random Glucose Calcium Review/Management - Diagnosis (1) Cognitive impairment Code(s): R41.89 - Other symptoms and signs involving cognitive functions and awareness Status: Acute Current Visit: Yes (2) Major neurocognitive disorder due to multiple etiologies Code(s): F02.80 - Dementia in other diseases classified elsewhere without behavioral disturbance Status: Acute Current Visit: No (3) Hypoxic encephalopathy Code(s): G93.1 - Anoxic brain damage, not elsewhere classified Status: Acute Current Visit: No (4) Encephalopathy Code(s): G93.40 - Encephalopathy, unspecified Status: Acute Current Visit: No - Review/Management Plan: Possible underlying advanced dementia with agitation. Which may be worsened by metabolic changes such as hypoxia, poor p.o. intake, urinary tract infection illicit drug use Urine drug screen positive for benzodiazepines and marijuana History seen by psychology neuropsychology at [facility] cognitive impairment with behavioral disorder Low normal B12 in the past. Normal thyroid studies in July 2018. 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
--- NOTE | 2018-09-13 09:03 | P.PN ---
Subjective Interval history: Follow-up for dementia, failure to thrive, poor oral intake. The patient is oriented to self only. She does not verbalize any specific medical complaints. Denies any abdominal pain today. RN reports still very minimal oral intake, and was unable to swallow all of her medications. Physical Exam Vital signs: Vital Signs 09/12/18 12:00 09/12/18 19:00 09/12/18 20:00 Temperature 97.2 F L Pulse Rate 87 84 Respiratory Rate 16 18 Blood Pressure 154/72 H 123/70 Pulse Oximetry 99 95 94 L 09/12/18 23:22 09/13/18 03:30 09/13/18 07:35 Temperature 99.1 F 98.5 F 97.5 F L Pulse Rate 72 76 79 Respiratory Rate 18 18 16 Blood Pressure 150/64 H 133/64 169/70 H Pulse Oximetry 95 94 L 92 L Intake & Output 09/12/18 09/13/18 09/13/18 18:59 06:59 18:59 Weight 58.967 kg Other: # Voids 2 Narrative: GENERAL: Thin elderly female patient in NAD. Occasionally moaning, answers a few yes or no questions. SKIN: Warm and dry. No rash. HEENT: Normocephalic. Atraumatic. Pupils equal and round. Mucous membranes pink and moist. CARDIOVASCULAR: Regular rate and rhythm. No murmur appreciated. RESPIRATORY: No accessory muscle use. Clear to auscultation. Breath sounds equal bilaterally. GASTROINTESTINAL: Abdomen soft, nondistended, nontender today. Normoactive bowel sounds x4. MUSCULOSKELETAL: No obvious deformities. Extremities without clubbing, cyanosis , or edema. NEUROLOGICAL: Awake and alert, oriented to self only. Motor grossly within normal limits. Moving all extremities spontaneously with equal strength. Slow speech. PSYCHIATRIC: insight and judgment limited. Results - Labs CBC & Chem 7: 09/13/18 11:56 09/12/18 07:30 Laboratory Results - last 24 hr 09/12/18 09/12/18 09/12/18 11:39 11:47 17:21 POC Glucose 214 H 140 H 213 H 09/12/18 21:02 POC Glucose 159 H - Imaging Impressions Abdomen/Pelvis CT 09/12/18 00:00 CONCLUSION: 1. Nonobstructive bowel gas pattern. 2. The gallbladder is unremarkable in appearance. 3. Apparent scarring in the right lung base. 4. Suboptimal study secondary to motion artifact. Assessment and Plan - Assessment (1) Dementia Code(s): F03.90 - Unspecified dementia without behavioral disturbance Status: Acute (2) Acute metabolic encephalopathy Code(s): G93.41 - Metabolic encephalopathy Status: Acute (3) Altered mental status Code(s): R41.82 - Altered mental status, unspecified Status: Acute (4) Diabetes mellitus Code(s): E11.9 - Type 2 diabetes mellitus without complications Status: Chronic (5) Hypertension Code(s): I10 - Essential (primary) hypertension Status: Acute (6) Asthma Code(s): J45.909 - Unspecified asthma, uncomplicated Status: Acute - Plan 73-year-old female with past medical history significant for HTN, DM, GERD, hypothyroidism, DDD, chronic pain, asthma, and anxiety who presents to the emergency department via EMS due to altered mental status. Acute encephalopathy Hx Dementia -Suspect secondary to progression of dementia, possibly exacerbated by mild dehydration vs infection vs polypharmacy vs stroke -CBC stable, CMP with mildly elevated BUN at 28, ammonia within normal limits, total CK 349, improved, mildly elevated AST, improving -Head CT reviewed with no acute intracranial abnormality, atrophy and chronic ischemic changes -Chest x-ray with mild right base atelectasis, blood gas with low PO2 at 56 and low oxygen saturation at 86%, now on nasal cannula -UA unremarkable -toxicology positive for benzodiazepines and cannabis -Patient with ongoing AMS, consulted neurology for further recommendations, greatly appreciate assistance -Neurochecks, swallow eval, PT eval pending -Continue Namenda, hold off on benzodiazepines as not recommended in the elderly with dementia -valproic acid level low, will restart -EEG shows Moderate slowing of background consistent with what looks like an encephalopathic process -Brain MRI pending -Discussed with Dr. Avalos, likely progression of dementia, no further work up Abdominal Pain with Poor Oral Intake: unclear etiology. Abdomen tender on exam intermittently. Minimal oral intake since arrival to hospital. -speech therapy consulted, recommends pureed diet with thin liquids -dietitian consulted, calorie count in progress -abdomen/pelvis CT with nonobstructive bowel gas pattern, GB unremarkable; otherwise unremarkable -supportive treatment with IVF hydration -palliative care following -may need to consider PEG Resolving rhabdomyolysis Mild dehydration -Total CK continues to improve -Continue IVF and encourage oral hydration Diabetes mellitus Hypothyroidism Hypertension, chronic -Continue home medications -Heart healthy diet, Accu-Cheks with insulin sliding scale Failure to Thrive/Self Care Deficit: acute -suspect secondary to progression of dementia, however rule out other etiologies such as stroke or infection -consulted palliative care, greatly appreciate assistance DVT prophylaxisteds/SCDs Discharge Planning: Discharge pending further clinical improvement, currently with minimal oral intake, appreciate palliative care assistance. Unsafe discharge home at this time. (3) Altered mental status Qualifiers: Altered mental status type: coma (4) Diabetes mellitus Qualifiers: Diabetes mellitus type: type 2 Diabetes mellitus alf insulin use: without alf use Diabetes mellitus complication status: without complication Qualified Code(s): E11.9 - Type 2 diabetes mellitus without complications (5) Hypertension Qualifiers: Hypertension type: essential hypertension Qualified Code(s): I10 - Essential (primary) hypertension (6) Asthma Qualifiers: Asthma severity: unspecified severity Asthma persistence: unspecified Asthma complication type: unspecified Qualified Code(s): J45.909 - Unspecified asthma, uncomplicated
[2018-09-13] MEDS: KCL 20 mEq/D5W/NaCl 0.45% Inj 1,000 ML IV.CONT SCH ×2 (09:49→21:58)
[2018-09-13] MEDS: Lansoprazole ODT 15 MG Tablet PO SCH (09:52)
[2018-09-13] MEDS: Budesonide-Formoterol 160/4.5 MCG 6 GM Inhaler INH SCH ×2 (09:52→20:39)
[2018-09-13] MEDS: amLODIPine 10 MG Tablet PO SCH (09:52)
--- NOTE | 2018-09-13 11:33 | P.CONPAL ---
Consult Service: Palliative Care Requesting Physician: Gisselle Mtz Reason for Consult: a. To assist with evaluation and management of symptoms including: Altered mental status, dysphagia, pain. b. To assist medical decision maker(s) with: better understanding of current medical conditions; weighing benefits/burdens of medical treatment options; making medical treatment decisions. Primary Care Provider: David Gee History of Present Illness History of Present Illness: Mrs. Goyal is a 73-year-old female with a medical history that is significant for HTN, DM, GERD, hypothyroidism, DDD, chronic pain, COPD, and anxiety who presented to [place] [facility] on 09/11/2018 for evaluation of altered mental status. The patient was recently hospitalized from 09/06/18-09/08/18 for management of rhabdomyolysis and suspected UTI. She was discharged home with home health care. Her daughter reported that patient had been at home eating and drinking without any difficulties but had stopped talking a few days ago. Diagnostic data: * Pulse 86, respirations 18, BP 162/73, oxygen saturation 95% on room air, oral temperature 98.2 * WBC: 7.7, hemoglobin 14.9, hematocrit 41.9, platelets 198, neutrophils 65.6% * Sodium: 145, potassium 3.8, chloride 103, carbon dioxide 32.6, glucose 137, calcium 9.4 * BUN: 31, creatinine 0.65, GFR >89 * Urinalysis WNL * Toxicology screening: + Benzodiazepines; + Cannabinoids * Chest x-ray showed mild right base atelectasis. * CT head revealed no acute intracranial abnormalities. Atrophy and chronic ischemic changes were noted. Patient was admitted for observation secondary to generalized weakness and deteriorating mental status. Neurology was consulted for recommendations. The patient has a history of cognitive impairment with aggressive tendencies. She was at [facility] after a recent hospitalization and was seen by neuropsychology and psychiatry. She is on Namenda for dementia, Seroquel for agitation and valproic acid for mood stabilization/anticonvulsant. Patient had low-normal B12 in the past. Normal thyroid studies in July,. CF studies done in July, showed slight elevation in protein but were otherwise negative. EEG on 2017: moderate slowing consistent with what looks like an encephalopathic process. Having abdominal pain with tenderness to palpation yesterday 09/12/2018. A CT abdomen ordered showed nonobstructive bowel gas pattern; gallbladder was unremarkable in appearance; apparent scarring in the left lung base. Patient has had a significant decline in functional status. She is no longer able to care for herself independently and her nutritional intake is reportedly poor. She appears quite frail on examination. Speech therapy was consulted for swallow evaluation. Recommendations for pured diet with thin consistency liquids. Palliative Care was consulted to assist with symptom management and to discuss with the family the benefits and burdens of her current illnesses and the options regarding future care. Patient was pleasantly confused on exam, smiling. Speech was primarily nonsensical. Palliative care was consulted on the patient during a recent hospitalization in July,. At that time aggressive versus comfort focused care were discussed with the patient's family ; the family wanted to continue with aggressive interventions. A phone call was placed to the patient's daughter/HCP (Mely) to discuss medical treatment goals. A medical update was provided. We had a brief conversation about medical treatment goals, specifically the patient's progressive decline secondary to dementia, before being disconnected. No one answered when attempts were made to call the patient's daughter back. Function/Cognitive Trajectory: Per review of EMR, patient was living in her home alone in November,. She was independent with mobility. Patient has been hospitalized at least 4 times since July,. Her family has reported increasing forgetfulness and decline in functional status. Nutritional intake has deteriorated and the patient has had several episodes of incontinence. According to the patient's family, they have been taking turns living with the patient for the past 6 months. Her oldest daughter moved in with her in recent weeks to assist with her care. Review of Systems unobtainable due to mental status PMFSH - History History Provided By: Medical Record - Medical History Medical History: Medical History (Last Updated 09/13/18 @ 10:59 by GERONIMO Lewis) COPD (chronic obstructive pulmonary disease) Coronary artery disease Anxiety Asthma Chronic pain Diabetes mellitus GERD (gastroesophageal reflux disease) Hypertension Hypothyroidism - Surgical History Surgical History: Surgical History (Last Updated 09/13/18 @ 10:59 by GERONIMO Lewis) History of cardiac catheterization History of hysterectomy History of bronchoscopy - Family History Family History: Family History (Last Reviewed 09/11/18 @ 07:43 by Emelina Agarwal) Other Diabetes mellitus - Social History I have reviewed the patient's Social History: Yes - Tobacco History Second Hand Smoke Exposure: No Tobacco Use In Past 30 Days: No Smoking Status: Cognitive impairment Tobacco Type: Cigarettes - Alcohol History How Often Do You Have a Drink Containing Alcohol: Unable to Obtain - Substance Use History Substance History: Unable to Obtain - Travel History History of Recent Travel: No Recent Travel in the [place] Within the Last 8 Weeks: No Recent Travel Out of the Country Within the Last 8 Weeks: No - Immunization History Tetanus Immunization: Unable to Assess Medications and Allergies Active Medications: Active Medications Acetaminophen (Tylenol) 650 mg PO Q4H PRN PRN Reason: PAIN SCALE 1 TO 10 Last Admin: 09/13/18 09:51 Dose: 650 mg Al Hydroxide/Mg Hydroxide (Milk Of Kim Liq) 30 ml PO Q12H PRN PRN Reason: Mild Constipation Amlodipine Besylate (Norvasc) 10 mg PO DAILY [facility] Last Admin: 09/13/18 09:52 Dose: 10 mg Aspirin (Aspirin Chew) 81 mg PO DAILY [facility] Last Admin: 09/13/18 09:56 Dose: 81 mg Bisacodyl (Dulcolax Supp) 10 mg RECTAL DAILY PRN PRN Reason: SEVERE CONSITIPATION Budesonide/Formoterol Fumarate (Symbicort 160/4.5 Mcg Inh) 2 puff INH BID [facility] Last Admin: 09/13/18 09:52 Dose: Not Given Cyanocobalamin (Vitamin B12 Inj) 1,000 mcg IM DAILY [facility] Stop: 09/17/18 09:01 Last Admin: 09/13/18 10:06 Dose: Not Given Cyanocobalamin (Vitamin B12 Inj) 1,000 mcg IM WEEKLY [facility] Stop: 10/15/18 09:01 Cyanocobalamin (Vitamin B12 Inj) 1,000 mcg IM Q30D [facility] Dextrose (D50w Vial) 50 ml IV.PUSH UNSCH PRN PRN Reason: PER HYPOGLYCEMIA PROTOCOL Enalapril Maleate (Vasotec) 10 mg PO DAILY [facility] Last Admin: 09/13/18 09:52 Dose: 10 mg Glucagon (Glucagon Inj) 1 mg OTHER PRN PRN PRN Reason: for Hypoglycemia Protocol Potassium Chloride/Dextrose/Sod Cl (D5w/1/2ns + Kcl 20 Meq Inj) 1,000 mls @ 84 mls/hr IV.CONT .[id number] [facility] Last Admin: 09/13/18 09:49 Dose: 84 mls/hr Insulin Aspart (Novolog Insulin Correctional Sugar Inj) 0 unit SQ ACHS [facility]; Protocol Last Admin: 09/12/18 21:13 Dose: 1 unit Lactulose (Lactulose Liq) 30 ml PO DAILY PRN PRN Reason: SEVERE CONSITIPATION Lansoprazole (Prevacid Solutab) 15 mg PO DAILY [facility] Last Admin: 09/13/18 09:52 Dose: 15 mg Memantine (Namenda) 5 mg PO DAILY [facility] Last Admin: 09/13/18 09:52 Dose: 5 mg Montelukast Sodium (Singulair) 10 mg PO HS [facility] Last Admin: 09/12/18 21:27 Dose: Not Given Quetiapine Fumarate (Seroquel) 25 mg PO [facility] Last Admin: 09/12/18 20:57 Dose: Not Given Sennosides (Senokot) 17.2 mg PO Q12H PRN PRN Reason: Moderate Constipation Sodium Chloride (Ns Flush) 2 ml IV.FLUSH PRN PRN PRN Reason: FLUSH AFTER USING IV ACCESS Thiamine HCl (Thiamine Inj) 100 mg IM DAILY [facility] Last Admin: 09/13/18 10:06 Dose: Not Given Valproate Sodium (Depakene Liq) 250 mg PO BID [facility] Last Admin: 09/13/18 10:07 Dose: Not Given Allergies Allergy/AdvReac Type Severity Reaction Status Date / Time cephalexin Allergy Severe throat Verified 09/10/18 23:24 closes Advance Directives Living Will: No Family/friends goals: Goals remain aggressive at this time. Ethical and Legal Issues: Patient is . Per [place] statutes, in the absence of written advanced directives healthcare proxy decision making falls to the patient's 3 adult daughters (Mely, Ashley, Olga). Per palliative care note on 08/01/18: Daughters, Ashley and Olga, have opted out of decision making. Daughter, Mely , is willing to act in the role of HCP decision-maker. Physical Exam Vital Signs: Vital Signs - 24 hr 09/12/18 12:00 09/12/18 19:00 09/12/18 20:00 Temperature 97.2 F L Pulse Rate 87 84 Respiratory Rate 16 18 Blood Pressure 154/72 H 123/70 Pulse Oximetry 99 95 94 L 09/12/18 23:22 09/13/18 03:30 09/13/18 07:35 Temperature 99.1 F 98.5 F 97.5 F L Pulse Rate 72 76 79 Respiratory Rate 18 18 16 Blood Pressure 150/64 H 133/64 169/70 H Pulse Oximetry 95 94 L 92 L I&O: Intake & Output 09/11/18 09/12/18 09/13/18 09/14/18 06:59 06:59 06:59 06:59 Intake Total 0 / 0 1000 / 1000 Balance 0 / 0 1000 / 1000 Weight 58.967 kg 58.967 kg Physical Exam: CONSTITUTIONAL/GENERAL: This is a frail, elderly female in no acute distress TUBES/LINES/DRAINS: PIV SKIN: No jaundice, rashes, or lesions. Ecchymoses on upper extremities. No wounds seen anteriorly. Skin temperature appropriate. Not diaphoretic. HEAD: Atraumatic. Normocephalic. EYES: Pupils equal and round and reactive. No injection or drainage. ENT: Hearing grossly normal. Nose without bleeding or purulent drainage. NECK: Trachea midline. Supple, nontender. No palpable thyroid enlargement or nodularity. CARDIOVASCULAR: Regular rate and rhythm without murmurs, gallops, or rubs. No JVD. Peripheral pulses symmetric. RESPIRATORY/CHEST: Symmetric, unlabored respirations. Clear to auscultation. Breath sounds equal bilaterally. No accessory muscle use GASTROINTESTINAL: Abdomen soft, non-tender, nondistended. No guarding. Bowel sounds present. GENITOURINARY: Without palpable bladder distension. Sullivan catheter in place. MUSCULOSKELETAL: Extremities without clubbing, cyanosis, or edema. No obvious deformities. No mottling or clubbing. LYMPHATICS: No palpable cervical or supraclavicular adenopathy. NEUROLOGICAL: Awake and alert; oriented to self only. Nonsensical speech. Moving all extremities x4. PSYCHIATRIC: No obvious anxiety/depression. No apparent hallucinations or other psychotic thought process. Diagnostic Tests Laboratory: Laboratory Results - last 72 hr 09/11/18 09/11/18 09/11/18 00:19 00:57 00:57 WBC 7.7 RBC 4.51 Hgb 14.9 Hct 41.9 MCV 92.8 MCH 33.1 MCHC 35.6 RDW 16.3 Plt Count 198 D MPV 10.1 Neut % (Auto) 65.6 Lymph % (Auto) 25.4 Gem % (Auto) 7.6 Eos % (Auto) 0.8 Baso % (Auto) 0.6 Neut # (Auto) 5.0 Lymph # (Auto) 1.9 Gem # (Auto) 0.6 Eos # (Auto) 0.1 Baso # (Auto) 0.0 WBC Differential . Differential Comment Auto diff final ESR Puncture Site Left radial Patient Temperature 98.6 O2 Saturation 86 L* ABG pH 7.43 H ABG pCO2 42 ABG pO2 56 L* ABG HCO3 28 H ABG O2 Content 16.8 ABG Base Excess 3.7 H ABG Methemoglobin 0.6 Dylan Test Present Hemoglobin 14.0 Carboxyhemoglobin 1.6 Inspired O2 21 Critical Value Yes Sodium Potassium Chloride Carbon Dioxide Anion Gap BUN Creatinine Estimated GFR POC Glucose Random Glucose Calcium Magnesium Total Bilirubin AST ALT Alkaline Phosphatase Ammonia Total Creatine Kinase CK-MB (CK-2) CK-MB (CK-2) % Troponin I C-Reactive Protein Total Protein Albumin Vitamin B12 TSH Urine Color Sylvie Urine Clarity Hazy H Urine pH 5.0 Ur Specific [place] 1.024 Urine Protein 30 H Urine Glucose (UA) Negative Urine Ketones 20 Urine Occult Blood Negative Urine Nitrate Negative Urine Bilirubin Negative Urine Urobilinogen 4 or greater Ur Leukocyte Esterase Negative Urine RBC Less than 1 Urine WBC 1 Ur Squamous Epith Cells 10 Hyaline Casts 19 Urine Mucus Few H Urine Yeast Few H Micro UA Comment Cath-culture not ind Ur Microscopic Review Not Reportable Urine Culture Comments Cath-cult not ind Urine Opiates Screen Ur Barbiturates Screen Valproic Acid Ur Amphetamines Screen U Benzodiazepines Scrn Urine Cocaine Screen U Cannabinoids Screen 09/11/18 09/11/18 09/11/18 00:57 01:45 01:45 WBC RBC Hgb Hct MCV MCH MCHC RDW Plt Count MPV Neut % (Auto) Lymph % (Auto) Gem % (Auto) Eos % (Auto) Baso % (Auto) Neut # (Auto) Lymph # (Auto) Gem # (Auto) Eos # (Auto) Baso # (Auto) WBC Differential Differential Comment ESR Puncture Site Patient Temperature O2 Saturation ABG pH ABG pCO2 ABG pO2 ABG HCO3 ABG O2 Content ABG Base Excess ABG Methemoglobin Dylan Test Hemoglobin Carboxyhemoglobin Inspired O2 Critical Value Sodium 142 Potassium 4.2 Chloride 104 Carbon Dioxide 28.7 Anion Gap 9 BUN 28 H Creatinine 0.74 Estimated GFR Greater than 89 POC Glucose Random Glucose 161 H Calcium 8.7 Magnesium 2.3 Total Bilirubin 0.7 AST 42 H ALT 33 Alkaline Phosphatase 86 Ammonia 11 Total Creatine Kinase 349 H CK-MB (CK-2) 2.0 CK-MB (CK-2) % 0.6 Troponin I Less than 0.02 L C-Reactive Protein Total Protein 7.3 D Albumin 2.8 L Vitamin B12 TSH 1.460 Urine Color Urine Clarity Urine pH Ur Specific [place] Urine Protein Urine Glucose (UA) Urine Ketones Urine Occult Blood Urine Nitrate Urine Bilirubin Urine Urobilinogen Ur Leukocyte Esterase Urine RBC Urine WBC Ur Squamous Epith Cells Hyaline Casts Urine Mucus Urine Yeast Micro UA Comment Ur Microscopic Review Urine Culture Comments Urine Opiates Screen Neg Ur Barbiturates Screen Neg Valproic Acid Ur Amphetamines Screen Neg U Benzodiazepines Scrn Pos H Urine Cocaine Screen Neg U Cannabinoids Screen Pos H 09/11/18 09/11/18 09/11/18 01:45 16:05 17:46 WBC RBC Hgb Hct MCV MCH MCHC RDW Plt Count MPV Neut % (Auto) Lymph % (Auto) Gem % (Auto) Eos % (Auto) Baso % (Auto) Neut # (Auto) Lymph # (Auto) Gem # (Auto) Eos # (Auto) Baso # (Auto) WBC Differential Differential Comment ESR Puncture Site Patient Temperature O2 Saturation ABG pH ABG pCO2 ABG pO2 ABG HCO3 ABG O2 Content ABG Base Excess ABG Methemoglobin Dylan Test Hemoglobin Carboxyhemoglobin Inspired O2 Critical Value Sodium Potassium Chloride Carbon Dioxide Anion Gap BUN Creatinine Estimated GFR POC Glucose 172 H Random Glucose Calcium Magnesium Total Bilirubin AST ALT Alkaline Phosphatase Ammonia Total Creatine Kinase CK-MB (CK-2) CK-MB (CK-2) % Troponin I C-Reactive Protein 1.80 H Total Protein Albumin Vitamin B12 806 TSH 0.611 Urine Color Urine Clarity Urine pH Ur Specific [place] Urine Protein Urine Glucose (UA) Urine Ketones Urine Occult Blood Urine Nitrate Urine Bilirubin Urine Urobilinogen Ur Leukocyte Esterase Urine RBC Urine WBC Ur Squamous Epith Cells Hyaline Casts Urine Mucus Urine Yeast Micro UA Comment Ur Microscopic Review Urine Culture Comments Urine Opiates Screen Ur Barbiturates Screen Valproic Acid 8 L Ur Amphetamines Screen U Benzodiazepines Scrn Urine Cocaine Screen U Cannabinoids Screen 09/11/18 09/11/18 09/12/18 18:46 22:32 07:30 WBC RBC Hgb Hct MCV MCH MCHC RDW Plt Count MPV Neut % (Auto) Lymph % (Auto) Gem % (Auto) Eos % (Auto) Baso % (Auto) Neut # (Auto) Lymph # (Auto) Gem # (Auto) Eos # (Auto) Baso # (Auto) WBC Differential Differential Comment ESR 45 H Puncture Site Patient Temperature O2 Saturation ABG pH ABG pCO2 ABG pO2 ABG HCO3 ABG O2 Content ABG Base Excess ABG Methemoglobin Dylan Test Hemoglobin Carboxyhemoglobin Inspired O2 Critical Value Sodium 145 Potassium 3.8 Chloride 103 Carbon Dioxide 32.6 H Anion Gap 9 BUN 31 H Creatinine 0.65 Estimated GFR Greater than 89 POC Glucose 107 Random Glucose 137 H Calcium 9.4 Magnesium Total Bilirubin AST ALT Alkaline Phosphatase Ammonia Total Creatine Kinase CK-MB (CK-2) CK-MB (CK-2) % Troponin I C-Reactive Protein Total Protein Albumin Vitamin B12 TSH Urine Color Urine Clarity Urine pH Ur Specific [place] Urine Protein Urine Glucose (UA) Urine Ketones Urine Occult Blood Urine Nitrate Urine Bilirubin Urine Urobilinogen Ur Leukocyte Esterase Urine RBC Urine WBC Ur Squamous Epith Cells Hyaline Casts Urine Mucus Urine Yeast Micro UA Comment Ur Microscopic Review Urine Culture Comments Urine Opiates Screen Ur Barbiturates Screen Valproic Acid Ur Amphetamines Screen U Benzodiazepines Scrn Urine Cocaine Screen U Cannabinoids Screen 09/12/18 09/12/18 09/12/18 07:44 11:39 11:47 WBC RBC Hgb Hct MCV MCH MCHC RDW Plt Count MPV Neut % (Auto) Lymph % (Auto) Gem % (Auto) Eos % (Auto) Baso % (Auto) Neut # (Auto) Lymph # (Auto) Gem # (Auto) Eos # (Auto) Baso # (Auto) WBC Differential Differential Comment ESR Puncture Site Patient Temperature O2 Saturation ABG pH ABG pCO2 ABG pO2 ABG HCO3 ABG O2 Content ABG Base Excess ABG Methemoglobin Dylan Test Hemoglobin Carboxyhemoglobin Inspired O2 Critical Value Sodium Potassium Chloride Carbon Dioxide Anion Gap BUN Creatinine Estimated GFR POC Glucose 120 H 214 H 140 H Random Glucose Calcium Magnesium Total Bilirubin AST ALT Alkaline Phosphatase Ammonia Total Creatine Kinase CK-MB (CK-2) CK-MB (CK-2) % Troponin I C-Reactive Protein Total Protein Albumin Vitamin B12 TSH Urine Color Urine Clarity Urine pH Ur Specific [place] Urine Protein Urine Glucose (UA) Urine Ketones Urine Occult Blood Urine Nitrate Urine Bilirubin Urine Urobilinogen Ur Leukocyte Esterase Urine RBC Urine WBC Ur Squamous Epith Cells Hyaline Casts Urine Mucus Urine Yeast Micro UA Comment Ur Microscopic Review Urine Culture Comments Urine Opiates Screen Ur Barbiturates Screen Valproic Acid Ur Amphetamines Screen U Benzodiazepines Scrn Urine Cocaine Screen U Cannabinoids Screen 09/12/18 09/12/18 17:21 21:02 WBC RBC Hgb Hct MCV MCH MCHC RDW Plt Count MPV Neut % (Auto) Lymph % (Auto) Gem % (Auto) Eos % (Auto) Baso % (Auto) Neut # (Auto) Lymph # (Auto) Gem # (Auto) Eos # (Auto) Baso # (Auto) WBC Differential Differential Comment ESR Puncture Site Patient Temperature O2 Saturation ABG pH ABG pCO2 ABG pO2 ABG HCO3 ABG O2 Content ABG Base Excess ABG Methemoglobin Dylan Test Hemoglobin Carboxyhemoglobin Inspired O2 Critical Value Sodium Potassium Chloride Carbon Dioxide Anion Gap BUN Creatinine Estimated GFR POC Glucose 213 H 159 H Random Glucose Calcium Magnesium Total Bilirubin AST ALT Alkaline Phosphatase Ammonia Total Creatine Kinase CK-MB (CK-2) CK-MB (CK-2) % Troponin I C-Reactive Protein Total Protein Albumin Vitamin B12 TSH Urine Color Urine Clarity Urine pH Ur Specific [place] Urine Protein Urine Glucose (UA) Urine Ketones Urine Occult Blood Urine Nitrate Urine Bilirubin Urine Urobilinogen Ur Leukocyte Esterase Urine RBC Urine WBC Ur Squamous Epith Cells Hyaline Casts Urine Mucus Urine Yeast Micro UA Comment Ur Microscopic Review Urine Culture Comments Urine Opiates Screen Ur Barbiturates Screen Valproic Acid Ur Amphetamines Screen U Benzodiazepines Scrn Urine Cocaine Screen U Cannabinoids Screen Result Diagrams: 09/13/18 11:56 09/13/18 11:56 Imaging: Chest X-Ray 09/11/18 00:15 CONCLUSION: Mild right base atelectasis. Head CT 09/11/18 00:15 CONCLUSION: 1. No acute intracranial abnormality demonstrated. 2. Atrophy and chronic ischemic changes. . Abdomen/Pelvis CT 09/12/18 00:00 CONCLUSION: 1. Nonobstructive bowel gas pattern. 2. The gallbladder is unremarkable in appearance. 3. Apparent scarring in the right lung base. 4. Suboptimal study secondary to motion artifact. Head MRI 09/13/18 00:00 CONCLUSION: 1. Old bilateral lacunar infarcts. 2. Old left cerebellar infarct. 3. No acute infarction. 4. Nonspecific white matter changes with similar changes in the brainstem. Patient/Family Conference Present at Family Conference: Spoke with patient's daughter, Mely, via telephone. Issues Discussed: * Palliative care role, purpose, approach * Additional medical, psychosocial, and spiritual history * Patients general health, functional status, and cognitive changes in the months leading up to the current hospitalization * Patient/family understanding of the current medical problems * Patient/family understanding of prognosis * Patients goals of care as best understood from advance directives and/or conversations and/or values * Current medical treatment options and benefits/burdens of those options * Likely scenarios comparing ongoing aggressive care with a transition to comfort measures only * Questions answered to the best of my ability * Palliative care contact information provided Assessment and Plan - Disease Oriented Problem List (1) Diabetes mellitus (2) Hypertension (3) DM (diabetes mellitus) (4) Acute metabolic encephalopathy (5) Dementia (6) Dementia (7) Rhabdomyolysis Comment: = Resolving (8) Hypothyroidism - Symptom Scale (3) Pain Comment: Currently denies pain Pertinent Non-Medical Issues: Psychosocial: Patient was born and raised in [facility]. She is . He a year ago. Patient has 3 adult daughters. Spiritual: Patient is [employer] Legal: Per [place] statutes, in the absence of written advanced directives healthcare proxy decision making falls to the patient's 3 adult daughters ( Ashley Boone Joan). Per palliative care note on 08/01/18: Daughters, Ashley and Olga, have opted out of decision making. Daughter, Mely, is willing to act in the role of HCP decision-maker. Ethical issues impacting care: None identified at this time Important Contacts: Daughter- Mely Davidson [phone] to serve as healthcare proxy Daughter-Ashley Lal [phone] opted out of decision making Daughter- Olga Lal [phone] opted out of decision making Granddaughter- Italia Dong [phone] Prognosis: Mrs. Goyal is a 73-year-old female with past medical history significant for diabetes mellitus, hypertension, hyperlipidemia and COPD. She has had at least 4 hospitalizations since July,. Patient has experienced an acute decline in recent months. Clinical course complicated with dysphagia, decreased oral intake, altered mentation, and weakness. Given patient's advanced age and ongoing multiple comorbidities, patient remains at high risk for further complications, deterioration and decline. Code Status: Full Code Plan: * FULL CODE * Patient is . Per [place] statutes, in the absence of written advanced directives healthcare proxy decision making falls to the patient's 3 adult daughters (Mely, Ashley, Olga). Palliative care note on 08/01/18 indicate daughters, Ashley and Olga, opted out of decision making. Daughter, Mely, is willing to act in the role of HCP decision-maker. * AGGRESSIVE GOALS * Discussed patient with Gisselle Cortes and mental health case manager, Janeth. * Palliative care was consulted on this patient during a recent hospitalization in July,. At that time the family was expressing aggressive goals. A phone call was placed to the patient's daughter/HCP (Mely) to discuss medical treatment goals. A medical update was provided. We had a brief conversation about medical treatment goals, specifically the patient's progressive decline secondary to dementia, before being disconnected. No one answered when attempts were made to call the patient's daughter back. SYMPTOMS: * Altered mental status: Patient came in with altered mental status. Nonsensical speech. The patient has a history of cognitive impairment with aggressive tendencies. She was at [facility] after a recent hospitalization and was seen by neuropsychology and psychiatry. She is on Namenda for dementia , Seroquel for agitation and valproic acid for mood stabilization/ anticonvulsant. Patient had low-normal B12 in the past. Normal thyroid studies in July,. CF studies done in July, showed slight elevation in protein but were otherwise negative. EEG on 09/11/2018: moderate slowing consistent with what looks like an encephalopathic process. Previous Brain MRI showed atrophy and chronic small vessel ischemic changes. * Dysphagia: This may be secondary to altered mentation. Speech therapy consulted failed and patient swallow evaluation. Recommendations for pured diet and thin liquids. Patient has decreased oral intake. Dietitian consulted. * Pain: Multifactoral. Patient has history of degenerative disc disease and chronic pain. Having abdominal pain with tenderness to palpation yesterday . A CT abdomen ordered showed nonobstructive bowel gas pattern; gallbladder was unremarkable in appearance; apparent scarring in the left lung base. Currently denies pain. Continue assessing for pain symptoms * Palliative care will continue following this patient throughout her hospitalization to establish trust, assist with symptom management and clarification of medical treatment goals. Appreciation Thank you for the opportunity to participate in the care of Christa Goyal. Attestation Attestation: To help prompt me to consider important information that might be impacting today's encounter and assessment, information from prior notes written by myself or my colleagues may have been "brought forward" into today's note. My signature on this note, however, is an attestation that I personally performed the exam, history, and/or decision-making noted today, and, unless otherwise indicated, the interactions with patient, family, and staff as well as the review of records all occurred today. I also attest that the listed assessment and stated plan reflect my best clinical judgment today based on the combination of historical information, prior notes, and today's exam/ interactions. When time spent is documented, it refers only to time spent today by the signer, or if indicated, combined time spent today by collaborating physician/nurse practitioner.
--- NOTE | 2018-09-13 11:38 | P.DIET ---
Nutritional Evaluation Type of nutrition evaluation: initial Nutrition consult regarding: Diet Evaluation Nutrition screening: Poor PO Intake Subjective Subjective Comments: Pt refusing most meals. Objective - Diagnosis AMS - Objective Body Mass Index: 23.8 % IBW: 118 (IBW = 110lb) Body Weight Used for Calculations: Actual Energy Needs - Lower Range (kCal/kg): 25 Energy Needs - Upper Range (kCal/kg): 30 Lower Limit kCal/kg (kCals): 1,474 Upper Limit kCal/kg (kCals): 1,769 Lower Limit Protein Factor (Grams per Kg): 1.2 Upper Limit Protein Factor (Grams per Kg): 1.5 Lower Protein Needs (Protein): 71 Upper Protein Needs (Protein): 88 Fluid Factor (ml/kg): 25 Estimated Fluid Needs (ml): 1,474 Dietitian Reviewed in Medical Record: Current diet, Curent medications, Intake & Output, Labs, Medical history Diet Order: cardiac, pureed Oral Diet Intake Amount: Poor <50% Speech Therapy Recommendations: Yes (pureed, thin liquids) Objective Comments: PMH: anxiety, asthma, degenerative disc disease, dementia, DM, GERD, HTN, hypothyroidism Meds: milk of mag, norvasc, vit B12, novolog, singulair, thiamine Labs: BUN 31, POC glucose 159 Assessment Assessment: Pt currently at nutritional risk r/t reported poor PO intake and refusal of most meals. Pt has dementia and is confused, needs full feeding assistance and encouragement for PO intake. RD to recommend Ensure Enlive TID PO supplement. Will continue to monitor PO intake. Labs reviewed, dietitian following. Recommendations: 1. Pt needs full feeding assistance and encouragement for PO intake 2. RD to recommend Ensure Enlive TID PO supplement 3. Will continue to monitor PO intake 4. Dietitian following Dietitian to Monitor: Lab values, Supplement acceptance, Intake & Output, Diet tolerance, Weight change, PO Intake, Medical course
[2018-09-13] MEDS: Insulin NovoLOG Aspart Correctional Sugar Inj SQ SCH ×4 (11:44→20:38)
[2018-09-13 12:49] LABS: Baso % (Auto) 0.2 % (0.0-2.0); Eos % (Auto) 0.3 % (0.0-4.0); Hematocrit 41.7 % (35.0-46.0); Hemoglobin 13.8 gm/dL (11.6-15.3); Lymph # (Auto) 1.8 th/mm3 (1.0-4.8); Lymph % (Auto) 22.4 % (9.0-44.0); Mean Corpuscular Hemoglobin 31.9 pg (27.0-34.0); Mean Corpuscular Volume 96.7 fL (80.0-100.0); Mono # (Auto) 0.5 th/mm3 (0.0-0.9); Mono % (Auto) 6.4 % (0.0-8.0); Neut # (Auto) 5.8 th/mm3 (1.8-7.7); Neut % (Auto) 70.7 % (16.0-70.0); Platelet Count 160 th/mm3 (150-450); Red Blood Count 4.31 mil/mm3 (4.00-5.30); Red Cell Distribution Width 16.8 % (11.6-17.2); White Blood Count 8.2 th/mm3 (4.0-11.0)
[2018-09-13 13:35] LABS: Anion Gap 5 meq/L (5-15); Blood Urea Nitrogen 20 mg/dL (7-18); Calcium 9.3 mg/dL (8.5-10.1); Carbon Dioxide 32.6 meq/L (21.0-32.0); Chloride 106 meq/L (98-107); Creatine Kinase 261 U/L (26-192); Glomerular Filtration Rate Greater Than 89 mL/min (>89); Glucose,Random 176 mg/dL (74-106); Sodium 144 meq/L (136-145)
[2018-09-13 13:42] LABS: Potassium 4.3 meq/L (3.5-5.1)
[2018-09-13 14:03] LABS: CKMB Percent 1.3 % (0.0-4.0); Creatine Kinase MB 3.4 ng/mL (0.5-3.6)
--- NOTE | 2018-09-13 14:47 | MR ---
EXAM DATE: 09/13/2018 2:01 PM EDT AGE/SEX: 73 years / Female INDICATIONS: Altered mental status. CLINICAL DATA: This is the patient's subsequent encounter. Patient reports that signs and symptoms h ave been present for 2 days and indicates a pain score of 0/10. MEDICAL/SURGICAL HISTORY: Hypertension. Diabetes. Emphysema. Hysterectomy. Lung surgery. [place] [facility] [place]. . TECHNIQUE: Multiplanar, multisequence examination of the brain was performed without and with 6 ml Ga davist (gadobutrol) contrast as a single exam dose. FINDINGS: Cerebrum: The ventricles are normal for age. No evidence of midline shift, mass lesion, hemorrhage or acute infarction. No extraaxial fluid collections are seen. The pituitary gland and suprasellar cistern are normal in configuration. White Matter: Scattered foci of bright T2 signal abnormalities are seen in the white matter. Posterior Fossa: Minimal T2 signal abnormality in the brainstem. Old left cerebellar small infarct. T here are some old thalamic lacunar infarcts The 4th ventricle is midline. The cerebellopontine angle is unremarkable. The cerebellar tonsils are normal in position. Diffusion Imaging: No focal areas of restricted diffusion are seen. No evidence of acute infarction . Extracranial: The visualized portions of the orbits and paranasal sinuses are unremarkable. Post Contrast: No abnormal areas of parenchymal or dural enhancement. No evidence of blood-brain ba rrier breakdown. CONCLUSION: 1. Old bilateral lacunar infarcts. 2. Old left cerebellar infarct. 3. No acute infarction. 4. Nonspecific white matter changes with similar changes in the brainstem. Electronically signed by: Uziel Holt MD 09/13/2018 2:45 PM EDT
[2018-09-13] MEDS: Montelukast 10 MG Tablet PO SCH (20:34)
[2018-09-13] MEDS: QUEtiapine 25 MG Tablet PO SCH (20:34)
[2018-09-14] MEDS: KCL 20 mEq/D5W/NaCl 0.45% Inj 1,000 ML IV.CONT SCH ×2 (00:49→10:00)
--- NOTE | 2018-09-14 09:19 | P.PN ---
Subjective Interval history: Follow up for dementia, failure to thrive, encephalopathy, poor oral intake. Patient is oriented to self only, denies any current pain, then does not answer any further questions. Vital signs reviewed and stable. Still with poor oral intake. Going for LP today. Physical Exam Vital signs: Vital Signs 09/13/18 11:25 09/13/18 15:22 09/13/18 20:00 Temperature 98.2 F Pulse Rate 78 77 73 Respiratory Rate 16 16 Blood Pressure 123/93 H 164/72 H 130/91 H Pulse Oximetry 93 L 95 09/14/18 00:00 09/14/18 04:00 Temperature 97.7 F 97.4 F L Pulse Rate 73 76 Respiratory Rate 17 18 Blood Pressure 148/65 H 130/63 Pulse Oximetry 100 Intake & Output 09/13/18 09/14/18 09/14/18 18:59 06:59 18:59 Intake Total 890 / 890 Balance 890 / 890 Intake: IV 890 / 890 D5W/1/2NS + KCL 20 mEq Inj 1, 890 / 890 000 ML @ 84 mls/hr IV.CONT . [id number] [facility] Rx#:[id number] Narrative: GENERAL: Thin elderly female patient in [facility]. Occasionally moaning, answers a few yes or no questions. SKIN: Warm and dry. No rash. HEENT: Normocephalic. Atraumatic. Pupils equal and round. Mucous membranes pink and moist. CARDIOVASCULAR: Regular rate and rhythm. No murmur appreciated. RESPIRATORY: No accessory muscle use. Clear to auscultation. Breath sounds equal bilaterally. GASTROINTESTINAL: Abdomen soft, nondistended, nontender today. Normoactive bowel sounds x4. MUSCULOSKELETAL: No obvious deformities. Extremities without clubbing, cyanosis , or edema. NEUROLOGICAL: Awake and alert, oriented to self only. Moving all extremities spontaneously with equal strength however does not follow commands. Slow speech , moans. PSYCHIATRIC: insight and judgment limited. Results - Labs CBC & Chem 7: 09/13/18 11:56 09/13/18 11:56 Laboratory Results - last 24 hr 09/13/18 09/13/18 11 11:56 11:56 11:56 WBC 8.2 RBC 4.31 Hgb 13.8 Hct 41.7 MCV 96.7 D MCH 31.9 MCHC 33.0 RDW 16.8 Plt Count 160 MPV 10.0 Neut % (Auto) 70.7 H Lymph % (Auto) 22.4 [place] % (Auto) 6.4 Eos % (Auto) 0.3 Baso % (Auto) 0.2 Neut # (Auto) 5.8 Lymph # (Auto) 1.8 [place] # (Auto) 0.5 Eos # (Auto) 0.0 Baso # (Auto) 0.0 WBC Differential . Differential Comment Auto diff final Sodium 144 Potassium 4.3 Chloride 106 Carbon Dioxide 32.6 H Anion Gap 5 BUN 20 H Creatinine 0.64 Estimated GFR Greater than 89 POC Glucose 169 H Random Glucose 176 H Calcium 9.3 Total Creatine Kinase 261 H CK-MB (CK-2) 3.4 CK-MB (CK-2) % 1.3 - Imaging Impressions Head MRI 09/13/18 00:00 CONCLUSION: 1. Old bilateral lacunar infarcts. 2. Old left cerebellar infarct. 3. No acute infarction. 4. Nonspecific white matter changes with similar changes in the brainstem. Assessment and Plan - Assessment (1) Dementia Code(s): F03.90 - Unspecified dementia without behavioral disturbance Status: Acute (2) Acute metabolic encephalopathy Code(s): G93.41 - Metabolic encephalopathy Status: Acute (3) Altered mental status Code(s): R41.82 - Altered mental status, unspecified Status: Acute (4) Diabetes mellitus Code(s): E11.9 - Type 2 diabetes mellitus without complications Status: Chronic (5) Hypertension Code(s): I10 - Essential (primary) hypertension Status: Acute (6) Asthma Code(s): J45.909 - Unspecified asthma, uncomplicated Status: Acute - Plan 73-year-old female with past medical history significant for HTN, DM, GERD, hypothyroidism, DDD, chronic pain, asthma, and anxiety who presents to the emergency department via EMS due to altered mental status. Acute encephalopathy Hx Dementia -Suspect secondary to progression of dementia, possibly exacerbated by mild dehydration vs infection vs polypharmacy vs stroke -CBC stable, CMP with mildly elevated BUN at 28, ammonia within normal limits, total CK 349, improved, mildly elevated AST, improving -Head CT reviewed with no acute intracranial abnormality, atrophy and chronic ischemic changes -Chest x-ray with mild right base atelectasis, blood gas with low PO2 at 56 and low oxygen saturation at 86%, now on nasal cannula -UA unremarkable -toxicology positive for benzodiazepines and cannabis -Patient with ongoing AMS, consulted neurology for further recommendations, greatly appreciate assistance -Neurochecks, swallow eval, PT eval, needs rehab -Continue Namenda, hold off on benzodiazepines as not recommended in the elderly with dementia -valproic acid level low, will restart -EEG shows Moderate slowing of background consistent with what looks like an encephalopathic process -Brain MRI shows old bilateral lacunar infarcts, old left cerebellar infarct; no acute findings -Discussed with Dr. Avalos, likely progression of dementia -Family requesting aggressive care, neurology ordered LP today (has +RPR, patient with hx of LP with CSF studies showing high protein in Jul 2018, HSV PCR negative, also evaluated by ID and felt not to have neurosyphilis) -Neuro initiated trial of IV steroids -Continue to monitor Abdominal Pain with Poor Oral Intake: unclear etiology. Abdomen tender on exam intermittently. Minimal oral intake since arrival to hospital. -speech therapy consulted, recommends pureed diet with thin liquids -dietitian consulted, add Ensure Enlive to meals -abdomen/pelvis CT with nonobstructive bowel gas pattern, GB unremarkable; otherwise unremarkable -supportive treatment with IVF hydration -palliative care following -may need to consider PEG Resolving rhabdomyolysis Mild dehydration -Total CK continues to improve -Continue IVF and encourage oral hydration Diabetes mellitus Hypothyroidism Hypertension, chronic -Continue home medications -Heart healthy diet, Accu-Cheks with insulin sliding scale Failure to Thrive/Self Care Deficit: acute -suspect secondary to progression of dementia, however rule out other etiologies such as stroke or infection -consulted palliative care, greatly appreciate assistance, appears family wants aggressive care DVT prophylaxisteds/SCDs Discharge Planning: Discharge pending further clinical improvement, going for LP today, currently with minimal oral intake, appreciate palliative care assistance. Unsafe discharge home at this time. (3) Altered mental status Qualifiers: Altered mental status type: coma (4) Diabetes mellitus Qualifiers: Diabetes mellitus type: type 2 Diabetes mellitus termite helper insulin use: without intermediate use Diabetes mellitus complication status: without complication Qualified Code(s): E11.9 - Type 2 diabetes mellitus without complications (5) Hypertension Qualifiers: Hypertension type: essential hypertension Qualified Code(s): I10 - Essential (primary) hypertension (6) Asthma Qualifiers: Asthma severity: unspecified severity Asthma persistence: unspecified Asthma complication type: unspecified Qualified Code(s): J45.909 - Unspecified asthma, uncomplicated
--- NOTE | 2018-09-14 09:49 | P.PNNEU ---
Subjective Subjective Comments: No acute events Active Medications: Active Medications Acetaminophen (Tylenol) 650 mg PO Q4H PRN PRN Reason: PAIN SCALE 1 TO 10 Last Admin: 09/13/18 09:51 Dose: 650 mg Al Hydroxide/Mg Hydroxide (Milk Of Magnesia Liq) 30 ml PO Q12H PRN PRN Reason: Mild Constipation Amlodipine Besylate (Norvasc) 10 mg PO DAILY [facility] Last Admin: 09/13/18 09:52 Dose: 10 mg Aspirin (Aspirin Chew) 81 mg PO DAILY [facility] Last Admin: 09/13/18 09:56 Dose: 81 mg Bisacodyl (Dulcolax Supp) 10 mg RECTAL DAILY PRN PRN Reason: SEVERE CONSITIPATION Budesonide/Formoterol Fumarate (Symbicort 160/4.5 Mcg Inh) 2 puff INH BID [facility] Last Admin: 09/13/18 20:39 Dose: Not Given Cyanocobalamin (Vitamin B12 Inj) 1,000 mcg IM DAILY [facility] Stop: 09/17/18 09:01 Last Admin: 09/13/18 10:06 Dose: Not Given Cyanocobalamin (Vitamin B12 Inj) 1,000 mcg IM WEEKLY [facility] Stop: 10/15/18 09:01 Cyanocobalamin (Vitamin B12 Inj) 1,000 mcg IM Q30D [facility] Dextrose (D50w Vial) 50 ml IV.PUSH UNSCH PRN PRN Reason: PER HYPOGLYCEMIA PROTOCOL Enalapril Maleate (Vasotec) 10 mg PO DAILY [facility] Last Admin: 09/13/18 09:52 Dose: 10 mg Glucagon (Glucagon Inj) 1 mg OTHER PRN PRN PRN Reason: for Hypoglycemia Protocol Potassium Chloride/Dextrose/Sod Cl (D5w/1/2ns + Kcl 20 Meq Inj) 1,000 mls @ 84 mls/hr IV.CONT .[id number] [facility] Last Admin: 09/14/18 00:49 Dose: 84 mls/hr Insulin Aspart (Novolog Insulin Correctional Sugar Inj) 0 unit SQ ACHS [facility]; Protocol Last Admin: 09/13/18 20:38 Dose: Not Given Lactulose (Lactulose Liq) 30 ml PO DAILY PRN PRN Reason: SEVERE CONSITIPATION Lansoprazole (Prevacid Solutab) 15 mg PO DAILY [facility] Last Admin: 09/13/18 09:52 Dose: 15 mg Lorazepam (Ativan Inj) 1 mg IV.PUSH ONCE PRN PRN Reason: agitation/pre imaging Memantine (Namenda) 5 mg PO DAILY [facility] Last Admin: 09/13/18 09:52 Dose: 5 mg Montelukast Sodium (Singulair) [address] [facility] Last Admin: 09/13/18 20:34 Dose: 10 mg Quetiapine Fumarate (Seroquel) 25 mg PO HS [facility] Last Admin: 09/13/18 20:34 Dose: 25 mg Sennosides (Senokot) 17.2 mg PO Q12H PRN PRN Reason: Moderate Constipation Sodium Chloride (Ns Flush) 2 ml IV.FLUSH PRN PRN PRN Reason: FLUSH AFTER USING IV ACCESS Thiamine HCl (Thiamine Inj) 100 mg IM DAILY [facility] Last Admin: 09/13/18 10:06 Dose: Not Given Valproate Sodium (Depakene Liq) 250 mg PO BID [facility] Last Admin: 09/13/18 20:34 Dose: 250 mg Allergies/Adverse Reactions: Allergies Allergy/AdvReac Type Severity Reaction Status Date / Time cephalexin Allergy Severe throat Verified 09/10/18 23:24 closes Review of Systems unobtainable due to mental condition Physical Exam Vital signs: Vital Signs 09/13/18 11:25 09/13/18 15:22 09/13/18 20:00 Temperature 98.2 F Pulse Rate 78 77 73 Respiratory Rate 16 16 Blood Pressure 123/93 H 164/72 H 130/91 H Pulse Oximetry 93 L 95 09/14/18 00:00 09/14/18 04:00 Temperature 97.7 F 97.4 F L Pulse Rate 73 76 Respiratory Rate 17 18 Blood Pressure 148/65 H 130/63 Pulse Oximetry 100 Intake & Output 09/13/18 09/14/18 09/14/18 18:59 06:59 18:59 Intake Total 890 / 890 Balance 890 / 890 Intake: IV 890 / 890 D5W/1/2NS + KCL 20 mEq Inj 1, 890 / 890 000 ML @ 84 mls/hr IV.CONT . [id number] [facility] Rx#:[id number] Narrative: GENERAL: in NAD, SKIN: Warm and dry. HEAD: Atraumatic. Normocephalic. EYES: Sluggishly reactive ENT: No nasal bleeding or discharge. NECK: Trachea midline. No JVD. CARDIOVASCULAR: Regular rate and rhythm. RESPIRATORY: No accessory muscle use. GASTROINTESTINAL: Abdomen soft, non-tender, nondistended. MUSCULOSKELETAL: Extremities without clubbing, cyanosis, or edema. No obvious deformities. NEUROLOGICAL: Awake, moans, will yell/shout, inconsistently follows, neck supple no tenderness with temporal palpation, some blink to threat face symmetric, moving all 4 extremity gravity gait not assessed secondary fall risk PSYCHIATRIC: Calm - Constitutional no acute distress - Routine HEENT Exam Head: Present: normocephalic Eye: Present: EOMI Objective Laboratory Results - last 24 hr 09/11/18 09/13/18 09/13/18 18:46 11:56 11:56 WBC 8.2 RBC 4.31 Hgb 13.8 Hct 41.7 MCV 96.7 D MCH 31.9 MCHC 33.0 RDW 16.8 Plt Count 160 MPV 10.0 Neut % (Auto) 70.7 H Lymph % (Auto) 22.4 [place] % (Auto) 6.4 Eos % (Auto) 0.3 Baso % (Auto) 0.2 Neut # (Auto) 5.8 Lymph # (Auto) 1.8 [place] # (Auto) 0.5 Eos # (Auto) 0.0 Baso # (Auto) 0.0 WBC Differential . Differential Comment Auto diff final Sodium 144 Potassium 4.3 Chloride 106 Carbon Dioxide 32.6 H Anion Gap 5 BUN 20 H Creatinine 0.64 Estimated GFR Greater than 89 POC Glucose Random Glucose 176 H Calcium 9.3 Total Creatine Kinase 261 H CK-MB (CK-2) 3.4 CK-MB (CK-2) % 1.3 Methylmalonic Acid 0.12 09/13/18 11:56 WBC RBC Hgb Hct MCV MCH MCHC RDW Plt Count MPV Neut % (Auto) Lymph % (Auto) [place] % (Auto) Eos % (Auto) Baso % (Auto) Neut # (Auto) Lymph # (Auto) [place] # (Auto) Eos # (Auto) Baso # (Auto) WBC Differential Differential Comment Sodium Potassium Chloride Carbon Dioxide Anion Gap BUN Creatinine Estimated GFR POC Glucose 169 H Random Glucose Calcium Total Creatine Kinase CK-MB (CK-2) CK-MB (CK-2) % Methylmalonic Acid Review/Management - Diagnosis (1) Cognitive impairment Code(s): R41.89 - Other symptoms and signs involving cognitive functions and awareness Status: Acute Current Visit: Yes (2) Major neurocognitive disorder due to multiple etiologies Code(s): F02.80 - Dementia in other diseases classified elsewhere without behavioral disturbance Status: Acute Current Visit: No (3) Hypoxic encephalopathy Code(s): G93.1 - Anoxic brain damage, not elsewhere classified Status: Acute Current Visit: No (4) Encephalopathy Code(s): G93.40 - Encephalopathy, unspecified Status: Acute Current Visit: No - Review/Management Plan: Possible underlying advanced dementia with agitation. Which may be worsened by metabolic changes such as hypoxia, poor p.o. intake, urinary tract infection illicit drug use Urine drug screen positive for benzodiazepines and marijuana History seen by psychology neuropsychology at [facility] cognitive impairment with behavioral disorder Low normal B12 in the past. Normal thyroid studies in July 2018. Slightly elevated CRP CSF studies done July 2018 showed slight elevation of protein otherwise negative for herpes PCR negative On memantine for dementia, Seroquel for agitation, valproic acid for mood stabilization but also work as an anticonvulsant Positive RPR however negative in CSF seen by ID and evaluated did not feel she had neurosyphilis Recommendation Apparently family wants continued aggressive efforts repeat ABG Repeat LP as previous one showed elevated protein nonspecific Trial IV steroids Incentive spirometry for atelectasis Palliative care Discontinue illicit drug use and benzo use
[2018-09-14] MEDS: Lansoprazole ODT 15 MG Tablet PO SCH (09:54)
[2018-09-14] MEDS: Budesonide-Formoterol 160/4.5 MCG 6 GM Inhaler INH SCH (09:55)
[2018-09-14] MEDS: amLODIPine 10 MG Tablet PO SCH (09:55)
[2018-09-14] MEDS: Insulin NovoLOG Aspart Correctional Sugar Inj SQ SCH ×4 (10:00→20:25)
[2018-09-14] MEDS: MethylPREDNISolone Sod Succinate Inj 125 MG/2 ML Vial IV.PUSH SCH ×2 (11:00→20:26)
[2018-09-14 11:17] LABS: ABG Base Excess 5.9 mmol/L (-2-2); ABG PCO2 38 mmHg (38-42); ABG PO2 63 mmHg (61-120)
[2018-09-14 11:57] LABS: Activated Partial Thrombo Time 26.1 sec (23.4-31.7); INR 1.1 Ratio; Prothrombin Time 11.1 sec (9.8-11.6)
--- NOTE | 2018-09-14 12:12 | P.RAD ---
Post Procedure Progress Note - Pre Procedure Diagnosis (1) Altered mental status - Post Procedure Diagnosis (1) Altered mental status (2) Altered mental status - Procedure Information Procedure Date: 09/14/18 Supervising Radiologist: Madhu Bhardwaj MD Estimated blood loss (mL): 0 Anesthesia: Local - Plan of Activity Patient to Unit: Nursing Unit Patient Condition: Poor Additional Comments: LP completed without difficulty Opening pressure 9cm/H2O 15cc of clear CSF collected See PACS Report for procedural detail/treatment.
--- NOTE | 2018-09-14 12:52 | P.PNPAL ---
Reason for Visit Reason for visit: a. To assist with evaluation and management of symptoms including: Altered mental status, dysphagia, pain. b. To assist medical decision maker(s) with: better understanding of current medical conditions; weighing benefits/burdens of medical treatment options; making medical treatment decisions. Subjective Subjective/Interval History: Mrs. Goyal is a 73-year-old female with a medical history that is significant for HTN, DM, GERD, hypothyroidism, DDD, chronic pain, COPD, and anxiety who presented to [place] ED on 09/11/2018 for evaluation of altered mental status. The patient was recently hospitalized from 09/06/18-09/08/18 for management of rhabdomyolysis and suspected UTI. She was discharged home with home health care. Her daughter reported that patient had been at home eating and drinking without any difficulties but had stopped talking a few days ago. Patient seen today for evaluation of symptom management of altered mental status , dysphasia and pain and to assist family in goals of medical treatment. She remains altered today. Speaking gibberish, not responding to questions. She is curled up in bed with her knees pulled to her chest. Her altered mental status has been chronic, progressive, worsening, moderate to severe, associated with a decline in oral intake, cognitive ability, memory and activity. She is seen by neurology and opined to have advanced dementia. She was evaluated by speech therapy and found to be orally holding some material in her mouth. She was unable to trigger swallow to verbal command but did manage to swallow after oral stimulation with a cup. Speech therapy noted periods of holding oral material, allowing approximately 20 seconds to trigger swallow. No cough, vocal changes, breath sound changes or throat clearing post swallow. They recommended thin liquids with pured solids. Patient continues to have minimal oral intake. Patient cries out in pain with movement but is unable to quantify or qualify her discomfort. She is receiving Solu-Medrol and has received a dose of Tylenol in the last 24 hours. Use of narcotics is been minimized to accurately assess mental status. . Family/Friend Interactions: Her daughter expresses concern regarding lung cancer, as the patient has been a heavy smoker all of her life. The daughter states that there is a large family history of cancer throughout the patient's siblings. She is concerned that the patient's leg pain is significant for bone metastasis. I did review with her the findings of the abdomen and pelvis CT showing no remarkable bony structure changes. She denies any current smoking history with the patient, as her daughter is highly sensitive to any kind of smoke and does not allow smoking in the house in her presence. She was concerned regarding the findings of the toxicology panel showing positive for benzodiazepines and marijuana. She states to her knowledge, the patient does not use medical marijuana, but that 1 of the family visitors may have the patient is chronically prescribed Xanax which would account for the benzodiazepine use. . Objective Vital Signs: Vital Signs 09/13/18 15:22 09/13/18 20:00 09/14/18 00:00 Temperature 98.2 F 97.7 F Pulse Rate 77 73 73 Respiratory Rate 16 17 Blood Pressure 164/72 H 130/91 H 148/65 H Pulse Oximetry 93 L 95 09/14/18 04:00 Temperature 97.4 F L Pulse Rate 76 Respiratory Rate 18 Blood Pressure 130/63 Pulse Oximetry 100 Intake & Output 09/13/18 09/14/18 09/14/18 18:59 06:59 18:59 Intake Total 890 / 890 Balance 890 / 890 Intake: IV 890 / 890 D5W/1/2NS + KCL 20 mEq Inj 1, 890 / 890 000 ML @ 84 mls/hr IV.CONT . [id number] [facility] Rx#:[id number] Other: # Voids 0 Physical Exam: CONSTITUTIONAL/GENERAL: This is a frail, elderly female in no acute distress TUBES/LINES/DRAINS: PIV CARDIOVASCULAR: Regular rate and rhythm without murmurs, gallops, or rubs. No JVD. Peripheral pulses symmetric. RESPIRATORY/CHEST: Symmetric, unlabored respirations. Clear to auscultation. Breath sounds equal bilaterally. No accessory muscle use GASTROINTESTINAL: Abdomen soft, non-tender, nondistended. No guarding. Bowel sounds present. GENITOURINARY: Without palpable bladder distension. Sullivan catheter in place. MUSCULOSKELETAL: Extremities without clubbing, cyanosis, or edema. Positive muscle wasting. No obvious deformities. No mottling or clubbing. NEUROLOGICAL: Awake and alert; oriented to self only. Nonsensical speech. Moving all extremities x4. PSYCHIATRIC: Appears anxious, resisting care. . Diagnostic Tests Laboratory: Laboratory Results - last 72 hr 09/11/18 09/11/18 09/11/18 16:05 17:46 18:46 WBC RBC Hgb Hct MCV MCH MCHC RDW Plt Count MPV Neut % (Auto) Lymph % (Auto) Emmet % (Auto) Eos % (Auto) Baso % (Auto) Neut # (Auto) Lymph # (Auto) Emmet # (Auto) Eos # (Auto) Baso # (Auto) WBC Differential Differential Comment ESR 45 H PT INR APTT Puncture Site Patient Temperature O2 Saturation ABG pH ABG pCO2 ABG pO2 ABG HCO3 ABG O2 Content ABG Base Excess ABG Methemoglobin Dylan Test Hemoglobin Carboxyhemoglobin O2 Delivery Device Inspired O2 Critical Value Sodium Potassium Chloride Carbon Dioxide Anion Gap BUN Creatinine Estimated GFR POC Glucose 172 H Random Glucose Calcium Total Creatine Kinase CK-MB (CK-2) CK-MB (CK-2) % C-Reactive Protein 1.80 H Vitamin B12 806 Methylmalonic Acid TSH 0.611 09/11/18 09/11/18 09/12/18 18:46 22:32 07:30 WBC RBC Hgb Hct MCV MCH MCHC RDW Plt Count MPV Neut % (Auto) Lymph % (Auto) Emmet % (Auto) Eos % (Auto) Baso % (Auto) Neut # (Auto) Lymph # (Auto) Emmet # (Auto) Eos # (Auto) Baso # (Auto) WBC Differential Differential Comment ESR PT INR APTT Puncture Site Patient Temperature O2 Saturation ABG pH ABG pCO2 ABG pO2 ABG HCO3 ABG O2 Content ABG Base Excess ABG Methemoglobin Dylan Test Hemoglobin Carboxyhemoglobin O2 Delivery Device Inspired O2 Critical Value Sodium 145 Potassium 3.8 Chloride 103 Carbon Dioxide 32.6 H Anion Gap 9 BUN 31 H Creatinine 0.65 Estimated GFR Greater than 89 POC Glucose 107 Random Glucose 137 H Calcium 9.4 Total Creatine Kinase CK-MB (CK-2) CK-MB (CK-2) % C-Reactive Protein Vitamin B12 Methylmalonic Acid 0.12 TSH 09/12/18 09/12/18 09/12/18 07:44 11:39 11:47 WBC RBC Hgb Hct MCV MCH MCHC RDW Plt Count MPV Neut % (Auto) Lymph % (Auto) Emmet % (Auto) Eos % (Auto) Baso % (Auto) Neut # (Auto) Lymph # (Auto) Emmet # (Auto) Eos # (Auto) Baso # (Auto) WBC Differential Differential Comment ESR PT INR APTT Puncture Site Patient Temperature O2 Saturation ABG pH ABG pCO2 ABG pO2 ABG HCO3 ABG O2 Content ABG Base Excess ABG Methemoglobin Dylan Test Hemoglobin Carboxyhemoglobin O2 Delivery Device Inspired O2 Critical Value Sodium Potassium Chloride Carbon Dioxide Anion Gap BUN Creatinine Estimated GFR POC Glucose 120 H 214 H 140 H Random Glucose Calcium Total Creatine Kinase CK-MB (CK-2) CK-MB (CK-2) % C-Reactive Protein Vitamin B12 Methylmalonic Acid [facility] 09/12/18 09/12/18 09/13/18 17:21 21:02 11:56 WBC 8.2 RBC 4.31 Hgb 13.8 Hct 41.7 MCV 96.7 D MCH 31.9 MCHC 33.0 RDW 16.8 Plt Count 160 MPV 10.0 Neut % (Auto) 70.7 H Lymph % (Auto) 22.4 Emmet % (Auto) 6.4 Eos % (Auto) 0.3 Baso % (Auto) 0.2 Neut # (Auto) 5.8 Lymph # (Auto) 1.8 Emmet # (Auto) 0.5 Eos # (Auto) 0.0 Baso # (Auto) 0.0 WBC Differential . Differential Comment Auto diff final ESR PT INR APTT Puncture Site Patient Temperature O2 Saturation ABG pH ABG pCO2 ABG pO2 ABG HCO3 ABG O2 Content ABG Base Excess ABG Methemoglobin Dylan Test Hemoglobin Carboxyhemoglobin O2 Delivery Device Inspired O2 Critical Value Sodium Potassium Chloride Carbon Dioxide Anion Gap BUN Creatinine Estimated GFR POC Glucose 213 H 159 H Random Glucose Calcium Total Creatine Kinase CK-MB (CK-2) CK-MB (CK-2) % C-Reactive Protein Vitamin B12 Methylmalonic Acid [facility] 09/13/18 09/13/18 09/14/18 11:56 11:56 11:07 WBC RBC Hgb Hct MCV MCH MCHC RDW Plt Count MPV Neut % (Auto) Lymph % (Auto) Emmet % (Auto) Eos % (Auto) Baso % (Auto) Neut # (Auto) Lymph # (Auto) Emmet # (Auto) Eos # (Auto) Baso # (Auto) WBC Differential Differential Comment ESR PT INR APTT Puncture Site Left radial Patient Temperature 98.6 O2 Saturation 90 ABG pH 7.50 H ABG pCO2 38 ABG pO2 63 ABG HCO3 29 H ABG O2 Content 17.0 ABG Base Excess 5.9 H ABG Methemoglobin 0.6 Dylan Test Present Hemoglobin 13.4 Carboxyhemoglobin 1.4 O2 Delivery Device Ra Inspired O2 21 Critical Value Yes Sodium 144 Potassium 4.3 Chloride 106 Carbon Dioxide 32.6 H Anion Gap 5 BUN 20 H Creatinine 0.64 Estimated GFR Greater than 89 POC Glucose 169 H Random Glucose 176 H Calcium 9.3 Total Creatine Kinase 261 H CK-MB (CK-2) 3.4 CK-MB (CK-2) % 1.3 C-Reactive Protein Vitamin B12 Methylmalonic Acid TSH 09/14/18 11:26 WBC RBC Hgb Hct MCV MCH MCHC RDW Plt Count MPV Neut % (Auto) Lymph % (Auto) Emmet % (Auto) Eos % (Auto) Baso % (Auto) Neut # (Auto) Lymph # (Auto) Emmet # (Auto) Eos # (Auto) Baso # (Auto) WBC Differential Differential Comment ESR PT 11.1 INR 1.1 APTT 26.1 Puncture Site Patient Temperature O2 Saturation ABG pH ABG pCO2 ABG pO2 ABG HCO3 ABG O2 Content ABG Base Excess ABG Methemoglobin Dylan Test Hemoglobin Carboxyhemoglobin O2 Delivery Device Inspired O2 Critical Value Sodium Potassium Chloride Carbon Dioxide Anion Gap BUN Creatinine Estimated GFR POC Glucose Random Glucose Calcium Total Creatine Kinase CK-MB (CK-2) CK-MB (CK-2) % C-Reactive Protein Vitamin B12 Methylmalonic Acid TSH Result Diagrams: 09/13/18 11:56 09/13/18 11:56 Imaging: Chest X-Ray 09/11/18 00:15 CONCLUSION: Mild right base atelectasis. Head CT 09/11/18 00:15 CONCLUSION: 1. No acute intracranial abnormality demonstrated. 2. Atrophy and chronic ischemic changes. . Abdomen/Pelvis CT 09/12/18 00:00 CONCLUSION: 1. Nonobstructive bowel gas pattern. 2. The gallbladder is unremarkable in appearance. 3. Apparent scarring in the right lung base. 4. Suboptimal study secondary to motion artifact. Head MRI 09/13/18 00:00 CONCLUSION: 1. Old bilateral lacunar infarcts. 2. Old left cerebellar infarct. 3. No acute infarction. 4. Nonspecific white matter changes with similar changes in the brainstem. Assessment and Plan - Disease Oriented Problem List (1) Diabetes mellitus (2) Hypertension (3) DM (diabetes mellitus) (4) Acute metabolic encephalopathy (5) Dementia (6) Dementia (7) Rhabdomyolysis Comment: = Resolving (8) Hypothyroidism - Symptom Scale (3) Pain Comment: Currently denies pain Pertinent Non-Medical Issues: Psychosocial: Patient was born and raised in [facility]. She is . He a year ago. Patient has 3 adult daughters. Spiritual: Patient is Gnosticism Legal: Per [place] statutes, in the absence of written advanced directives healthcare proxy decision making falls to the patient's 3 adult daughters ( Ashley Boone, Olga). Per palliative care note on 08/01/18: Daughters, García, have opted out of decision making. Daughter, Mely, is willing to act in the role of HCP decision-maker. Ethical issues impacting care: None identified at this time Important Contacts: Daughter- Mely Davidson [phone]-willing to serve as healthcare proxy Daughter-Ashley Lal -[phone] opted out of decision making Daughter- Olga Lal [phone] opted out of decision making Granddaughter- Italia Dong [phone] Prognosis: Mrs. Goyal is a 73-year-old female with past medical history significant for diabetes mellitus, hypertension, hyperlipidemia and COPD. She has had at least 4 hospitalizations since July,. Patient has experienced an acute decline in recent months. Clinical course complicated with dysphagia, decreased oral intake, altered mentation, and weakness. Given patient's advanced age and ongoing multiple comorbidities, patient remains at high risk for further complications, deterioration and decline. Code Status: Full Code Plan: * FULL CODE * Patient is . Per [place] statutes, in the absence of written advanced directives healthcare proxy decision making falls to the patient's 3 adult daughters (Ashley Boone, Olga). Palliative care note on 08/01/18 indicate daughters, García, opted out of decision making. Daughter, Mely, is willing to act in the role of HCP decision-maker. * AGGRESSIVE GOALS * Discussed patient with Gisselle Cortes and case aide, Janeth. * Palliative care was consulted on this patient during a recent hospitalization in July,. At that time the family was expressing aggressive goals. A phone call was placed to the patient's daughter/HCP (Mely) to discuss medical treatment goals. A medical update was provided. We had a brief conversation about medical treatment goals, specifically the patient's progressive decline secondary to dementia, before being disconnected. No one answered when attempts were made to call the patient's daughter back. SYMPTOMS: * Altered mental status: Patient came in with altered mental status. Nonsensical speech. The patient has a history of cognitive impairment with aggressive tendencies. She was at [facility] after a recent hospitalization and was seen by neuropsychology and psychiatry. She is on Namenda for dementia , Seroquel for agitation and valproic acid for mood stabilization/ anticonvulsant. Patient had low-normal B12 in the past. Normal thyroid studies in July,. CF studies done in July, showed slight elevation in protein but were otherwise negative. EEG on 09/11/2018: moderate slowing consistent with what looks like an encephalopathic process. Previous Brain MRI showed atrophy and chronic small vessel ischemic changes. LP done today for further evaluation. * Dysphagia: This may be secondary to altered mentation. Speech therapy consulted and found delayed oral phase but no overt signs of aspiration. She has been cleared for thin liquids and pured diet. Patient has decreased oral intake, likely secondary to advanced dementia. Dietitian consulted. * Pain: Multifactoral. Patient has history of degenerative disc disease and chronic pain. Having abdominal pain with tenderness to palpation yesterday . A CT abdomen ordered showed nonobstructive bowel gas pattern; gallbladder was unremarkable in appearance; apparent scarring in the left lung base. Currently denies pain. Continue assessing for pain symptoms. Receiving Solu-Medrol and Tylenol. * Palliative care will continue following this patient throughout her hospitalization to establish trust, assist with symptom management and clarification of medical treatment goals. Attestation Attestation: To help prompt me to consider important information that might be impacting today's encounter and assessment, information from prior notes written by myself or my colleagues may have been "brought forward" into today's note. My signature on this note, however, is an attestation that I personally performed the exam, history, and/or decision-making noted today, and, unless otherwise indicated, the interactions with patient, family, and staff as well as the review of records all occurred today. I also attest that the listed assessment and stated plan reflect my best clinical judgment today based on the combination of historical information, prior notes, and today's exam/ interactions. When time spent is documented, it refers only to time spent today by the signer, or if indicated, combined time spent today by collaborating physician/nurse practitioner. .
[2018-09-14 13:43] LABS: Lymphocytes, CSF 100 %; Neutrophils,CSF 0 %; RBC on Tube 1 23 /mm3; RBC on Tube 4 5 /mm3
[2018-09-14 13:44] LABS: RBC on Tube 1 23 /mm3
--- NOTE | 2018-09-14 15:14 | IR ---
EXAM DATE: 09/14/2018 12:30 PM EDT AGE/SEX: 73 years / Female INDICATIONS: Patient presents with altered mental status in need of lumbar puncture with opening pre ssures for further evaluation. CLINICAL DATA: This is the patient's initial encounter. Patient reports that signs and symptoms have been present for 3 days and indicates a pain score of Nonresponsive. MEDICAL/SURGICAL HISTORY: . Diabetes, Dementia, Hypertension, Acute metabolic encephalopathy, G ERD, Asthma, DDD, Hypothyroidism. . Removal of cyst, Hysterectomy, Bronchoscopy. COMPARISON: No prior exams available for comparison. FLUORO TIME (min): 1.90 IMAGE SERIES: 2 ACCESS SITE: L3-4 LUMBAR PUNCTURE TIME: 11:54 hours OPENING PRESSURE: 9 cm of water CLOSING PRESSURE: not requested FLUID: Total volume of 15.5 cc of clear fluid was removed. Fluid was sent to lab for ordered studies. PROCEDURE: 1. Fluoroscopic guided lumbar puncture. The risks, benefits and alternatives to the procedure were explained and verbal and written consent w as obtained. The site was prepped in sterile fashion. Full sterile technique was used, including ca p, mask, sterile gloves and gown and a large sterile sheet. Hand hygiene and 2% chlorhexidine and/or betadine/alcohol prep was utilized per protocol for cutaneous antisepsis. The skin and subcutaneous tissues were infiltrated with local anesthetic solution. With fluoroscopic guidance the lumbar thecal sac was punctured at the level above. The fluid describ ed above was removed without difficulty. The patient tolerated the procedure well and there were no complications. CONCLUSION: 1. Uncomplicated fluoroscopically guided lumbar puncture. Electronically signed by: Madhu Bhardwaj MD 09/14/2018 3:13 PM EDT
[2018-09-14] MEDS: QUEtiapine 25 MG Tablet PO SCH (20:33)
[2018-09-14] MEDS: Montelukast 10 MG Tablet PO SCH (20:33)
[2018-09-15] MEDS: Budesonide-Formoterol 160/4.5 MCG 6 GM Inhaler INH SCH ×3 (00:11→21:46)
[2018-09-15] MEDS: KCL 20 mEq/D5W/NaCl 0.45% Inj 1,000 ML IV.CONT SCH ×2 (00:14→11:47)
--- NOTE | 2018-09-15 10:10 | P.PN ---
Subjective Interval history: Follow-up for dementia, failure to thrive, encephalopathy, poor oral intake. The patient again is moaning out from her room. She tells me her name, but then denies any pain. She drank half of her Ensure shake this morning. Abdomen feels full and slightly distended. No documented BM since arrival. Discussed with RN, no acute concerns. Physical Exam Vital signs: Vital Signs 09/14/18 13:23 09/14/18 20:00 09/15/18 00:00 Temperature 98.5 F 97.7 F 97.4 F L Pulse Rate 83 65 60 Respiratory Rate 20 16 17 Blood Pressure 140/58 L 151/64 H 144/67 H Pulse Oximetry 99 100 100 09/15/18 04:00 09/15/18 07:45 Temperature 97.7 F 97.7 F Pulse Rate 67 72 Respiratory Rate 18 16 Blood Pressure 136/78 119/57 L Pulse Oximetry 100 99 Intake & Output 09/14/18 09/15/18 09/15/18 18:59 06:59 18:59 Weight 58.967 kg Other: # Voids 0 Weight On Admission 58.967 kg Narrative: GENERAL: Thin elderly female patient in [facility]. Occasionally moaning, answers a few yes or no questions. SKIN: Warm and dry. No rash. HEENT: Normocephalic. Atraumatic. Pupils equal and round. Mucous membranes pink and moist. CARDIOVASCULAR: Regular rate and rhythm. No murmur appreciated. RESPIRATORY: No accessory muscle use. Clear to auscultation. Breath sounds equal bilaterally. GASTROINTESTINAL: Abdomen soft, mildly distended but nontender. Normoactive bowel sounds x4. MUSCULOSKELETAL: No obvious deformities. Extremities without clubbing, cyanosis , or edema. NEUROLOGICAL: Awake and alert, oriented to self only. Moving all extremities spontaneously with equal strength however does not follow commands. Slow speech , moans. PSYCHIATRIC: insight and judgment limited. Results - Labs CBC & Chem 7: 09/15/18 10:59 09/15/18 10:59 Laboratory Results - last 24 hr 09/14/18 09/14/18 09/14/18 11:07 11:26 11:54 PT 11.1 INR 1.1 APTT 26.1 Puncture Site Left radial Patient Temperature 98.6 O2 Saturation 90 ABG pH 7.50 H ABG pCO2 38 ABG pO2 63 ABG HCO3 29 H ABG O2 Content 17.0 ABG Base Excess 5.9 H ABG Methemoglobin 0.6 Dylan Test Present Hemoglobin 13.4 Carboxyhemoglobin 1.4 O2 Delivery Device Ra Inspired O2 21 Critical Value Yes POC Glucose CSF Volume (1) 4.0 CSF Supernat Color (1) Clear CSF Gross Blood (1) Trace CSF WBC (1) 3 CSF RBC (1) 23 H CSF Volume (2) 1.5 CSF Supernat Color (2) Clear CSF Gross Blood (2) 0 CSF Volume (3) 4.0 CSF Supernat Color (3) Clear CSF Gross Blood (3) Trace CSF Volume (4) 5.5 CSF Supernat Color (4) Clear CSF Gross Blood (4) Trace CSF WBC (4) 2 CSF RBC (4) 5 H CSF Neutrophils % 0 CSF Lymphocytes % 100 CSF Glucose CSF Total Protein 09/14/18 09/14/18 09/14/18 11:54 11:54 11:54 PT INR APTT Puncture Site Patient Temperature O2 Saturation ABG pH ABG pCO2 ABG pO2 ABG HCO3 ABG O2 Content ABG Base Excess ABG Methemoglobin Dylan Test Hemoglobin Carboxyhemoglobin O2 Delivery Device Inspired O2 Critical Value POC Glucose CSF Volume (1) CSF Supernat Color (1) CSF Gross Blood (1) CSF WBC (1) 3 CSF RBC (1) 23 H CSF Volume (2) CSF Supernat Color (2) CSF Gross Blood (2) CSF Volume (3) CSF Supernat Color (3) CSF Gross Blood (3) CSF Volume (4) CSF Supernat Color (4) CSF Gross Blood (4) CSF WBC (4) CSF RBC (4) CSF Neutrophils % CSF Lymphocytes % CSF Glucose 110 H CSF Total Protein 66.5 H 09/14/18 20:08 PT INR APTT Puncture Site Patient Temperature O2 Saturation ABG pH ABG pCO2 ABG pO2 ABG HCO3 ABG O2 Content ABG Base Excess ABG Methemoglobin Dylan Test Hemoglobin Carboxyhemoglobin O2 Delivery Device Inspired O2 Critical Value POC Glucose 119 H CSF Volume (1) CSF Supernat Color (1) CSF Gross Blood (1) CSF WBC (1) CSF RBC (1) CSF Volume (2) CSF Supernat Color (2) CSF Gross Blood (2) CSF Volume (3) CSF Supernat Color (3) CSF Gross Blood (3) CSF Volume (4) CSF Supernat Color (4) CSF Gross Blood (4) CSF WBC (4) CSF RBC (4) CSF Neutrophils % CSF Lymphocytes % CSF Glucose CSF Total Protein Microbiology 09/14/18 11:54 Lumbar Puncture Gram Stain - Final 09/14/18 11:54 Lumbar Puncture CSF Culture - Preliminary No growth in 24 hours - Imaging Impressions Lumbar Puncture Fluoroscopy 09/14/18 09:40 CONCLUSION: 1. Uncomplicated fluoroscopically guided lumbar puncture. - Procedures 09/14 - lumbar puncture by IR Assessment and Plan - Assessment (1) Dementia Code(s): F03.90 - Unspecified dementia without behavioral disturbance Status: Acute (2) Acute metabolic encephalopathy Code(s): G93.41 - Metabolic encephalopathy Status: Acute (3) Altered mental status Code(s): R41.82 - Altered mental status, unspecified Status: Acute (4) Diabetes mellitus Code(s): E11.9 - Type 2 diabetes mellitus without complications Status: Chronic (5) Hypertension Code(s): I10 - Essential (primary) hypertension Status: Acute (6) Asthma Code(s): J45.909 - Unspecified asthma, uncomplicated Status: Acute - Plan 73-year-old female with past medical history significant for HTN, DM, GERD, hypothyroidism, DDD, chronic pain, asthma, and anxiety who presents to the emergency department via EMS due to altered mental status. Acute encephalopathy Hx Dementia -Suspect secondary to progression of dementia, possibly exacerbated by mild dehydration vs infection vs polypharmacy vs stroke -CBC stable, CMP with mildly elevated BUN at 28, ammonia within normal limits, total CK 349, improved, mildly elevated AST, improving -Head CT reviewed with no acute intracranial abnormality, atrophy and chronic ischemic changes -Chest x-ray with mild right base atelectasis, blood gas with low PO2 at 56 and low oxygen saturation at 86%, now on nasal cannula -UA unremarkable -toxicology positive for benzodiazepines and cannabis -Neurochecks, swallow eval, PT eval, needs rehab -Continue Namenda, hold off on benzodiazepines as not recommended in the elderly with dementia -valproic acid level low, will restart -EEG shows Moderate slowing of background consistent with what looks like an encephalopathic process -Brain MRI shows old bilateral lacunar infarcts, old left cerebellar infarct; no acute findings -Neurology consulted, Discussed with Dr. Avalos, likely progression of dementia -Family requesting aggressive care, neurology ordered LP (has +RPR, patient with hx of LP with CSF studies showing high protein in Jul 2018, HSV PCR negative, also evaluated by ID and felt not to have neurosyphilis) -LP done 09/14, studies remarkable for elevated total protein 66.5, herpes negative, CSF culture with NGTD -Neuro initiated trial of IV steroids -Continue to monitor Dysphagia, Intermittent Abdominal Pain, Poor Oral Intake, Constipation: unclear etiology. Abdomen tender on exam intermittently. Minimal oral intake since arrival to hospital. -speech therapy consulted, recommends pureed diet with thin liquids -dietitian consulted, add Ensure Enlive to meals -abdomen/pelvis CT with nonobstructive bowel gas pattern, GB unremarkable; otherwise unremarkable -supportive treatment with IVF hydration -palliative care following -may need to consider PEG -Abdominal xray today shows large amount of stool in the rectum, giving Dulcolax suppository, may need enema if no relief Resolving rhabdomyolysis Mild dehydration -Total CK continues to improve, from 3451 to 261, resolved. -Continue maintenance IVF and encourage oral hydration Diabetes mellitus Hypothyroidism Hypertension, chronic -Continue home medications -Heart healthy diet, Accu-Cheks with insulin sliding scale Failure to Thrive/Self Care Deficit: acute -suspect secondary to progression of dementia, however rule out other etiologies such as stroke or infection -consulted palliative care, greatly appreciate assistance, appears family wants aggressive care DVT prophylaxisteds/SCDs Discharge Planning: Discharge pending further clinical improvement, still with minimal oral intake, appreciate palliative care assistance. Unsafe discharge home at this time. (3) Altered mental status Qualifiers: Altered mental status type: coma (4) Diabetes mellitus Qualifiers: Diabetes mellitus type: type 2 Diabetes mellitus care home insulin use: without environmental science technician use Diabetes mellitus complication status: without complication Qualified Code(s): E11.9 - Type 2 diabetes mellitus without complications (5) Hypertension Qualifiers: Hypertension type: essential hypertension Qualified Code(s): I10 - Essential (primary) hypertension (6) Asthma Qualifiers: Asthma severity: unspecified severity Asthma persistence: unspecified Asthma complication type: unspecified Qualified Code(s): J45.909 - Unspecified asthma, uncomplicated
[2018-09-15] MEDS: Insulin NovoLOG Aspart Correctional Sugar Inj SQ SCH ×4 (10:58→21:37)
--- NOTE | 2018-09-15 11:04 | XR ---
EXAM DATE: 09/15/2018 10:48 AM EDT AGE/SEX: 73 years / Female INDICATIONS: Abdominal pain, constipation. CLINICAL DATA: This is the patient's subsequent encounter. Patient reports that signs and symptoms h ave been present for 1 week and indicates a pain score of 5/10. MEDICAL/SURGICAL HISTORY: Diabetes. Gastroesophageal reflux disease. Hypertension. None. COMPARISON: No prior exams available for comparison. FINDINGS: Single AP supine view the abdomen. Large amount of stool in the rectum. Scattered gas in the colon, nondilated. Prominent degenerative findings of the lower lumbar spine. Metallic spring is seen projec ting over the mid abdomen, may be external to the patient. Diffuse arterial calcification and multipl e phleboliths noted in the pelvis. CONCLUSION: 1. Large amount of stool in the rectum. 2. Prominent degenerative findings of the lower lumbar spine. Electronically signed by: Dennys Arvizu MD 09/15/2018 11:03 AM EDT
[2018-09-15] MEDS: Lansoprazole ODT 15 MG Tablet PO SCH (11:14)
[2018-09-15] MEDS: MethylPREDNISolone Sod Succinate Inj 125 MG/2 ML Vial IV.PUSH SCH ×2 (11:15→21:39)
[2018-09-15 11:31] LABS: Baso % (Auto) 0.1 % (0.0-2.0); Hematocrit 40.7 % (35.0-46.0); Hemoglobin 13.9 gm/dL (11.6-15.3); Lymph # (Auto) 1.1 th/mm3 (1.0-4.8); Lymph % (Auto) 10.4 % (9.0-44.0); Mean Platelet Volume 10.2 fL (7.0-11.0); Mono # (Auto) 0.2 th/mm3 (0.0-0.9); Mono % (Auto) 1.5 % (0.0-8.0); Neut # (Auto) 9.4 th/mm3 (1.8-7.7); Platelet Count 166 th/mm3 (150-450); Red Blood Count 4.33 mil/mm3 (4.00-5.30); Red Cell Distribution Width 16.3 % (11.6-17.2); White Blood Count 10.7 th/mm3 (4.0-11.0)
[2018-09-15] MEDS: amLODIPine 10 MG Tablet PO SCH (11:43)
[2018-09-15 12:02] LABS: Calcium 8.8 mg/dL (8.5-10.1); Carbon Dioxide 29.5 meq/L (21.0-32.0); Potassium 5.1 meq/L (3.5-5.1)
[2018-09-15] MEDS ORDERED: Bisacodyl 10 MG Supp RECTAL ONE (14:30)
[2018-09-15] MEDS: Sod Chloride 0.9% Inj 1,000 ML IV.CONT SCH (14:49)
[2018-09-15] MEDS: QUEtiapine 25 MG Tablet PO SCH (21:46)
[2018-09-15] MEDS: Montelukast 10 MG Tablet PO SCH (21:46)
[2018-09-16] MEDS: Sod Chloride 0.9% Inj 1,000 ML IV.CONT SCH (06:17)
[2018-09-16] MEDS: Insulin NovoLOG Aspart Correctional Sugar Inj SQ SCH ×4 (09:35→21:47)
--- NOTE | 2018-09-16 09:38 | P.PN ---
Subjective Interval history: Follow-up for dementia, failure to thrive, encephalopathy, poor oral intake, constipation. Patient had 2 documented bowel movements last night. Patient again mostly moaning, does tell me her name. Still with minimal oral intake. No acute events overnight. Discussed with RN. Physical Exam Vital signs: Vital Signs 09/15/18 12:00 09/15/18 16:00 09/16/18 00:00 Temperature 99.2 F 97.7 F 97.5 F L Pulse Rate 88 88 66 Respiratory Rate 16 16 18 Blood Pressure 122/78 150/72 H 116/57 L Pulse Oximetry 98 98 98 09/16/18 04:00 09/16/18 08:00 Temperature 97.8 F 98.4 F Pulse Rate 80 83 Respiratory Rate 16 16 Blood Pressure 179/67 H 179/74 H Pulse Oximetry 97 97 Intake & Output 09/15/18 09/16/18 09/16/18 19:59 06:59 18:59 Intake Total Balance Intake: IV D5W/1/2NS + KCL 20 mEq Inj 1, 000 ML @ 84 mls/hr IV.CONT . [id number] [facility] Rx#:[id number] NS Inj 1,000 ML @ 60 mls/hr IV. CONT .[id number] [facility] Rx#:[id number] Other: # Incontinent Voids # Urine Diapers 2 Date of Last Bowel Movement 09/16/18 # Bowel Movements # Incontinent Bowel Movements 1 Narrative: GENERAL: Thin elderly female patient in NAD. Occasionally moaning, answers a few yes or no questions. SKIN: Warm and dry. No rash. HEENT: Normocephalic. Atraumatic. Pupils equal and round. Mucous membranes pink and moist. CARDIOVASCULAR: Regular rate and rhythm. No murmur appreciated. RESPIRATORY: No accessory muscle use. Clear to auscultation. Breath sounds equal bilaterally. GASTROINTESTINAL: Abdomen soft, nondistended, nontender. Normoactive bowel sounds x4. MUSCULOSKELETAL: No obvious deformities. Extremities without clubbing, cyanosis , or edema. NEUROLOGICAL: Awake and alert, oriented to self only. Moving all extremities spontaneously with equal strength however does not follow commands. Slow speech , moans. PSYCHIATRIC: insight and judgment limited. Results - Labs CBC & Chem 7: 09/15/18 10:59 09/15/18 10:59 Laboratory Results - last 24 hr 09/15/18 09/15/18 09/15/18 10:59 10:59 16:54 WBC 10.7 RBC 4.33 Hgb 13.9 Hct 40.7 MCV 94.0 MCH 32.0 MCHC 34.0 RDW 16.3 Plt Count 166 MPV 10.2 Neut % (Auto) 88.0 H Lymph % (Auto) 10.4 Karnes % (Auto) 1.5 Eos % (Auto) 0.0 Baso % (Auto) 0.1 Neut # (Auto) 9.4 H Lymph # (Auto) 1.1 Karnes # (Auto) 0.2 Eos # (Auto) 0.0 Baso # (Auto) 0.0 WBC Differential . Differential Comment Auto diff final Sodium 139 Potassium 5.1 D Chloride 102 Carbon Dioxide 29.5 Anion Gap 8 BUN 13 Creatinine 0.77 Estimated GFR 89 POC Glucose 342 H Random Glucose 319 H D Calcium 8.8 09/15/18 09/16/18 20:57 08:12 WBC RBC Hgb Hct MCV MCH MCHC RDW Plt Count MPV Neut % (Auto) Lymph % (Auto) Karnes % (Auto) Eos % (Auto) Baso % (Auto) Neut # (Auto) Lymph # (Auto) Karnes # (Auto) Eos # (Auto) Baso # (Auto) WBC Differential Differential Comment Sodium Potassium Chloride Carbon Dioxide Anion Gap BUN Creatinine Estimated GFR POC Glucose 355 H 165 H Random Glucose Calcium Microbiology 09/14/18 11:54 Lumbar Puncture Gram Stain - Final 09/14/18 11:54 Lumbar Puncture CSF Culture - Preliminary No growth in 48 hours - Imaging Impressions Abdomen X-Ray 09/15/18 00:00 CONCLUSION: 1. Large amount of stool in the rectum. 2. Prominent degenerative findings of the lower lumbar spine. - Procedures 09/14 - lumbar puncture by IR Assessment and Plan - Assessment (1) Dementia Code(s): F03.90 - Unspecified dementia without behavioral disturbance Status: Acute (2) Acute metabolic encephalopathy Code(s): G93.41 - Metabolic encephalopathy Status: Acute (3) Altered mental status Code(s): R41.82 - Altered mental status, unspecified Status: Acute (4) Diabetes mellitus Code(s): E11.9 - Type 2 diabetes mellitus without complications Status: Chronic (5) Hypertension Code(s): I10 - Essential (primary) hypertension Status: Acute (6) Asthma Code(s): J45.909 - Unspecified asthma, uncomplicated Status: Acute - Plan 73-year-old female with past medical history significant for HTN, DM, GERD, hypothyroidism, DDD, chronic pain, asthma, and anxiety who presents to the emergency department via EMS due to altered mental status. Acute encephalopathy Hx Dementia -Suspect secondary to progression of dementia, possibly exacerbated by mild dehydration vs infection vs polypharmacy vs stroke -CBC stable, CMP with mildly elevated BUN at 28, ammonia within normal limits, total CK 349, improved, mildly elevated AST, improving -Head CT reviewed with no acute intracranial abnormality, atrophy and chronic ischemic changes -Chest x-ray with mild right base atelectasis, blood gas with low PO2 at 56 and low oxygen saturation at 86%, now on nasal cannula -UA unremarkable -toxicology positive for benzodiazepines and cannabis -Neurochecks, swallow eval, PT eval, needs rehab -Continue Namenda, hold off on benzodiazepines as not recommended in the elderly with dementia -valproic acid level low, restarted -EEG shows Moderate slowing of background consistent with what looks like an encephalopathic process -Brain MRI shows old bilateral lacunar infarcts, old left cerebellar infarct; no acute findings -Neurology consulted, Discussed with Dr. Avalos, likely progression of dementia -Family requesting aggressive care, neurology ordered LP (has +RPR, patient with hx of LP with CSF studies showing high protein in Jul 2018, HSV PCR negative, also evaluated by ID and felt not to have neurosyphilis) -LP done 09/14, studies remarkable for elevated total protein 66.5, herpes negative, CSF culture with NGTD -Neuro initiated trial of IV steroids -Continue to monitor, unchanged Dysphagia, Intermittent Abdominal Pain, Poor Oral Intake, Constipation: unclear etiology. Abdomen tender on exam intermittently. Minimal oral intake since arrival to hospital. -speech therapy consulted, recommends pureed diet with thin liquids -dietitian consulted, add Ensure Enlive to meals -abdomen/pelvis CT with nonobstructive bowel gas pattern, GB unremarkable; otherwise unremarkable -supportive treatment with IVF hydration -palliative care following -may need to consider PEG -Abdominal xray 09/15 shows large amount of stool in the rectum, given Dulcolax suppository -2 BMs on 09/15, constipation resolved Resolving rhabdomyolysis Mild dehydration -Total CK continues to improve, from 3451 to 261, resolved. -Continue maintenance IVF and encourage oral hydration Diabetes mellitus Hypothyroidism Hypertension, chronic -Continue home medications -Heart healthy diet, Accu-Cheks with insulin sliding scale Failure to Thrive/Self Care Deficit: acute -suspect secondary to progression of dementia, however rule out other etiologies such as stroke or infection -consulted palliative care, greatly appreciate assistance, appears family wants aggressive care DVT prophylaxisteds/SCDs Discharge Planning: Discharge pending further clinical improvement, still with minimal oral intake, appreciate palliative care assistance. Unsafe discharge home at this time. (3) Altered mental status Qualifiers: Altered mental status type: coma (4) Diabetes mellitus Qualifiers: Diabetes mellitus type: type 2 Diabetes mellitus fdc insulin use: without fdc use Diabetes mellitus complication status: without complication Qualified Code(s): E11.9 - Type 2 diabetes mellitus without complications (5) Hypertension Qualifiers: Hypertension type: essential hypertension Qualified Code(s): I10 - Essential (primary) hypertension (6) Asthma Qualifiers: Asthma severity: unspecified severity Asthma persistence: unspecified Asthma complication type: unspecified Qualified Code(s): J45.909 - Unspecified asthma, uncomplicated
[2018-09-16] MEDS: Lansoprazole ODT 15 MG Tablet PO SCH (12:09)
[2018-09-16] MEDS: amLODIPine 10 MG Tablet PO SCH (12:09)
[2018-09-16] MEDS: Budesonide-Formoterol 160/4.5 MCG 6 GM Inhaler INH SCH ×2 (12:11→20:47)
[2018-09-16] MEDS: MethylPREDNISolone Sod Succinate Inj 125 MG/2 ML Vial IV.PUSH SCH ×2 (12:12→20:45)
[2018-09-16] MEDS: QUEtiapine 25 MG Tablet PO SCH (20:46)
[2018-09-16] MEDS: Montelukast 10 MG Tablet PO SCH (20:46)
--- NOTE | 2018-09-17 06:35 | P.PNNEU ---
Subjective Subjective Comments: no acute events Active Medications: Active Medications Acetaminophen (Tylenol) 650 mg PO Q4H PRN PRN Reason: PAIN SCALE 1 TO 10 Last Admin: 09/13/18 09:51 Dose: 650 mg Al Hydroxide/Mg Hydroxide (Milk Of Magnesia Liq) 30 ml PO Q12H PRN PRN Reason: Mild Constipation Amlodipine Besylate (Norvasc) 10 mg PO DAILY [facility] Last Admin: 09/16/18 12:09 Dose: 10 mg Aspirin (Aspirin Chew) 81 mg PO DAILY [facility] Last Admin: 09/16/18 12:10 Dose: 81 mg Bisacodyl (Dulcolax Supp) 10 mg RECTAL DAILY PRN PRN Reason: SEVERE CONSITIPATION Budesonide/Formoterol Fumarate (Symbicort 160/4.5 Mcg Inh) 2 puff INH BID [facility] Last Admin: 09/16/18 20:47 Dose: 2 puff Cyanocobalamin (Vitamin B12 Inj) 1,000 mcg IM DAILY [facility] Stop: 09/17/18 09:01 Last Admin: 09/16/18 12:06 Dose: 1,000 mcg Cyanocobalamin (Vitamin B12 Inj) 1,000 mcg IM WEEKLY [facility] Stop: 10/15/18 09:01 Cyanocobalamin (Vitamin B12 Inj) 1,000 mcg IM Q30D [facility] Dextrose (D50w Vial) 50 ml IV.PUSH UNSCH PRN PRN Reason: PER HYPOGLYCEMIA PROTOCOL Enalapril Maleate (Vasotec) 10 mg PO DAILY [facility] Last Admin: 09/16/18 12:10 Dose: 10 mg Glucagon (Glucagon Inj) 1 mg OTHER PRN PRN PRN Reason: for Hypoglycemia Protocol Sodium Chloride (Ns Inj) 1,000 mls @ 60 mls/hr IV.CONT .[id number] [facility] Last Admin: 09/16/18 06:17 Dose: 60 mls/hr Insulin Aspart (Novolog Insulin Correctional Sugar Inj) 0 unit SQ ACHS [facility]; Protocol Last Admin: 09/16/18 21:47 Dose: 5 unit Lactulose (Lactulose Liq) 30 ml PO DAILY PRN PRN Reason: SEVERE CONSITIPATION Lansoprazole (Prevacid Solutab) 15 mg PO DAILY [facility] Last Admin: 09/16/18 12:09 Dose: 15 mg Lorazepam (Ativan Inj) 1 mg IV.PUSH ONCE PRN PRN Reason: agitation/pre imaging Memantine (Namenda) 5 mg PO DAILY [facility] Last Admin: 09/16/18 12:09 Dose: 5 mg Methylprednisolone Sodium Succinate (Solumedrol Inj) 125 mg IV.PUSH Q12HR [facility] Stop: 09/17/18 09:59 Last Admin: 09/16/18 20:45 Dose: 125 mg Montelukast Sodium (Singulair) 10 mg PO [facility] Last Admin: 09/16/18 20:46 Dose: 10 mg Quetiapine Fumarate (Seroquel) 25 mg PO HS [facility] Last Admin: 09/16/18 20:46 Dose: 25 mg Sennosides (Senokot) 17.2 mg PO Q12H PRN PRN Reason: Moderate Constipation Last Admin: 09/16/18 12:09 Dose: 17.2 mg Sodium Chloride (Ns Flush) 2 ml IV.FLUSH PRN PRN PRN Reason: FLUSH AFTER USING IV ACCESS Thiamine HCl (Thiamine Inj) 100 mg IM DAILY [facility] Last Admin: 09/16/18 12:07 Dose: 100 mg Valproate Sodium (Depakene Liq) 250 mg PO BID [facility] Last Admin: 09/16/18 20:46 Dose: 250 mg Allergies/Adverse Reactions: Allergies Allergy/AdvReac Type Severity Reaction Status Date / Time cephalexin Allergy Severe throat Verified 09/10/18 23:24 closes Review of Systems All other systems reviewed negative except as stated in HPI Physical Exam Vital signs: Vital Signs 09/16/18 08:00 09/16/18 12:00 09/16/18 16:00 Temperature 98.4 F 99.7 F H 97.8 F Pulse Rate 83 74 78 Respiratory Rate 16 16 16 Blood Pressure 179/74 H 160/72 H 154/67 H Pulse Oximetry 97 97 97 09/16/18 19:47 09/16/18 23:48 09/17/18 03:37 Temperature 98.6 F Pulse Rate 76 84 Respiratory Rate 18 17 17 Blood Pressure 159/70 H 134/62 149/83 H Pulse Oximetry 99 96 96 Intake & Output 09/16/18 09/16/18 09/17/18 06:59 18:59 06:59 Intake Total Balance Intake: IV D5W/1/2NS + KCL 20 mEq Inj 1, 000 ML @ 84 mls/hr IV.CONT . [id number] Rx#:[id number] NS Inj 1,000 ML @ 60 mls/hr IV. CONT .[id number] [facility] Rx#:[id number] Other: # Urine Diapers 2 Date of Last Bowel Movement 09/16/18 09/16/18 # Incontinent Bowel Movements 1 Narrative: GENERAL: Thin elderly female patient in NAD SKIN: Warm and dry. No rash. HEENT: Normocephalic. Atraumatic. Pupils equal and round. Mucous membranes pink and moist. CARDIOVASCULAR: Regular rate and rhythm. No murmur appreciated. RESPIRATORY: No accessory muscle use. Clear to auscultation. Breath sounds equal bilaterally. GASTROINTESTINAL: Abdomen soft, nondistended, nontender. MUSCULOSKELETAL: No obvious deformities. Extremities without clubbing, cyanosis , or edema. NEUROLOGICAL: Awake and alert,moans, crying at times, not following well. does not articulate what is wrong, Moving all extremities spontaneously with equal strengt, neck supple, no areas of tenderness PSYCHIATRIC: mildy agitated - Constitutional no acute distress - Routine HEENT Exam Head: Present: normocephalic Objective Laboratory Results - last 24 hr 09/16/18 09/16/18 09/16/18 08:12 13:34 18:00 POC Glucose 165 H 232 H 362 H 09/16/18 20:43 POC Glucose 270 H Microbiology 09/14/18 11:54 Gram Stain - Final Lumbar Puncture CSF Culture - Preliminary No growth in 48 hours Review/Management - Diagnosis (1) Cognitive impairment Code(s): R41.89 - Other symptoms and signs involving cognitive functions and awareness Status: Acute Current Visit: Yes (2) Major neurocognitive disorder due to multiple etiologies Code(s): F02.80 - Dementia in other diseases classified elsewhere without behavioral disturbance Status: Acute Current Visit: No (3) Hypoxic encephalopathy Code(s): G93.1 - Anoxic brain damage, not elsewhere classified Status: Acute Current Visit: No (4) Encephalopathy Code(s): G93.40 - Encephalopathy, unspecified Status: Acute Current Visit: No - Review/Management Plan: Possible underlying advanced dementia with agitation. Which may be worsened by metabolic changes such as hypoxia, poor p.o. intake, urinary tract infection illicit drug use Urine drug screen positive for benzodiazepines and marijuana History seen by psychology neuropsychology at [facility] cognitive impairment with behavioral disorder Low normal B12 in the past. Normal thyroid studies in July 2018. Slightly elevated CRP CSF studies done July 2018 showed slight elevation of protein otherwise negative for herpes PCR negative On memantine for dementia, Seroquel for agitation, valproic acid for mood stabilization but also work as an anticonvulsant Positive RPR however negative in CSF seen by ID and evaluated did not feel she had neurosyphilis repeat csf negative for infection Recommendation appears dementia with agitation/behavioral disorder increase namenda to 5 bid increase depakote to 500mg bid may need risperdal 0.25 mg bid prn/scheduled Palliative care Discontinue illicit drug use and benzo use
[2018-09-17] MEDS: Sod Chloride 0.9% Inj 1,000 ML IV.CONT SCH ×2 (06:50→17:57)
[2018-09-17] MEDS: Insulin NovoLOG Aspart Correctional Sugar Inj SQ SCH ×4 (08:21→22:13)
[2018-09-17] MEDS: Lansoprazole ODT 15 MG Tablet PO SCH (08:25)
[2018-09-17] MEDS: amLODIPine 10 MG Tablet PO SCH (08:25)
[2018-09-17] MEDS: Budesonide-Formoterol 160/4.5 MCG 6 GM Inhaler INH SCH ×2 (08:26→22:08)
--- NOTE | 2018-09-17 09:01 | P.PN ---
Subjective Interval history: Follow-up for dementia, failure to thrive, encephalopathy, poor oral intake, constipation. The patient is again consistently moaning. She tells me her name but does not answer any other orientation questions. When asked what is wrong, she states "I'm hungry". She does not answer any further questions. She has documented BM yesterday and today. Discussed with RN, she believes the patient is more talkative today. Physical Exam Vital signs: Vital Signs 09/16/18 12:00 09/16/18 16:00 09/16/18 19:47 Temperature 99.7 F H 97.8 F 98.6 F Pulse Rate 74 78 Respiratory Rate 16 16 18 Blood Pressure 160/72 H 154/67 H 159/70 H Pulse Oximetry 97 97 99 09/16/18 23:48 09/17/18 03:37 09/17/18 07:34 Temperature 98.2 F Pulse Rate 76 84 Respiratory Rate 17 17 20 Blood Pressure 134/62 149/83 H 196/84 H Pulse Oximetry 96 96 96 Intake & Output 09/16/18 09/17/18 09/17/18 18:59 06:59 18:59 Intake Total 900 / 900 Balance 900 / 900 Intake: IV 900 / 900 NS Inj 1,000 ML @ 60 mls/hr IV. 900 / 900 CONT .[id number] [facility] Rx#:[id number] Other: # Urine Diapers 2 Date of Last Bowel Movement 09/16/18 09/16/18 # Incontinent Bowel Movements 1 Narrative: GENERAL: Thin elderly female patient in [facility]. Occasionally moaning, answers a few simple questions. SKIN: Warm and dry. No rash. HEENT: Normocephalic. Atraumatic. Pupils equal and round. Mucous membranes pink and moist. CARDIOVASCULAR: Regular rate and rhythm. No murmur appreciated. RESPIRATORY: No accessory muscle use. Clear to auscultation. Breath sounds equal bilaterally. GASTROINTESTINAL: Abdomen soft, nondistended, nontender. Normoactive bowel sounds x4. MUSCULOSKELETAL: No obvious deformities. Extremities without clubbing, cyanosis , or edema. NEUROLOGICAL: Awake and alert, oriented to self only. Moving all extremities spontaneously with equal strength however does not follow commands. Slow speech , moans. PSYCHIATRIC: insight and judgment limited. Results - Labs CBC & Chem 7: 09/15/18 10:59 09/15/18 10:59 Laboratory Results - last 24 hr 09/14/18 09/16/18 09/16/18 11:07 13:34 18:00 Critical Value No POC Glucose 232 H 362 H 09/16/18 09/17/18 20:43 07:44 Critical Value POC Glucose 270 H 175 H Microbiology 09/14/18 11:54 Lumbar Puncture Gram Stain - Final 09/14/18 11:54 Lumbar Puncture CSF Culture - Final No growth in 72 hours - Imaging Chest X-Ray 09/11/18 00:15 CONCLUSION: Mild right base atelectasis. Head CT 09/11/18 00:15 CONCLUSION: 1. No acute intracranial abnormality demonstrated. 2. Atrophy and chronic ischemic changes. . Abdomen/Pelvis CT 09/12/18 00:00 CONCLUSION: 1. Nonobstructive bowel gas pattern. 2. The gallbladder is unremarkable in appearance. 3. Apparent scarring in the right lung base. 4. Suboptimal study secondary to motion artifact. Head MRI 09/13/18 00:00 CONCLUSION: 1. Old bilateral lacunar infarcts. 2. Old left cerebellar infarct. 3. No acute infarction. 4. Nonspecific white matter changes with similar changes in the brainstem. Lumbar Puncture Fluoroscopy 09/14/18 09:40 CONCLUSION: 1. Uncomplicated fluoroscopically guided lumbar puncture. Abdomen X-Ray 09/15/18 00:00 CONCLUSION: 1. Large amount of stool in the rectum. 2. Prominent degenerative findings of the lower lumbar spine. - Procedures 09/14 - lumbar puncture by IR Assessment and Plan - Assessment (1) Dementia Code(s): F03.90 - Unspecified dementia without behavioral disturbance Status: Acute (2) Acute metabolic encephalopathy Code(s): G93.41 - Metabolic encephalopathy Status: Acute (3) Altered mental status Code(s): R41.82 - Altered mental status, unspecified Status: Acute (4) Diabetes mellitus Code(s): E11.9 - Type 2 diabetes mellitus without complications Status: Chronic (5) Hypertension Code(s): I10 - Essential (primary) hypertension Status: Acute (6) Asthma Code(s): J45.909 - Unspecified asthma, uncomplicated Status: Acute - Plan 73-year-old female with past medical history significant for HTN, DM, GERD, hypothyroidism, DDD, chronic pain, asthma, and anxiety who presents to the emergency department via EMS due to altered mental status. Acute encephalopathy Hx Dementia -Suspect secondary to progression of dementia, possibly exacerbated by mild dehydration vs infection vs polypharmacy vs stroke -CBC stable, CMP with mildly elevated BUN at 28, ammonia within normal limits, total CK 349, improved, mildly elevated AST, improving -Head CT reviewed with no acute intracranial abnormality, atrophy and chronic ischemic changes -CXR with mild right base atelectasis, blood gas with low PO2 at 56 and low oxygen saturation at 86%, now on nasal cannula -UA unremarkable, UDS positive for benzodiazepines and cannabinoids -Neurochecks, swallow eval, PT eval, needs rehab -Continue Namenda, hold off on benzodiazepines as not recommended in the elderly with dementia -valproic acid level low, restarted -EEG shows Moderate slowing of background consistent with what looks like an encephalopathic process -Brain MRI shows old bilateral lacunar infarcts, old left cerebellar infarct; no acute findings -Neurology consulted, Discussed with Dr. Avalos, likely progression of dementia -Family initially requesting aggressive care, neurology ordered LP (has +RPR, patient with hx of LP with CSF studies showing high protein in Jul 2018, HSV PCR negative, also evaluated by ID and felt not to have neurosyphilis) -LP done 09/14, studies remarkable for elevated total protein 66.5, herpes negative, CSF culture with NGTD -Neuro initiated trial of steroids with IV Solumedrol 125mg bid x3days, complete on 09/17 -Namenda has been increased to 5mg bid -Continue to monitor, unchanged -Greatly appreciate palliative care assistance, patient now DNR, decision to be made on home health vs hospice -09/[address] to rule out cancer, will order Dysphagia, Intermittent Abdominal Pain, Poor Oral Intake, Constipation: unclear etiology. Abdomen tender on exam intermittently. Minimal oral intake since arrival to hospital. -speech therapy consulted, recommends pureed diet with thin liquids -dietitian consulted, add Ensure Enlive to meals -abdomen/pelvis CT with nonobstructive bowel gas pattern, GB unremarkable; otherwise unremarkable -supportive treatment with IVF hydration -palliative care following -may need to consider PEG -Abdominal xray 09/15 shows large amount of stool in the rectum, given Dulcolax suppository -patient now having BMs, constipation resolved Resolving rhabdomyolysis Mild dehydration -Total CK continues to improve, from 3451 to 261, resolved. -Continue maintenance IVF and encourage oral hydration Diabetes mellitus -Holding metformin for now during hospitalization -Accu-Cheks with insulin sliding scale Failure to Thrive/Self Care Deficit: acute -suspect secondary to progression of dementia, however rule out other etiologies such as stroke or infection -consulted palliative care, greatly appreciate assistance Hypertension: BP not optimally controlled -continued patient's amlodipine 10mg daily and enalapril 10mg daily -09/17 - BP not well controlled, increased enalapril to 10mg bid -monitor BP, adjust antihypertensives as needed DVT prophylaxisteds/SCDs Discharge Planning: Discharge pending further clinical improvement, still with minimal oral intake, appreciate palliative care assistance. Unsafe discharge home at this time. Decision to be made regarding home health vs hospice. Family requested chest CT , pending. (3) Altered mental status Qualifiers: Altered mental status type: coma (4) Diabetes mellitus Qualifiers: Diabetes mellitus type: type 2 Diabetes mellitus jail insulin use: without bed bug exterminator use Diabetes mellitus complication status: without complication Qualified Code(s): E11.9 - Type 2 diabetes mellitus without complications (5) Hypertension Qualifiers: Hypertension type: essential hypertension Qualified Code(s): I10 - Essential (primary) hypertension (6) Asthma Qualifiers: Asthma severity: unspecified severity Asthma persistence: unspecified Asthma complication type: unspecified Qualified Code(s): J45.909 - Unspecified asthma, uncomplicated
--- NOTE | 2018-09-17 13:42 | P.PNPAL ---
Reason for Visit Reason for visit: a. To assist with evaluation and management of symptoms including: Altered mental status, dysphagia, pain. b. To assist medical decision maker(s) with: better understanding of current medical conditions; weighing benefits/burdens of medical treatment options; making medical treatment decisions. Subjective Subjective/Interval History: Mrs. Goyal is a 73-year-old female with a medical history that is significant for HTN, DM, GERD, hypothyroidism, DDD, chronic pain, COPD, and anxiety who presented to [place] ED on 09/11/2018 for evaluation of altered mental status. The patient was recently hospitalized from 09/06/18-09/08/18 for management of rhabdomyolysis and suspected UTI. She was discharged home with home health care. Her daughter reported that patient had been at home eating and drinking without any difficulties but had stopped talking a few days ago. Patient seen today for evaluation of symptom management of altered mental status , dysphasia and pain and to assist family in goals of medical treatment. She remains altered today. Speaking more clearly, expressing thoughts and responding to questions. She is curled up in bed with her knees pulled to her chest. Her altered mental status has been chronic, progressive, worsening, moderate to severe, associated with a decline in oral intake, cognitive ability , memory and activity. She is seen by neurology and opined to have advanced dementia. She was evaluated by speech therapy and found to be orally holding some material in her mouth. She was unable to trigger swallow to verbal command but did manage to swallow after oral stimulation with a cup. Speech therapy noted periods of holding oral material, allowing approximately 20 seconds to trigger swallow. No cough, vocal changes, breath sound changes or throat clearing post swallow. They recommended thin liquids with pured solids. Patient continues to have minimal oral intake. Patient cries out in pain with movement but is unable to quantify or qualify her discomfort. She is receiving Solu-Medrol and has received a dose of Tylenol in the last 24 hours. Use of narcotics is been minimized to accurately assess mental status. . Objective Vital Signs: Vital Signs 09/16/18 16:00 09/16/18 19:47 09/16/18 23:48 Temperature 97.8 F 98.6 F Pulse Rate 78 76 Respiratory Rate 16 18 17 Blood Pressure 154/67 H 159/70 H 134/62 Pulse Oximetry 97 99 96 09/17/18 03:37 09/17/18 07:34 09/17/18 09:29 Temperature 98.2 F Pulse Rate 84 Respiratory Rate 17 20 Blood Pressure 149/83 H 196/84 H Pulse Oximetry 96 96 96 09/17/18 11:39 Temperature 98.5 F Pulse Rate 77 Respiratory Rate 18 Blood Pressure 148/84 H Pulse Oximetry 96 Intake & Output 09/16/18 09/17/18 09/17/18 18:59 06:59 18:59 Intake Total 900 / 900 Balance 900 / 900 Intake: IV 900 / 900 NS Inj 1,000 ML @ 60 mls/hr IV. 900 / 900 CONT .[id number] [facility] Rx#:[id number] Other: # Urine Diapers 2 Date of Last Bowel Movement 09/16/18 09/16/18 09/16/18 # Incontinent Bowel Movements 1 Physical Exam: CONSTITUTIONAL/GENERAL: This is a frail, elderly female in no acute distress TUBES/LINES/DRAINS: PIV CARDIOVASCULAR: Regular rate and rhythm without murmurs, gallops, or rubs. No JVD. Peripheral pulses symmetric. RESPIRATORY/CHEST: Symmetric, unlabored respirations. Clear to auscultation. Breath sounds equal bilaterally. No accessory muscle use GASTROINTESTINAL: Abdomen soft, non-tender, nondistended. No guarding. Bowel sounds present. GENITOURINARY: Without palpable bladder distension. MUSCULOSKELETAL: Extremities without clubbing, cyanosis, or edema. Positive muscle wasting. No obvious deformities. No mottling or clubbing. NEUROLOGICAL: Awake and alert; oriented to self only. Clear speech, able to express thoughts, and answer questions, moving all extremities x4. PSYCHIATRIC: Appears anxious, resisting care. . Diagnostic Tests Laboratory: Laboratory Results - last 72 hr 09/14/18 09/14/18 09/14/18 11:07 11:54 20:08 WBC RBC Hgb Hct MCV MCH MCHC RDW Plt Count MPV Neut % (Auto) Lymph % (Auto) Crowley % (Auto) Eos % (Auto) Baso % (Auto) Neut # (Auto) Lymph # (Auto) Crowley # (Auto) Eos # (Auto) Baso # (Auto) WBC Differential Differential Comment Critical Value No Sodium Potassium Chloride Carbon Dioxide Anion Gap BUN Creatinine Estimated GFR POC Glucose 119 H Random Glucose Calcium CSF Herpes I DNA (PCR) Negative CSF Herpes II DNA (PCR) Negative 09/15/18 09/15/18 09/15/18 10:59 10:59 16:54 WBC 10.7 RBC 4.33 Hgb 13.9 Hct 40.7 MCV 94.0 MCH 32.0 MCHC 34.0 RDW 16.3 Plt Count 166 MPV 10.2 Neut % (Auto) 88.0 H Lymph % (Auto) 10.4 Crowley % (Auto) 1.5 Eos % (Auto) 0.0 Baso % (Auto) 0.1 Neut # (Auto) 9.4 H Lymph # (Auto) 1.1 Crowley # (Auto) 0.2 Eos # (Auto) 0.0 Baso # (Auto) 0.0 WBC Differential . Differential Comment Auto diff final Critical Value Sodium 139 Potassium 5.1 D Chloride 102 Carbon Dioxide 29.5 Anion Gap 8 BUN 13 Creatinine 0.77 Estimated GFR 89 POC Glucose 342 H Random Glucose 319 H D Calcium 8.8 CSF Herpes I DNA (PCR) CSF Herpes II DNA (PCR) 09/15/18 09/16/18 09/16/18 20:57 08:12 13:34 WBC RBC Hgb Hct MCV MCH MCHC RDW Plt Count MPV Neut % (Auto) Lymph % (Auto) Crowley % (Auto) Eos % (Auto) Baso % (Auto) Neut # (Auto) Lymph # (Auto) Crowley # (Auto) Eos # (Auto) Baso # (Auto) WBC Differential Differential Comment Critical Value Sodium Potassium Chloride Carbon Dioxide Anion Gap BUN Creatinine Estimated GFR POC Glucose 355 H 165 H 232 H Random Glucose Calcium CSF Herpes I DNA (PCR) CSF Herpes II DNA (PCR) 09/16/18 09/16/18 09/17/18 18:00 20:43 07:44 WBC RBC Hgb Hct MCV MCH MCHC RDW Plt Count MPV Neut % (Auto) Lymph % (Auto) Crowley % (Auto) Eos % (Auto) Baso % (Auto) Neut # (Auto) Lymph # (Auto) Crowley # (Auto) Eos # (Auto) Baso # (Auto) WBC Differential Differential Comment Critical Value Sodium Potassium Chloride Carbon Dioxide Anion Gap BUN Creatinine Estimated GFR POC Glucose 362 H 270 H 175 H Random Glucose Calcium CSF Herpes I DNA (PCR) CSF Herpes II DNA (PCR) Result Diagrams: 09/15/18 10:59 09/15/18 10:59 Microbiology: Microbiology 09/14/18 11:54 Gram Stain - Final Lumbar Puncture CSF Culture - Final No growth in 72 hours Imaging: Chest X-Ray 09/11/18 00:15 CONCLUSION: Mild right base atelectasis. Head CT 09/11/18 00:15 CONCLUSION: 1. No acute intracranial abnormality demonstrated. 2. Atrophy and chronic ischemic changes. . Abdomen/Pelvis CT 09/12/18 00:00 CONCLUSION: 1. Nonobstructive bowel gas pattern. 2. The gallbladder is unremarkable in appearance. 3. Apparent scarring in the right lung base. 4. Suboptimal study secondary to motion artifact. Head MRI 09/13/18 00:00 CONCLUSION: 1. Old bilateral lacunar infarcts. 2. Old left cerebellar infarct. 3. No acute infarction. 4. Nonspecific white matter changes with similar changes in the brainstem. Lumbar Puncture Fluoroscopy 09/14/18 09:40 CONCLUSION: 1. Uncomplicated fluoroscopically guided lumbar puncture. Abdomen X-Ray 09/15/18 00:00 CONCLUSION: 1. Large amount of stool in the rectum. 2. Prominent degenerative findings of the lower lumbar spine. Assessment and Plan - Disease Oriented Problem List (1) Diabetes mellitus (2) Hypertension (3) DM (diabetes mellitus) (4) Acute metabolic encephalopathy (5) Dementia (6) Dementia (7) Rhabdomyolysis Comment: = Resolving (8) Hypothyroidism - Symptom Scale (3) Pain Comment: Currently denies pain Pertinent Non-Medical Issues: Psychosocial: Patient was born and raised in [facility]. She is . He a year ago. Patient has 3 adult daughters. Spiritual: Patient is [employer]alian Legal: Per [place] statutes, in the absence of written advanced directives healthcare proxy decision making falls to the patient's 3 adult daughters ( Ashley Boone, Olga). Per palliative care note on 08/01/18: Daughters, Ashley and Olga, have opted out of decision making. Daughter, Mely, is willing to act in the role of HCP decision-maker. Ethical issues impacting care: None identified at this time Important Contacts: Daughter- Mely Davidson [phone] to serve as healthcare proxy Daughter-Ashley Lal -[phone] opted out of decision making Daughter- Olga Lal [phone] opted out of decision making Granddaughter- Italia Dong [phone] Prognosis: Mrs. Goyal is a 73-year-old female with past medical history significant for diabetes mellitus, hypertension, hyperlipidemia and COPD. She has had at least 4 hospitalizations since July,. Patient has experienced an acute decline in recent months. Clinical course complicated with dysphagia, decreased oral intake, altered mentation, and weakness. Given patient's advanced age and ongoing multiple comorbidities, patient remains at high risk for further complications, deterioration and decline. Code Status: No Code DNR Plan: * FULL CODE * Patient is . Per [place] statutes, in the absence of written advanced directives healthcare proxy decision making falls to the patient's 3 adult daughters (Mely, Ashley, Olga). Palliative care note on 08/01/18 indicate daughters, Ashley and Olga, opted out of decision making. Daughter, Mely, is willing to act in the role of HCP decision-maker. * DO NOT RESUSCITATE SYMPTOMS: * Altered mental status: Patient came in with altered mental status. Speech has improved since admission. The patient has a history of cognitive impairment with aggressive tendencies. She was at [facility] after a recent hospitalization and was seen by neuropsychology and psychiatry. She is on Namenda for dementia, Seroquel for agitation and valproic acid for mood stabilization/anticonvulsant. Patient had low-normal B12 in the past. Normal thyroid studies in July,. CF studies done in July, showed slight elevation in protein but were otherwise negative. EEG on 09/11/2018: moderate slowing consistent with what looks like an encephalopathic process. Previous Brain MRI showed atrophy and chronic small vessel ischemic changes. LP done today for further evaluation. Daughter is considering care options upon discharge to include home health versus hospice. * Dysphagia: This may be secondary to altered mentation. Speech therapy consulted and found delayed oral phase but no overt signs of aspiration. She has been cleared for thin liquids and pured diet. Patient has decreased oral intake, likely secondary to advanced dementia. Dietitian consulted. * Pain: Multifactoral. Patient has history of degenerative disc disease and chronic pain of an unknown source. Patient cries out in pain with any movement. Daughter is concerned about cancer as her mother had a very heavy smoking history and a significant family history of breast cancer in several siblings. Daughter is requesting CT of the chest to evaluate for possible neoplasm. * Palliative care will continue following this patient throughout her hospitalization to establish trust, assist with symptom management and clarification of medical treatment goals. Attestation Attestation: To help prompt me to consider important information that might be impacting today's encounter and assessment, information from prior notes written by myself or my colleagues may have been "brought forward" into today's note. My signature on this note, however, is an attestation that I personally performed the exam, history, and/or decision-making noted today, and, unless otherwise indicated, the interactions with patient, family, and staff as well as the review of records all occurred today. I also attest that the listed assessment and stated plan reflect my best clinical judgment today based on the combination of historical information, prior notes, and today's exam/ interactions. When time spent is documented, it refers only to time spent today by the signer, or if indicated, combined time spent today by collaborating physician/nurse practitioner. .
--- NOTE | 2018-09-17 18:27 | CT ---
EXAM DATE: 09/17/2018 6:16 PM EST AGE/SEX: 73 years / Female INDICATIONS: Shortness of breath. CLINICAL DATA: This is the patient's initial encounter. Patient reports that signs and symptoms have been present for 1 day and indicates a pain score of 0/10. MEDICAL/SURGICAL HISTORY: Chronic obstructive pulmonary disease. Diabetes. Gastroesophageal reflu x disease. Hysterectomy. RADIATION DOSE: 5.88 CTDI (mGy) COMPARISON: Report only [facility], CT CHEST W/O CONTRAST, 03/01/2012. . TECHNIQUE: Multiple contiguous axial images were obtained through the chest during bolus infusion of 65 ml Omnipaque 350 (iohexol) nonionic water-soluble contrast as a single exam dose. Images were obtained in suspended respiration using multiple row detector helical technique. Using automated exp osure control and adjustment of the mA and/or kV according to patient size, radiation dose was kept a s low as reasonably achievable to obtain optimal diagnostic quality images. DICOM format image data is available electronically for review and comparison. FINDINGS: Moderate size embolus seen of the left lower lobe pulmonary artery. Tiny segmental pulmonary emboli s een otherwise, most conspicuous of the right upper lobe. Normal heart size. No evidence of right vent ricular strain. Coronary artery calcification noted. Descending thoracic aorta measures 4.1 cm. The v essel tapers gradually through the arch. The descending thoracic aorta has normal caliber. Mild atelectasis and/or scarring of the bilateral lower lobes. 3 x 10 mm right lower lobe pulmonary n odule has been described previously. No pleural effusion or pneumothorax. No lymphadenopathy. CONCLUSION: 1. Small to moderate bilateral pulmonary emboli. 2. Mild bibasilar atelectasis. 3. Coronary artery calcification. 4. Prominent descending thoracic aorta, measures 4.1 cm. Electronically signed by: Toro Kearney MD 09/17/2018 6:25 PM EST
[2018-09-17 20:41] VITALS: RESP 17
[2018-09-17] MEDS: QUEtiapine 25 MG Tablet PO SCH (22:00)
[2018-09-17] MEDS: Montelukast 10 MG Tablet PO SCH (22:01)
[2018-09-18 04:03] VITALS: BP 182/74; PULSE 64; TEMP 98.4; O2SAT 96
--- NOTE | 2018-09-18 08:54 | P.PNNEU ---
Subjective Subjective Comments: No acute events Active Medications: Active Medications Acetaminophen (Tylenol) 650 mg PO Q4H PRN PRN Reason: PAIN SCALE 1 TO 10 Last Admin: 09/13/18 09:51 Dose: 650 mg Al Hydroxide/Mg Hydroxide (Milk Of Magnesia Liq) 30 ml PO Q12H PRN PRN Reason: Mild Constipation Amlodipine Besylate (Norvasc) 10 mg PO DAILY [facility] Last Admin: 09/17/18 08:25 Dose: 10 mg Aspirin (Aspirin Chew) 81 mg PO DAILY [facility] Last Admin: 09/17/18 08:25 Dose: 81 mg Bisacodyl (Dulcolax Supp) 10 mg RECTAL DAILY PRN PRN Reason: SEVERE CONSITIPATION Budesonide/Formoterol Fumarate (Symbicort 160/4.5 Mcg Inh) 2 puff INH BID [facility] Last Admin: 09/17/18 22:08 Dose: Not Given Cyanocobalamin (Vitamin B12 Inj) 1,000 mcg IM WEEKLY [facility] Stop: 10/15/18 09:01 Cyanocobalamin (Vitamin B12 Inj) 1,000 mcg IM Q30D [facility] Dextrose (D50w Vial) 50 ml IV.PUSH UNSCH PRN PRN Reason: PER HYPOGLYCEMIA PROTOCOL Enalapril Maleate (Vasotec) 10 mg PO BID [facility] Last Admin: 09/17/18 22:00 Dose: Not Given Glucagon (Glucagon Inj) 1 mg OTHER PRN PRN PRN Reason: for Hypoglycemia Protocol Sodium Chloride (Ns Inj) 1,000 mls @ 60 mls/hr IV.CONT .[id number] [facility] Last Admin: 09/17/18 17:57 Dose: 60 mls/hr Insulin Aspart (Novolog Insulin Correctional Sugar Inj) 0 unit SQ [facility]; Protocol Last Admin: 09/17/18 22:13 Dose: Not Given Lactulose (Lactulose Liq) 30 ml PO DAILY PRN PRN Reason: SEVERE CONSITIPATION Lansoprazole (Prevacid Solutab) 15 mg PO DAILY [facility] Last Admin: 09/17/18 08:25 Dose: 15 mg Lorazepam (Ativan Inj) 1 mg IV.PUSH ONCE PRN PRN Reason: agitation/pre imaging Last Admin: 09/17/18 22:07 Dose: 1 mg Memantine (Namenda) 5 mg PO BID [facility] Last Admin: 09/17/18 22:00 Dose: Not Given Montelukast Sodium (Singulair) 10 mg PO [facility] Last Admin: 09/17/18 22:01 Dose: Not Given Quetiapine Fumarate (Seroquel) 25 mg PO [facility] Last Admin: 09/17/18 22:00 Dose: Not Given Sennosides (Senokot) 17.2 mg PO Q12H PRN PRN Reason: Moderate Constipation Last Admin: 09/16/18 12:09 Dose: 17.2 mg Sodium Chloride (Ns Flush) 2 ml IV.FLUSH PRN PRN PRN Reason: FLUSH AFTER USING IV ACCESS Thiamine HCl (Thiamine Inj) 100 mg IM DAILY [facility] Last Admin: 09/17/18 08:24 Dose: 100 mg Valproate Sodium (Depakene Liq) 500 mg PO BID [facility] Last Admin: 09/17/18 22:00 Dose: 500 mg Allergies/Adverse Reactions: Allergies Allergy/AdvReac Type Severity Reaction Status Date / Time cephalexin Allergy Severe throat Verified 09/10/18 23:24 closes Review of Systems unobtainable due to mental status Physical Exam Vital signs: Vital Signs 09/17/18 09:29 09/17/18 11:39 09/17/18 15:08 Temperature 98.5 F 98.3 F Pulse Rate 77 72 Respiratory Rate 18 16 Blood Pressure 148/84 H 153/70 H Pulse Oximetry 96 96 95 09/17/18 20:00 09/17/18 23:25 09/18/18 04:00 Temperature 98.7 F 98.4 F Pulse Rate 60 64 Respiratory Rate 17 17 Blood Pressure 160/67 H 147/66 H 182/74 H Pulse Oximetry 96 100 96 Intake & Output 09/17/18 09/18/18 09/18/18 18:59 06:59 18:59 Intake Total 1000 / 1000 Balance 1000 / 1000 Intake: IV 1000 / 1000 NS Inj 1,000 ML @ 60 mls/hr IV. 1000 / 1000 CONT .[id number] [facility] Rx#:[id number] Other: Date of Last Bowel Movement 09/16/18 Narrative: GENERAL: Thin elderly female patient in [facility] HEENT: Normocephalic. Atraumatic. CARDIOVASCULAR: Regular rate and rhythm. No murmur appreciated. RESPIRATORY: No accessory muscle use. GASTROINTESTINAL: Abdomen soft, nondistended, nontender. MUSCULOSKELETAL: No obvious deformities. NEUROLOGICAL: Drowsy, arousable, not following, more calm, no gaze deviation pupils small sluggishly reactive no ptosis next supple localizes all 4 extremities slightly increased tone in the upper extremely PSYCHIATRIC: Drowsy - Constitutional no acute distress - Routine HEENT Exam Head: Present: normocephalic Objective Laboratory Results - last 24 hr 09/14/18 09/17/18 11:54 22:13 POC Glucose 138 H Ser Oligoclonal Bands 3 CSF Oligoclonal Bands 3 CSF Olig Protein Interp 0 Microbiology 09/14/18 11:54 Gram Stain - Final Lumbar Puncture CSF Culture - Final No growth in 72 hours Review/Management - Diagnosis (1) Cognitive impairment Code(s): R41.89 - Other symptoms and signs involving cognitive functions and awareness Status: Acute Current Visit: Yes (2) Major neurocognitive disorder due to multiple etiologies Code(s): F02.80 - Dementia in other diseases classified elsewhere without behavioral disturbance Status: Acute Current Visit: No (3) Hypoxic encephalopathy Code(s): G93.1 - Anoxic brain damage, not elsewhere classified Status: Acute Current Visit: No (4) Encephalopathy Code(s): G93.40 - Encephalopathy, unspecified Status: Acute Current Visit: No - Review/Management Plan: Possible underlying advanced dementia with agitation. Which may be worsened by metabolic changes such as hypoxia, poor p.o. intake, urinary tract infection illicit drug use Urine drug screen positive for benzodiazepines and marijuana History seen by psychology neuropsychology at [facility] cognitive impairment with behavioral disorder Low normal B12 in the past. Normal thyroid studies in July 2018. Slightly elevated CRP CSF studies done July 2018 showed slight elevation of protein otherwise negative for herpes PCR negative On memantine for dementia, Seroquel for agitation, valproic acid for mood stabilization but also work as an anticonvulsant Positive RPR however negative in CSF seen by ID and evaluated did not feel she had neurosyphilis repeat csf negative for infection Recommendation Receive Ativan 1 mg overnight mildly lethargic this a.m. limited exam Dose of Namenda was increased Appreciate palliative care
[2018-09-18 09:25] LABS: Baso % (Auto) 0.1 % (0.0-2.0); Eos % (Auto) 0.1 % (0.0-4.0); Hematocrit 45.7 % (35.0-46.0); Hemoglobin 14.9 gm/dL (11.6-15.3); Lymph # (Auto) 2.4 th/mm3 (1.0-4.8); Lymph % (Auto) 20.3 % (9.0-44.0); Mean Corpuscular HGB Conc 32.6 % (32.0-36.0); Mean Corpuscular Hemoglobin 31.5 pg (27.0-34.0); Mean Corpuscular Volume 96.7 fL (80.0-100.0); Mean Platelet Volume 10.2 fL (7.0-11.0); Mono # (Auto) 0.8 th/mm3 (0.0-0.9); Mono % (Auto) 6.4 % (0.0-8.0); Neut # (Auto) 8.7 th/mm3 (1.8-7.7); Neut % (Auto) 73.1 % (16.0-70.0); Platelet Count 194 th/mm3 (150-450); Red Blood Count 4.73 mil/mm3 (4.00-5.30); Red Cell Distribution Width 16.9 % (11.6-17.2); White Blood Count 11.9 th/mm3 (4.0-11.0)
[2018-09-18 09:47] LABS: Anion Gap 8 meq/L (5-15); Blood Urea Nitrogen 11 mg/dL (7-18); Calcium 8.7 mg/dL (8.5-10.1); Carbon Dioxide 23.8 meq/L (21.0-32.0); Chloride 101 meq/L (98-107); Glomerular Filtration Rate Greater Than 89 mL/min (>89); Glucose,Random 157 mg/dL (74-106); Potassium 4.2 meq/L (3.5-5.1); Sodium 133 meq/L (136-145)
[2018-09-18 09:52] LABS: Valproic Acid 59 mcg/mL (50-100)
[2018-09-18] MEDS: Insulin NovoLOG Aspart Correctional Sugar Inj SQ SCH ×2 (09:59→15:29)
--- NOTE | 2018-09-18 10:49 | P.PNPAL ---
Reason for Visit Reason for visit: a. To assist with evaluation and management of symptoms including: Altered mental status, dysphagia, pain. b. To assist medical decision maker(s) with: better understanding of current medical conditions; weighing benefits/burdens of medical treatment options; making medical treatment decisions. Subjective Subjective/Interval History: Mrs. Goyal is a 73-year-old female with a medical history that is significant for HTN, DM, GERD, hypothyroidism, DDD, chronic pain, COPD, and anxiety who presented to [place] [facility] on 09/11/2018 for evaluation of altered mental status. The patient was recently hospitalized from 09/06/18-09/08/18 for management of rhabdomyolysis and suspected UTI. She was discharged home with home health care. Her daughter reported that patient had been at home eating and drinking without any difficulties but had stopped talking a few days ago. Patient seen today for evaluation of symptom management of altered mental status , dysphasia and pain and to assist family in goals of medical treatment. She has significantly declined since yesterday. Yesterday she was speaking more clearly and was understandable and cooperative with care, today she only moans in pain and agitation. She is not verbalizing at all. She stares off into space and does not make eye contact. She does not focus or track. She is resistant to care and HAIRSPRING STAKER was unable to take her blood pressure due to patient resistance. Her altered mental status is moderate to severe, worsening, with no exacerbating or relieving factors. She is being followed by speech therapy who states that she is able to swallow, however cognitively is not able to follow commands at this time. Speech therapy feels that at this time her swallowing impairment is secondary to her cognitive ability and have signed off. Family states that she eats home cooked food just fine and states that she is hungry. We discussed the option of artificial tube feeding, which the family declines. They are aware of the risk of aspiration but do not wish to progress to artificial nutrition given her level of dementia and rapid decline. She is presumed to be in pain as she cries out, grimaces and stiffens with any movement. Today she is also moaning when not being repositioned. In spite of attempts by her daughter to get her mother to communicate her discomfort to her , the patient is not communicating today either with staff or with family. . Family/Friend Interactions: Spoke with patient's daughter at bedside. She recognizes the difference at her mother's presentation from yesterday to today showing a sharp decline. Yesterday patient was verbal, slightly interactive and cooperative with care. Discussed the possibility of home with hospice versus care center admission to establish baseline medication level needed for comfort. Although Chioma is the healthcare proxy, as both of her sisters have opted out of decision-making, she wished to discuss her decision with them to promote family harmony spoke with both of her sisters and her aunt via telephone and discussed her sharp decline, lack of available interventions and pursuing comfort care. We discussed brief placement in the hospice care center to establish baseline medications for comfort. All agreed that this was an appropriate course and all desired comfort for the patient over aggressive measures that would not provide her any improvement in her quality of life and would in fact likely diminish her quality of life. After all family members had agreed, patient's daughter received a call from her aunt "Radha" who was agitated and stated that she was a HAIRSPRING STAKER she knew that her sister did not need hospice and that she was going to call her boilermaker welder and get the patient admitted to their facility. After that phone call, the on was unreachable and so the daughter proceeded with hospice admission, foregoing the option of care center admission for medication stabilization, instead taking her home on her current medications which would then be monitored and uptitrated as needed by the hospice medical team. . Objective Vital Signs: Vital Signs 09/17/18 11:39 09/17/18 15:08 09/17/18 20:00 Temperature 98.5 F 98.3 F 98.7 F Pulse Rate 77 72 60 Respiratory Rate 18 16 17 Blood Pressure 148/84 H 153/70 H 160/67 H Pulse Oximetry 96 95 96 09/17/18 23:25 09/18/18 04:00 Temperature 98.4 F Pulse Rate 64 Respiratory Rate 17 Blood Pressure 147/66 H 182/74 H Pulse Oximetry 100 96 Intake & Output 09/17/18 09/18/18 09/18/18 18:59 06:59 18:59 Intake Total 1000 / 1000 Balance 1000 / 1000 Intake: IV 1000 / 1000 NS Inj 1,000 ML @ 60 mls/hr IV. 1000 / 1000 CONT .[id number] [facility] Rx#:[id number] Other: Date of Last Bowel Movement 09/16/18 09/16/18 Physical Exam: CONSTITUTIONAL/GENERAL: This is a frail, elderly female in mild distress TUBES/LINES/DRAINS: PIV CARDIOVASCULAR: Regular rate and rhythm without murmurs, gallops, or rubs. No JVD. Peripheral pulses symmetric. RESPIRATORY/CHEST: Symmetric, unlabored respirations. Clear to auscultation. Breath sounds equal bilaterally. No accessory muscle use GASTROINTESTINAL: Abdomen soft, non-tender, nondistended. No guarding. Bowel sounds present. GENITOURINARY: Without palpable bladder distension. MUSCULOSKELETAL: Extremities without clubbing, cyanosis, or edema. Positive muscle wasting. No obvious deformities. No mottling or clubbing. NEUROLOGICAL: Awake, not focusing or tracking, eyes open, appearing distressed but nonverbal today. Not responding to command not answering. PSYCHIATRIC: Appears anxious, resisting care. . Diagnostic Tests Laboratory: Laboratory Results - last 72 hr 09/14/18 09/14/18 09/15/18 11:07 11:54 10:59 WBC RBC Hgb Hct MCV MCH MCHC RDW Plt Count MPV Neut % (Auto) Lymph % (Auto) Villalba % (Auto) Eos % (Auto) Baso % (Auto) Neut # (Auto) Lymph # (Auto) Villalba # (Auto) Eos # (Auto) Baso # (Auto) WBC Differential Differential Comment Critical Value No Sodium 139 Potassium 5.1 D Chloride 102 Carbon Dioxide 29.5 Anion Gap 8 BUN 13 Creatinine 0.77 Estimated GFR 89 POC Glucose Random Glucose 319 H D Calcium 8.8 Ser Oligoclonal Bands 3 CSF Oligoclonal Bands 3 CSF Olig Protein Interp 0 Valproic Acid 09/15/18 09/15/18 09/16/18 16:54 20:57 08:12 WBC RBC Hgb Hct MCV MCH MCHC RDW Plt Count MPV Neut % (Auto) Lymph % (Auto) Villalba % (Auto) Eos % (Auto) Baso % (Auto) Neut # (Auto) Lymph # (Auto) Villalba # (Auto) Eos # (Auto) Baso # (Auto) WBC Differential Differential Comment Critical Value Sodium Potassium Chloride Carbon Dioxide Anion Gap BUN Creatinine Estimated GFR POC Glucose 342 H 355 H 165 H Random Glucose Calcium Ser Oligoclonal Bands CSF Oligoclonal Bands CSF Olig Protein Interp Valproic Acid 11/04/18 11/04/18 11/04/18 13:34 18:00 20:43 WBC RBC Hgb Hct MCV MCH MCHC RDW Plt Count MPV Neut % (Auto) Lymph % (Auto) Villalba % (Auto) Eos % (Auto) Baso % (Auto) Neut # (Auto) Lymph # (Auto) Villalba # (Auto) Eos # (Auto) Baso # (Auto) WBC Differential Differential Comment Critical Value Sodium Potassium Chloride Carbon Dioxide Anion Gap BUN Creatinine Estimated GFR POC Glucose 232 H 362 H 270 H Random Glucose Calcium Ser Oligoclonal Bands CSF Oligoclonal Bands CSF Olig Protein Interp Valproic Acid 09/17/18 09/17/18 09/18/18 07:44 22:13 08:53 WBC 11.9 H RBC 4.73 Hgb 14.9 Hct 45.7 MCV 96.7 MCH 31.5 MCHC 32.6 RDW 16.9 Plt Count 194 MPV 10.2 Neut % (Auto) 73.1 H Lymph % (Auto) 20.3 Villalba % (Auto) 6.4 Eos % (Auto) 0.1 Baso % (Auto) 0.1 Neut # (Auto) 8.7 H Lymph # (Auto) 2.4 Villalba # (Auto) 0.8 Eos # (Auto) 0.0 Baso # (Auto) 0.0 WBC Differential . Differential Comment Auto diff final Critical Value Sodium Potassium Chloride Carbon Dioxide Anion Gap BUN Creatinine Estimated GFR POC Glucose 175 H 138 H Random Glucose Calcium Ser Oligoclonal Bands CSF Oligoclonal Bands CSF Olig Protein Interp Valproic Acid 09/18/18 09/18/18 08:53 09:34 WBC RBC Hgb Hct MCV MCH MCHC RDW Plt Count MPV Neut % (Auto) Lymph % (Auto) Villalba % (Auto) Eos % (Auto) Baso % (Auto) Neut # (Auto) Lymph # (Auto) Villalba # (Auto) Eos # (Auto) Baso # (Auto) WBC Differential Differential Comment Critical Value Sodium 133 L Potassium 4.2 Chloride 101 Carbon Dioxide 23.8 Anion Gap 8 BUN 11 Creatinine 0.54 Estimated GFR Greater than 89 POC Glucose 156 H Random Glucose 157 H Calcium 8.7 Ser Oligoclonal Bands CSF Oligoclonal Bands CSF Olig Protein Interp Valproic Acid 59 Result Diagrams: 09/18/18 08:53 09/18/18 08:53 Microbiology: Microbiology 09/14/18 11:54 Gram Stain - Final Lumbar Puncture CSF Culture - Final No growth in 72 hours Imaging: Chest X-Ray 09/11/18 00:15 CONCLUSION: Mild right base atelectasis. Head CT 09/11/18 00:15 CONCLUSION: 1. No acute intracranial abnormality demonstrated. 2. Atrophy and chronic ischemic changes. . Abdomen/Pelvis CT 09/12/18 00:00 CONCLUSION: 1. Nonobstructive bowel gas pattern. 2. The gallbladder is unremarkable in appearance. 3. Apparent scarring in the right lung base. 4. Suboptimal study secondary to motion artifact. Head MRI 09/13/18 00:00 CONCLUSION: 1. Old bilateral lacunar infarcts. 2. Old left cerebellar infarct. 3. No acute infarction. 4. Nonspecific white matter changes with similar changes in the brainstem. Lumbar Puncture Fluoroscopy 09/14/18 09:40 CONCLUSION: 1. Uncomplicated fluoroscopically guided lumbar puncture. Abdomen X-Ray 09/15/18 00:00 CONCLUSION: 1. Large amount of stool in the rectum. 2. Prominent degenerative findings of the lower lumbar spine. Chest CT 09/17/18 00:00 CONCLUSION: 1. Small to moderate bilateral pulmonary emboli. 2. Mild bibasilar atelectasis. 3. Coronary artery calcification. 4. Prominent descending thoracic aorta, measures 4.1 cm. Assessment and Plan - Disease Oriented Problem List (1) Diabetes mellitus (2) Hypertension (3) DM (diabetes mellitus) (4) Acute metabolic encephalopathy (5) Dementia (6) Dementia (7) Rhabdomyolysis Comment: = Resolving (8) Hypothyroidism - Symptom Scale (3) Pain Comment: Currently denies pain Pertinent Non-Medical Issues: Psychosocial: Patient was born and raised in [facility]. She is . He a year ago. Patient has 3 adult daughters. Spiritual: Patient is [place] Legal: Per [place] statutes, in the absence of written advanced directives healthcare proxy decision making falls to the patient's 3 adult daughters ( Ashley Boone, Olga). Per palliative care note on 08/01/18: Daughters, Ashley and Olga, have opted out of decision making. Daughter, Mely, is willing to act in the role of HCP decision-maker. Ethical issues impacting care: None identified at this time Important Contacts: Daughter- Mely Davidson [phone] to serve as healthcare proxy Daughter-Ashley Lal [phone] opted out of decision making Daughter- Olga Lal [phone] opted out of decision making Granddaughter- Italia Dong [phone] Prognosis: Mrs. Goyal is a 73-year-old female with past medical history significant for diabetes mellitus, hypertension, hyperlipidemia and COPD. She has had at least 4 hospitalizations since July,. Patient has experienced an acute decline in recent months. Clinical course complicated with dysphagia, decreased oral intake, altered mentation, and weakness. Given patient's advanced age and ongoing multiple comorbidities, patient remains at high risk for further complications, deterioration and decline. Code Status: No Code DNR Plan: * FULL CODE * Patient is . Per [place] statutes, in the absence of written advanced directives healthcare proxy decision making falls to the patient's 3 adult daughters (Ashley Boone, Olga). Palliative care note on 08/01/18 indicate daughters, Ashley and Olga, opted out of decision making. Daughter, Mely, is willing to act in the role of HCP decision-maker. * DO NOT RESUSCITATE SYMPTOMS: * Altered mental status: Patient came in with altered mental status. Speaking yesterday, not speaking today. The patient has a history of cognitive impairment with aggressive tendencies. She was at [facility] after a recent hospitalization and was seen by neuropsychology and psychiatry. She is on Namenda for dementia, Seroquel for agitation and valproic acid for mood stabilization/anticonvulsant. Patient had low-normal B12 in the past. Normal thyroid studies in July,. CF studies done in July, showed slight elevation in protein but were otherwise negative. EEG on 09/11/2018: moderate slowing consistent with what looks like an encephalopathic process. Previous Brain MRI showed atrophy and chronic small vessel ischemic changes. LP done for further evaluation with no significant findings. Altered mental status worsening today. Family choosing to go home with hospice care. * Dysphagia: This may be secondary to altered mentation. Speech therapy consulted and found delayed oral phase but no overt signs of aspiration. She has been cleared for thin liquids and pured diet. Patient has decreased oral intake, likely secondary to advanced dementia. Speech therapy has signed off concurring that her reduced oral intake is secondary to her declining cognitive status and not mechanical difficulty with swallowing. * Pain: Multifactoral. Patient has history of degenerative disc disease and chronic pain of an unknown source. Patient cries out in pain with any movement and today is crying out with no movement. She was receiving tramadol at home for pain as well Xanax for anxiety. Those medications have been resumed for discharge and further titration will take place in the home per hospice medical team, depending on patient response. * Palliative care will continue following this patient throughout her hospitalization to establish trust, assist with symptom management and clarification of medical treatment goals. Attestation Attestation: To help prompt me to consider important information that might be impacting today's encounter and assessment, information from prior notes written by myself or my colleagues may have been "brought forward" into today's note. My signature on this note, however, is an attestation that I personally performed the exam, history, and/or decision-making noted today, and, unless otherwise indicated, the interactions with patient, family, and staff as well as the review of records all occurred today. I also attest that the listed assessment and stated plan reflect my best clinical judgment today based on the combination of historical information, prior notes, and today's exam/ interactions. When time spent is documented, it refers only to time spent today by the signer, or if indicated, combined time spent today by collaborating physician/nurse practitioner. .
[2018-09-18] MEDS: amLODIPine 10 MG Tablet PO SCH (11:30)
[2018-09-18] MEDS: Budesonide-Formoterol 160/4.5 MCG 6 GM Inhaler INH SCH (11:31)
[2018-09-18] MEDS: Lansoprazole ODT 15 MG Tablet PO SCH (11:31)
--- NOTE | 2018-09-18 12:56 | P.PN ---
Subjective Interval history: Patient is seen lying in bed. She is noncommunicative. She is awake. Nursing reports no adverse events. Physical Exam Vital signs: Vital Signs 09/17/18 15:08 09/17/18 20:00 09/17/18 23:25 Temperature 98.3 F 98.7 F Pulse Rate 72 60 Respiratory Rate 16 17 Blood Pressure 153/70 H 160/67 H 147/66 H Pulse Oximetry 95 96 100 09/18/18 04:00 Temperature 98.4 F Pulse Rate 64 Respiratory Rate 17 Blood Pressure 182/74 H Pulse Oximetry 96 Intake & Output 09/17/18 09/18/18 09/18/18 18:59 06:59 18:59 Intake Total 1000 / 1000 Balance 1000 / 1000 Intake: IV 1000 / 1000 NS Inj 1,000 ML @ 60 mls/hr IV. 1000 / 1000 CONT .[id number] Rx#:[id number] Other: Date of Last Bowel Movement 09/16/18 09/16/18 Narrative: GENERAL: Thin elderly female patient in NAD HEENT: Normocephalic. Atraumatic. CARDIOVASCULAR: Regular rate and rhythm. RESPIRATORY: No accessory muscle use. GASTROINTESTINAL: Abdomen soft, nondistended, nontender. MUSCULOSKELETAL: No obvious deformities. NEUROLOGICAL: Drowsy, arousable, not following. Results - Labs CBC & Chem 7: 09/18/18 08:53 09/18/18 08:53 Laboratory Results - last 24 hr 09/14/18 09/17/18 09/18/18 11:54 22:13 08:53 WBC 11.9 H RBC 4.73 Hgb 14.9 Hct 45.7 MCV 96.7 MCH 31.5 MCHC 32.6 RDW 16.9 Plt Count 194 MPV 10.2 Neut % (Auto) 73.1 H Lymph % (Auto) 20.3 [place] % (Auto) 6.4 Eos % (Auto) 0.1 Baso % (Auto) 0.1 Neut # (Auto) 8.7 H Lymph # (Auto) 2.4 [place] # (Auto) 0.8 Eos # (Auto) 0.0 Baso # (Auto) 0.0 WBC Differential . Differential Comment Auto diff final Sodium Potassium Chloride Carbon Dioxide Anion Gap BUN Creatinine Estimated GFR POC Glucose 138 H Random Glucose Calcium Ser Oligoclonal Bands 3 CSF Oligoclonal Bands 3 CSF Olig Protein Interp 0 Valproic Acid 09/18/18 09/18/18 08:53 09:34 WBC RBC Hgb Hct MCV MCH MCHC RDW Plt Count MPV Neut % (Auto) Lymph % (Auto) [place] % (Auto) Eos % (Auto) Baso % (Auto) Neut # (Auto) Lymph # (Auto) [place] # (Auto) Eos # (Auto) Baso # (Auto) WBC Differential Differential Comment Sodium 133 L Potassium 4.2 Chloride 101 Carbon Dioxide 23.8 Anion Gap 8 BUN 11 Creatinine 0.54 Estimated GFR Greater than 89 POC Glucose 156 H Random Glucose 157 H Calcium 8.7 Ser Oligoclonal Bands CSF Oligoclonal Bands CSF Olig Protein Interp Valproic Acid 59 Microbiology 09/14/18 11:54 Lumbar Puncture Gram Stain - Final 09/14/18 11:54 Lumbar Puncture CSF Culture - Final No growth in 72 hours - Imaging Impressions Chest CT 09/17/18 00:00 CONCLUSION: 1. Small to moderate bilateral pulmonary emboli. 2. Mild bibasilar atelectasis. 3. Coronary artery calcification. 4. Prominent descending thoracic aorta, measures 4.1 cm. - Procedures 09/14 - lumbar puncture by IR Assessment and Plan - Assessment (1) Dementia Code(s): F03.90 - Unspecified dementia without behavioral disturbance Status: Acute (2) Acute metabolic encephalopathy Code(s): G93.41 - Metabolic encephalopathy Status: Acute (3) Altered mental status Code(s): R41.82 - Altered mental status, unspecified Status: Acute (4) Diabetes mellitus Code(s): E11.9 - Type 2 diabetes mellitus without complications Status: Chronic (5) Hypertension Code(s): I10 - Essential (primary) hypertension Status: Acute (6) Asthma Code(s): J45.909 - Unspecified asthma, uncomplicated Status: Acute - Plan 73-year-old female with past medical history significant for HTN, DM, GERD, hypothyroidism, DDD, chronic pain, asthma, and anxiety who presents to the emergency department via EMS due to altered mental status. Acute encephalopathy Hx Dementia -Suspect secondary to progression of dementia, possibly exacerbated by mild dehydration vs infection vs polypharmacy vs stroke -CBC stable, CMP with mildly elevated BUN at 28, ammonia within normal limits, total CK 349, improved, mildly elevated AST, improving -Head CT reviewed with no acute intracranial abnormality, atrophy and chronic ischemic changes -CXR with mild right base atelectasis, blood gas with low PO2 at 56 and low oxygen saturation at 86%, now on nasal cannula -UA unremarkable, UDS positive for benzodiazepines and cannabinoids -Neurochecks, swallow eval, PT eval, needs rehab -Continue Namenda, hold off on benzodiazepines as not recommended in the elderly with dementia -valproic acid level low, restarted -EEG shows Moderate slowing of background consistent with what looks like an encephalopathic process -Brain MRI shows old bilateral lacunar infarcts, old left cerebellar infarct; no acute findings -Neurology consulted, Discussed with Dr. Avalos, likely progression of dementia -Family initially requesting aggressive care, neurology ordered LP (has +RPR, patient with hx of LP with CSF studies showing high protein in Jul 2018, HSV PCR negative, also evaluated by ID and felt not to have neurosyphilis) -LP done 09/14, studies remarkable for elevated total protein 66.5, herpes negative, CSF culture with NGTD -Neuro initiated trial of steroids with IV Solumedrol 125mg bid x3days, complete on 09/17 -Namenda has been increased to 5mg bid -Continue to monitor, unchanged -Greatly appreciate palliative care assistance, patient now DNR, decision to be made on home health vs hospice -09/[address] -small pulmonary embolism noted. Dysphagia, Intermittent Abdominal Pain, Poor Oral Intake, Constipation: unclear etiology. Abdomen tender on exam intermittently. Minimal oral intake since arrival to hospital. -speech therapy consulted, recommends pureed diet with thin liquids -dietitian consulted, add Ensure Enlive to meals -abdomen/pelvis CT with nonobstructive bowel gas pattern, GB unremarkable; otherwise unremarkable -supportive treatment with IVF hydration -palliative care following -may need to consider PEG -Abdominal xray 09/15 shows large amount of stool in the rectum, given Dulcolax suppository -patient now having BMs, constipation resolved Resolving rhabdomyolysis Mild dehydration -Total CK continues to improve, resolved. -Continue maintenance IVF and encourage oral hydration Diabetes mellitus -Holding metformin for now during hospitalization -Accu-Cheks with insulin sliding scale Failure to Thrive/Self Care Deficit: acute -suspect secondary to progression of dementia, however rule out other etiologies such as stroke or infection -consulted palliative care, greatly appreciate assistance Hypertension: BP not optimally controlled -continued patient's amlodipine 10mg daily and enalapril 10mg daily -09/17 - BP not well controlled, increased enalapril to 10mg bid -monitor BP, adjust antihypertensives as needed DVT prophylaxisteds/SCDs Discharge Planning: Family has decided to do hospice at home (3) Altered mental status Qualifiers: Altered mental status type: coma (4) Diabetes mellitus Qualifiers: Diabetes mellitus type: type 2 Diabetes mellitus exterminator insulin use: without chcf use Diabetes mellitus complication status: without complication Qualified Code(s): E11.9 - Type 2 diabetes mellitus without complications (5) Hypertension Qualifiers: Hypertension type: essential hypertension Qualified Code(s): I10 - Essential (primary) hypertension (6) Asthma Qualifiers: Asthma severity: unspecified severity Asthma persistence: unspecified Asthma complication type: unspecified Qualified Code(s): J45.909 - Unspecified asthma, uncomplicated
--- NOTE | 2018-09-18 13:08 | P.DS ---
Date of admission: 09/11/18 03:47 Primary care physician: David Gee Attending physician on discharge: Burton Greene Anticipated date of discharge: 09/18/18 Brief History from admission: 73-year-old female with past medical history significant for HTN, DM, GERD, hypothyroidism, DDD, chronic pain, asthma, and anxiety who presents to the emergency department via EMS due to altered mental status. Of note patient was recently admitted on 09/06 for which she was treated for acute encephalopathy with possible progression of dementia, suspected UTI, and mild rhabdomyolysis. Patient was subsequently discharged home with home health services on 09/08. Patient is seen and examined resting in ER stretcher and appears to be in no acute distress. She is nonverbal but will track with her eyes. Does not follow any commands but moving all extremities. Nurse reports daughter was in overnight briefly. Call placed out to her daughter Mely at [phone]. Daughter reports that patient had been at home eating and drinking without any difficulties but states that "couple of days ago" patient stopped talking. Daughter denies any recent falls at home or changes to medications. Daughter also denies patient having any known fevers, cough, or recent illnesses at home. DS: Diagnosis - Discharge Diagnosis (1) Dementia Status: Chronic (2) Acute metabolic encephalopathy Status: Resolved (3) Altered mental status Status: Resolved (4) Diabetes mellitus Status: Chronic (5) Hypertension Status: Chronic (6) Asthma Status: Chronic (7) Failure to thrive in adult Status: Acute DS: Summary Hospital Course: 73-year-old female with past medical history significant for HTN, DM, GERD, hypothyroidism, DDD, chronic pain, asthma, and anxiety who presents to the emergency department via EMS due to altered mental status. Acute encephalopathy Hx Dementia -Suspect secondary to progression of dementia, possibly exacerbated by mild dehydration vs infection vs polypharmacy vs stroke -CBC stable, CMP with mildly elevated BUN at 28, ammonia within normal limits, total CK 349, improved, mildly elevated AST, improving -Head CT reviewed with no acute intracranial abnormality, atrophy and chronic ischemic changes -CXR with mild right base atelectasis, blood gas with low PO2 at 56 and low oxygen saturation at 86%, now on nasal cannula -UA unremarkable, UDS positive for benzodiazepines and cannabinoids -Neurochecks, swallow eval, PT eval, needs rehab -Continue Namenda, hold off on benzodiazepines as not recommended in the elderly with dementia -valproic acid level low, restarted -EEG shows Moderate slowing of background consistent with what looks like an encephalopathic process -Brain MRI shows old bilateral lacunar infarcts, old left cerebellar infarct; no acute findings -Neurology consulted, Discussed with Dr. Avalos, likely progression of dementia -Family initially requesting aggressive care, neurology ordered LP (has +RPR, patient with hx of LP with CSF studies showing high protein in Jul 2018, HSV PCR negative, also evaluated by ID and felt not to have neurosyphilis) -LP done 09/14, studies remarkable for elevated total protein 66.5, herpes negative, CSF culture with NGTD -Neuro initiated trial of steroids with IV Solumedrol 125mg bid x3days, complete on 09/17 -Namenda has been increased to 5mg bid -Continue to monitor, unchanged -Greatly appreciate palliative care assistance, patient now DNR, decision to be made on home health vs hospice -09/[address] -small pulmonary embolism noted. Currently on ASA81. Dysphagia, Intermittent Abdominal Pain, Poor Oral Intake, Constipation: unclear etiology. Abdomen tender on exam intermittently. Minimal oral intake since arrival to hospital. -speech therapy consulted, recommends pureed diet with thin liquids -dietitian consulted, add Ensure Enlive to meals -abdomen/pelvis CT with nonobstructive bowel gas pattern, GB unremarkable; otherwise unremarkable -supportive treatment with IVF hydration -palliative care following -may need to consider PEG -Abdominal xray 09/15 shows large amount of stool in the rectum, given Dulcolax suppository -patient now having BMs, constipation resolved Resolving rhabdomyolysis Mild dehydration -Total CK continues to improve, resolved. -Continue maintenance IVF and encourage oral hydration Diabetes mellitus -Holding metformin for now during hospitalization -Accu-Cheks with insulin sliding scale Failure to Thrive/Self Care Deficit: acute -suspect secondary to progression of dementia, however rule out other etiologies such as stroke or infection -consulted palliative care, greatly appreciate assistance Hypertension: BP not optimally controlled -continued patient's amlodipine 10mg daily and enalapril 10mg daily -09/17 - BP not well controlled, increased enalapril to 10mg bid -monitor BP, adjust antihypertensives as needed DVT prophylaxisteds/SCDs Discharge Planning: Family has decided to do hospice at home - Time Spent with Patient Total time spent providing and/or coordinating discharge services: Less than 30 minutes - Quality: VTE Deep Vein Thrombosis/Pulmonary Embolism Present on Admission: No Exam Vital signs: Vital Signs 09/17/18 15:08 09/17/18 20:00 09/17/18 23:25 Temperature 98.3 F 98.7 F Pulse Rate 72 60 Respiratory Rate 16 17 Blood Pressure 153/70 H 160/67 H 147/66 H Pulse Oximetry 95 96 100 09/18/18 04:00 Temperature 98.4 F Pulse Rate 64 Respiratory Rate 17 Blood Pressure 182/74 H Pulse Oximetry 96 Intake & Output 09/17/18 09/18/18 09/18/18 18:59 06:59 18:59 Intake Total 1000 / 1000 Balance 1000 / 1000 Intake: IV 1000 / 1000 NS Inj 1,000 ML @ 60 mls/hr IV. 1000 / 1000 CONT .[id number] Rx#:[id number] Other: Date of Last Bowel Movement 09/16/18 09/16/18 Narrative: GENERAL: Thin elderly female patient in NAD HEENT: Normocephalic. Atraumatic. CARDIOVASCULAR: Regular rate and rhythm. RESPIRATORY: No accessory muscle use. GASTROINTESTINAL: Abdomen soft, nondistended, nontender. MUSCULOSKELETAL: No obvious deformities. NEUROLOGICAL: Drowsy, arousable, not following. Results Procedures completed during hospitalization: 09/14 - lumbar puncture by IR Labs on day of discharge: Labs from last 24 hours 09/18/18 09/18/18 09/18/18 09:34 08:53 08:53 WBC 11.9 H RBC 4.73 Hgb 14.9 Hct 45.7 MCV 96.7 MCH 31.5 MCHC 32.6 RDW 16.9 Plt Count 194 MPV 10.2 Neut % (Auto) 73.1 H Lymph % (Auto) 20.3 [place] % (Auto) 6.4 Eos % (Auto) 0.1 Baso % (Auto) 0.1 Neut # (Auto) 8.7 H Lymph # (Auto) 2.4 [place] # (Auto) 0.8 Eos # (Auto) 0.0 Baso # (Auto) 0.0 WBC Differential . Differential Comment Auto diff final Sodium 133 L Potassium 4.2 Chloride 101 Carbon Dioxide 23.8 Anion Gap 8 BUN 11 Creatinine 0.54 Estimated GFR Greater than 89 POC Glucose 156 H Random Glucose 157 H Calcium 8.7 Ser Oligoclonal Bands CSF Oligoclonal Bands CSF Olig Protein Interp Valproic Acid 59 09/17/18 09/14/18 22:13 11:54 WBC RBC Hgb Hct MCV MCH MCHC RDW Plt Count MPV Neut % (Auto) Lymph % (Auto) [place] % (Auto) Eos % (Auto) Baso % (Auto) Neut # (Auto) Lymph # (Auto) [place] # (Auto) Eos # (Auto) Baso # (Auto) WBC Differential Differential Comment Sodium Potassium Chloride Carbon Dioxide Anion Gap BUN Creatinine Estimated GFR POC Glucose 138 H Random Glucose Calcium Ser Oligoclonal Bands 3 CSF Oligoclonal Bands 3 CSF Olig Protein Interp 0 Valproic Acid - Impressions ITS Impressions Chest X-Ray 09/11/18 00:15 CONCLUSION: Mild right base atelectasis. Head CT 09/11/18 00:15 CONCLUSION: 1. No acute intracranial abnormality demonstrated. 2. Atrophy and chronic ischemic changes. . Abdomen/Pelvis CT 09/12/18 00:00 CONCLUSION: 1. Nonobstructive bowel gas pattern. 2. The gallbladder is unremarkable in appearance. 3. Apparent scarring in the right lung base. 4. Suboptimal study secondary to motion artifact. Head MRI 09/13/18 00:00 CONCLUSION: 1. Old bilateral lacunar infarcts. 2. Old left cerebellar infarct. 3. No acute infarction. 4. Nonspecific white matter changes with similar changes in the brainstem. Lumbar Puncture Fluoroscopy 09/14/18 09:40 CONCLUSION: 1. Uncomplicated fluoroscopically guided lumbar puncture. Abdomen X-Ray 09/15/18 00:00 CONCLUSION: 1. Large amount of stool in the rectum. 2. Prominent degenerative findings of the lower lumbar spine. Chest CT 09/17/18 00:00 CONCLUSION: 1. Small to moderate bilateral pulmonary emboli. 2. Mild bibasilar atelectasis. 3. Coronary artery calcification. 4. Prominent descending thoracic aorta, measures 4.1 cm. Discharge Plan - Discharge Disposition Patient Disposition: 50 Hospice/Home - Discharge Condition Condition: Stable - Discharge Order Discharge Orders: Discharge Order (Routine); Ordered 09/18/18 Ordered By: Camelia Jhaveri - Physicians Team Primary Care Provider: David Gee Attending Provider: Rimpel,Ricardy Other Providers: Chase Avalos MD ; Jsoie Arroyo MD
[2018-09-18] MEDS: Sod Chloride 0.9% Inj 1,000 ML IV.CONT SCH (15:29)
== END 2018-09-18 17:12 | disposition hospice, home (50) ==
LOC: NEDA 22:49 → NEPE 22:49 → NEPHCDU 09-11 11:43
PROVIDERS: ADMIT Family Medicine; ATTEND Family Medicine